=== PATIENT | male | born 1945 | race Caucasian/White ===

== ENCOUNTER → 2017-10-02 12:12 | Outpatient (POV) | payer MEDICARE, SELFPAY | PROVIDERS: Family Provider Family Medicine; Visit Provider Podiatrist | DX: Z00.00 Encounter for general adult medical examination without abnormal findings (principal) ==

== ENCOUNTER → 2018-01-14 09:29 | Outpatient (POV) | payer MEDICARE, SELFPAY | PROVIDERS: Visit Provider Podiatrist | DX: Z00.00 Encounter for general adult medical examination without abnormal findings (principal) ==

== ENCOUNTER 2019-01-16 18:22 | Observation (INO) ==
--- NOTE | 2019-01-16 19:39 | Emergency Department Note ---
ED Disposition Clinical Impression: Dehydration, Generalized weakness, Acute kidney injury (nontraumatic) Nausea & vomiting Qualifiers: Vomiting type: unspecified Vomiting Intractability: unspecified Qualified Code(s): R11.2 - Nausea with vomiting, unspecified Abdominal pain Qualifiers: Abdominal location: generalized Qualified Code(s): R10.84 - Generalized abdomi nal pain Disposition: Admitted as Observation Condition on Discharge: Fair Time of Disposition: 20:34 - Critical Care Critical Care Time: No Attestation: On 01/16/19, the high probability of a clinically significant, sudden or life threatening deterioration of the following system(s) required my full and direct attention, intervention and personal management. The time I documented below is in addition to time spent performing reported procedures but includes the following listed in this critical care notation. Medical Decision Making - Medical Records Medical records reviewed: Yes: I reviewed the patient's medical records. - [place] Inquiry Pt receiving controlled substance: No Vital Signs: 01/16/19 18:28 Temperature 98.7 F Temperature Source Oral Pulse Rate [Right] 84 Respiratory Rate 18 Blood Pressure [Right Arm] 146/57 H Blood Pressure Mean [Right Arm] 86 Blood Pressure Source [Right Arm] Automatic Cuff Blood Pressure Position [Right Arm] Sitting 02 Sat by Pulse Oximetry 97 Oxygen Delivery Method Room Air - Lab Data Lab results reviewed: Yes: I reviewed the patient's lab results. Lab Results 01/16/19 19:30: Urine Color Yellow, Urine Appearance Clear, Urine pH 5.0, Ur Specific [place] >= 1.030, Urine Protein Negative, Urine Glucose (UA) Negative, Urine Ketones Negative, Urine Blood Trace-i, Urine Nitrate Negative, Urine Bilirubin Negative, Urine Urobilinogen 0.2, Ur Leukocyte Esterase Negative, Urine RBC 3-5, Amorphous Sediment Trace 01/16/19 19:30: WBC 6.0, RBC 3.63 L, Hgb 8.5 L, Hct 29.5 L, MCV 81.3, MCH 23.4 L , MCHC 28.7 L, RDW 17.3, Plt Count 260, MPV 7.6, Neut % (Auto) 65.4, Lymph % (Auto) 26.3, [place] % (Auto) 7.2, Eos % (Auto) 1.0, Baso % (Auto) 0.1, Neut # (Auto) 3.9, Lymph # (Auto) 1.6, [place] # (Auto) 0.4, Eos # (Auto) 0.1, Baso # (Auto) 0.0, ESR 58 H 01/16/19 19:30: Sodium 138, Potassium 3.8, Chloride 100, Carbon Dioxide 29, Anion Gap 12.8, BUN 57 H D, Creatinine 2.50 H D, Estimated Creat Clear 47, Estimated GFR 25 L, Est GFR ( Amer) 31 L, Glucose 128 H, Calcium 8.5, Total Bilirubin 0.4, AST 22, ALT 15 D, Alkaline Phosphatase 74, Troponin I 0.21 H, C-Reactive Protein 2.9 H, Total Protein 7.7, Albumin 3.2 L, Globulin 4.5 H, Albumin/Globulin Ratio 0.7 L, Amylase 44, Lipase 193 Result diagrams: 01/16/19 19:30 01/16/19 19:30 Orders (Tests/Meds): ED MEDICATIONS Generic Name Dose Route Start Last Admin Trade Name Freq PRN Reason Stop Dose Admin Sodium Chloride 1,000 mls @ 999 mls/hr 01/16/19 19:00 01/16/19 19:16 Sod Chlor 0.9% 1000ml Bag IV 01/16/19 20:00 999 mls/hr .Q1H1M TIA Administration Discontinued Medications Generic Name Dose Route Start Last Admin Trade Name Freq PRN Reason Stop Dose Admin Ondansetron HCl 4 mg 01/16/19 19:44 01/16/19 19:49 Zofran 4mg/2ml Vial IV 01/16/19 19:45 4 mg ONCE ONE Administration Ondansetron HCl 4 mg 01/16/19 19:45 Zofran 4mg/2ml Vial IV 01/16/19 19:46 ONCE ONE ORDERS Category Date Time Status KUB (single view) [XR KUB] Stat Exams 01/16/19 19:39 Taken Amylase Stat Lab 01/16/19 20:25 Ordered Diarrhea 6-11 Panel, Cdiff PCR Stat Lab 01/16/19 18:52 Ordered Lactic Acid Stat Lab 01/16/19 20:25 Ordered Lactic Acid Stat Lab 01/16/19 20:26 Ordered Lipase Stat Lab 01/16/19 20:25 Ordered Troponin I Q3H Lab 01/16/19 22:15 Ordered Troponin I Q3H Lab 01/17/19 01:15 Ordered Blood Culture Stat Micro 01/16/19 20:26 Ordered Blood Culture Stat Micro 01/16/19 20:30 Ordered - ECG Data Tracing #1 EKG done at 1919 hrs. shows normal sinus rhythm with a heart rate of 95 bpm, normal P waves, normal AL interval, normal axis, nonspecific ST-T changes. No other acute finding. - Physician Consults Physician Consulted: Dr. Langley Time: 20:10 Reason -: Admission Comment/Response: Discussed with the hospitalist, Dr. Langley, regarding the patient and plan to get the patient admitted to the floor. - Reevaluation(s) Time: 20:15 Reevaluation #1: Patient has been stable throughout the course of stay in the ER. Plan to discuss the case with the primary care, in order to admit the patient for generalized weakness and acute kidney injury. General Adult HPI - General Chief complaint: Nausea/Vomiting/Diarrhea Stated complaint: weakness Time Seen by Provider: 01/16/19 19:30 Mode of Arrival: Wheelchair Limitations: No Limitations Description of Symptoms (Recalled from ER Triage Doc. by RN): Patient reports he was seen in the ED jono night for congestion, vomiting, diarrhea and his symptoms are not improving. Generalized weakness. - History of Present Illness HPI narrative: 73-year-old male presents to the emergency department with chief complaint of having nausea vomiting and diarrhea. He had a nausea vomiting and diarrheal episode 4 days ago. He had come to the emergency department 3 nights ago. He was started on Flagyl and ciprofloxacin. He states he has not been feeling better and still feels very weak. He is not able to ambulate well. Still not able to eat or drink much. He is still having diarrheal episode. Feels nauseated but has not vomited much. No history of fever or chills. - Related Data Home Medications Medication Instructions Recorded Confirmed acyclovir 800 mg tablet PO 90 Days 08/25/17 09/09/18 blood sugar diagnostic strips See Dose Instructions .ROUTE 08/25/17 09/09/18 .MEDSUPPLY 90 Days each glipizide 10 mg tablet PO 90 Days 08/25/17 09/09/18 hydrochlorothiazide 25 mg tablet PO 90 Days 08/25/17 09/09/18 insulin degludec (U-200) 200 SUB-Q 90 Days 08/25/17 09/09/18 unit/mL (3 mL) subcutaneous pen lisinopril 40 mg tablet PO 90 Days 08/25/17 09/09/18 omeprazole 20 mg capsule,delayed PO 90 Days 08/25/17 09/09/18 release pen needle, diabetic 32 gauge x See Dose Instructions .ROUTE 08/25/17 09/09/18 1/6" .MEDSUPPLY 90 Days each pioglitazone 45 mg tablet PO 90 Days 08/25/17 09/09/18 insulin degludec (U-200) 200 SQ 90 Days ml 02/25/18 09/09/18 unit/mL (3 mL) subcutaneous pen atorvastatin 10 mg tablet 10 mg PO tab 09/09/18 09/09/18 furosemide 40 mg tablet 40 mg PO tab 09/09/18 09/09/18 Previous Rx's Medication Instructions Recorded Ciprofloxacin HCl [Ciprofloxacin 500 mg PO BID 7 Days #14 tab 01/14/19 500mg Tab] Ondansetron [Zofran 4mg ODT] 4 mg PO Q4H PRN #10 tab.rapdis 01/14/19 metroNIDAZOLE [Flagyl 500mg 500 mg PO TID 7 Days #21 tab 01/14/19 Tablet] Allergies Allergy/AdvReac Type Severity Reaction Status Date / Time ampicillin [From Unasyn] Allergy Severe S-SWELLS-OR Verified 09/09/18 12:51 AL/THROAT sulbactam [From Unasyn] Allergy Severe S-SWELLS-OR Verified 09/09/18 12:51 AL/THROAT [facility] History - Hepatitis A Screen Drug use history?: No High risk sexual behaviors?: No History of sexually transmitted infection?: No Currently employed?: No Childcare worker?: No Do you have indoor plumbing?: Yes Do you have electricity?: Yes Attestation statement:: This patient has been screened for Hepatitis A risk factors. Medical History: Reports:: Aneurysm, Cancer (PROSTATE), Diabetes Mellitus Type 2, Gastroesophageal Reflux Disease(GERD), Hyperlipidemia, Hypertension Other Medical History: Reports: Arthritis Other Surgeries: Yes: Colonoscopy, Sinus Surgery Comment: Aneurysm surgery 2014 - Social History Smoking Status: Former smoker Tobacco Type: cigarettes Alcohol Intake: never Alcohol Intake Frequency:: other Occupational Status: retired Family Hx:: No significant family history ROS Obtained: Yes All systems reviewed & no additional complaints Physical Exam - General General appearance: alert, in no apparent distress, other (Complains of feeling weak.) - Head Head exam: atraumatic, normocephalic, normal inspection - Eye Eye exam: Present: normal appearance, PERRL, EOMI - ENT ENT exam: Present: normal exam, normal oropharynx, mucous membranes moist, normal external ear exam - Neck Neck exam: Present: normal inspection, full ROM, trachea midline - Chest Chest inspection: Present: normal inspection, symmetric chest wall rise. Absent: tenderness - Respiratory Respiratory exam: Present: normal lung sounds bilaterally. Absent: respiratory distress - Cardiovascular Cardiovascular exam: Present: regular rate, normal rhythm. Absent: JVD - Abdominal Exam Abdominal exam: Present: soft, distention, hyperactive bowel sounds. Absent: tenderness, guarding - Extremities Exam Extremities exam: Present: normal inspection, full ROM, normal capillary refill. Absent: calf tenderness - Back Exam Back exam: Present: normal inspection. Absent: tenderness - Neurological Exam Neurological exam: Present: alert, oriented X3, CN II-XII intact - Psychiatric Psychiatric exam: Present: normal affect, normal mood. Absent: depressed - Skin Skin exam: Present: warm, dry, intact, normal color
[2019-01-16 19:42] LABS: Basophils % 0.1 % (0.1-2.0); Eosinophils # 0.1 K/mm3 (0.0-0.4); Hemoglobin 8.5 g/dL (14.1-18.0); Lymphocytes # 1.6 K/mm3 (0.7-4.5); Lymphocytes % 26.3 % (10-50); Mean Corpuscular HGB Conc 28.7 g/dL (31.8-35.4); Mean Corpuscular Volume 81.3 fl (80-94); Mean Platelet Volume 7.6 fl (7.4-10.4); Microscopic, Urine URINE MICROSCOPIC (MICROSCOPIC); Monocytes # 0.4 K/mm3 (0.1-1.0); Monocytes % 7.2 % (1.7-9.3); Neutrophils # 3.9 K/mm3 (1.8-7.8); Neutrophils % 65.4 % (37.0-80.0); Platelet Count 260 K/mm3 (142-424); Red Blood Count 3.63 M/mm3 (4.60-6.20); Red Cell Distribution Width 17.3 % (11.5-17.5)
[2019-01-16 19:44] LABS: Hematocrit 29.5 % (42.0-52.0)
[2019-01-16 19:57] LABS: Appearance,Urine CLEAR (Clear); Bilirubin,Urine Negative (Negative); Blood, Urine TRACE-I (Negative); Color,Urine YELLOW (Yellow); Glucose,Urine (UA) Negative (Negative); Ketones,Urine Negative (Negative); Leukocyte Esterase,Urine Negative (Negative); Protein,Urine Negative (Negative); Specific Gravity, Urine >= 1.030 (1.005-1.030); Urobilinogen,Urine 0.2 EU/dl (0.2)
[2019-01-16 19:58] LABS: Albumin Level 3.2 gm/dL (3.4-5.0); Albumin/Globulin Ratio 0.7 (1.1-1.8); Anion Gap 12.8 mEq/L (5-15); Bilirubin,Total 0.4 mg/dL (0.2-1.0); C-Reactive Protein 2.9 mg/dL (0.0-0.9); Calcium 8.5 mg/dL (8.5-10.1); Globulin 4.5 gm/dl (1.3-3.2); Total Protein,Serum 7.7 gm/dL (6.4-8.2)
[2019-01-16 20:01] LABS: Amorphous Sediment,Urine Trace /lpf
[2019-01-16 20:11] LABS: Erythrocyte Sedimentation Rate 58 mm/hr (0-20)
[2019-01-16 20:45] LABS: Amylase 42 U/L (25-115)
[2019-01-17 06:37] LABS: Basophils % 0.3 % (0.1-2.0); Eosinophils # 0.1 K/mm3 (0.0-0.4); Eosinophils % 2.1 % (0.1-12.0); Hematocrit 27.3 % (42.0-52.0); Hemoglobin 8.5 g/dL (14.1-18.0); Lymphocytes # 1.2 K/mm3 (0.7-4.5); Lymphocytes % 21.1 % (10-50); Mean Corpuscular HGB Conc 31.3 g/dL (31.8-35.4); Mean Platelet Volume 7.4 fl (7.4-10.4); Monocytes # 0.5 K/mm3 (0.1-1.0); Monocytes % 9.1 % (1.7-9.3); Neutrophils # 3.8 K/mm3 (1.8-7.8); Neutrophils % 67.4 % (37.0-80.0); Platelet Count 213 K/mm3 (142-424); Red Blood Count 3.42 M/mm3 (4.60-6.20); Red Cell Distribution Width 17.5 % (11.5-17.5); White Blood Count 5.7 K/mm3 (4.8-10.8)
[2019-01-17 06:39] LABS: Anion Gap 11.6 mEq/L (5-15)
--- NOTE | 2019-01-17 07:28 | Pharmacy Consult Notes ---
[facility] Pharmacy VTE Monitoring - Patient Demographics Admission date: 01/16/19 Report Date: 01/17/19 Time: 07:28 Allergies/Adverse Reactions: Patient Allergies ampicillin [From Unasyn] Allergy (Severe, Verified 09/09/18 12:51) [id number]/THROAT sulbactam [From Unasyn] Allergy (Severe, Verified 09/09/18 12:51) [id number]/THROAT Height: 1.83 m Weight: 131.74 kg Patient Problems: Current Active Problems Abdominal pain (Acute) Dehydration (Acute) Generalized weakness (Acute) Nausea & vomiting (Acute) Acute kidney injury (nontraumatic) (Acute) - VTE Risk Labs: VTE Related Lab Results Hgb 8.5 g/dL (14.1-18.0) L 01/17/19 06:18 Hct 27.3 % (42.0-52.0) L 01/17/19 06:18 Plt Count 213 K/mm3 (142-424) 01/17/19 06:18 BUN 51 mg/dL (7-18) H 01/17/19 06:18 Creatinine 2.31 mg/dL (0.70-1.30) H 01/17/19 06:18 Estimated Creat Clear 53 mL/min (50-200) 01/17/19 06:18 VTE Score: 6 VTE Risk Level: Moderate Risk - Prophylaxis VTE Prophylaxis Ordered?: Yes Types of VTE Prophylaxis: TEDS Knee High Location of Applied Device: Bilateral Lower Extremeties - VTE Diagnosis Confirmed Treatment or plan recommended: Continue Current Treatment
--- NOTE | 2019-01-17 07:55 | History & Physical Report ---
*Admission Date: 01/16/19 *Chief complaint: Weakness, vomiting, diarrhea *History of present illness: 73-year-old male with diabetes and hypertension presented to the emergency department with 4 days of vomiting and diarrhea. Illness had left him so weak that he had fallen and was unable to get up off the floor for approximately 6 hours. He had contacted his sister who lives close by and after she came to see him she called 911. Patient was brought to the emergency department for evaluation. He was found to have some mild acute kidney injury and appeared dehydrated. Patient was admitted for IV fluids and antiemetics. This morning he has tolerated his breakfast without nausea or vomiting. He denies fevers, chills. He denies chest pain or shortness of breath. He denies blood in his stool. [facility] History I have reviewed the patient's past medical history: Yes Medical History: Reports:: Aneurysm, Cancer (PROSTATE), Diabetes Mellitus Type 2, Gastroesophageal Reflux Disease(GERD), Hyperlipidemia, Hypertension *Have you ever received a pneumonia vaccine?: Yes *Have you received a flu vaccine this season?: Yes Other Medical History: Reports: Arthritis Other Surgeries: Yes: Colonoscopy, Sinus Surgery - *Social History Educational Level: Completed High School Smoking Status: Former smoker Tobacco Type: cigarettes Alcohol Intake: never Alcohol Intake Frequency:: other *Occupational Status:: retired *Travel in the last 8 weeks: None Family Hx:: No significant family history Review of Systems - Constitutional Reports body ache(s), Denies anorexia, Denies chills, Denies fever(s) - *Cardiovascular Denies chest pain - *Respiratory Denies change in phlegm color, Denies chest congestion, Denies cough - *Gastrointestinal Reports bloating, Reports change in bowel habits, Reports loose stools, Reports nausea, Reports vomiting, Denies abdominal pain - *Genitourinary Denies difficulty urinating Meds Home Medications Medication Instructions Recorded Confirmed Type hydrochlorothiazide 25 mg tablet 25 mg PO DAILY 90 Days 08/25/17 01/16/19 History lisinopril 40 mg tablet 40 mg PO BID 90 Days 08/25/17 01/16/19 History omeprazole 20 mg capsule,delayed 20 mg PO DAILY 90 Days 08/25/17 01/16/19 History release pioglitazone 45 mg tablet 45 mg PO HS 90 Days 08/25/17 01/16/19 History insulin degludec (U-200) 200 30 units SQ DAILY 90 Days ml 02/25/18 01/16/19 History unit/mL (3 mL) subcutaneous pen atorvastatin 10 mg tablet 10 mg PO DAILY tab 09/09/18 01/16/19 History Ondansetron [Zofran 4mg ODT] 4 mg PO Q4H PRN #10 tab.rapdis 01/14/19 01/16/19 Rx Aspirin [Aspirin 81mg EC Tab] 81 mg PO DAILY 01/16/19 01/16/19 History Ciprofloxacin HCl [Ciprofloxacin 500 mg PO BID 01/16/19 01/16/19 History 500mg Tab] Furosemide [Furosemide 20mg Tab] 20 mg PO BID 01/16/19 01/16/19 History glipiZIDE [Glipizide] 5 mg PO DAILY 01/16/19 01/16/19 History metroNIDAZOLE [Flagyl 500mg 500 mg PO TID 01/16/19 01/16/19 History Tablet] Allergies Allergy/AdvReac Type Severity Reaction Status Date / Time ampicillin [From Unasyn] Allergy Severe S-SWELLS-OR Verified 09/09/18 12:51 AL/THROAT sulbactam [From Unasyn] Allergy Severe S-SWELLS-OR Verified 09/09/18 12:51 AL/THROAT Exam Vital signs and Labs for Last 24 Hours: Temp Pulse Resp BP Pulse Ox 98.7 F 97 H 20 136/61 90 L 01/17/19 04:00 01/17/19 04:00 01/17/19 04:00 01/17/19 04:00 01/17/19 04:00 Laboratory Results - last 24 hr 01/16/19 19:30: Urine Color Yellow, Urine Appearance Clear, Urine pH 5.0, Ur Specific [place] >= 1.030, Urine Protein Negative, Urine Glucose (UA) Negative, Urine Ketones Negative, Urine Blood Trace-i, Urine Nitrate Negative, Urine Bilirubin Negative, Urine Urobilinogen 0.2, Ur Leukocyte Esterase Negative, Urine RBC 3-5, Amorphous Sediment Trace 01/16/19 19:30: WBC 6.0, RBC 3.63 L, Hgb 8.5 L, Hct 29.5 L, MCV 81.3, MCH 23.4 L , MCHC 28.7 L, RDW 17.3, Plt Count 260, MPV 7.6, Neut % (Auto) 65.4, Lymph % (Auto) 26.3, [place] % (Auto) 7.2, Eos % (Auto) 1.0, Baso % (Auto) 0.1, Neut # (Auto) 3.9, Lymph # (Auto) 1.6, [place] # (Auto) 0.4, Eos # (Auto) 0.1, Baso # (Auto) 0.0, ESR 58 H 01/16/19 19:30: Sodium 138, Potassium 3.8, Chloride 100, Carbon Dioxide 29, Anion Gap 12.8, BUN 57 H D, Creatinine 2.50 H D, Estimated Creat Clear 47, Estimated GFR 25 L, Est GFR ( Amer) 31 L, Glucose 128 H, Calcium 8.5, Total Bilirubin 0.4, AST 22, ALT 15 D, Alkaline Phosphatase 74, Troponin I 0.21 H, C-Reactive Protein 2.9 H, Total Protein 7.7, Albumin 3.2 L, Globulin 4.5 H, Albumin/Globulin Ratio 0.7 L, Amylase 44, Lipase 193 01/16/19 19:30: Amylase 42, Lipase 192 01/16/19 21:00: Lactate 1.0 01/16/19 23:57: POC Glucose 196 H 01/17/19 01:35: Troponin I 0.14 H 01/17/19 05:27: POC Glucose 169 H 01/17/19 06:18: WBC 5.7, RBC 3.42 L, Hgb 8.5 L, Hct 27.3 L, MCV 80.0, MCH 25.0 L , MCHC 31.3 L, RDW 17.5, Plt Count 213, MPV 7.4, Neut % (Auto) 67.4, Lymph % (Auto) 21.1, [place] % (Auto) 9.1, Eos % (Auto) 2.1, Baso % (Auto) 0.3, Neut # (Auto) 3.8, Lymph # (Auto) 1.2, [place] # (Auto) 0.5, Eos # (Auto) 0.1, Baso # (Auto) 0.0 01/17/19 06:18: Sodium 137, Potassium 3.6, Chloride 100, Carbon Dioxide 29, Anion Gap 11.6, BUN 51 H, Creatinine 2.31 H, Estimated Creat Clear 53, Estimated GFR 28 L, Est GFR ( Amer) 34 L, Glucose 156 H D, Calcium 8.0 L I & O for Last 24 hours: Intake & Output 01/14/19 01/15/19 01/16/19 01/17/19 11:59 11:59 11:59 11:59 Intake Total 1198 / 1198 Output Total 700 / 700 Balance 498 / 498 Weight 290 lb 7 oz Narrative: Patient is sitting in chair this morning and shows no signs of any acute distress or illness. Oropharynx reveals tacky mucous membranes. Neck is without lymphadenopathy. Lungs are distant but clear. Heart has a regular rate and rhythm. Abdomen is obese, soft, nontender and nondistended with active bowel sounds. Patient has 2+ edema of the lower extremities. He has no neurologic deficit Assessment and Plan (1) Gastroenteritis Current visit: Yes Status: Acute Category: Medical Code(s): K52.9 - Noninfective gastroenteritis and colitis, unspecified (2) Essential hypertension Current visit: Yes Status: Acute Category: Medical Code(s): I10 - Essential (primary) hypertension (3) Acute kidney injury (nontraumatic) Current visit: Yes Status: Acute Category: Medical Code(s): N17.9 - Acute kidney failure, unspecified (4) Dehydration Current visit: Yes Status: Acute Category: Medical Code(s): E86.0 - Dehydration (5) Generalized weakness Current visit: Yes Status: Acute Category: Medical Code(s): R53.1 - Weakness (6) Diabetes mellitus with diabetic polyneuropathy Current visit: No Status: Acute Qualifiers: Category: Medical Code(s): E11.42 - Type 2 diabetes mellitus with diabetic polyneuropathy - Assessment and plan all Dx Assessment and Plan for all problems:: Patient is already showing signs of improvement at he has tolerated a full breakfast so far. He still remains weak from his dehydration and acute kidney injury. Change IV fluids to normal saline at 125 mL's an hour. Hold his lisinopril, hydrochlorothiazide and sulfonylurea. PT eval today.
[2019-01-17 13:48] LABS: Ferritin 16 ng/mL (8-388); Lactate Dehydrogenase 217 U/L (82-234)
[2019-01-17 15:08] LABS: Reticulocyte % (Auto) 2.1 % (0.9-3.2)
--- OUTSIDE RECORDS SUMMARY | 2019-01-17 15:22 | External Medical Summary | Continuity of Care Document ---
:1945 Author Organization [facility] Address [address] [facility] [address] [place] [address] Phone Care Team Providers Name Role Phone Dirk Primary Care Provider Dirk Attending Provider Jenise Langley Attending Provider Allergies, Adverse Reactions, Alerts Allergen Type Severity Reaction Last Verified Status Updated ampicillin Allergy Severe C-[id number] Yes Active L/THROAT sulbactam Allergy Severe [id number] Yes Active L/THROAT Medications Medication Status Dose Units Route Sig Qty Days Start End Instruct ions Date Date Atorvastatin Active 10 MG Oral Daily September 12:51pm Lisinopril Active 40 MG Oral Twice a August 10:13am Hydrochlorothia Active 25 MG Oral Daily August 10:13am Omeprazole Active 20 MG Oral Daily August 25, 2017 10:14am Pioglitazone Active 45 MG Oral At August bedtime ly 2017 10:14am Insulin Active 30 UNITS SUBCUTANE Daily February Degde OU2018 11:31am Aspirin Active 81 MG Oral Daily January 16, 2019 8:36pm Metronidazole Active 500 MG Oral Three Juice times a 2018 day 8:36pm Ciprofloxacin Active 500 MG Oral Twice a January 8:37pm Furosemide Active 20 MG Oral Twice a January 11:13pm Glipizide Active 5 MG Oral Every January report s only evening 2018 taking h halfway 11:13pm of tab once a day. Glipizide Active 10 MG Oral Daily January 17, 2019 10:25am Ondansetron Active 4 MG Oral Q4H 10 January 14, 2019 8:07pm Problems Active Problems Medical Problem Onset Date Status Nausea vomiting and diarrhea Active Onychodystrophy Active Onychomycosis Active Essential hypertension Active Enteritis Active Gastroenteritis Active Diabetes mellitus with diabetic Active polyneuropathy Renal insufficiency Active Generalized weakness Active Acute kidney injury (nontraumatic) Activ e Nausea & vomiting Active Abdominal pain Active Dehydration Active Procedures Procedure Date Performed Status CT abdomen pelvis wo con January 14, 2019 completed Blood Culture January 14, 2019 active XR KUB January 16, 2019 completed XR chest 2V January 17, 2019 completed ECG initial Esteban January 16, 2019 completed Blood Culture January 16, 2019 active Relevant Diagnostic Tests and/or Laboratory Data Laboratory Results Test Date/Time Result Interpretation Reference Result Comment Performing Range Site White Blood January 8.0 K/mm3 4.8-10.8 [facility], [address] [place] [address] 36 E Count 2018 [place] [address] 5:36pm White Blood January 5.7 K/mm3 4.8-10.8 [facility], [address] [place] [address] 36 E Count 2018 [place] [address] 6:18am Red Blood January 4.19 M/mm3 4.60-6.20 [facility], [address] [place] [address] 36 E Count 2018 [place] [address] 5:36pm Red Blood January 3.42 M/mm3 4.60-6.20 [facility], [address] [place] [address] 36 E Count 2018 [place] [address] 6:18am Hemoglobin January 10.1 g/dL 14.1-18.[address] 36 [address] 2018 [place] [address] 5:36pm Hemoglobin January 8.5 g/dL 14.1-18.0 [facility], [address] [place] [address] 36 E 2018 [place] [address] 6:18am Hematocrit Juice 33.9 % 42.0-52.[address] 36 E 2018 [place] [address] 5:36pm Hematocrit Juice 27.3 % 42.0-52.0 [facility], [address] [place] [address] 36 E 2018 [place] [address] 6:18am Mean Juice 80.9 fl 80-94 [facility], [address] [place] [address] E Corpuscular 2018 [place] [address] Volume 5:36pm Mean Juice 80.0 fl 80-94 [facility], [address] [place] [address] E Corpuscular 2018 [place] [address] Volume 6:18am Mean Juice 24.1 pg 27.0-31.2 [facility], [address] [place] [address] E Corpuscular 2018 [place] [address] Hemoglobin 5:36pm Mean Juice 25.0 pg 27.0-31.2 [facility], [address] [place] [address] E Corpuscular 2018 [place] [address] Hemoglobin 6:18am Mean January 29.7 g/dL 31.8-35.4 [facility], [address] [place] [address] E Corpuscular 2018 [place] [address] Hemoglobin 5:36pm Concent Mean Juice 31.3 g/dL 31.8-35.4 [facility], [address] [place] [address] E Corpuscular 2018 [place] [address] Hemoglobin 6:18am Concent Red Cell Ujice 17.2 % 11.5-17.5 [facility], [address] [place] [address] E Distribution 2018 [place] [address] Width 5:36pm Red Cell Juice 17.5 % 11.5-17.5 [facility], [address] [place] [address] E Distribution 2018 [place] [address] Width 6:18am Platelet Juice 290 K/mm3 142-424 [facility], [address] [place] [address] E Count 2018 [place] [address] 5:36pm Platelet Juice 213 K/mm3 142-424 [facility], [address] [place] [address] 36 E Count 2018 [place] [address] 6:18am Mean Platelet Juice 8.3 fl 7.4-10.4 [facility], [address] [place] [address] 36 E Volume 2018 [place] [address] 5:36pm Mean Platelet January 7.4 fl 7.4-10.4 [facility], [address] [place] [address] 36 E Volume 2018 [place] [address] 6:18am Neutrophils Juice 92.3 % 37.0-80.0 [facility], [address] [place] [address] 36 E (%) (Auto) 2018 [place] [address] 5:36pm Neutrophils Juice 67.4 % 37.0-80.0 [facility], [address] [place] [address] 36 E (%) (Auto) 2018 [place] [address] 6:18am Lymphocytes Juice 3.9 % -[address] 36 E (%) (Auto) 2018 [place] [address] 5:36pm Lymphocytes Juice 21.1 % -[address] 36 E (%) (Auto) 2018 [place] [address] 6:18am Monocytes (%) Juice 3.3 % 1.7-9.3 [facility], [address] [place] [address] 36 E (Auto) 2018 [place] [address] 5:36pm Monocytes (%) Juice 9.1 % 1.7-9.[address] 36 E (Auto) 2018 [place] [address] 6:18am Eosinophils Juice 0.4 % 0.1-12.[address] 36 E (%) (Auto) 2018 [place] [address] 5:36pm Eosinophils Juice 2.1 % 0.1-12.[address] 36 E (%) (Auto) 2018 [place] [address] 6:18am Basophils (%) Juice 0.2 % 0.1-2.[address] 36 E (Auto) 2018 [place] [address] 5:36pm Basophils (%) Juice 0.3 % 0.1-2.[address] 36 E (Auto) 2018 [place] [address] 6:18am Neutrophils # Juice 7.4 K/mm3 1.8-7.8 [facility], [address] [place] [address] 36 E (Auto) 2018 [place] [address] 5:36pm Neutrophils # Juice 3.8 K/mm3 1.8-7.8 [facility], [address] [place] [address] 36 E (Auto) 2018 [place] [address] 6:18am Lymphocytes # Juice 0.3 K/mm3 0.7-4.5 [facility], [address] [place] [address] 36 E (Auto) 2018 [place] [address] 5:36pm Lymphocytes # Juice 1.2 K/mm3 0.7-4.5 [facility], [address] [place] [address] E (Auto) 2018 [place] [address] 6:18am Monocytes # Juice 0.3 K/mm3 0.1-1.0 [facility], [address] [place] [address] E (Auto) 2018 [place] [address] 5:36pm Monocytes # Juice 0.5 K/mm3 0.1-1.0 [facility], [address] [place] [address] 36 E (Auto) 2018 [place] [address] 6:18am Eosinophils # Juice 0.0 K/mm3 0.0-0.4 [facility], [address] [place] [address] 36 E (Auto) 2018 [place] [address] 5:36pm Eosinophils # Juice 0.1 K/mm3 0.0-0.4 [facility], [address] [place] [address] 36 E (Auto) 2018 [place] [address] 6:18am Basophils # Juice 0.0 K/mm3 0-0.2 [facility], [address] [place] [address] 36 E (Auto) 2018 [place] [address] 5:36pm Basophils # Juice 0.0 K/mm3 0-0.2 [facility], [address] [place] [address] 36 E (Auto) 2018 [place] [address] 6:18am Differential Juice 100 [facility], [address] [place] [address] 36 E Total Cells 2018 [place] [address] Counted 5:36pm Neutrophils % Juice 91 % 42-76 [facility], [address] [place] [address] 36 E (Manual) 2018 [place] [address] 5:36pm Band Juice 3.0 0-8 [facility], [address] [place] [address] 36 E Neutrophils % 2018 [place] [address] 5:36pm Lymphocytes % Juice 4 % 10-50 [facility], [address] [place] [address] 36 E (Manual) 2018 [place] [address] 5:36pm Monocytes % Juice 1 % 2-9 [facility], [address] [place] [address] 36 E (Manual) 2018 [place] [address] 5:36pm Metamyelocyte Juice 1.0 0-1 [facility], [address] [place] [address] 36 E s % 2018 [place] [address] 5:36pm Platelet Juice Normal [facility], [address] [place] [address] 36 E Estimate 2018 [place] [address] 5:36pm Red Blood Juice Normal [facility], [address] [place] [address] 36 E Cell 2018 [place] [address] Morphology 5:36pm Erythrocyte Juice 58 mm/hr 0-20 [facility], [address] [place] [address] 36 E Sedimentation 2018 [place] [address] Rate 7:30pm Reticulocyte Juice 2.1 % 0.9-3.2 [facility], [address] [place] [address] 36 E Count (auto) 2018 [place] [address] 6:18am Urine Color Juice Yellow Yellow [facility], [address] [place] [address] 36 E 2018 [place] [address] 5:13pm Urine Color Juice Yellow Yellow [facility], [address] [place] [address] 36 E 2018 [place] [address] 7:30pm Urine Juice Clear Clear [facility], [address] [place] [address] 36 E Appearance 2018 [place] [address] 5:13pm Urine Juice Clear Clear [facility], [address] [place] [address] 36 E Appearance 2018 [place] [address] 7:30pm Urine pH Juice 5.0 5.0-8.5 [facility], [address] [place] [address] 36 E 2018 [place] [address] 5:13pm Urine pH Juice 5.0 5.0-8.5 [facility], [address] [place] [address] 36 E 2018 [place] [address] 7:30pm Urine Juice >= 1.030 1.005-1.03 [facility], [address] [place] [address] 36 E Specific 2018 0 [place] [address] [place] 5:13pm Urine Juice >= 1.030 1.005-1.03 [facility], [address] [place] [address] 36 E Specific 2018 0 [place] [address] [place] 7:30pm Urine Protein Juice Negative Negative [facility], [address] [place] [address] 36 E 2018 [place] [address] 5:13pm Urine Protein Juice Negative Negative [facility], [address] [place] [address] 36 E 2018 [place] [address] 7:30pm Urine Glucose Juice Negative Negative [facility], [address] [place] [address] 36 E (UA) 2018 [place] [address] 5:13pm Urine Glucose Juice Negative Negative [facility], [address] [place] [address] 36 E (UA) 2018 [place] [address] 7:30pm Urine Ketones Juice Negative Negative [facility], [address] [place] [address] 36 E 2018 [place] [address] 5:13pm Urine Ketones Juice Negative Negative [facility], [address] [place] [address] 36 E 2018 [place] [address] 7:30pm Urine Blood Juice Negative Negative [facility], [address] [place] [address] 36 E 2018 [place] [address] 5:13pm Urine Blood Juice Trace-i Negative [facility], [address] [place] [address] 36 E 2018 [place] [address] 7:30pm Urine Nitrate Juice Negative Negative [facility], [address] [place] [address] 36 E 2018 [place] [address] 5:13pm Urine Nitrate Juice Negative Negative [facility], [address] [place] [address] 36 E 2018 [place] [address] 7:30pm Urine Juice Negative Negative [facility], [address] [place] [address] 36 E Bilirubin 2018 [place] [address] 5:13pm Urine Juice Negative Negative [facility], [address] [place] [address] 36 E Bilirubin 2018 [place] [address] 7:30pm Urine Juice 0.2 EU/dl [facility], [address] [place] [address] 36 E Urobilinogen 2018 [place] [address] 5:13pm Urine Juice 0.2 EU/dl [facility], [address] [place] [address] 36 E Urobilinogen 2018 [place] [address] 7:30pm Urine Juice Negative Negative [facility], [address] [place] [address] 36 E Leukocyte 2018 [place] [address] Esterase 5:13pm Urine Juice Negative Negative [facility], [address] [place] [address] E Leukocyte 2018 [place] [address] Esterase 7:30pm Urine RBC January 3-5 #/hpf [facility], [address] [place] [address] E 2018 [place] [address] 7:30pm Urine WBC January 3-5 #/hpf [facility], [address] [place] [address] 36 E 2018 [place] [address] 5:13pm Urine Juice Occasional [facility], [address] [place] [address] E Squamous 2018 #/[place] [address] Epithelial 5:13pm Cells Urine January 1+ /lpf None [facility], [address] [place] [address] E Amorphous 2018 [place] [address] Sediment 5:13pm Urine Juice Trace /lpf None [facility], [address] [place] [address] E Amorphous 2018 [place] [address] Sediment 7:30pm Troponin I January 0.14 ng/ml 0.00-0.06 *ALERT* High [facility], [address] [place] [address] 36 E 2018 [place] [address] 1:35am Biotin can falsely depress Troponin results.Many dietary supplements promoted for hair,skin, and nail benefits contain biotin levels up to 650 times the recommended daily intake of biotin. In addition to dietary supplements, Biotin is occasionally prescribed for medical conditions.0.04 - 0.49 is an Indeterminate ZoneLevels in this range can be consistent with the following conditions:Trau ma Critically ill Patients Springer > 30%TBSACHF Hypothyroidism AmyloidosisCVA Hypertension Postop SurgeryAtrial Fib. Hypotension Vital Exhaust.Sepsis Pulmonary Embolism Renal FailureMyocardi tis Acute Neurological Disease Rhabdomyolysis Sodium Level January 140 mmol/L 136-145 [facility], [address] [place] [address] 36 E 2018 [place] [address] 5:36pm Sodium Level Juice 137 mmol/L 136-145 [facility], [address] [place] [address] 36 E 2018 [place] [address] 6:18am Potassium Juice 4.0 mmoL/L 3.5-5.1 [facility], [address] [place] [address] 36 E Level 2018 [place] [address] 5:36pm Potassium Juice 3.6 mmoL/L 3.5-5.1 [facility], [address] [place] [address] 36 E Level 2018 [place] [address] 6:18am Chloride Juice 100 mmol/L 98-107 [facility], [address] [place] [address] 36 E Level 2018 [place] [address] 5:36pm Chloride Juice 100 mmol/L 98-107 [facility], [address] [place] [address] 36 E Level 2018 [place] [address] 6:18am Carbon Juice 28 mmol/L 21.0-32.0 [facility], [address] [place] [address] 36 E Dioxide Level 2018 [place] [address] 5:36pm Carbon Juice 29 mmol/L 21.0-32.0 [facility], [address] [place] [address] 36 E Dioxide Level 2018 [place] [address] 6:18am Anion Gap January 16.0 mEq/L 06-23 [facility], [address] [place] [address] 36 E 2018 [place] [address] 5:36pm Anion Gap Juice 11.6 mEq/L 06-23 [facility], [address] [place] [address] 36 E 2018 [place] [address] 6:18am Blood Urea January 41 mg/dL 08-26 [facility], [address] [place] [address] 36 E Nitrogen 2018 [place] [address] 5:36pm Blood Urea January 51 mg/dL 08-26 [facility], [address] [place] [address] 36 E Nitrogen 2018 [place] [address] 6:18am Creatinine Juice 2.06 mg/dL 0.70-1.30 [facility], [address] [place] [address] 36 E 2018 [place] [address] 5:36pm Creatinine Juice 2.31 mg/dL 0.70-1.30 [facility] [address] [place] [address] 36 E 2018 [place] [address] 6:18am Estimated Juice 57 mL/min 0-300 [facility], [address] [place] [address] 36 E Creatinine 2018 [place] [address] Clearance 5:36pm Estimated Juice 53 mL/min 0-300 [facility], [address] [place] [address] 36 E Creatinine 2018 [place] [address] Clearance 6:18am Estimated GFR January 38 ML/MIN >59 [facility], [address] [place] [address] 36 E ( 2018 [place] [address] [place]) 5:36pm Estimated GFR January 34 ML/MIN >59 [facility], [address] [place] [address] 36 E ( 2018 [place] [address] [place]) 6:18am Estimat January 32 ml/min >59 [facility], [address] [place] [address] 36 E Glomerular 2018 [place] [address] Filtration 5:36pm Rate Estimat January 28 ml/min >59 [facility], [address] [place] [address] 36 E Glomerular 2018 [place] [address] Filtration 6:18am Rate Glucose Level January 145 mg/dL 74-106 [facility], [address] [place] [address] 36 E 2018 [place] [address] 5:36pm Glucose Level January 156 mg/dL 74-106 Delta: 128 on [facility], [address] [place] [address] 36 E 201801/16/19-0 [place] [address] 6:18am Bedside January 169 70-110 Point-of-C a Glucose 2018 re (RALS) 5:34pm Bedside January 177 70-110 Point-of-C a Glucose 2018 re (RALS) 11:28am Lactate January 1.5 mmol/L 0.4-2.0 [facility], [address] [place] [address] 36 E 2018 [place] [address] 5:36pm Lactate January 1.0 mmol/L 0.4-2.0 [facility], [address] [place] [address] 36 E 2018 [place] [address] 9:00pm Calcium Level January 8.8 mg/dL 8.5-10.1 [facility], [address] [place] [address] 36 E 2018 [place] [address] 5:36pm Calcium Level January 8.0 mg/dL 8.5-10.1 [facility], [address] [place] [address] 36 E 2018 [place] [address] 6:18am Ferritin Juice 16 ng/mL 8-388 [facility], [address] [place] [address] 36 E 2018 [place] [address] 6:18am Total Juice 0.5 mg/dL 0.2-1.0 [facility], [address] [place] [address] 36 E Bilirubin 2018 [place] [address] 5:36pm Total Juice 0.4 mg/dL 0.2-1.0 [facility], [address] [place] [address] 36 E Bilirubin 2018 [place] [address] 7:30pm Aspartate January 19 U/L 15-37 [facility], [address] [place] [address] 36 E Amino Transf 2018 [place] [address] (AST/SGOT) 5:36pm Aspartate January 22 U/L 15-37 [facility], [address] [place] [address] 36 E Amino Transf 2018 [place] [address] (AST/SGOT) 7:30pm Alanine January 11 U/L 12-78 [facility], [address] [place] [address] 36 E Aminotransfer 2018 [place] [address] ase 5:36pm (ALT/SGPT) Alanine January 15 U/L 12-78 Delta: 11 on [facility], [address] [place] [address] 36 E Aminotransfer 201801/14/19-1736 [place] [address] ase 7:30pm (ALT/SGPT) Lactate January 217 U/L 82-234 [facility], [address] [place] [address] 36 E Dehydrogenase 2018 [place] [address] 6:18am C-Reactive January 2.9 mg/dL 0.0-0.9 [facility], [address] [place] [address] 36 E Protein 2018 [place] [address] 7:30pm Total Protein January 8.7 gm/dL 6.4-8.2 [facility], [address] [place] [address] 36 E 2018 [place] [address] 5:36pm Total Protein Juice 7.7 gm/dL 6.4-8.2 [facility], [address] [place] [address] 36 E 2018 [place] [address] 7:30pm Albumin Juice 3.5 gm/dL 3.4-5.0 [facility], [address] [place] [address] 36 E 2018 [place] [address] 5:36pm Albumin Juice 3.2 gm/dL 3.4-5.0 [facility], [address] [place] [address] 36 E 2018 [place] [address] 7:30pm Globulin Juice 5.2 gm/dl 1.3-3.2 [facility], [address] [place] [address] 36 E 2018 [place] [address] 5:36pm Globulin Juice 4.5 gm/dl 1.3-3.2 [facility], [address] [place] [address] 36 E 2018 [place] [address] 7:30pm Albumin/Globu Juice 0.7 1.1-1.8 [facility], [address] [place] [address] 36 E liz Ratio 2018 [place] [address] 5:36pm Albumin/Globu Juice 0.7 1.1-1.8 [facility], [address] [place] [address] 36 E liz Ratio 2018 [place] [address] 7:30pm Alkaline Juice 95 U/L 46-116 [facility], [address] [place] [address] 36 E Phosphatase 2018 [place] [address] 5:36pm Alkaline Juice 74 U/L 46-116 [facility], [address] [place] [address] 36 E Phosphatase 2018 [place] [address] 7:30pm Amylase Level January 42 U/L 25-115 [facility], [address] [place] [address] 36 E 2018 [place] [address] 7:30pm Lipase Juice 110 u/L 73-393 [facility], [address] [place] [address] 36 E 2018 [place] [address] 5:36pm Lipase January 192 u/L 73-393 [facility], [address] [place] [address] 36 E 2018 [place] [address] 7:30pm Diagnostic Imaging Reports Report Dictated Date/Time Dictated By Status Radiology Report January 14, 2019 Rosalio Ramesh MD completed 6:48pm [facility] [address] [place] [facility] [address] [place] [id number] [address] Scan Report Sig kenisha Patient: Winston Garcia MR#: [id number] : 1945 Acct:[id number] Age/Sex: 73 / M ADM Date: 9 Loc: ER Attending Dr: Ordering Physician: Adis Tripathi MD Date of Service: 01/14/19 Procedure(s): CT abdomen pelvis wo con Accession Number(s): [id number] cc: Rosalio Ramesh MD; Adis Tripathi MD; Ben Batista MD~ PROCEDURE: CT ABDOMEN PELVIS WO CON CLINICAL INDICATION: abd pain Upper abdominal pain with nausea vomiti ng and diarrhea COMPARISON: ABDPELW CT ABD PELVIS W/ CONTRAST from 02/22/2015 TECHNIQUE: Axial images obtained with sagittal and coronal reformats. All CT scans at the facility use one or more dose reduction, viz: automated exposure cont rol, ma/kV adjustment per patient size (including targeted exams where dose is matched to indication, i.e. head), or iterative re construction technique. FINDINGS: LOWER THORAX: Coronary artery calcifica tions. Patchy ground-glass density in the right lower lobe posteri sary suggesting underlying infiltrate and/or atelectatic change. Small hiatal hernia ABDOMEN & PELVIS: The liver, spleen, ga llbladder, left adrenal gland, pancreas, and kidneys show no acute fin ding. There is a 2.5 cm right adrenal myelolipoma. No intestinal obs truction or free air. No evidence of appendicitis or diverticuli tis. There is extensive diverticulosis of the transverse, desce nding, and sigmoid colon without evidence of diverticulitis. De generative changes are present within the spine. There has been prior aortoiliac stent placement within the aorta. There is mild residu al dilatation of the abdominal aorta at 3.5 cm not significantly machuca ed. There is mild prominence of the wall of the stomach which could be due to nondistention or gastritis. There is a 3.6 cm fluid collection in t he left inguinal region consistent with a seroma. This has dec reased in size previously measuring 5.6 by 4.4 cm. IMPRESSION: 1. Right basilar atelectasis and/or inf iltrate. 2. Colonic diverticulosis. No evidence of diverticulitis. 3. Mild thickening of the wall the stom ach which could be due to gastritis or nondistention. 4. Other nonacute findings as described above. Dictated by: Rosalio Ramesh MD 01/15/2019 07:40 Electronically signed by Rosalio Ramesh in [place] 01/15/2019 07:40 Radiology Report January 16, 2019 Rosalio Ramesh MD completed 7:57pm [place] [address] [place] [facility] [address] [place] [address] XRay R eport Sig kenisha Patient: Winston Garcia MR#: [id number] : 1945 Acct:[id number] Age/Sex: 73 / M ADM Date: 9 Loc: Attending Dr: Ben Cavazos MD Ordering Physician: Tasha Cha MD Date of Service: 01/16/19 Procedure(s): XR KUB Accession Number(s): [id number] cc: Rosalio Ramesh MD; Ben Cavazos MD~ PROCEDURE: XR KUB CLINICAL INDICATION: abd. pain Nausea and vomiting COMPARISON: CT ABDOMEN PELVIS WO CON f rom 01/14/2019 FINDINGS: Unremarkable bowel gas pattern. No savannah dence of intestinal obstruction abnormal calcifications or acute bony anomalies. There has been a prior aortoiliac stent graft placed and there are prostate seed implants noted IMPRESSION: No acute findings. Dictated by: Rosalio Ramesh MD 01/17/2019 04:35 Electronically signed by Rosalio Ramesh in [place] 01/17/2019 04:35 Radiology Report January 17, 2019 Rosalio Ramesh MD completed 11:23am [facility] [address] [place] [facility] [address] [place] [address] XRay R eport Sig kenisha Patient: Winston Garcia MR#: [id number] : 1945 Acct:[id number] Age/Sex: 73 / M ADM Date: 9 Loc: Attending Dr: Ben Cavazos MD Ordering Physician: Ben Cavazos MD Date of Service: 01/17/19 Procedure(s): XR chest 2V Accession Number(s): [id number] cc: Rosalio Ramesh MD; Ben Cavazos MD~ PROCEDURE: XR CHEST 2V CLINICAL HISTORY: LOW O2 Low O2 saturation, shortness of breath COMPARISON: CXR CHEST(2 VIEWS-NOT PORT ABLE) from 12/16/2012 [facility]AC CTA-CHEST from 05/30/2013 CXR CHEST(2 VIEWS-NOT PORTABLE) from 08/09/2014 CXR1 CHEST-PORTABLE fro m 10/26/2015 CT ABDOMEN PELVIS WO CON from 9 FINDINGS: Mild cardiomegaly without failure. Patchy density right lung base consiste nt with an area of atelectasis or infiltrate. The remaining lungs are clear. There is evidence of old granulomatous disease. No acute bony abnormalities. IMPRESSION: Patchy atelectasis or infiltrate in the right lung base. Dictated by: Rosalio Ramesh MD 01/17/2019 11:41 Electronically signed by Rosalio Ramesh in [place] 01/17/2019 11:41 Chief Complaint and Reason for Visit Chief Complaint Vomiting, Weakness, Legs swe lling Acute kidney injury, weaknes s Reason for Visit Abdominal pain Acute kidney injury (nontrau matic) Dehydration Essential hypertension Gastroenteritis Generalized weakness Nausea & vomiting Encounters Encounter Location(s) Arrival/Admit Date Discharge/Depart Date Provider(s) Departed [facility] Physician January 14, 2019 January 14, 2019 [facility]Emergency 4:59pm 8:49pm Room Admitted [facility] Physician January 16, 2019 Ben Cavazos , Inpatient Group-Second 9:45pm Floor Registered [facility] Physician January 17, 2019 [facility] Inpatient [facility]- 3:16pm MD Korin Recent Diagnosis Onset Date Abdominal pain Acute kidney injury (nontraumatic) Dehydration Essential hypertension Gastroenteritis Generalized weakness Nausea & vomiting Assessments Diagnosis Onset Date Resolution Status Abdominal pain acute Acute kidney injury acute (nontraumatic) Dehydration acute Essential hypertension acute Gastroenteritis acute Generalized weakness acute Nausea & vomiting acute Functional Status Observation Response Date Recorded Oral Care Ability Independent January 16, 2019 8 :31pm Bathing Ability Independent January 16, 2019 8 :31pm Eating (Feeding) Ability Independent January 16 019 8:31pm Toileting Ability Independent January 16, 2019 8 :31pm Ambulation Ability Independent January 16, 2019 8 :31pm Goals Goals may be documented in an alternate section. Mental Status Observation Response Date Recorded Comprehension Ability No Impairment January 17, 2019 1:00pm Able to Read Yes January 16, 2019 8 :31pm Able to Write Yes January 16, 2019 8 :31pm Ability to Follow Directions Excellent January 8:31pm Eye Contact Direct Eye Contact January 16, 2019 8 :31pm Oral Expression Ability No Impairment January 16 8:31pm Medical Equipment No Medical Equipment Information available Insurance Providers Guarantor Winston Garcia Address [address] [place] [address] Contact Info. Home Phone: Payer Policy Id Coverage Id Subscriber's Subscriber Id Effective E xpiration Name Date Date [employer] [id number] Winston Garcia [id number] February 09 Medicare 2011 Self Pay Self N/A Plan of Treatment Future Tests Future scheduled test information is unavailable Pending Tests Pending diagnostic test information is unavailable Future Visits Future appointment information is unavailable Referrals to Other Providers Reason for Referral Start Provider Provider Contact Provider Address Referral Date Information Admission to [facility] January [address] Future Procedures Future procedure information is unavailable Future Medications Future medication information is unavailable Patient Instructions DI for Dehydration -- Adult DI for Abdominal Pain-Adult DI for Diarrhea and Traveler's Diarrhea -- Adult Nausea and Vomiting-Adult Dehydration Acute Abdominal Pain DI for Dehydration -- Adult DI for Abdominal Pain-Adult DI for Nausea -- Adult Nausea and Vomiting-Adult DI for Acute Kidney Injury Social History Assigned Sex Male Vital Signs Vital Reading Result Reference Range Collection Date/ Time Height 182.88 cm January 14 5:23pm Weight 127.00 kg January 14 5:23pm Body Temperature 98.3 [degF] 97.6-99.6 January 14 019 8:49pm Heart Rate 93 /min 60-90 January 14 8:49pm Respiratory rate 20 /min -January 14 019 8:49pm Oxygen saturation by 97 % 95-100 January Pulse oximetry 7:24pm BP Systolic 108 mm[Hg] 110-140 January 14 8:49pm BP Diastolic 62 mm[Hg] 60-90 January 14 8:49pm BMI (Body Mass Index) 38.0 kg/m2 January 142018 5:23pm Height 182.88 cm January 17, 6:54am Weight 131.74 kg January 17 6:54am Body Temperature 98.5 [degF] 97.6-99.6 January 17, 2 019 12:00pm Heart Rate 70 /min 60-90 January 17 12:00pm Respiratory rate 18 /min 12-January 17, 2 019 12:00pm Oxygen saturation by 96 % 95-100 January Pulse oximetry 12:00pm BP Systolic 130 mm[Hg] 110-140 January 17 12:00pm BP Diastolic 52 mm[Hg] 60-90 January 17, 12:00pm BMI (Body Mass Index) 39.4 kg/m2 January 172018 6:54am Hospital Discharge Instructions Additional Instructions Follow-up with your primary care provider on Thursday for reevaluation. Return to the emergency department immediately if symptoms are worse.
[2019-01-18 06:30] LABS: Basophils % 0.2 % (0.1-2.0); Eosinophils # 0.2 K/mm3 (0.0-0.4); Eosinophils % 4.1 % (0.1-12.0); Hematocrit 28.8 % (42.0-52.0); Hemoglobin 8.5 g/dL (14.1-18.0); Lymphocytes # 1.5 K/mm3 (0.7-4.5); Lymphocytes % 29.4 % (10-50); Mean Corpuscular HGB Conc 29.7 g/dL (31.8-35.4); Mean Corpuscular Volume 80.3 fl (80-94); Mean Platelet Volume 9.3 fl (7.4-10.4); Monocytes # 0.4 K/mm3 (0.1-1.0); Monocytes % 8.2 % (1.7-9.3); Neutrophils # 2.9 K/mm3 (1.8-7.8); Neutrophils % 58.1 % (37.0-80.0); Platelet Count 198 K/mm3 (142-424); Red Blood Count 3.59 M/mm3 (4.60-6.20); Red Cell Distribution Width 17.2 % (11.5-17.5)
[2019-01-18 06:33] LABS: Anion Gap 12.9 mEq/L (5-15); Calcium 8.2 mg/dL (8.5-10.1)
--- NOTE | 2019-01-18 07:23 | Discharge Summary ---
General - General Admission date:: 01/16/19 Discharge date: 01/18/19 HPI HPI: 73-year-old male with diabetes and hypertension presented to the emergency department with 4 days of vomiting and diarrhea. Illness had left him so weak that he had fallen and was unable to get up off the floor for approximately 6 hours. He had contacted his sister who lives close by and after she came to see him she called 911. Patient was brought to the emergency department for evaluation. He was found to have some mild acute kidney injury and appeared dehydrated. Patient was admitted for IV fluids and antiemetics. This morning he has tolerated his breakfast without nausea or vomiting. He denies fevers, chills. He denies chest pain or shortness of breath. He denies blood in his stool. Hospital Course Hospital Course: Patient was admitted for his weakness and acute kidney injury from dehydration. Patient was placed on normal saline to rehydrate the patient which was successful. Creatinine gradually came down and discharge creatinine was 2. This is still above baseline but vomiting and diarrhea had ceased. While hospitalized patient's hydrochlorothiazide and lisinopril were held. On January 18 patient was ambulating and felt well enough for discharge. Patient was discharged home and will follow-up in my office early next week. Objective Vital signs: Temp Pulse Resp BP Pulse Ox 98.6 F 64 18 157/59 H 94 L 01/18/19 04:00 01/18/19 04:00 01/18/19 04:00 01/18/19 04:00 01/18/19 04:00 no acute distress - *Routine Respiratory Exam Present: CTA bilaterally - *Routine Cardiovascular Exam Present: RRR, Normal S1, Normal S2 - *Routine Abdominal Exam Present: soft, normoactive bowel sounds Results Labs on day of discharge: Labs from last 24 hours 01/18/19 01/18/19 01/18/19 06:11 06:11 06:03 WBC 5.0 RBC 3.59 L Hgb 8.5 L Hct 28.8 L MCV 80.3 MCH 23.8 L MCHC 29.7 L RDW 17.2 Plt Count 198 MPV 9.3 Neut % (Auto) 58.1 Lymph % (Auto) 29.4 Gilliam % (Auto) 8.2 Eos % (Auto) 4.1 Baso % (Auto) 0.2 Neut # (Auto) 2.9 Lymph # (Auto) 1.5 Gilliam # (Auto) 0.4 Eos # (Auto) 0.2 Baso # (Auto) 0.0 Retic Count (auto) Sodium 140 Potassium 3.9 Chloride 103 Carbon Dioxide 28 Anion Gap 12.9 BUN 45 H Creatinine 2.00 H Estimated Creat Clear 61 Estimated GFR 33 L Est GFR ( Amer) 40 L Glucose 124 H D POC Glucose 136 H Calcium 8.2 L Ferritin Lactate Dehydrogenase B-Natriuretic Peptide 01/17/19 01/17/19 01/17/19 21:33 17:05 11:28 WBC RBC Hgb Hct MCV MCH MCHC RDW Plt Count MPV Neut % (Auto) Lymph % (Auto) Gilliam % (Auto) Eos % (Auto) Baso % (Auto) Neut # (Auto) Lymph # (Auto) Gilliam # (Auto) Eos # (Auto) Baso # (Auto) Retic Count (auto) Sodium Potassium Chloride Carbon Dioxide Anion Gap BUN Creatinine Estimated Creat Clear Estimated GFR Est GFR ( Amer) Glucose POC Glucose 162 H 160 H 177 H Calcium Ferritin Lactate Dehydrogenase B-Natriuretic Peptide 01/17/19 01/17/19 01/17/19 06:18 06:18 06:18 WBC RBC Hgb Hct MCV MCH MCHC RDW Plt Count MPV Neut % (Auto) Lymph % (Auto) Gilliam % (Auto) Eos % (Auto) Baso % (Auto) Neut # (Auto) Lymph # (Auto) Gilliam # (Auto) Eos # (Auto) Baso # (Auto) Retic Count (auto) 2.1 Sodium Potassium Chloride Carbon Dioxide Anion Gap BUN Creatinine Estimated Creat Clear Estimated GFR Est GFR ( Amer) Glucose POC Glucose Calcium Ferritin 16 Lactate Dehydrogenase 217 B-Natriuretic Peptide 41 DS: Diagnosis - Discharge Diagnosis (1) Gastroenteritis Status: Acute (2) Essential hypertension Status: Acute (3) Acute kidney injury (nontraumatic) Status: Resolved (4) Dehydration Status: Acute (5) Generalized weakness Status: Acute (6) Diabetes mellitus with diabetic polyneuropathy Status: Acute Discharge Plan - Patient Discharge Instructions ACTIVITY: Continue current activity DIET: continue same diet Patient Instructions: Dehydration, Acute Abdominal Pain, DI for Dehydration -- Adult, DI for Abdominal Pain-Adult, DI for Nausea -- Adult, Nausea and Vomiting- Adult, DI for Acute Kidney Injury - Follow up Plan Follow up with: Ben Cavazos MD [Primary Care Provider] - 1 week Disposition: Home, Self-Alf Medications: Home Medications Medication Instructions Recorded Confirmed Type hydrochlorothiazide 25 mg tablet 25 mg PO DAILY 90 Days 08/25/17 01/16/19 History lisinopril 40 mg tablet 40 mg PO BID 90 Days 08/25/17 01/16/19 History omeprazole 20 mg capsule,delayed 20 mg PO DAILY 90 Days 08/25/17 01/16/19 History release pioglitazone 45 mg tablet 45 mg PO HS 90 Days 08/25/17 01/16/19 History insulin degludec (U-200) 200 30 units SQ DAILY 90 Days ml 02/25/18 01/16/19 History unit/mL (3 mL) subcutaneous pen atorvastatin 10 mg tablet 10 mg PO DAILY tab 09/09/18 01/16/19 History Ondansetron [Zofran 4mg ODT] 4 mg PO Q4H PRN #10 tab.rapdis 01/14/19 01/16/19 Rx Aspirin [Aspirin 81mg EC Tab] 81 mg PO DAILY 01/16/19 01/16/19 History Ciprofloxacin HCl [Ciprofloxacin 500 mg PO BID 01/16/19 01/16/19 History 500mg Tab] Furosemide [Furosemide 20mg Tab] 20 mg PO BID 01/16/19 01/16/19 History glipiZIDE [Glipizide] 5 mg PO PM 01/16/19 01/17/19 History metroNIDAZOLE [Flagyl 500mg 500 mg PO TID 01/16/19 01/16/19 History Tablet] glipiZIDE [Glipizide] 10 mg PO DAILY 01/17/19 01/17/19 History Prescriptions/Medication Reconciliation: Continued omeprazole 20 mg capsule,delayed release 20 mg PO DAILY 90 Days pioglitazone 45 mg tablet 45 mg PO HS 90 Days insulin degludec (U-200) 200 unit/mL (3 mL) subcutaneous pen 30 units SQ DAILY 90 Days ml atorvastatin 10 mg tablet 10 mg PO DAILY tab Aspirin [Aspirin 81mg EC Tab] 81 mg PO DAILY glipiZIDE [Glipizide] 5 mg PO PM Furosemide [Furosemide 20mg Tab] 20 mg PO BID glipiZIDE [Glipizide] 10 mg PO DAILY Discontinued hydrochlorothiazide 25 mg tablet 25 mg PO DAILY 90 Days lisinopril 40 mg tablet 40 mg PO BID 90 Days Ondansetron [Zofran 4mg ODT] 4 mg PO Q4H PRN #10 tab.rapdis PRN Reason: Nausea Ciprofloxacin HCl [Ciprofloxacin 500mg Tab] 500 mg PO BID metroNIDAZOLE [Flagyl 500mg Tablet] 500 mg PO TID - Problem Reconciliation Problems Reviewed?: Yes
--- NOTE | 2019-01-18 17:49 | Electrocardiograph Report ---
APPROVED REPORT Exam: Resting ECG HR:95 bpm ECG Measurements Heart Rate 95 AXES AK 144 P 48 QRSd 86 QRS 46 QT 378 T68 QTc 475 <Conclusion> Normal sinus rhythm Normal ECG Electronically signed by : Eduar Orellana, 01/18/2019 17:48:40
== END 2019-01-18 09:50 | disposition home or self-care (01) ==
LOC: 2ND 18:22 → ER 18:22 → 2ND 21:46
PROVIDERS: ADMIT Emergency Medicine; ATTEND Family Medicine
DX: K52.9 Noninfective gastroenteritis and colitis, unspecified; Z79.899 Other long term (current) drug therapy; Z79.4 Long term (current) use of insulin; E86.0 Dehydration; Z87.891 Personal history of nicotine dependence; E11.42 Type 2 diabetes mellitus with diabetic polyneuropathy; N17.9 Acute kidney failure, unspecified
CPT/HCPCS: 36415; 71020; 71046; 74000; 74018; 80048; 80053; 81001; 82150; 82607; 82728; 82962; 83540; 83550; 83605; 83615; 83690; 83880; 84484; 85025; 85044; 85651; 86140; 87040; 93005; 96366; 96374; 97116; 97162; 99284; G0378; J2405

== ENCOUNTER 2019-04-09 18:39 | Inpatient (IN) ==
--- NOTE | 2019-04-09 19:31 | Emergency Department Note ---
[facility] Disposition Clinical Impression: Flank pain Disposition: Still a Patient Condition on Discharge: Good Referrals: Ben Cavazos MD [Primary Care Provider] - Time of Disposition: 19:40 Medical Decision Making - Nelson Inquiry Pt receiving controlled substance: No Vital Signs: 04/09/19 19:23 Temperature 98.1 F Temperature Source Oral Pulse Rate [Right Brachial] 107 H Respiratory Rate 20 Blood Pressure [Right Arm] 152/84 H Blood Pressure Mean [Right Arm] 106 Blood Pressure Source [Right Arm] Automatic Cuff Blood Pressure Position [Right Arm] Sitting 02 Sat by Pulse Oximetry 98 Oxygen Delivery Method Room Air Orders (Tests/Meds): ORDERS Category Date Time Status Chest XR 2 view (NOT portable) [XR chest 2V] Stat Exams 04/09/19 19:31 Ordered Complete Blood Count Auto Diff Stat Lab 04/09/19 19:26 Ordered Comprehensive Metabolic Panel Stat Lab 04/09/19 19:26 Ordered - Physician Consults Comment/Response: sent to ed r/t flank pain and blood in urine [facility] HPI - General Chief complaint: Urgent Treatment [facility] Stated complaint: weakness, Time Seen by Provider: 04/09/19 19:27 Mode of Arrival: Ambulatory Source of Information: Patient Limitations: No Limitations Description of Symptoms (Recalled from Triage Doc. by RN): PATIENT C/O RIGHT FLANK PAIN AND DIFFICULTY VOIDING; CURRENTLY ON ANTIBIOTICS FOR PNEUMONIA HEENT Symptoms (Recalled from RN notes): No Resp Symptoms (Recalled from RN notes): No Skin Symptoms (Recalled from RN notes): No MS Symptoms (Recalled from RN notes): No Functional Status (Recalled from RN notes): WNL - History of Present Illness Provider Complaint: 73 yr old male presents for rt flank pain, difficulty void ing, feeling dehydrated and currently on antibiotics- keflex for pneumonia. - Related Data Home Medications Medication Instructions Recorded Confirmed omeprazole 20 mg capsule,delayed 20 mg PO DAILY 90 Days 08/25/17 01/16/19 release pioglitazone 45 mg tablet 45 mg PO HS 90 Days 08/25/17 01/16/19 insulin degludec 200 unit/mL (3 30 units SQ DAILY 90 Days ml 02/25/18 01/16/19 mL) subcutaneous pen atorvastatin 10 mg tablet 10 mg PO DAILY tab 09/09/18 01/16/19 Aspirin [Aspirin 81mg EC Tab] 81 mg PO DAILY 01/16/19 01/16/19 Furosemide [Furosemide 20mg Tab] 20 mg PO BID 01/16/19 01/16/19 glipiZIDE [Glipizide] 5 mg PO PM 01/16/19 01/17/19 glipiZIDE [Glipizide] 10 mg PO DAILY 01/17/19 01/17/19 Allergies Allergy/AdvReac Type Severity Reaction Status Date / Time ampicillin [From Unasyn] Allergy Severe S-SWELLS-OR Verified 09/09/18 12:51 AL/THROAT sulbactam [From Unasyn] Allergy Severe S-SWELLS-OR Verified 09/09/18 12:51 AL/THROAT - Worker's Comp Is this a Worker's Comp case?: No [facility] History - Hepatitis A Screen Drug use history?: No High risk sexual behaviors?: No History of sexually transmitted infection?: No Currently employed?: No Childcare worker?: No Do you have indoor plumbing?: Yes Do you have electricity?: Yes Attestation statement:: This patient has been screened for Hepatitis A risk factors. I have reviewed the patient's past medical history: Yes Medical History: Reports:: Aneurysm, Cancer (PROSTATE), Diabetes Mellitus Type 2, Gastroesophageal Reflux Disease(GERD), Hyperlipidemia, Hypertension Other Medical History: Reports: Arthritis Other Surgeries: Yes: Colonoscopy, Sinus Surgery Comment: Aneurysm surgery 2014 - Social History Smoking Status: Former smoker Tobacco Type: cigarettes Alcohol Intake: never Alcohol Intake Frequency:: other Occupational Status: other Family Hx:: No significant family history ROS Obtained: Yes Systems reviewed as appropriate & no additional complaints - Constitutional Constitutional: Reports system reviewed and no additional complaints, except as docu, Denies fever(s) - Eyes Eyes: Reports system reviewed and no additional complaints, except as docu, Denies change in vision - ENT Ears, Nose, Mouth, and Throat: Reports system reviewed and no additional complaints, except as docu, Denies nasal obstruction, Denies sore throat - Cardiovascular Cardiovascular: Reports system reviewed and no additional complaints, except as docu, Denies chest pain at rest - Respiratory Respiratory: Yes system reviewed and no additional complaints, except as docu, No chest congestion - Gastrointestinal Gastrointestingal: Reports: system reviewed and no additional complaints, except as docu. Denies: nausea, vomiting - Genitourinary Male Genitourinary: Reports system reviewed and no additional complaints, except as docu, Reports difficulty urinating, Reports flank pain - Musculoskeletal Musculoskeletal: Reports system reviewed and no additional complaints, except as docu, Denies joint pain - Integumentary/Breasts Skin/Breast: Reports system reviewed and no additional complaints, except as docu, Denies rash - Neurologic Neurologic: Reports system reviewed and no additional complaints, except as docu, Denies abnormal movements - Endocrine Endocrine: Reports system reviewed and no additional complaints, except as docu, Denies fatigue - Hematologic/Lymphatic Henatologic/Lymphatic: Reports system reviewed and no additional complaints, except as docu, Denies lymphadenopathy - Allergic/Immunologic Allergic/Immunologic: Reports system reviewed and no additional complaints, except as docu, Denies itchy eyes Physical Exam - General General appearance: alert, in no apparent distress - Head Head exam: atraumatic, normocephalic, normal inspection - Eye Eye exam: Present: normal appearance, PERRL - ENT ENT exam: Present: normal exam, normal oropharynx, mucous membranes moist, TM's normal bilaterally, normal external ear exam - Neck Neck exam: Present: normal inspection, full ROM, trachea midline. Absent: meningismus, lymphadenopathy - Chest Chest inspection: Present: normal inspection, symmetric chest wall rise. Absent: tenderness - Respiratory Respiratory exam: Present: normal lung sounds bilaterally. Absent: respiratory distress - Cardiovascular Cardiovascular exam: Present: regular rate, normal rhythm. Absent: JVD - Abdominal Exam Abdominal exam: Present: soft, normal bowel sounds. Absent: distention, tenderness, guarding - Extremities Exam Extremities exam: Present: normal inspection, full ROM, normal capillary refill. Absent: calf tenderness - Back Exam Back exam: Present: normal inspection, CVA tenderness (R) - Neurological Exam Neurological exam: Present: alert, oriented X3 - Psychiatric Psychiatric exam: Present: normal affect, normal mood - Skin Skin exam: Present: warm, dry, intact, normal color - Lymphatic Lymphatic Findings: no adenopathy
[2019-04-09 20:08] LABS: Microscopic, Urine URINE MICROSCOPIC (MICROSCOPIC)
[2019-04-09 20:11] LABS: Appearance,Urine CLEAR (Clear); Bilirubin,Urine Negative (Negative); Blood, Urine TRACE-L (Negative); Color,Urine YELLOW (Yellow); Glucose,Urine (UA) 2+ (Negative); Ketones,Urine Negative (Negative); Leukocyte Esterase,Urine Negative (Negative); Protein,Urine Negative (Negative); Urobilinogen,Urine 0.2 EU/dl (0.2)
[2019-04-09 20:11] LABS: Basophils % 0.3 % (0.1-2.0); Eosinophils # 0.1 K/mm3 (0.0-0.4); Eosinophils % 1.6 % (0.1-12.0); Hematocrit 31.8 % (42.0-52.0); Hemoglobin 9.7 g/dL (14.1-18.0); Lymphocytes # 1.2 K/mm3 (0.7-4.5); Lymphocytes % 19.6 % (10-50); Mean Corpuscular HGB Conc 30.6 g/dL (31.8-35.4); Mean Corpuscular Volume 77.4 fl (80-94); Mean Platelet Volume 8.4 fl (7.4-10.4); Monocytes # 0.3 K/mm3 (0.1-1.0); Monocytes % 5.7 % (1.7-9.3); Neutrophils # 4.3 K/mm3 (1.8-7.8); Neutrophils % 72.8 % (37.0-80.0); Platelet Count 264 K/mm3 (142-424); Red Cell Distribution Width 16.9 % (11.5-17.5); White Blood Count 5.9 K/mm3 (4.8-10.8)
[2019-04-09 20:22] LABS: Anion Gap 17.2 mEq/L (5-15); Bilirubin,Total 0.4 mg/dl (0.2-1.3)
[2019-04-09 20:23] LABS: Amorphous Sediment,Urine Trace /lpf
[2019-04-09 20:23] LABS: Albumin Level 4.5 g/dl (3.5-5.0); Calcium 9.6 mg/dl (8.4-10.2); Globulin 4.6 g/dL (1.3-3.2); Total Protein,Serum 9.1 g/dl (6.3-8.2)
--- NOTE | 2019-04-09 22:09 | Emergency Department Note ---
ED Disposition Clinical Impression: Flank pain Disposition: Admitted As Inpatient Condition on Discharge: Fair Referrals: Ben Cavazos MD [Primary Care Provider] - - Critical Care Critical Care Time: No Attestation: On 04/09/19, the high probability of a clinically significant, sudden or life threatening deterioration of the following system(s) required my full and direct attention, intervention and personal management. The time I documented below is in addition to time spent performing reported procedures but includes the following listed in this critical care notation. Medical Decision Making - Medical Records Medical records reviewed: Yes: I reviewed the patient's medical records. - Nelson Inquiry Pt receiving controlled substance: No Vital Signs: 04/09/19 19:23 04/09/19 19:54 04/09/19 21:23 Temperature 98.1 F 98.1 F Temperature Source Oral Oral Pulse Rate [Right Brachial] 107 H 86 80 Respiratory Rate 20 16 18 Blood Pressure [Right Arm] 152/84 H 146/116 H 164/63 H Blood Pressure Mean [Right Arm] 106 126 96 Blood Pressure Source [Right Arm] Automatic Cuff Automatic Cuff Automatic Cuff Blood Pressure Position [Right Arm] Sitting Sitting Supine 02 Sat by Pulse Oximetry 98 95 94 L Oxygen Delivery Method Room Air Room Air Room Air - Lab Data Lab results reviewed: Yes: I reviewed the patient's lab results. Lab Results 04/09/19 19:51: Urine Color Yellow, Urine Appearance Clear, Urine pH 6.0, Ur Specific [place] 1.010, Urine Protein Negative, Urine Glucose (UA) 2+, Urine Ketones Negative, Urine Blood Trace-l, Urine Nitrate Negative, Urine Bilirubin Negative, Urine Urobilinogen 0.2, Ur Leukocyte Esterase Negative, Urine RBC 3-5, Amorphous Sediment Trace 04/09/19 20:00: WBC 5.9, RBC 4.10 L, Hgb 9.7 L, Hct 31.8 L, MCV 77.4 L, MCH 23.7 L, MCHC 30.6 L, RDW 16.9, Plt Count 264, MPV 8.4, Neut % (Auto) 72.8, Lymph % (Auto) 19.6, [place] % (Auto) 5.7, Eos % (Auto) 1.6, Baso % (Auto) 0.3, Neut # (Auto) 4.3, Lymph # (Auto) 1.2, [place] # (Auto) 0.3, Eos # (Auto) 0.1, Baso # (Auto) 0.0 04/09/19 20:00: Sodium 132 L, Potassium 4.2, Chloride 89 L, Carbon Dioxide 30, Anion Gap 17.2 H, BUN 18, Creatinine 1.40 H, Estimated Creat Clear 84, Estimated GFR 50 L, Est GFR ( Amer) 60, Glucose 199 H, Calcium 9.6, Total Bilirubin 0.4, AST 35, ALT 24, Alkaline Phosphatase 114, Total Protein 9.1 H, Albumin 4.5, Globulin 4.6 H, Albumin/Globulin Ratio 1.0 L 04/09/19 20:00: Lipase 1390 H 04/09/19 20:21: Urine Color Yellow, Urine Appearance Clear, Urine pH 5.5, Ur Specific [place] 1.005, Urine Protein Negative, Urine Glucose (UA) 500, Urine Ketones Negative, Urine Blood Trace, Urine Nitrate Negative, Urine Bilirubin Negative, Urine Urobilinogen 0.2, Ur Leukocyte Esterase Negative Result diagrams: 04/09/19 20:00 04/09/19 20:00 Orders (Tests/Meds): ED MEDICATIONS Generic Name Dose Route Start Last Admin Trade Name Freq PRN Reason Stop Dose Admin Sodium Chloride 1,000 mls @ 999 mls/hr 04/09/19 20:00 Sod Chlor 0.9% 1000ml Bag IV 04/09/19 21:00 .Q1H1M [facility] ORDERS Category Date Time Status CT abdomen pelvis wo con Stat Cat Scan 04/09/19 20:00 Taken Chest XR 2 view (NOT portable) [XR chest 2V] Stat Exams 04/09/19 19:31 Taken - Radiology Data #1 Image(s): Chest Image Reviewed: Yes I reviewed the patient's radiology image Preliminary Findings: Abnormal (chronic ) - CT Data CT Scan: Abdomen, Pelvis Time Received: 22:[address] Reviewed: Yes: I have viewed the radiologist's interpretation Preliminary Findings: Abnormal (see report ) Nausea/Vomiting/Diarrhea HPI - General Chief complaint: PAIN Stated complaint: weakness, Time Seen by Provider: 04/09/19 19:27 Mode of Arrival: Ambulatory Source of Information: Patient Limitations: No Limitations Description of Symptoms (Recalled from ER Triage Doc. by RN): Patient sent over from [facility] with complaint of being dehydrated and right sided flank pain. - History of Present Illness HPI Narrative: post back pain assoc with nausea - was seen at [facility] and in ed - no dev vomiting and no etoh MD complaint: nausea, abdominal pain Onset (ago): day(s) Associated Abdominal Pain: Yes Location of pain: flank Severity: moderate Consistency: intermittent Associated symptoms: denies other symptoms - Related Data Home Medications Medication Instructions Recorded Confirmed omeprazole 20 mg capsule,delayed 20 mg PO DAILY 90 Days 08/25/17 01/16/19 release pioglitazone 45 mg tablet 45 mg PO HS 90 Days 08/25/17 01/16/19 insulin degludec 200 unit/mL (3 30 units SQ DAILY 90 Days ml 02/25/18 01/16/19 mL) subcutaneous pen atorvastatin 10 mg tablet 10 mg PO DAILY tab 09/09/18 01/16/19 Aspirin [Aspirin 81mg EC Tab] 81 mg PO DAILY 01/16/19 01/16/19 Furosemide [Furosemide 20mg Tab] 20 mg PO BID 01/16/19 01/16/19 glipiZIDE [Glipizide] 5 mg PO PM 01/16/19 01/17/19 glipiZIDE [Glipizide] 10 mg PO DAILY 01/17/19 01/17/19 Allergies Allergy/AdvReac Type Severity Reaction Status Date / Time ampicillin [From Unasyn] Allergy Severe S-SWELLS-OR Verified 09/09/18 12:51 AL/THROAT sulbactam [From Unasyn] Allergy Severe S-SWELLS-OR Verified 09/09/18 12:51 AL/THROAT [facility] History - Hepatitis A Screen Drug use history?: No High risk sexual behaviors?: No History of sexually transmitted infection?: No Currently employed?: No Childcare worker?: No Do you have indoor plumbing?: Yes Do you have electricity?: Yes Attestation statement:: This patient has been screened for Hepatitis A risk factors. I have reviewed the patient's past medical history: Yes Medical History: Reports:: Aneurysm, Cancer (PROSTATE), Diabetes Mellitus Type 2, Gastroesophageal Reflux Disease(GERD), Hyperlipidemia, Hypertension Other Medical History: Reports: Arthritis Other Surgeries: Yes: Colonoscopy, Sinus Surgery Comment: Aneurysm surgery 2014 - Social History Smoking Status: Former smoker Tobacco Type: cigarettes Alcohol Intake: never Alcohol Intake Frequency:: other Occupational Status: other Family Hx:: No significant family history ROS Obtained: Yes All systems reviewed & no additional complaints - Constitutional Constitutional: Denies fever(s) - Eyes Eyes: Denies change in vision - ENT Ears, Nose, Mouth, and Throat: Denies sore throat - Cardiovascular Cardiovascular: Denies chest pain, Denies dyspnea - Respiratory Respiratory: No cough - Gastrointestinal Gastrointestingal: Reports: as per HPI, nausea. Denies: abdominal pain, diarrhea, vomiting - Genitourinary Male Genitourinary: Reports flank pain, Denies hematuria - Musculoskeletal Musculoskeletal: Denies joint pain, Denies joint swelling - Integumentary/Breasts Skin/Breast: Denies rash - Neurologic Neurologic: Denies headache(s), Denies seizure-like activity Physical Exam - General General appearance: alert, in no apparent distress, obese - Head Head exam: atraumatic - Eye Eye exam: Present: PERRL, EOMI. Absent: scleral icterus - ENT ENT exam: Present: mucous membranes dry - Neck Neck exam: Present: trachea midline - Respiratory Respiratory exam: Present: normal lung sounds bilaterally. Absent: respiratory distress - Cardiovascular Cardiovascular exam: Present: regular rate, systolic murmur, +S4 - Abdominal Exam Abdominal exam: Present: soft. Absent: tenderness Abdominal tenderness: Present: moderate - Extremities Exam Extremities exam: Absent: joint swelling - Back Exam Back exam: Absent: CVA tenderness (R) - Neurological Exam Neurological exam: Present: alert, oriented X3, CN II-XII intact - Psychiatric Psychiatric exam: Present: normal affect - Skin Skin exam: Absent: rash
[2019-04-10 07:06] LABS: Basophils % 0.2 % (0.1-2.0); Eosinophils # 0.1 K/mm3 (0.0-0.4); Eosinophils % 2.4 % (0.1-12.0); Lymphocytes # 1.3 K/mm3 (0.7-4.5); Lymphocytes % 21.9 % (10-50); Mean Corpuscular HGB Conc 30.1 g/dL (31.8-35.4); Mean Corpuscular Volume 77.1 fl (80-94); Mean Platelet Volume 8.6 fl (7.4-10.4); Monocytes # 0.4 K/mm3 (0.1-1.0); Monocytes % 6.5 % (1.7-9.3); Neutrophils # 4.1 K/mm3 (1.8-7.8); Neutrophils % 68.9 % (37.0-80.0); Platelet Count 240 K/mm3 (142-424); Red Blood Count 3.73 M/mm3 (4.60-6.20); Red Cell Distribution Width 16.9 % (11.5-17.5)
[2019-04-10 07:16] LABS: Hematocrit 28.7 % (42.0-52.0); Hemoglobin 8.7 g/dL (14.1-18.0)
[2019-04-10 07:21] LABS: Anion Gap 11.7 mEq/L (5-15)
[2019-04-10 07:22] LABS: Calcium 9.2 mg/dl (8.4-10.2)
--- NOTE | 2019-04-10 07:55 | History & Physical Report ---
*Admission Date: 04/09/19 *Chief complaint: Nausea and right-sided abdominal pain *History of present illness: 73-year-old male presented to the emergency department with nausea and right sided abdominal pain in the right lower quadrant that radiated through to the right side of the back. Patient tells me he was seen in my office on Thursday of this week by 1 of the nurse practitioners and treated for pneumonia with cefdinir. At that time patient had symptoms of URI but also had developed some abdominal pain and nausea. As the following 3 days progressed patient had recurrent episodes of nausea with development of right-sided of abdominal pain in the lower quadrant and pain that radiated through to the right back. Patient presented to the emergency department and was initially seen in the urgent treatment clinic but then transferred to the emergency department for further evaluation. In the ER patient was found to have an elevated lipase of 1300 along with an abnormal CT scan suggesting some mild peripancreatic changes around the head and uncinate process of the pancreas. There was no kidney stone identified. Patient also has severe diverticulosis. Patient was admitted for treatment of acute pancreatitis. This morning he tells me that intravenous narcotic has relieved his pain. He denies nausea. He denies fevers and chills at home. He has not had vomiting. He denies change in bowel habits [facility] History I have reviewed the patient's past medical history: Yes Medical History: Reports:: Aneurysm, Cancer, Diabetes Mellitus Type 2, Gastroesophageal Reflux Disease(GERD), Hyperlipidemia, Hypertension *Have you ever received a pneumonia vaccine?: Yes *Have you received a flu vaccine this season?: Yes Other Medical History: Reports: Arthritis Other Surgeries: Yes: Colonoscopy, Sinus Surgery - *Social History Educational Level: Completed High School Smoking Status: Former smoker Tobacco Type: cigarettes Alcohol Intake: never Alcohol Intake Frequency:: other *Occupational Status:: retired *Travel in the last 8 weeks: None Family Hx:: Unable to obtain Review of Systems - Constitutional Denies body ache(s), Denies chills, Denies daytime sleepiness, Denies malaise - *Cardiovascular Denies chest pain - *Respiratory Denies change in phlegm color, Denies chest congestion, Denies cough - *Gastrointestinal Reports abdominal pain, Denies belching, Denies bloating, Denies change in bowel habits, Denies change in stools - *Neurologic Denies abnormal movements, Denies headache(s), Denies seizure-like activity Meds Home Medications Medication Instructions Recorded Confirmed Type omeprazole 20 mg capsule,delayed 20 mg PO DAILY 90 Days 08/25/17 04/09/19 History release pioglitazone 45 mg tablet 45 mg PO HS 90 Days 08/25/17 04/09/19 History insulin degludec 200 unit/mL (3 30 units SQ DAILY 90 Days ml 02/25/18 04/09/19 History mL) subcutaneous pen atorvastatin 10 mg tablet 10 mg PO DAILY tab 09/09/18 04/09/19 History Aspirin [Aspirin 81mg EC Tab] 81 mg PO DAILY 01/16/19 04/09/19 History Furosemide [Furosemide 20mg Tab] 20 mg PO BID 01/16/19 04/09/19 History glipiZIDE [Glipizide] 5 mg PO PM 01/16/19 04/09/19 History glipiZIDE [Glipizide] 10 mg PO DAILY 01/17/19 04/09/19 History Allergies Allergy/AdvReac Type Severity Reaction Status Date / Time ampicillin [From Unasyn] Allergy Severe S-SWELLS-OR Verified 09/09/18 12:51 AL/THROAT sulbactam [From Unasyn] Allergy Severe S-SWELLS-OR Verified 09/09/18 12:51 AL/THROAT Exam Vital signs and Labs for Last 24 Hours: Temp Pulse Resp BP Pulse Ox 97.9 F 99 H 20 153/66 H 92 L 04/10/19 03:55 04/10/19 03:55 04/10/19 03:55 04/10/19 03:55 04/10/19 03:55 Laboratory Results - last 24 hr 04/09/19 19:51: Urine Color Yellow, Urine Appearance Clear, Urine pH 6.0, Ur Specific [place] 1.010, Urine Protein Negative, Urine Glucose (UA) 2+, Urine Ketones Negative, Urine Blood Trace-l, Urine Nitrate Negative, Urine Bilirubin Negative, Urine Urobilinogen 0.2, Ur Leukocyte Esterase Negative, Urine RBC 3-5, Amorphous Sediment Trace 04/09/19 20:00: WBC 5.9, RBC 4.10 L, Hgb 9.7 L, Hct 31.8 L, MCV 77.4 L, MCH 23.7 L, MCHC 30.6 L, RDW 16.9, Plt Count 264, MPV 8.4, Neut % (Auto) 72.8, Lymph % (Auto) 19.6, [place] % (Auto) 5.7, Eos % (Auto) 1.6, Baso % (Auto) 0.3, Neut # (Auto) 4.3, Lymph # (Auto) 1.2, [place] # (Auto) 0.3, Eos # (Auto) 0.1, Baso # (Auto) 0.0 04/09/19 20:00: Sodium 132 L, Potassium 4.2, Chloride 89 L, Carbon Dioxide 30, Anion Gap 17.2 H, BUN 18, Creatinine 1.40 H, Estimated Creat Clear 84, Estimated GFR 50 L, Est GFR ( Amer) 60, Glucose 199 H, Calcium 9.6, Total Bilirubin 0.4, AST 35, ALT 24, Alkaline Phosphatase 114, Total Protein 9.1 H, Albumin 4.5, Globulin 4.6 H, Albumin/Globulin Ratio 1.0 L 04/09/19 20:00: Lipase 1390 H 04/09/19 20:21: Urine Color Yellow, Urine Appearance Clear, Urine pH 5.5, Ur Specific [place] 1.005, Urine Protein Negative, Urine Glucose (UA) 500, Urine Ketones Negative, Urine Blood Trace, Urine Nitrate Negative, Urine Bilirubin Negative, Urine Urobilinogen 0.2, Ur Leukocyte Esterase Negative 04/10/19 05:51: POC Glucose 160 H 04/10/19 06:30: WBC 6.0, RBC 3.73 L, Hgb 8.7 L D, Hct 28.7 L, MCV 77.1 L, MCH 23.2 L, MCHC 30.1 L, RDW 16.9, Plt Count 240, MPV 8.6, Neut % (Auto) 68.9, Lymph % (Auto) 21.9, [place] % (Auto) 6.5, Eos % (Auto) 2.4, Baso % (Auto) 0.2, Neut # (Auto) 4.1, Lymph # (Auto) 1.3, [place] # (Auto) 0.4, Eos # (Auto) 0.1, Baso # (Auto) 0.0 04/10/19 06:30: Sodium 133 L, Potassium 3.7, Chloride 95 L, Carbon Dioxide 30, Anion Gap 11.7, BUN 15, Creatinine 1.30 H, Estimated Creat Clear 95, Estimated GFR 54 L, Est GFR ( Amer) 65, Glucose 149 H D, Calcium 9.2, Magnesium 1.8, Lipase 747 H I & O for Last 24 hours: Intake & Output 04/07/19 04/08/19 04/09/19 04/10/19 11:59 11:59 11:59 11:59 Intake Total 459 / 459 Output Total 1500 / 1500 Balance -1041 / -1041 Weight 293 lb 9 oz - *Routine HEENT Exam Head: Present: normocephalic Eye: Present: EOMI, PERRL ENT: Present: mucous membranes moist - *Routine Neck Exam Present: supple. Absent: lymphadenopathy - *Routine Respiratory Exam Present: CTA bilaterally - *Routine Cardiovascular Exam Present: RRR - *Routine Abdominal Exam Present: soft, normoactive bowel sounds, tenderness (Mild in the right lower quadrant), obese. Absent: distended, rebound, guarding, firm, rigid - *Routine Extremities Exam Absent: cyanosis, clubbing, edema - *Routine Skin Exam Present: warm. Absent: rash - *Routine Neurological Exam Present: alert, oriented X3 Assessment and Plan (1) Acute pancreatitis Current visit: Yes Status: Acute Category: Medical Code(s): K85.90 - Acute pancreatitis without necrosis or infection, unspecified Continue narcotics for pain relief. Advance diet to clear liquids today. Ambulate as tolerated. Abdominal ultrasound to rule out gallbladder disease (2) Diabetes mellitus with diabetic polyneuropathy Current visit: No Status: Acute Qualifiers: Diabetes mellitus type: type 2 Diabetes mellitus [employer] insulin use: with residential use Qualified Code(s): E11.42 - Type 2 diabetes mellitus with diabetic polyneuropathy; Z79.4 - USP (current) use of insulin Category: Medical Code(s): E11.42 - Type 2 diabetes mellitus with diabetic polyneuropathy Continue home medications (3) Essential hypertension Current visit: No Status: Acute Category: Medical Code(s): I10 - Essential (primary) hypertension Continue home medications
--- NOTE | 2019-04-10 09:58 | Pharmacy Consult Notes ---
[facility] Pharmacy VTE Monitoring - Patient Demographics Admission date: 04/09/19 Report Date: 04/10/19 Time: 09:57 Allergies/Adverse Reactions: Patient Allergies ampicillin [From Unasyn] Allergy (Severe, Verified 09/09/18 12:51) [id number]/THROAT sulbactam [From Unasyn] Allergy (Severe, Verified 09/09/18 12:51) [id number]/THROAT Height: 1.83 m Weight: 133.158 kg Patient Problems: Current Active Problems Flank pain (Acute) Acute pancreatitis (Acute) - VTE Risk Labs: VTE Related Lab Results Hgb 8.7 g/dL (14.1-18.0) L D 04/10/19 06:30 Hct 28.7 % (42.0-52.0) L 04/10/19 06:30 Plt Count 240 K/mm3 (142-424) 04/10/19 06:30 BUN 15 mg/dl (9-20) 04/10/19 06:30 Creatinine 1.30 mg/dl (0.66-1.25) H 04/10/19 06:30 Estimated Creat Clear 95 mL/min (50-200) 04/10/19 06:30 Was VTE Risk Assessment Performed: Yes VTE Score: 7 VTE Risk Level: Moderate Risk - Prophylaxis VTE Prophylaxis Ordered?: Yes Types of VTE Prophylaxis: TEDS Knee High Location of Applied Device: Bilateral Lower Extremeties
[2019-04-11 07:00] LABS: Bilirubin,Total 0.3 mg/dl (0.2-1.3)
[2019-04-11 07:01] LABS: Anion Gap 15.4 mEq/L (5-15); Calcium 9.3 mg/dl (8.4-10.2); Globulin 4.1 g/dL (1.3-3.2); Total Protein,Serum 8.1 g/dl (6.3-8.2)
[2019-04-11 07:13] LABS: Basophils % 0.2 % (0.1-2.0); Eosinophils # 0.1 K/mm3 (0.0-0.4); Eosinophils % 1.5 % (0.1-12.0); Hematocrit 30.9 % (42.0-52.0); Hemoglobin 8.9 g/dL (14.1-18.0); Lymphocytes % 15.5 % (10-50); Mean Corpuscular HGB Conc 28.9 g/dL (31.8-35.4); Mean Corpuscular Volume 79.6 fl (80-94); Mean Platelet Volume 7.2 fl (7.4-10.4); Monocytes # 0.4 K/mm3 (0.1-1.0); Monocytes % 6.1 % (1.7-9.3); Neutrophils # 5.1 K/mm3 (1.8-7.8); Neutrophils % 76.6 % (37.0-80.0); Platelet Count 264 K/mm3 (142-424); Red Blood Count 3.88 M/mm3 (4.60-6.20); Red Cell Distribution Width 17.1 % (11.5-17.5); White Blood Count 6.7 K/mm3 (4.8-10.8)
--- NOTE | 2019-04-11 07:39 | Progress Note ---
Internal Medicine - PN: Subj *Date: 04/11/19 *Time: 07:36 Interval history: Patient complains of being hungry this morning. His pain has improved although he did have an episode of vomiting yesterday evening. He is not really in favor of the liquid diet he is on. Exam Vital signs and Labs for Last 24 Hours: Temp Pulse Resp BP Pulse Ox 99.4 F 130 H 16 117/67 98 04/11/19 04:00 04/11/19 04:00 04/11/19 04:00 04/11/19 04:00 04/11/19 04:00 Laboratory Results - last 24 hr 04/10/19 11:15: POC Glucose 251 H 04/10/19 16:14: POC Glucose 157 H 04/10/19 20:04: POC Glucose 142 H 04/11/19 05:21: POC Glucose 158 H 04/11/19 06:18: WBC 6.7, RBC 3.88 L, Hgb 8.9 L, Hct 30.9 L, MCV 79.6 L, MCH 23.0 L, MCHC 28.9 L, RDW 17.1, Plt Count 264, MPV 7.2 L, Neut % (Auto) 76.6, Lymph % (Auto) 15.5, [place] % (Auto) 6.1, Eos % (Auto) 1.5, Baso % (Auto) 0.2, Neut # (Auto) 5.1, Lymph # (Auto) 1.0, [place] # (Auto) 0.4, Eos # (Auto) 0.1, Baso # (Auto) 0.0 04/11/19 06:18: Sodium 136, Potassium 4.4, Chloride 93 L, Carbon Dioxide 32 H, Anion Gap 15.4 H, BUN 14, Creatinine 1.40 H, Estimated Creat Clear 87, Estimated GFR 50 L, Est GFR ( Amer) 60, Glucose 161 H, Calcium 9.3, Total Bilirubin 0.3, AST 31, ALT 22, Alkaline Phosphatase 101, Total Protein 8.1, Albumin 4.0 D , Globulin 4.1 H, Albumin/Globulin Ratio 1.0 L I & O for Last 24 hours: Intake & Output 04/08/19 04/09/19 04/10/19 04/11/19 11:59 11:59 11:59 11:59 Intake Total 1179 / 1179 290 / 290 Output Total 2200 / 2200 2074 / 2074 Balance -1021 / -1021 -1785 / -1785 Weight 293 lb 9 oz 289 lb Narrative: He is in no distress. Lungs remain clear. Heart has a regular rate and rhythm. Abdomen is obese and soft and nontender. Bowel sounds are present Assessment and Plan (1) Acute pancreatitis Current visit: Yes Status: Acute Category: Medical Code(s): K85.90 - Acute pancreatitis without necrosis or infection, unspecified (2) Diabetes mellitus with diabetic polyneuropathy Current visit: No Status: Acute Qualifiers: Diabetes mellitus type: type 2 Diabetes mellitus correction insulin use: with correction use Qualified Code(s): E11.42 - Type 2 diabetes mellitus with diabetic polyneuropathy; Z79.4 - alf (current) use of insulin Category: Medical Code(s): E11.42 - Type 2 diabetes mellitus with diabetic polyneuropathy (3) Essential hypertension Current visit: No Status: Acute Category: Medical Code(s): I10 - Essential (primary) hypertension - Assessment and plan all Dx Assessment and Plan for all problems:: Ultrasound was negative for gallbladder disease. Diet has been advanced. If patient tolerates advancement of diet anticipate discharge tomorrow
--- NOTE | 2019-04-12 07:37 | Discharge Summary ---
General - General Admission date:: 04/09/19 Discharge date: 04/12/19 HPI HPI: 73-year-old male presented to the emergency department with nausea and right sided abdominal pain in the right lower quadrant that radiated through to the right side of the back. Patient tells me he was seen in my office on Thursday of this week by 1 of the nurse practitioners and treated for pneumonia with cefdinir. At that time patient had symptoms of URI but also had developed some abdominal pain and nausea. As the following 3 days progressed patient had recurrent episodes of nausea with development of right-sided of abdominal pain in the lower quadrant and pain that radiated through to the right back. Patient presented to the emergency department and was initially seen in the urgent treatment clinic but then transferred to the emergency department for further evaluation. In the ER patient was found to have an elevated lipase of 1300 along with an abnormal CT scan suggesting some mild peripancreatic changes around the head and uncinate process of the pancreas. There was no kidney stone identified. Patient also has severe diverticulosis. Patient was admitted for treatment of acute pancreatitis. This morning he tells me that intravenous narcotic has relieved his pain. He denies nausea. He denies fevers and chills at home. He has not had vomiting. He denies change in bowel habits Hospital Course Hospital Course: Patient was admitted and treated for acute pancreatitis with IV morphine, IV fluids and n.p.o. status. After 24 hours patient's diet was advanced first to clears then subsequently to full liquid and later low-fat diet. Patient's abdominal pain improved gradually. On the evening prior to discharge patient felt like his abdomen was distended and requested an enema which produced 2 large bowel movements that relieved some of his abdominal distention. Abdominal pain had resolved almost completely within 48 hours. Once he was tolerating a low-fat diet without complications patient was discharged home. While hospitalized patient was maintained on home medications. Ultrasound of the abdomen was performed to rule out gallbladder disease as a cause of his pancreatitis. Gallbladder appeared normal. It is possible that the antibiotics he had been given in the office triggered his pancreatitis. Patient had intermittent episodes of hypoxia while hospitalized requiring use of supplemental oxygen. Believe this was due to being fluid overloaded which caused acute diastolic heart failure as patient has known chronic diastolic failure. Home oxygen will be arranged as patient will likely need this very briefly. He was also given oral and IV Lasix while hospitalized to attempt diuresis. Objective Vital signs: Temp Pulse Resp BP Pulse Ox 98.3 F 110 H 18 156/72 H 96 04/12/19 04:00 04/12/19 04:00 04/12/19 04:00 04/12/19 04:00 04/12/19 04:00 no acute distress - *Routine Respiratory Exam Present: CTA bilaterally - *Routine Cardiovascular Exam Present: RRR, Normal S1 - *Routine Abdominal Exam Present: soft, normoactive bowel sounds, obese Results Labs on day of discharge: Labs from last 24 hours 04/12/19 04/11/19 04/11/19 05:44 20:37 16:01 POC Glucose 160 H 208 H 199 H 04/11/19 11:06 POC Glucose 173 H DS: Diagnosis - Discharge Diagnosis (1) Acute pancreatitis Status: Resolved (2) Diabetes mellitus with diabetic polyneuropathy Status: Acute (3) Essential hypertension Status: Acute (4) Hypoxia Status: Acute (5) Morbid obesity Status: Acute (6) Acute on chronic diastolic (congestive) heart failure Status: Acute Discharge Plan - Patient Discharge Instructions Patient Instructions: DI for Pancreatitis, DI for Flank Pain - Follow up Plan Follow up with: Ben Cavazos MD [Primary Care Provider] - 1 week Disposition: Home, Self-Intermediate Medications: Home Medications Medication Instructions Recorded Confirmed Type omeprazole 20 mg capsule,delayed 20 mg PO DAILY 90 Days 08/25/17 04/11/19 History release pioglitazone 45 mg tablet 45 mg PO HS 90 Days 08/25/17 04/11/19 History insulin degludec 200 unit/mL (3 30 units SQ DAILY 90 Days ml 02/25/18 04/11/19 History mL) subcutaneous pen atorvastatin 10 mg tablet 10 mg PO HS tab 09/09/18 04/11/19 History Aspirin [Aspirin 81mg EC Tab] 81 mg PO DAILY 01/16/19 04/11/19 History Furosemide [Furosemide 20mg Tab] 20 mg PO BID 01/16/19 04/11/19 History glipiZIDE [Glipizide] 5 mg PO PM 01/16/19 04/11/19 History glipiZIDE [Glipizide] 10 mg PO DAILY 01/17/19 04/11/19 History Benzonatate 200 mg PO TID 04/10/19 04/11/19 History hydroCHLOROthiazide [HCTZ 25mg 25 mg PO DAILY 04/10/19 04/11/19 History tab] lisinopriL [Lisinopril 40mg Tablet] 40 mg PO BID 04/10/19 04/11/19 History Hydrocodone/Acetaminophen [Otter 1 each PO BIDP PRN #20 tab 04/12/19 Rx 5-325 Tablet] Prescriptions/Medication Reconciliation: New Hydrocodone/Acetaminophen [Otter 5-325 Tablet] 1 each PO BIDP PRN #20 tab PRN Reason: Moderate To Severe Pain Continued omeprazole 20 mg capsule,delayed release 20 mg PO DAILY 90 Days pioglitazone 45 mg tablet 45 mg PO HS 90 Days insulin degludec 200 unit/mL (3 mL) subcutaneous pen 30 units SQ DAILY 90 Days ml atorvastatin 10 mg tablet 10 mg PO HS tab Aspirin [Aspirin 81mg EC Tab] 81 mg PO DAILY glipiZIDE [Glipizide] 5 mg PO PM Furosemide [Furosemide 20mg Tab] 20 mg PO BID glipiZIDE [Glipizide] 10 mg PO DAILY Benzonatate 200 mg PO TID lisinopriL [Lisinopril 40mg Tablet] 40 mg PO BID hydroCHLOROthiazide [HCTZ 25mg tab] 25 mg PO DAILY Discontinued Cefdinir [Omnicef 300mg Capsule] 300 mg PO BID - Problem Reconciliation Problems Reviewed?: Yes
== END 2019-04-12 12:37 | disposition home or self-care (01) | DRG 438 ==
LOC: 2ND 18:39 → ER 18:39 → UTC 18:39 → OBSVTOIN 22:36 → 2ND 22:36
PROVIDERS: ADMIT Emergency Medicine; ATTEND Family Medicine
CPT/HCPCS: 36415; 71020; 71046; 74176; 76700; 80048; 80053; 81001; 81003; 82962; 83690; 83735; 85025; 94761; 96365; 99284; J2405

== ENCOUNTER 2020-01-30 05:32 | Observation (INO) | payer MEDICARE, SELFPAY ==
[2020-01-30] VITALS (9 sets, daily range): BP systolic 118–172; BP diastolic 64–97; PULSE 85–113; RESP 14–22; TEMP 36.3–36.9; O2SAT 90–100; BMI 37.8; BMI 41.8; BMI 41.6
--- NOTE | 2020-01-30 05:49 | XR_ITS ---
PROCEDURE: XR CHEST 2V CLINICAL HISTORY: back pain right side Right-sided pain COMPARISON: CT CTAC CTA-CHEST from 05/30/2013 CR CXR1 CHEST-PORTABLE from 10/26/2015 CR XR CHEST 2V from 01/17/2019 CR XR CHEST 2V from 04/09/[address] ABDOMEN PELVIS W CON from 01/30/2020 FINDINGS: Mild cardiomegaly without failure. Patchy density present in the right lower lobe consistent with atelectasis and/or infiltrate. Degenerative changes thoracic spine with exaggerated kyphosis IMPRESSION: Right basilar atelectasis and/or infiltrate Dictated by: Rosalio Ramesh MD 01/30/2020 07:18 Rosalio Ramesh MD in [facility] 01/30/2020 07:18
--- NOTE | 2020-01-30 05:49 | CT_ITS ---
PROCEDURE: CT ABDOMEN PELVIS W CON CLINICAL INDICATION: right flank pain COMPARISON: No exams were available for comparison TECHNIQUE: IV Contrast: 75ML Isovue 370 Oral Contrast None Axial images obtained with sagittal and coronal reformats. All CT scans at the facility use one or more dose reduction, viz: automated exposure control, ma/kV adjustment per patient size (including targeted exams where dose is matched to indication, i.e. head), or iterative reconstruction technique. FINDINGS: There is cardiomegaly. Coronary artery calcifications and/or stents noted. Atelectasis and/or infiltrate noted in the right base posteriorly. The liver, gallbladder, spleen, left adrenal gland, have an unremarkable appearance. There is a fatty lesion involving the right adrenal gland measuring 2.4 cm consistent with an adrenal myelolipoma not significantly changed. There is some minimal stranding of the fat along the descending and transverse portion of the duodenum adjacent to the pancreas. No abnormal fluid collections are evident. There is a small left renal cyst. No renal or ureteral calculi. There is a 3.5 cm infrarenal abdominal aortic aneurysm. 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 No evidence retroperitoneal hemorrhage. No evidence of appendicitis intestinal obstruction or free air. Prostate seed implants are present. There is diverticulosis of the transverse and descending colon. No evidence of diverticulitis. No acute bony findings. There is a 3.7 cm localized fluid collection in the left inguinal area and may be related to seroma. IMPRESSION: 1. Mild stranding of the fat around the duodenum at the head of the pancreas and could be related to mild duodenitis or even mild pancreatitis. 2. Colonic diverticulosis without diverticulitis. 3. Chronic left inguinal seroma 4. Right adrenal myelolipoma 5. Other nonacute findings as described above. Dictated by: Rosalio Ramesh MD 01/30/2020 09:20 Rosalio Ramesh MD in [facility] 01/30/2020 09:20
--- NOTE | 2020-01-30 05:58 | ECG_ITS ---
APPROVED REPORT Exam: Resting ECG HR:104 bpm ECG Measurements Heart Rate 104 AXES IL 148 P 94 QRSd 84 QRS 44 QT 364 T 83 QTc 478 Conclusion Sinus tachycardia Nonspecific ST and T wave abnormality Abnormal ECG Electronically signed by : Ben Jesus, 01/31/2020 17:30:06
--- NOTE | 2020-01-30 05:58 | PC.NURSE ---
placed into gown. iv established and blood sent to lab.
--- NOTE | 2020-01-30 06:00 | PC.NURSE ---
gave patient urinal and advised to pee as soon as possible
[2020-01-30 06:14] LABS: Basophils % 0.3 % (0.1-2.0); Eosinophils # 0.2 K/mm3 (0.0-0.4); Eosinophils % 2.4 % (0.1-12.0); Hematocrit 34.2 % (42.0-52.0); Hemoglobin 10.1 g/dL (14.1-18.0); Lymphocytes # 1.6 K/mm3 (0.7-4.5); Lymphocytes % 20.4 % (10-50); Mean Corpuscular HGB Conc 29.5 g/dL (31.8-35.4); Mean Corpuscular Hemoglobin 23.7 pg (27.0-31.2); Mean Corpuscular Volume 80.2 fl (80-94); Mean Platelet Volume 8.6 fl (7.4-10.4); Monocytes # 0.4 K/mm3 (0.1-1.0); Monocytes % 4.7 % (1.7-9.3); Neutrophils # 5.7 K/mm3 (1.8-7.8); Neutrophils % 72.2 % (37.0-80.0); Platelet Count 233 K/mm3 (142-424); Red Blood Count 4.26 M/mm3 (4.60-6.20); Red Cell Distribution Width 17.3 % (11.5-17.5); White Blood Count 7.8 K/mm3 (4.8-10.8)
[2020-01-30 06:19] LABS: Chloride 98 mmol/L (98-107); Potassium 3.6 mmoL/L (3.5-5.1); Sodium 135 mmol/L (136-145)
[2020-01-30 06:21] LABS: Amylase 153 U/L (30-110); Blood Urea Nitrogen 26 mg/dl (9-20); Creatinine Clearance Estimated 77 mL/min (50-200); Estimated Glomerular Filt Rate 46 ml/min (>60); GFR (African American) 55 ML/MIN (>60)
[2020-01-30 06:22] LABS: Alanine Aminotransferase 14 U/L (12-78); Albumin Level 4.5 g/dl (3.5-5.0); Alkaline Phosphatase 123 U/L (38-126); Anion Gap 11.6 mEq/L (5-15); Aspartate Amino Transferase 21 U/L (17-59); Bilirubin,Total 0.7 mg/dl (0.2-1.3); Calcium 9.7 mg/dl (8.4-10.2); Carbon Dioxide 29 mmol/L (22.0-30.0); Globulin 4.7 g/dL (1.3-3.2); Glucose 271 mg/dl (74-100); Lipase 1935 U/L (23-300); Total Protein,Serum 9.2 g/dl (6.3-8.2)
[2020-01-30 06:27] LABS: C-Reactive Protein 31.8 mg/L (0-4)
[2020-01-30 06:37] LABS: Troponin I 0.01 ng/ml (0.00-0.034)
--- NOTE | 2020-01-30 06:39 | PC.NURSE ---
pt to ct
[2020-01-30 06:54] LABS: Coronavirus 19 IgG Antibody Negative (Negative); Coronavirus 19 IgM Antibody Negative (Negative)
--- NOTE | 2020-01-30 06:54 | PC.NURSE ---
pt return from ct. requested echocardiography radiology technologist take him to br so he can give sample. no issues noted at this time.
[2020-01-30 06:55] LABS: Erythrocyte Sedimentation Rate 71 mm/hr (0-20)
[2020-01-30 07:00] LABS: Microscopic, Urine URINE MICROSCOPIC (MICROSCOPIC)
[2020-01-30 07:01] LABS: Appearance,Urine CLEAR (Clear); Bilirubin,Urine Negative (Negative); Blood, Urine Negative (Negative); Color,Urine YELLOW (Yellow); Glucose,Urine (UA) 2+ (Negative); Ketones,Urine Negative (Negative); Leukocyte Esterase,Urine Negative (Negative); Nitrate,Urine Negative (Negative); Protein,Urine Negative (Negative); Urobilinogen,Urine 0.2 EU/dl (0.2)
--- NOTE | 2020-01-30 07:09 | PC.NURSE ---
report given to lynn torrez
--- NOTE | 2020-01-30 07:19 | HMH.EDNVD ---
ED Disposition Clinical Impression: Morbid obesity, JACQUI (acute kidney injury) Pancreatitis Qualifiers: Chronicity: acute Pancreatitis type: unspecified pancreatitis type Acute pancreatitis complication: no infection or necrosis Qualified Code(s): K85.90 - Acute pancreatitis without necrosis or infection, unspecified Diabetes mellitus with diabetic polyneuropathy Qualifiers: Diabetes mellitus type: type 2 Diabetes mellitus emt intermediate insulin use: unspecified emt intermediate insulin use status Qualified Code(s): E11.42 - Type 2 diabetes mellitus with diabetic polyneuropathy Hearing impairment Qualifiers: Hearing loss type: unspecified Laterality: bilateral Qualified Code(s): H91.93 - Unspecified hearing loss, bilateral Disposition: Admitted As Inpatient Condition on Discharge: Good Referrals: Ben Cavazos MD [Primary Care Provider] - - Critical Care Critical Care Time: No Attestation: On 01/30/20, the high probability of a clinically significant, sudden or life threatening deterioration of the following system(s) required my full and direct attention, intervention and personal management. The time I documented below is in addition to time spent performing reported procedures but includes the following listed in this critical care notation. Medical Decision Making - Medical Records Medical records reviewed: Yes: I reviewed the patient's medical records. - Nelson Inquiry Pt receiving controlled substance: No Vital Signs: 01/30/20 05:34 01/30/20 05:44 01/30/20 06:30 Temperature 98.4 F Temperature Source Oral Pulse Rate [Right Brachial] 110 H 113 H 113 H Respiratory Rate 14 17 22 Blood Pressure [Right Arm] 146/86 H 167/83 H Blood Pressure Mean [Right Arm] 106 111 Blood Pressure Source [Right Arm] Automatic Cuff Automatic Cuff Blood Pressure Position [Right Arm] Sitting Sitting 02 Sat by Pulse Oximetry 100 92 L 95 Oxygen Delivery Method Room Air Room Air - Lab Data Lab results reviewed: Yes: I reviewed the patient's lab results. Lab Results 01/30/20 05:49: Urine Color Yellow, Urine Appearance Clear, Urine pH 5.0, Ur Specific [place] 1.010, Urine Protein Negative, Urine Glucose (UA) 2+, Urine Ketones Negative, Urine Blood Negative, Urine Nitrate Negative, Urine Bilirubin Negative, Urine Urobilinogen 0.2, Ur Leukocyte Esterase Negative, Urine WBC 3-5, Ur Squamous Epith Cells 3-5 01/30/20 05:55: WBC 7.8, RBC 4.26 L, Hgb 10.1 L, Hct 34.2 L, MCV 80.2, MCH 23.7 L, MCHC 29.5 L, RDW 17.3, Plt Count 233, MPV 8.6, Neut % (Auto) 72.2, Lymph % (Auto) 20.4, [place] % (Auto) 4.7, Eos % (Auto) 2.4, Baso % (Auto) 0.3, Neut # (Auto) 5.7, Lymph # (Auto) 1.6, [place] # (Auto) 0.4, Eos # (Auto) 0.2, Baso # (Auto) 0.0, ESR 71 H 01/30/20 05:55: Sodium 135 L, Potassium 3.6, Chloride 98, Carbon Dioxide 29, Anion Gap 11.6, BUN 26 H, Creatinine 1.50 H, Estimated Creat Clear 77, Estimated GFR 46 L, Est GFR ( Amer) 55 L, Glucose 271 H, Calcium 9.7, Total Bilirubin 0.7, AST 21, ALT 14, Alkaline Phosphatase 123, Troponin I 0.01, C-Reactive Protein 31.8 H, Total Protein 9.2 H, Albumin 4.5, Globulin 4.7 H, Albumin/Globulin Ratio 1.0 L, Amylase 153 H, Lipase 1935 H, Procalcitonin 0.070 01/30/20 05:55: SARS-CoV-2 IgG Ab (Rapid) Negative, SARS-CoV-2 IgM Ab (Rapid) Negative Result diagrams: 01/30/20 05:55 01/30/20 05:55 Orders (Tests/Meds): ED MEDICATIONS Generic Name Dose Route Start Last Admin Trade Name Freq PRN Reason Stop Dose Admin Sodium Chloride 1,000 mls @ 999 mls/hr 01/30/20 07:30 01/30/20 07:34 Sod Chlor 0.9% 1000ml Bag IV 01/30/20 08:30 999 mls/hr .Q1H1M TIA Administration Discontinued Medications Generic Name Dose Route Start Last Admin Trade Name Freq PRN Reason Stop Dose Admin Iopamidol 75 ml 01/30/20 06:53 01/30/20 06:54 Iopamidol-370 (76%);100ml Bottle IV 01/30/20 06:54 75 ml ONCE ONE Administration Morphine Sulfate 4 mg 01/30/20 07:31 01/30/20 07:34 Morphine 4mg/Ml Syringe IV 1
--- NOTE | 2020-01-30 07:37 | PC.NURSE ---
spoke with for admission. Pt aware of admission
--- NOTE | 2020-01-30 07:57 | PC.NURSE ---
notified second floor pt is ready for admission, receiving nurse states she will come down to get report.
--- NOTE | 2020-01-30 08:57 | HMH.PHAVTE ---
[facility] Pharmacy VTE Monitoring - Patient Demographics Admission date: 01/30/20 Report Date: 01/30/20 Time: 08:58 Allergies/Adverse Reactions: Patient Allergies ampicillin [From Unasyn] Allergy (Severe, Verified 09/09/18 12:51) [id number]/THROAT sulbactam [From Unasyn] Allergy (Severe, Verified 09/09/18 12:51) [id number]/THROAT Height: 1.83 m Weight: 126.552 kg Patient Problems: Current Active Problems Morbid obesity (Acute) Pancreatitis (Acute) JACQUI (acute kidney injury) (Acute) Hearing impairment (Acute) Diabetes mellitus with diabetic polyneuropathy (Acute) - VTE Risk Labs: VTE Related Lab Results Hgb 10.1 g/dL (14.1-18.0) L 01/30/20 05:55 Hct 34.2 % (42.0-52.0) L 01/30/20 05:55 Plt Count 233 K/mm3 (142-424) 01/30/20 05:55 BUN 26 mg/dl (9-20) H 01/30/20 05:55 Creatinine 1.50 mg/dl (0.66-1.25) H 01/30/20 05:55 Estimated Creat Clear 77 mL/min (50-200) 01/30/20 05:55 - Prophylaxis VTE Prophylaxis Ordered?: Yes Types of VTE Prophylaxis: TEDS Knee High Location of Applied Device: Bilateral Lower Extremeties - VTE Diagnosis Confirmed Treatment or plan recommended: Continue Current Treatment
--- NOTE | 2020-01-30 09:29 | HMH.PHAINT ---
MEDICATION RECONCILIATION COMPLETED ON PATIENT USING EXTERNAL FILL HISTORY FROM PHARMACY AND LIST FROM MD OFFICE. -ERIC BARRIOSD
--- NOTE | 2020-01-30 09:37 | HMH.HP ---
*Admission Date: 01/30/20 *Chief complaint: right sided abdominal pain *History of present illness: Patient presented to the emergency department with a 3-day history of right-sided abdominal pain that radiated around to his back. In the emergency department he described the pain as being similar to his episode of pancreatitis from earlier in the year. Patient denies vomiting but has had nausea. He denies diarrhea. Work-up in the ER revealed findings consistent with acute pancreatitis. Patient is been admitted for pain control, IV fluids and made n.p.o. Within a few hours of arriving to the floor however patient has complained of hunger and is asking if he can eat or drink. He continues to have nausea. [facility] History I have reviewed the patient's past medical history: Yes Medical History: Reports:: Aneurysm, Cancer (prostate), Diabetes Mellitus Type 2, Gastroesophageal Reflux Disease(GERD), Hyperlipidemia, Hypertension Denies:: Diabetes Mellitus Type 1, MRSA *Have you ever received a pneumonia vaccine?: No *Have you received a flu vaccine this season?: No Other Medical History: Reports: Arthritis Other Surgeries: Yes: Colonoscopy, Sinus Surgery Amputation: No Fractures: No - *Social History Last grade of school completed: High school graduate Smoking Status: Former smoker Tobacco Type: cigarettes Alcohol Intake: never Alcohol Intake Frequency:: other *Occupational Status:: retired Housing: apartment *Travel in the last 8 weeks: None Family Hx:: Unable to obtain Review of Systems - Constitutional Reports anorexia, Reports body ache(s), Reports fever(s) - ENT Reports abnormal hearing - *Cardiovascular Denies chest pain, Denies chest pain at rest - *Respiratory Denies change in phlegm color, Denies chest congestion, Denies cough - *Gastrointestinal Reports abdominal pain - *Genitourinary Denies difficulty urinating, Denies difficulty with ejaculations - *Musculoskeletal Denies abnormal walking, Denies joint pain - *Neurologic Denies headache(s), Denies seizure-like activity Meds Home Medications Medication Instructions Recorded Confirmed Type omeprazole 20 mg capsule,delayed 20 mg PO DAILY 90 Days 08/25/17 01/30/20 History release insulin degludec 200 unit/mL (3 30 units SQ HS 90 Days ml 02/25/18 01/30/20 History mL) subcutaneous pen atorvastatin 10 mg tablet 10 mg PO HS tab 09/09/18 01/30/20 History glipiZIDE [Glipizide] 5 mg PO BID 01/16/19 01/30/20 History hydroCHLOROthiazide [HCTZ 25mg 25 mg PO DAILY 04/10/19 01/30/20 History tab] lisinopriL [Lisinopril 40mg Tablet] 40 mg PO BID 04/10/19 01/30/20 History Aspirin [Aspirin 325mg Tab] 325 mg PO DAILY 01/30/20 01/30/20 History Furosemide [Furosemide 40MG tAB*] 80 mg PO BID 01/30/20 01/30/20 History Pioglitazone HCl [Actos] 45 mg PO HS 01/30/20 01/30/20 History Tizanidine HCl [Zanaflex 4mg 4 mg PO TID PRN 01/30/20 01/30/20 History tab] Allergies Allergy/AdvReac Type Severity Reaction Status Date / Time ampicillin [From Unasyn] Allergy Severe S-SWELLS-OR Verified 09/09/18 12:51 AL/THROAT sulbactam [From Unasyn] Allergy Severe S-SWELLS-OR Verified 09/09/18 12:51 AL/THROAT Exam Vital signs and Labs for Last 24 Hours: Temp Pulse Resp BP Pulse Ox 97.4 F L 109 H 20 147/97 H 90 L 01/30/20 08:58 01/30/20 08:58 01/30/20 08:58 01/30/20 08:58 01/30/20 08:58 Laboratory Results - last 24 hr 01/30/20 05:49: Urine Color Yellow, Urine Appearance Clear, Urine pH 5.0, Ur Specific [place] 1.010, Urine Protein Negative, Urine Glucose (UA) 2+, Urine Ketones Negative, Urine Blood Negative, Urine Nitrate Negative, Urine Bilirubin Negative, Urine Urobilinogen 0.2, Ur Leukocyte Esterase Negative, Urine WBC 3-5, Ur Squamous Epith Cells 3-5 01/30/20 05:55: WBC 7.8, RBC 4.26 L, Hgb 10.1 L, Hct 34.2 L, MCV 80.2, MCH 23.7 L, MCHC 29.5 L, RDW 17.3, Plt Count 233, MPV 8.6, Neut % (Auto) 72.2, Lymph % (Auto) 20.4, [place] % (Aut
[2020-01-30 09:42] LABS: Troponin I < 0.01 ng/ml (0.00-0.034)
--- NOTE | 2020-01-30 14:32 | PC.NURSE ---
PT IS RESTING IN BED. PT'S ONLY COMPLAINT IS THAT HE FEELS VERY HUNGRY. ABDOMEN IS ROUND/NON TENDER. PT DOES NOT HAVE ANY ABDOMINAL TENDERNESS WITH PALPATION. HYPOACTIVE BOWEL SOUNDS. LUNG SOUNDS DIMINISHED. TEDS NOTED TO BLE. PT HAS BEEN AMBULATING TO THE BATHROOM WITH STANDBY ASSIST. VSS. WILL CONTINUE TO MONITOR.
--- NOTE | 2020-01-30 17:25 | PC.NURSE ---
PT HAD ONE EPISODE OF VOMITING RIGHT BEFORE DINNER. PT HAD MORPHINE AND ZOFRAN ABOUT 30 MIN PRIOR. PT WAS TOLD NOT TO TAKE IN ANY CLEAR LIQUIDS FOR NOW.
[2020-01-30 22:24] LABS: POC Glucose,Bedside 158 (70-110)
[2020-01-30 22:24] LABS: POC Glucose,Bedside 172 (70-110)
[2020-01-30 22:24] LABS: POC Glucose,Bedside 183 (70-110)
[2020-01-31 04:00] VITALS: BP 146/72; PULSE 122; RESP 20; TEMP 36.8; O2SAT 92
[2020-01-31 04:51] VITALS: BMI 41.7
[2020-01-31 05:52] LABS: POC Glucose,Bedside 119 (70-110)
[2020-01-31 06:38] LABS: Chloride 100 mmol/L (98-107); Sodium 139 mmol/L (136-145)
[2020-01-31 06:39] LABS: Potassium 4.1 mmoL/L (3.5-5.1)
[2020-01-31 06:41] LABS: Blood Urea Nitrogen 23 mg/dl (9-20); Creatinine Clearance Estimated 48 mL/min (50-200); Estimated Glomerular Filt Rate 50 ml/min (>60); GFR (African American) 60 ML/MIN (>60)
[2020-01-31 06:42] LABS: Anion Gap 12.1 mEq/L (5-15); Calcium 9.3 mg/dl (8.4-10.2); Carbon Dioxide 31 mmol/L (22.0-30.0); Chol/HDL Ratio 4.2 (1-3.5); Cholesterol 123 mg/dl (140-200); Glucose 126 mg/dl (74-100); HDL Cholesterol 29 mg/dl (40-60); Triglycerides 137 mg/dl (30-150); VLDL Cholesterol 27 mg/dL (0-40)
--- NOTE | 2020-01-31 06:48 | PC.NURSE ---
pt rested on and off this shift, ambulated to bathroom several times with standby assist, bed alarm on for safety, no complaints of SOA, chest pain, N/V/D, abdomen is large, round, non tender to light palpation, o2 sats did drop down to low to mid 80's this morning and pt was placed on 2L NC, lung sounds CTA
[2020-01-31 06:55] LABS: Basophils % 0.2 % (0.1-2.0); Eosinophils # 0.1 K/mm3 (0.0-0.4); Eosinophils % 0.8 % (0.1-12.0); Hematocrit 31.8 % (42.0-52.0); Hemoglobin 9.1 g/dL (14.1-18.0); Lymphocytes # 1.1 K/mm3 (0.7-4.5); Lymphocytes % 16.7 % (10-50); Mean Corpuscular HGB Conc 28.6 g/dL (31.8-35.4); Mean Corpuscular Hemoglobin 23.1 pg (27.0-31.2); Mean Corpuscular Volume 80.9 fl (80-94); Mean Platelet Volume 7.1 fl (7.4-10.4); Monocytes # 0.5 K/mm3 (0.1-1.0); Monocytes % 7.2 % (1.7-9.3); Neutrophils # 4.8 K/mm3 (1.8-7.8); Neutrophils % 75.1 % (37.0-80.0); Platelet Count 227 K/mm3 (142-424); Red Blood Count 3.93 M/mm3 (4.60-6.20); Red Cell Distribution Width 17.1 % (11.5-17.5); White Blood Count 6.4 K/mm3 (4.8-10.8)
[2020-01-31 06:56] LABS: Direct LDL Cholesterol 52.67 mg/dL (100-129)
--- NOTE | 2020-01-31 06:58 | HMH.ACPN2 ---
Internal Medicine - PN: Subj *Date: 01/31/20 *Time: 06:58 Interval history: Patient vomited yesterday evening prior to and attempted a clear liquid diet. Episode of emesis occurred after receiving some morphine. Patient received morphine earlier in the day without incident. He reports feeling better this morning. The morphine apparently also caused some confusion according to the patient. Exam Vital signs and Labs for Last 24 Hours: Temp Pulse Resp BP Pulse Ox 98.2 F 122 H 20 146/72 H 92 L 01/31/20 04:00 01/31/20 04:00 01/31/20 04:00 01/31/20 04:00 01/31/20 04:00 Laboratory Results - last 24 hr 01/30/20 05:49: Urine Color Yellow, Urine Appearance Clear, Urine pH 5.0, Ur Specific [place] 1.010, Urine Protein Negative, Urine Glucose (UA) 2+, Urine Ketones Negative, Urine Blood Negative, Urine Nitrate Negative, Urine Bilirubin Negative, Urine Urobilinogen 0.2, Ur Leukocyte Esterase Negative, Urine WBC 3-5, Ur Squamous Epith Cells 3-5 01/30/20 09:07: Troponin I < 0.01 01/30/20 11:24: POC Glucose 183 H 01/30/20 15:34: POC Glucose 158 H 01/30/20 20:39: POC Glucose 172 H 01/31/20 05:42: POC Glucose 119 H 01/31/20 05:44: WBC 6.4, RBC 3.93 L, Hgb 9.1 L, Hct 31.8 L, MCV 80.9, MCH 23.1 L, MCHC 28.6 L, RDW 17.1, Plt Count 227, MPV 7.1 L, Neut % (Auto) 75.1, Lymph % (Auto) 16.7, [place] % (Auto) 7.2, Eos % (Auto) 0.8, Baso % (Auto) 0.2, Neut # (Auto) 4.8, Lymph # (Auto) 1.1, [place] # (Auto) 0.5, Eos # (Auto) 0.1, Baso # (Auto) 0.0 01/31/20 05:44: Sodium 139, Potassium 4.1, Chloride 100, Carbon Dioxide 31 H, Anion Gap 12.1, BUN 23 H, Creatinine 1.40 H, Estimated Creat Clear 48, Estimated GFR 50 L, Est GFR ( Amer) 60, Glucose 126 H D, Calcium 9.3, Triglycerides 137, Cholesterol 123 L, VLDL Cholesterol 27, HDL Cholesterol 29 L, Cholesterol/HDL Ratio 4.2 H I & O for Last 24 hours: Intake & Output 01/28/20 01/29/20 01/30/20 01/31/20 11:59 11:59 11:59 11:59 Intake Total 0 / 0 Balance 0 / 0 Weight 291 lb 4 oz 291 lb 6 oz Narrative: Patient looks well. Lungs are distant but clear. Heart has a regular rate and rhythm. Abdomen is obese, soft with some abdominal tenderness in the lateral right upper quadrant. Bowel sounds are present. Assessment and Plan (1) Acute pancreatitis Status: Acute Category: Medical Code(s): K85.90 - Acute pancreatitis without necrosis or infection, unspecified (2) Pancreatitis Status: Acute Qualifiers: Chronicity: acute Pancreatitis type: unspecified pancreatitis type Acute pancreatitis complication: no infection or necrosis Qualified Code(s): K85.90 - Acute pancreatitis without necrosis or infection, unspecified Category: Medical Code(s): K85.90 - Acute pancreatitis without necrosis or infection, unspecified (3) Diabetes mellitus with diabetic polyneuropathy Status: Acute Qualifiers: Diabetes mellitus type: type 2 Diabetes mellitus shelter insulin use: unspecified shelter insulin use status Qualified Code(s): E11.42 - Type 2 diabetes mellitus with diabetic polyneuropathy Category: Medical Code(s): E11.42 - Type 2 diabetes mellitus with diabetic polyneuropathy (4) Hearing impairment Status: Acute Qualifiers: Hearing loss type: unspecified Laterality: bilateral Qualified Code(s): H91.93 - Unspecified hearing loss, bilateral Category: Medical Code(s): H91.90 - Unspecified hearing loss, unspecified ear (5) Essential hypertension Status: Acute Category: Medical Code(s): I10 - Essential (primary) hypertension (6) Morbid obesity Status: Acute Category: Medical Code(s): E66.01 - Morbid (severe) obesity due to excess calories - Assessment and plan all Dx Assessment and Plan for all problems:: 1. Trial of clear liquids this morning 2. Morphine will be discontinued in favor of Dilaudid 1 mg every 4 hours as needed 3. Encourage patient to ambulate
[2020-01-31 07:14] LABS: Lipase 253 U/L (23-300)
[2020-01-31 08:00] VITALS: BP 129/68; PULSE 110; RESP 19; TEMP 37.1; O2SAT 93
[2020-01-31 12:41] LABS: POC Glucose,Bedside 153 (70-110)
--- NOTE | 2020-01-31 14:03 | HMH.PTEV ---
Physical Therapy Evaluation Rehab PT IP Evaluation Start: 01/31/20 13:01 Freq: ONCE Status: Active Protocol: Document 01/31/20 14:00 MINISTERIO (Rec: 01/31/20 14:03 MINISTERIO [id number]) Subjective/History History History This is the initial IP PT evalaution for Winston Garcia. Pt is a 74 y/o male admitted to [facility] thru ED for pancreatitis Subjective Subjective Pt reports decreased pain but not totally pain free Rehab PT IP Eval Objective Appearance Patient Behavior Appropriate,Cooperative Patient Orientation Person,Place,Time Difficulty following instructions none Speech Pattern Clear,Appropriate Ambulation Patient Able to Ambulate Yes Ambulation Observation IP General Gait Pattern Observation No Deviations/Normal Ambulation Distance (feet) 75 Ambulation Assistive Device Standard Walker Ambulation Ability Independent,Supervision/Stand by Balance Ability to Arise Able, w/o using arms Sitting Balance Steady, safe Standing Balance Steady, wide stance Dynamic Sitting Balance Ability Good Dynamic Standing Balance Ability Fair Transfers Bed Transfer Ability Supervision/Stand by Chair Transfer Ability Supervision/Stand by Sit to Stand Bed Transfer Ability Supervision/Stand by Sit to Stand Chair Transfer Ability Supervision/Stand by Rehab PT IP prob,goals,plan Problems Date of Evaluation: 01/31/20 PT IP Problems Gait,Self care Rehab Potential Rehab Potential Good Equipment Needs Assistive Devices Standard Walker Plan PT Intervention Plan Gait,Self care,Therapeutic Exercise PT Plan Frequency BID Duration LOS Discharge Goals Bed Transfer Ability Supervision/Stand by Sit to Stand Chair Transfer Ability Supervision/Stand by Ambulation Assistive Device Standard Walker Ambulation Distance (feet) 75 Discharge Plan PT Discharge Plan pt safe to return home once medically stable - pt would benefit from skilled OPPT or HHPT to allow return to PLOF and PLOI. G -code Required Yes Eval Complexity Eval Charge Codes 90330 - Low Complexity G Codes PT Current Status Mobility PT Current Status Modifier CI-At least 1% but less than 20% impaired, limited or restric
--- NOTE | 2020-01-31 15:13 | SW/DCPLANNER ---
WENT IN TO SEE PATIENT THIS AFTERNOON REGARDING DISCHARGE PLANNING... MR ROMERO PRESENTED INTO THE ACUTE HOSP[facility] WITH PANCREATITIS. HE RESIDES IN [facility] AND LIVES ALONE.. HE DRIVES AND PROVIDES HIS OWN SELF CARE.. PATIENT STATED HE IS NOT HOME BOUND AND IS USUALLY OUT AND ABOUT ALMOST DAILY.. HIS STAY SHOULD BE SHORT AND IF ANY SERVICES ARE NEEDED THEY WILL BE SET UP AT TIME OF DISPOSITION....
--- NOTE | 2020-01-31 15:25 | PC.NURSE ---
Spoke with Dr Cavazos, pt tolerated clear liquid breakfast well. Diet advanced to Full liquid
[2020-01-31 16:00] VITALS: BP 127/64; PULSE 97; TEMP 36.4; O2SAT 94
--- NOTE | 2020-01-31 16:05 | PC.NURSE ---
PT IS RESTING IN BED. PT HAS TOLERATED CLEAR LIQUIDS T/O THE SHIFT W/O ANY ISSUES AND IS VERY EXCITED TO GET A FULL LIQUID DIET AT DINNER TIME B/C PT STATES I FEEL REALLY HUNGRY ABDOMEN LARGE/NON TENDER WITH ACTIVE BOWEL SOUNDS. LUNG SOUNDS CLEAR. PT IS VERY [place]. PT HAS ASKED SEVERAL PEOPLE ON THE FLOOR THIS SHIFT IF THEY WOULD LIKE TO MAKE SOME EXTRA [employer] BUY COMING TO HIS HOUSE TO HELP HIM OUT B/C HE HAS HAD TROUBLE GETTING AROUND FOR SOMETIME NOW. CARE MANAGEMENT NOTIFIED. PT DID NOT QUALIFY BECAUSE PT IS ABLE TO DRIVE AND HE AMBULATED IN THE [place] WITH PHYSICAL THERAPY. VSS. TEDS NOTED TO BLE. PT TOLERATED SITTING UP IN THE CHAIR FOR SEVERAL HOURS THIS SHIFT. AMBULATED TO THE BATHROOM WITH 1 ASSIST. WILL CONTINUE TO MONITOR.
[2020-01-31 16:49] LABS: POC Glucose,Bedside 133 (70-110)
[2020-01-31 20:00] VITALS: BP 140/72; PULSE 92; RESP 19; TEMP 36.6; O2SAT 94
[2020-01-31 20:20] VITALS: PULSE 92; RESP 19; O2SAT 94
[2020-02-01 00:11] LABS: POC Glucose,Bedside 142 (70-110)
[2020-02-01 00:59] LABS: POC Glucose,Bedside 152 (70-110)
[2020-02-01 04:00] VITALS: BP 133/75; PULSE 88; RESP 19; TEMP 36.7; O2SAT 95
--- NOTE | 2020-02-01 04:20 | PC.NURSE ---
no acute changes since prior assessment, pt has been up several times this shift to ambulate to bathroom, using walker and standby assist to ambulate, lungs remain CTA, has remained on room air this shift with O2 sats 94-95%, did complain of nausea at beginning of shift, has not complained of nausea since then, abdomen is large round and tender to light palpation
[2020-02-01 05:19] VITALS: BMI 41.4
[2020-02-01 05:43] LABS: POC Glucose,Bedside 114 (70-110)
--- NOTE | 2020-02-01 07:33 | HMH.DCSUM ---
General - General Admission date:: 01/30/20 Discharge date: 02/01/20 HPI HPI: Patient presented to the emergency department with a 3-day history of right-sided abdominal pain that radiated around to his back. In the emergency department he described the pain as being similar to his episode of pancreatitis from earlier in the year. Patient denies vomiting but has had nausea. He denies diarrhea. Work-up in the ER revealed findings consistent with acute pancreatitis. Patient is been admitted for pain control, IV fluids and made n.p.o. Within a few hours of arriving to the floor however patient has complained of hunger and is asking if he can eat or drink. He continues to have nausea. Hospital Course Hospital Course: Patient was admitted and made n.p.o. placed on IV fluids and initially given morphine for pain. The first evening of admission patient was given morphine for pain which led to an episode of nausea and vomiting. Morphine was changed to Dilaudid. Patient never required use of Dilaudid. Within 24 hours patient's abdominal pain had diminished to a soreness . Patient's diet was advanced to clear liquids and then later full liquids by that same evening. On the morning of January 31 patient's diet was advanced to low-fat diet. Once patient was tolerating diet he was discharged home. Patient was felt unsteady on his feet during the early parts of his hospitalization so physical therapy was consulted. Patient did well with a walker and no further services were needed. Objective Vital signs: Temp Pulse Resp BP Pulse Ox 98.0 F 88 19 133/75 95 02/01/20 04:00 02/01/20 04:00 02/01/20 04:00 02/01/20 04:00 02/01/20 04:00 no acute distress - *Routine Respiratory Exam Present: CTA bilaterally - *Routine Cardiovascular Exam Present: RRR - *Routine Abdominal Exam Present: soft, normoactive bowel sounds. Absent: tenderness Results Labs on day of discharge: Labs from last 24 hours 02/01/20 01/31/20 01/31/20 05:36 21:55 20:41 POC Glucose 114 H 142 H 152 H 01/31/20 01/31/20 16:40 12:34 POC Glucose 133 H 153 H DS: Diagnosis - Discharge Diagnosis (1) Acute pancreatitis Status: Acute (2) Diabetes mellitus with diabetic polyneuropathy Status: Acute (3) Hearing impairment Status: Acute (4) Essential hypertension Status: Acute (5) Morbid obesity Status: Acute Discharge Plan - Patient Discharge Instructions ACTIVITY: Continue current activity DIET: continue same diet Patient Instructions: Fat-Restricted Diet - Follow up Plan Follow up with: Ben Cavazos MD [Primary Care Provider] - 1 week Disposition: Home, Self-Shelter Medications: Home Medications Medication Instructions Recorded Confirmed Type omeprazole 20 mg capsule,delayed 20 mg PO DAILY 90 Days 08/25/17 01/30/20 History release insulin degludec 200 unit/mL (3 30 units SQ HS 90 Days ml 02/25/18 01/30/20 History mL) subcutaneous pen atorvastatin 10 mg tablet 10 mg PO HS tab 09/09/18 01/30/20 History glipiZIDE [Glipizide] 5 mg PO BID 01/16/19 01/30/20 History hydroCHLOROthiazide [HCTZ 25mg 25 mg PO DAILY 04/10/19 01/30/20 History tab] lisinopriL [Lisinopril 40mg Tablet] 40 mg PO BID 04/10/19 01/30/20 History Aspirin [Aspirin 325mg Tab] 325 mg PO DAILY 01/30/20 01/30/20 History Furosemide [Furosemide 40MG tAB*] 80 mg PO BID 01/30/20 01/30/20 History Pioglitazone HCl [Actos] 45 mg PO HS 01/30/20 01/30/20 History Tizanidine HCl [Zanaflex 4mg 4 mg PO TID PRN 01/30/20 01/30/20 History tab] Prescriptions/Medication Reconciliation: Continued omeprazole 20 mg capsule,delayed release 20 mg PO DAILY 90 Days insulin degludec 200 unit/mL (3 mL) subcutaneous pen 30 units SQ HS 90 Days ml atorvastatin 10 mg tablet 10 mg PO HS tab glipiZIDE [Glipizide] 5 mg PO BID lisinopriL [Lisinopril 40mg Tablet] 40 mg PO BID Pioglitazone H
[2020-02-01 07:58] VITALS: BP 152/84; PULSE 106; RESP 18; TEMP 37.4; O2SAT 93
== END 2020-02-01 10:50 | disposition home or self-care (01) ==
LOC: ER 07:32 → 2ND 07:49
PROVIDERS: Admitting Provider Family Medicine; Emergency Provider Emergency Medicine; PCP Family Medicine; Visit Provider Family Medicine
DX: K85.90 Acute pancreatitis without necrosis or infection, unspecified (principal); E11.42 Type 2 diabetes mellitus with diabetic polyneuropathy; I10 Essential (primary) hypertension; H91.93 Unspecified hearing loss, bilateral; E66.01 Morbid (severe) obesity due to excess calories; Z68.41 Body mass index [BMI] 40.0-44.9, adult; Z79.4 Long term (current) use of insulin; Z88.1 Allergy status to other antibiotic agents; Z79.82 Long term (current) use of aspirin; Z79.899 Other long term (current) drug therapy
CPT/HCPCS: 36415; 71046; 74177; 80048; 80053; 80061; 81001; 82150; 82962; 83690; 84145; 84484; 85025; 85651; 86140; 86328; 93005; 96365; 96375; 97161; 99284; G0378; J2405; Q9967

== ENCOUNTER → 2020-02-21 09:43 | Outpatient (CLI) | payer MEDICARE, SELFPAY ==
[2020-02-21 12:17] LABS: Coronavirus 19 IgG Antibody Negative (Negative); Coronavirus 19 IgM Antibody Negative (Negative)
== END ==
PROVIDERS: Visit Provider Internal Medicine Gastroenterology
DX: Z01.818 Encounter for other preprocedural examination (principal); Z11.52 Encounter for screening for COVID-19; Z12.11 Encounter for screening for malignant neoplasm of colon; Z86.010 Personal history of colon polyps; K92.1 Melena
CPT/HCPCS: 36415; 86328

== ENCOUNTER 2020-02-24 08:53 | Day surgery (SDC) | payer MEDICARE, SELFPAY ==
[2020-02-20 14:36] VITALS: BMI 40.1
[2020-02-24 09:19] VITALS: BP 158/71; PULSE 91; RESP 18; TEMP 36.3; O2SAT 91
[2020-02-24 09:28] LABS: POC Glucose,Bedside 146 (70-110)
[2020-02-24 10:11] VITALS: O2SAT 98
--- NOTE | 2020-02-24 10:22 | P.PN_ITS ---
[facility] Anesthesia Checklist - Patient Identification Patient Identification: Arm Band - Structural Data Admitted From: Home Planned Operative Procedure/s: colonoscopy Consent for Planned Operative Procedure(s) Verified: Yes Verified Documents: Surgical Consent, History and Physical - NPO Status Verified Time NPO: 00:00 - Additional verifications Anesthesia Reactions: No - Airway Assessment C-Spine Mobility Assessed: Yes (mp2) TMJ Mobility Assessed: Yes Dentition: Dentures-good fit - Neurological Assessment Level of Consciousness: Awake, Alert - Anesthesia Plan Anesthesia Risk discussed: Yes Anesthesia Plan: Verified ASA Class: III Anesthesia Type: MAC [facility] History I have reviewed the patient's past medical history: Yes Medical History: Reports:: Aneurysm, Cancer (PROSTATE), Diabetes Mellitus Type 2, Gastroesophageal Reflux Disease(GERD), Hyperlipidemia, Hypertension Denies:: Diabetes Mellitus Type 1, MRSA, Seizures *Have you ever received a pneumonia vaccine?: Yes *Have you received a flu vaccine this season?: Yes Other Medical History: Reports: Arthritis Anesthesia experience/problems:: nac Other Surgeries: Yes: Colonoscopy, Sinus Surgery Amputation: No Fractures: No - *Social History Smoking Status: Former smoker Tobacco Type: cigarettes Alcohol Intake: never Alcohol Intake Frequency:: other Substance Use Type: denies use *Occupational Status:: disabled Housing: apartment *Travel in the last 8 weeks: None Family Hx:: Unable to obtain
--- NOTE | 2020-02-24 10:39 | HMH.PROC ---
[facility] Procedure Note Procedure Note:: Colonoscopy Procedure Report: Colonoscopy with cold snare polypectomy and APC ablation Endoscopist: Clay Ibarra II, MD Referring physician: Ben Cavazos MD Date of Procedure: February 24, 2020 Equipment: Olympus 180 variable stiffness pediatric colonoscope Sedation: MAC sedation Indication: Mr. Garcia is a 74-year-old gentleman who is here for diagnostic colonoscopy. He has had increased left lower quadrant abdominal pain. He does get some intermittent constipation and bloating. He has been on Konsyl 1 tablespoon daily bulk fiber supplementation which is helped. The patient did have a colonoscopy with az last in January 2016 (4 years ago) and had 2 diminutive polyps and mild radiation proctitis. The patient reports no weight loss. His father, brother and 2 paternal uncles had colon cancer. Procedure: Prior to the procedure, a history and physical exam was performed, and patient's medications and allergies were reviewed. The risks, benefits and alternatives of the sedation and procedure were discussed with the patient. All questions were answered and informed consent was obtained. The patient was brought to the procedure room. Patient identification and proposed procedure were verified by the physician and the nurse. The patient was placed in a left lateral decubitus position and the scope was passed under direct vision. Throughout the procedure, the patient's blood pressure, pulse, and oxygen saturations were monitored continuously. The colonoscopy was accomplished without difficulty. The patient tolerated the procedure well. Findings: On digital rectal examination there was normal rectal tone. There were no external hemorrhoids. The colonoscope was introduced through the anal canal to the rectum and advanced to the cecum. The ileocecal valve and appendiceal orifice were identified. The scope was advanced a short distance into the ileum which appeared grossly normal. The scope was then withdrawn into the colon. The cecum, ascending and transverse colon and mucosa were grossly normal. There were 2 diminutive 4 mm colon polyps in the descending colon removed via cold snare polypectomy. There were scattered extensive diverticuli throughout the descending and sigmoid colon (LEFT colon). The rectum itself was normal. Upon retroflexion within the rectum there were grade 1-2 internal hemorrhoids. There was also some clot/heme in 2 separate places with angiodysplasia/telangiectasias in the distal rectum consistent with radiation proctitis. These telangiectasias were coagulated using APC ablation. The preparation was excellent throughout with [place] Preparation Score of 9. The cecal time was 12 minutes. Impression: 1. Diminutive descending colon polyps x2 2. Extensive left-sided diverticulosis 3. Radiation proctitis with some focal heme/clot status post APC ablation/coagulation of the telangiectasias 4. Grade 1-2 internal hemorrhoids Plan: I do feel that the patient's left-sided pain is probably diverticular (spastic diverticular disease) and functional. I would continue with Konsyl fiber plus MiraLAX and dietary measures. We will discuss additional treatment options. Based upon age and comorbidities, will need to determine whether further surveillance is warranted.
[2020-02-24 10:40] VITALS: BP 133/69; PULSE 98; RESP 18; TEMP 36.4; O2SAT 91
[2020-02-24 10:50] VITALS: BP 149/87; PULSE 92; RESP 18; TEMP 36.4; O2SAT 91
[2020-02-24 11:00] VITALS: BP 166/88; PULSE 88; RESP 18; TEMP 36.4; O2SAT 92
[2020-02-24 11:10] VITALS: BP 166/88; PULSE 85; RESP 18; TEMP 36.4; O2SAT 95
== END 2020-02-24 11:10 | disposition home or self-care (01) ==
LOC: OUTP 08:55
PROVIDERS: PCP Family Medicine; Visit Provider Internal Medicine Gastroenterology
PROC: 0DJD8ZZ Inspection of Lower Intestinal Tract, Via Natural or Artificial Opening Endoscopic (ICD-10-PCS; CPT 45378; principal; 2020-02-24 10:00)
DX: Z80.0 Family history of malignant neoplasm of digestive organs (principal); K64.0 First degree hemorrhoids; K63.5 Polyp of colon; K57.30 Diverticulosis of large intestine without perforation or abscess without bleeding; K62.7 Radiation proctitis; Z86.010 Personal history of colon polyps; Z85.46 Personal history of malignant neoplasm of prostate; E11.9 Type 2 diabetes mellitus without complications; E78.5 Hyperlipidemia, unspecified; I10 Essential (primary) hypertension; K21.9 Gastro-esophageal reflux disease without esophagitis; Z86.79 Personal history of other diseases of the circulatory system
CPT/HCPCS: 45385; 82962; 88305; C2618

== ENCOUNTER → 2020-07-24 15:44 | Outpatient (CLI) | payer MEDICARE, SELFPAY ==
--- NOTE | 2020-07-24 15:53 | XR_ITS ---
PROCEDURE INFORMATION: Exam: XR Left Knee Exam date and time: 07/24/2020 3:53 PM Age: 74 years old Clinical indication: Pain; Knee; Left; Additional info: Lt medial knee pain TECHNIQUE: Imaging protocol: XR Left knee. Views: 3 views. COMPARISON: No relevant prior studies available. FINDINGS: Bones/joints: There is no evidence of acute fracture. There is no evidence of joint malalignment or dislocation. Small joint effusion. There are mild degenerative changes of the knee joint, predominantly involving the medial joint compartment. Soft tissues: There are no soft tissue masses or fluid collections. Vasculature: The vasculature demonstrates diffuse mild atherosclerotic calcification. IMPRESSION: 1. No evidence of acute fracture. 2. No evidence of acute dislocation. 3. Small joint effusion. 4. There are mild degenerative changes of the knee joint, predominantly involving the medial joint compartment.
== END ==
PROVIDERS: PCP Family Medicine; Visit Provider Family Medicine
DX: M25.562 Pain in left knee (principal)
CPT/HCPCS: 73562

== ENCOUNTER 2020-08-05 18:59 | Emergency (ER) | payer MEDICARE, SELFPAY ==
[2020-08-05 19:15] VITALS: BP 130/65; PULSE 100; RESP 18; TEMP 37.2; O2SAT 93; BMI 37.8
--- NOTE | 2020-08-05 19:27 | XR_ITS ---
PROCEDURE INFORMATION: Exam: XR Left Knee Exam date and time: 08/05/2020 7:27 PM Age: 74 years old Clinical indication: Injury or trauma; Blunt trauma; Patient HX: Patient fell twice today. Left knee pain. Patient states he falls frequently. Large patient. TECHNIQUE: Imaging protocol: XR Left knee. Views: 3 views. COMPARISON: CR XR KNEE LT 3V 07/24/2020 4:07 PM FINDINGS: Bones/joints: No acute fracture. No dislocation. Mild degenerative spurring of the knee joint without significant joint space loss. No joint effusion. Soft tissues: Atherosclerotic calcifications. IMPRESSION: No acute fracture or dislocation.
[2020-08-05 19:30] VITALS: BP 155/68; PULSE 86; O2SAT 92
[2020-08-05 20:01] VITALS: BP 138/74; PULSE 97; O2SAT 95
[2020-08-05 20:25] LABS: Microscopic, Urine URINE MICROSCOPIC (MICROSCOPIC)
[2020-08-05 20:30] VITALS: BP 125/68; PULSE 90; O2SAT 94
[2020-08-05 20:34] LABS: Appearance,Urine SL CLOUDY (Clear); Blood, Urine Negative (Negative); Color,Urine DK YELLOW (Yellow); Glucose,Urine (UA) Negative (Negative); Ketones,Urine Negative (Negative); Leukocyte Esterase,Urine Negative (Negative); Nitrate,Urine Negative (Negative); Protein,Urine Negative (Negative); Specific Gravity, Urine >= 1.030 (1.005-1.030); Urobilinogen,Urine 0.2 EU/dl (0.2)
[2020-08-05 20:43] LABS: Bilirubin,Urine Negative (Negative)
[2020-08-05 20:44] LABS: Bacteria,Urine 3+ /lpf; Squamous Epithelial Cell,Urine Occasional #/hpf (0-5)
--- NOTE | 2020-08-05 20:46 | HMH.EDGENADL ---
ED Disposition Clinical Impression: Left knee pain Qualifiers: Chronicity: chronic Qualified Code(s): M25.562 - Pain in left knee; G89.29 - Other chronic pain Osteoarthritis Qualifiers: Osteoarthritis location: knee Osteoarthritis type: unspecified Laterality: left Qualified Code(s): M17.12 - Unilateral primary osteoarthritis, left knee Disposition: Home, Self-Care Condition on Discharge: Good Instructions: DI for Knee Pain, DI for Osteoarthritis Additional Instructions: You have been evaluated for left knee pain. Likely due to osteoarthritis. Please continue taking Tylenol arthritis medication. Use Voltaren gel. Follow-up with your primary care doctor. Follow-up with orthopedics, Dr. Freed as soon as available. Use heat, ice, compression, elevation. Return to the emergency department for any new or worsening symptoms, fevers, redness, swelling, other concerns. Referrals: Ben Cavazos MD [Primary Care Provider] - Isaías Freed MD [Staff Physician] - Time of Disposition: 21:14 - Critical Care Critical Care Time: No Attestation: On 08/05/20, the high probability of a clinically significant, sudden or life threatening deterioration of the following system(s) required my full and direct attention, intervention and personal management. The time I documented below is in addition to time spent performing reported procedures but includes the following listed in this critical care notation. Medical Decision Making - Medical Records Medical records reviewed: Yes: I reviewed the patient's medical records. - Nelson Inquiry Pt receiving controlled substance: No Vital Signs: 08/05/20 19:15 08/05/20 19:30 08/05/20 20:01 Temperature 98.9 F Temperature Source Oral Pulse Rate 86 97 H Pulse Rate [Right] 100 H Respiratory Rate 18 Blood Pressure 155/68 H 138/74 Blood Pressure [Right Arm] 130/65 Blood Pressure Mean 89 Blood Pressure Mean [Right Arm] 86 Blood Pressure Source [Right Arm] Automatic Cuff Blood Pressure Position [Right Arm] Supine 02 Sat by Pulse Oximetry 93 L 92 L 95 Oxygen Delivery Method Room Air 08/05/20 20:30 Temperature Temperature Source Pulse Rate 90 Pulse Rate [Right] Respiratory Rate Blood Pressure 125/68 Blood Pressure [Right Arm] Blood Pressure Mean 87 Blood Pressure Mean [Right Arm] Blood Pressure Source [Right Arm] Blood Pressure Position [Right Arm] 02 Sat by Pulse Oximetry 94 L Oxygen Delivery Method - Lab Data Lab Results 08/05/20 20:20: Urine Color Dk yellow, Urine Appearance Sl cloudy, Urine pH 5.0, Ur Specific Britton >= 1.030, Urine Protein Negative, Urine Glucose (UA) Negative, Urine Ketones Negative, Urine Blood Negative, Urine Nitrate Negative, Urine Bilirubin Negative, Urine Urobilinogen 0.2, Ur Leukocyte Esterase Negative, Urine WBC 3-5, Ur Squamous Epith Cells Occasional, Urine Bacteria 3+ 08/05/20 20:48: WBC 6.5, RBC 4.48 L, Hgb 10.4 L, Hct 34.3 L, MCV 76.6 L, MCH 23.3 L, MCHC 30.5 L, RDW 18.4 H, Plt Count 265, MPV 7.1 L, Neut % (Auto) 70.9, Lymph % (Auto) 22.3, [place] % (Auto) 4.5, Eos % (Auto) 2.0, Baso % (Auto) 0.3, Neut # (Auto) 4.6, Lymph # (Auto) 1.5, [place] # (Auto) 0.3, Eos # (Auto) 0.1, Baso # (Auto) 0.0 08/05/20 20:48: Sodium 142, Potassium 4.3, Chloride 102, Carbon Dioxide 28, Anion Gap 16.3 H, BUN 47 H, Creatinine 1.70 H, Estimated Creat Clear 68, Estimated GFR 40 L, Est GFR ( Amer) 48 L, Glucose 141 H, Calcium 9.8, Total Bilirubin 0.7, AST 23, ALT 15, Alkaline Phosphatase 119, Total Protein 9.2 H, Albumin 4.7, Globulin 4.5 H, Albumin/Globulin Ratio 1.0 L Result diagrams: 08/05/20 20:48 08/05/20 20:48 Orders (Tests/Meds): ORDERS Category Date Time Status Urine Culture Stat Micro 08/05/20 20:20 Received Medical Decision Narrative: In summary this is a 74-year-old male presenting to the emergency department with left knee pain. Patient clinically stable on arrival. Vital signs within normal limits. He
[2020-08-05 21:03] LABS: Alanine Aminotransferase 15 U/L (12-78); Albumin Level 4.7 g/dl (3.5-5.0); Alkaline Phosphatase 119 U/L (38-126); Anion Gap 16.3 mEq/L (5-15); Aspartate Amino Transferase 23 U/L (17-59); Basophils % 0.3 % (0.1-2.0); Bilirubin,Total 0.7 mg/dl (0.2-1.3); Blood Urea Nitrogen 47 mg/dl (9-20); Calcium 9.8 mg/dl (8.4-10.2); Carbon Dioxide 28 mmol/L (22.0-30.0); Chloride 102 mmol/L (98-107); Creatinine Clearance Estimated 68 mL/min (50-200); Eosinophils # 0.1 K/mm3 (0.0-0.4); Estimated Glomerular Filt Rate 40 ml/min (>60); GFR (African American) 48 ML/MIN (>60); Globulin 4.5 g/dL (1.3-3.2); Glucose 141 mg/dl (74-100); Hematocrit 34.3 % (42.0-52.0); Hemoglobin 10.4 g/dL (14.1-18.0); Lymphocytes # 1.5 K/mm3 (0.7-4.5); Lymphocytes % 22.3 % (10-50); Mean Corpuscular HGB Conc 30.5 g/dL (31.8-35.4); Mean Corpuscular Hemoglobin 23.3 pg (27.0-31.2); Mean Corpuscular Volume 76.6 fl (80-94); Mean Platelet Volume 7.1 fl (7.4-10.4); Monocytes # 0.3 K/mm3 (0.1-1.0); Monocytes % 4.5 % (1.7-9.3); Neutrophils # 4.6 K/mm3 (1.8-7.8); Neutrophils % 70.9 % (37.0-80.0); Platelet Count 265 K/mm3 (142-424); Potassium 4.3 mmoL/L (3.5-5.1); Red Blood Count 4.48 M/mm3 (4.60-6.20); Red Cell Distribution Width 18.4 % (11.5-17.5); Sodium 142 mmol/L (136-145); Total Protein,Serum 9.2 g/dl (6.3-8.2); White Blood Count 6.5 K/mm3 (4.8-10.8)
[2020-08-05 21:18] VITALS: BP 125/68; PULSE 90; RESP 16; TEMP 37.2; O2SAT 95
== END 2020-08-05 21:20 | disposition home or self-care (01) ==
PROVIDERS: Emergency Provider Emergency Medicine; PCP Family Medicine
DX: M25.562 Pain in left knee (principal); M17.12 Unilateral primary osteoarthritis, left knee; K21.9 Gastro-esophageal reflux disease without esophagitis; E78.5 Hyperlipidemia, unspecified; Z79.899 Other long term (current) drug therapy; Z88.1 Allergy status to other antibiotic agents; Z87.891 Personal history of nicotine dependence
CPT/HCPCS: 73562; 80053; 81001; 85025; 87086; 99283

== ENCOUNTER 2020-10-06 15:56 | Observation (INO) | payer MEDICARE, SELFPAY ==
[2020-10-06] VITALS (7 sets, daily range): BP systolic 142–189; BP diastolic 60–88; PULSE 78–83; RESP 18–20; TEMP 36.7–37.4; O2SAT 92–98; BMI 36.8; BMI 37.4
[2020-10-06 16:40] LABS: Basophils % 0.3 % (0.1-2.0); Eosinophils # 0.1 K/mm3 (0.0-0.4); Eosinophils % 2.3 % (0.1-12.0); Hemoglobin 9.3 g/dL (14.1-18.0); Lymphocytes # 1.4 K/mm3 (0.7-4.5); Lymphocytes % 25.6 % (10-50); Mean Corpuscular Hemoglobin 25.1 pg (27.0-31.2); Mean Corpuscular Volume 83.8 fl (80-94); Mean Platelet Volume 8.7 fl (7.4-10.4); Monocytes # 0.3 K/mm3 (0.1-1.0); Monocytes % 4.8 % (1.7-9.3); Neutrophils # 3.8 K/mm3 (1.8-7.8); Neutrophils % 67.1 % (37.0-80.0); Platelet Count 240 K/mm3 (142-424); Red Cell Distribution Width 17.8 % (11.5-17.5); White Blood Count 5.6 K/mm3 (4.8-10.8)
[2020-10-06 16:41] LABS: Chloride 104 mmol/L (98-107); Sodium 143 mmol/L (136-145)
[2020-10-06 16:42] LABS: Potassium 4.5 mmoL/L (3.5-5.1)
[2020-10-06 16:44] LABS: Alanine Aminotransferase 13 U/L (12-78); Albumin Level 4.1 g/dl (3.5-5.0); Alkaline Phosphatase 105 U/L (38-126); Anion Gap 16.5 mEq/L (5-15); Aspartate Amino Transferase 21 U/L (17-59); Bilirubin,Total 0.4 mg/dl (0.2-1.3); Blood Urea Nitrogen 41 mg/dl (9-20); Carbon Dioxide 27 mmol/L (22.0-30.0); Creatinine Clearance Estimated 77 mL/min (50-200); Estimated Glomerular Filt Rate 46 ml/min (>60); GFR (African American) 55 ML/MIN (>60); Globulin 4.1 g/dL (1.3-3.2); Total Protein,Serum 8.2 g/dl (6.3-8.2)
[2020-10-06 16:45] LABS: Calcium 9.1 mg/dl (8.4-10.2); Glucose 168 mg/dl (74-100)
--- NOTE | 2020-10-06 17:01 | CT_ITS ---
PROCEDURE INFORMATION: Exam: CT Abdomen And Pelvis With Contrast Exam date and time: 10/06/2020 5:01 PM Age: 74 years old Clinical indication: Other: Gi bleed TECHNIQUE: Imaging protocol: Computed tomography of the abdomen and pelvis with contrast. Radiation optimization: All CT scans at this facility use at least one of these dose optimization techniques: automated exposure control; mA and/or kV adjustment per patient size (includes targeted exams where dose is matched to clinical indication); or iterative reconstruction. Contrast material: ISOVUE; Contrast volume: 75 ml; Contrast route: IV; COMPARISON: CT ABDOMEN PELVIS W CON 01/30/2020 6:38 AM FINDINGS: Lungs: Mild bilateral atelectasis. Liver: Normal. No mass. Gallbladder and bile ducts: Normal. No calcified stones. No ductal dilation. Pancreas: Normal. No ductal dilation. Spleen: A small subcentimeter hypodensity in the superior spleen is indeterminate. Adrenal glands: Normal. No mass. Kidneys and ureters: Small probable cyst in the left kidney lower pole. Stomach and bowel: Sigmoid diverticulosis, but no CT evidence of diverticulitis. Appendix: No evidence of appendicitis. Intraperitoneal space: Unremarkable. No free air. No significant fluid collection. Vasculature: Coronary artery calcifications. Aortic stent graft noted. Lymph nodes: Unremarkable. No enlarged lymph nodes. Urinary bladder: Unremarkable as visualized. Reproductive: Prostatic beads noted. Bones/joints: Unremarkable. No acute fracture. Soft tissues: Unremarkable. IMPRESSION: 1. No acute intra-abdominal pathology. 2. Extensive colonic diverticulosis worst in the sigmoid colon. COMMENTS: Consistent with the [employer]'s Incidental Findings Committee white paper (J Am Bella Radiol 2018): Any incidental renal lesion less than 1 cm or classified as too small to characterize, or any incidental cystic renal lesion characterized as simple-appearing, is likely benign. No follow-up imaging is recommended for these lesions per consensus recommendations based on imaging criteria.
[2020-10-06 18:13] LABS: Coronavirus 19, PCR Not Detected (NotDetected); Influenza A, PCR Not Detected (NotDetected); Influenza B, PCR Not Detected (NotDetected)
--- NOTE | 2020-10-06 18:40 | PC.NURSE ---
dr felisha garcia
--- NOTE | 2020-10-06 18:50 | PC.NURSE ---
Dr Langley speaking with Dr Torres
--- NOTE | 2020-10-06 18:52 | HMH.EDGIBL ---
ED Disposition Clinical Impression: Lower gastrointestinal hemorrhage, Renal insufficiency Anemia Qualifiers: Anemia type: unspecified type Qualified Code(s): D64.9 - Anemia, unspecified Disposition: Admitted as Observation Condition on Discharge: Good Instructions: DI for Gastrointestinal Bleeding Referrals: Ben Cavazos MD [Primary Care Provider] - - Critical Care Critical Care Time: No Attestation: On 10/06/20, the high probability of a clinically significant, sudden or life threatening deterioration of the following system(s) required my full and direct attention, intervention and personal management. The time I documented below is in addition to time spent performing reported procedures but includes the following listed in this critical care notation. Medical Decision Making - Medical Records Medical records reviewed: Yes: I reviewed the patient's medical records. - Nelson Inquiry Pt receiving controlled substance: No Vital Signs: 10/06/20 15:57 10/06/20 16:10 10/06/20 16:31 Temperature 99.4 F Temperature Source Oral Pulse Rate 82 81 Pulse Rate [Radial] 83 Respiratory Rate 20 18 18 Blood Pressure 163/72 H 166/63 H Blood Pressure [Right Arm] 189/88 H Blood Pressure Mean 120 97 Blood Pressure Mean [Right Arm] 121 Blood Pressure Position [Right Arm] Sitting 02 Sat by Pulse Oximetry 97 92 L 93 L Oxygen Delivery Method Room Air 10/06/20 17:01 Temperature Temperature Source Pulse Rate 82 Pulse Rate [Radial] Respiratory Rate Blood Pressure 151/78 H Blood Pressure [Right Arm] Blood Pressure Mean 88 Blood Pressure Mean [Right Arm] Blood Pressure Position [Right Arm] 02 Sat by Pulse Oximetry 95 Oxygen Delivery Method - Lab Data Lab results reviewed: Yes: I reviewed the patient's lab results. Lab Results 10/06/20 16:23: WBC 5.6, RBC 3.70 L, Hgb 9.3 L, Hct 31.0 L, MCV 83.8, MCH 25.1 L, MCHC 30.0 L, RDW 17.8 H, Plt Count 240, MPV 8.7, Neut % (Auto) 67.1, Lymph % (Auto) 25.6, [place] % (Auto) 4.8, Eos % (Auto) 2.3, Baso % (Auto) 0.3, Neut # (Auto) 3.8, Lymph # (Auto) 1.4, [place] # (Auto) 0.3, Eos # (Auto) 0.1, Baso # (Auto) 0.0 10/06/20 16:23: Sodium 143, Potassium 4.5, Chloride 104, Carbon Dioxide 27, Anion Gap 16.5 H, BUN 41 H, Creatinine 1.50 H, Estimated Creat Clear 77, Estimated GFR 46 L, Est GFR ( Amer) 55 L, Glucose 168 H, Calcium 9.1, Total Bilirubin 0.4, AST 21, ALT 13, Alkaline Phosphatase 105, Total Protein 8.2, Albumin 4.1, Globulin 4.1 H, Albumin/Globulin Ratio 1.0 L Result diagrams: 10/06/20 16:23 10/06/20 16:23 Orders (Tests/Meds): ED MEDICATIONS Generic Name Dose Route Start Last Admin Trade Name Freq PRN Reason Stop Dose Admin Sodium Chloride 1,000 mls @ 999 mls/hr 10/06/20 16:30 10/06/20 17:09 Sod Chlor 0.9% 1000ml Bag IV 10/06/20 17:30 999 mls/hr .Q1H1M TIA Administration Sodium Chloride 8 ml 10/06/20 16:21 Sodium Chloride 0.9% 10ml Vial IV 11/05/20 16:20 NEEDED PRN dilute pepcid Discontinued Medications Generic Name Dose Route Start Last Admin Trade Name Freq PRN Reason Stop Dose Admin Famotidine 20 mg 10/06/20 16:21 10/06/20 17:10 Famotidine 20mg/2ml Vial IV 10/06/20 16:22 20 mg ONCE ONE Administration Iopamidol 75 ml 10/06/20 17:51 10/06/20 17:52 Iopamidol-370 (76%);100ml Bottle IV 10/06/20 17:52 75 ml ONCE ONE Administration Metoclopramide HCl 10 mg 10/06/20 16:22 10/06/20 17:10 Metoclopramide Hcl 10mg/2ml Vial IVP 10/06/20 16:23 10 mg ONCE ONE Administration Sodium Chloride 10 ml 10/06/20 17:51 10/06/20 17:52 Sodium Chloride 0.9% 10ml Syr (Rad Only) IV 10/06/20 17:52 10 ml ONCE ONE Administration ORDERS Category Date Time Status Type and Screen Stat BBK 10/06/20 18:24 Ordered CRP [C-Reactive Protein] Stat Lab 10/06/20 16:23 Received Erythrocyte Sedimentation Rate Stat Lab 10/06/20 16:23 Received Occult Blood,Stool Stat Lab 09/10
[2020-10-06 18:53] LABS: C-Reactive Protein 5.1 mg/L (0-4)
[2020-10-06 18:55] LABS: Occult Blood,Stool Positive (Negative)
[2020-10-06 18:55] LABS: Erythrocyte Sedimentation Rate 133 mm/hr (0-20)
--- NOTE | 2020-10-06 19:01 | PC.NURSE ---
PT UP TO BATHROOM SEVERAL TIMES, BM WITH BRB NOTED
--- NOTE | 2020-10-06 20:13 | PC.NURSE ---
Report called to MADELEINE Platt at this time
--- NOTE | 2020-10-06 20:29 | PC.NURSE ---
PT ARRIVED TO FLOOR VIA W/C FROM ED W/STAFF AT 2028
--- NOTE | 2020-10-06 21:51 | PC.NURSE ---
UNABLE TO RECONCILE HOME MEDS. PATIENT STATED HE LEFT MEDS AT HOME.
[2020-10-07 03:51] VITALS: BP 142/64; PULSE 74; RESP 18; TEMP 36.7; O2SAT 93
--- NOTE | 2020-10-07 04:27 | PC.NURSE ---
A&OX4. TOLERATING RA WELL. PT HAS SLEPT SINCE ARRIVAL TO FLOOR. NO C/O THUS FAR. USING URINAL TO VOID. PT STATES THAT HE HAS HAD 1 LOOSE BM THUS FAR WITH BRIGHT RED BLOOD NOTED. VSS, WILL CONTINUE TO MONITOR.
[2020-10-07 05:34] VITALS: BMI 38.0
[2020-10-07 07:40] LABS: Chloride 106 mmol/L (98-107); Potassium 4.2 mmoL/L (3.5-5.1); Sodium 142 mmol/L (136-145)
[2020-10-07 07:42] LABS: Basophils % 0.3 % (0.1-2.0); Eosinophils # 0.2 K/mm3 (0.0-0.4); Eosinophils % 3.2 % (0.1-12.0); Hematocrit 27.7 % (42.0-52.0); Hemoglobin 8.4 g/dL (14.1-18.0); Lymphocytes # 1.7 K/mm3 (0.7-4.5); Lymphocytes % 32.1 % (10-50); Mean Corpuscular HGB Conc 30.3 g/dL (31.8-35.4); Mean Corpuscular Hemoglobin 25.4 pg (27.0-31.2); Mean Corpuscular Volume 83.7 fl (80-94); Mean Platelet Volume 8.5 fl (7.4-10.4); Monocytes # 0.3 K/mm3 (0.1-1.0); Monocytes % 5.5 % (1.7-9.3); Neutrophils % 58.8 % (37.0-80.0); Platelet Count 238 K/mm3 (142-424); Red Blood Count 3.31 M/mm3 (4.60-6.20); Red Cell Distribution Width 17.8 % (11.5-17.5); White Blood Count 5.2 K/mm3 (4.8-10.8)
[2020-10-07 07:43] LABS: Anion Gap 12.2 mEq/L (5-15); Blood Urea Nitrogen 35 mg/dl (9-20); Calcium 8.8 mg/dl (8.4-10.2); Carbon Dioxide 28 mmol/L (22.0-30.0); Creatinine Clearance Estimated 85 mL/min (50-200); Estimated Glomerular Filt Rate 50 ml/min (>60); GFR (African American) 60 ML/MIN (>60); Glucose 120 mg/dl (74-100)
[2020-10-07 08:00] VITALS: BP 129/79; PULSE 73; RESP 20; TEMP 36.8; O2SAT 94; O2SAT 97
--- NOTE | 2020-10-07 08:09 | HMH.HP ---
*Admission Date: 10/06/20 *Chief complaint: Bright red blood in stool *History of present illness: 74-year-old male presented to the emergency department last night after passing a large amount of blood while having a bowel movement. Patient reports he just finished supper when he felt sudden lower abdominal cramping and urgency to go to the bathroom. Patient had a large bowel movement with significant amount of bright red blood. Patient denies feeling lightheaded, weak, having shortness of breath, chest pain, and abdominal pain. Patient does have chronic anemia. Patient came to the emergency department and had 2 smaller bowel movements both with blood present. Decision was made to admit for observation and serial H&H. Patient has had additional bowel movement this morning which she reports ports has a more normal appearance Patient did have colonoscopy earlier in the year revealing significant sigmoid diverticulosis, grade 1 and 2 internal hemorrhoids, evidence of radiation proctitis from prior treatment for prostate cancer [facility] History I have reviewed the patient's past medical history: Yes Medical History: Reports:: Aneurysm, Cancer (PROSTATE), Diabetes Mellitus Type 2, Gastroesophageal Reflux Disease(GERD), Hyperlipidemia, Hypertension Denies:: Diabetes Mellitus Type 1, MRSA, Seizures *Have you ever received a pneumonia vaccine?: Yes *Have you received a flu vaccine this season?: No Other Medical History: Reports: Arthritis Other Surgeries: Yes: Colonoscopy, Sinus Surgery Amputation: No Fractures: No - *Social History Smoking Status: Former smoker Tobacco Type: cigarettes Alcohol Intake: never Alcohol Intake Frequency:: other Substance Use Type: denies use *Occupational Status:: retired Housing: apartment *Travel in the last 8 weeks: None Family Hx:: No significant family history Review of Systems - Constitutional Denies anorexia, Denies body ache(s), Denies chills, Denies lack of energy - Eyes Denies blurry vision, Denies loss of vision - ENT Denies change in voice, Denies ear discharge - *Cardiovascular Denies chest pain at rest, Denies chest pain with activity, Denies shortness of breath with activity - *Respiratory Denies chest congestion, Denies cough - *Gastrointestinal Denies belching, Denies bloating, Denies coffee ground vomit - *Genitourinary Denies difficulty urinating, Denies blood in urine - *Musculoskeletal Reports joint pain - Integumentary/Breasts Denies bleeding lesions - *Neurologic Reports abnormal hearing, Denies seizure-like activity Meds Home Medications Medication Instructions Recorded Confirmed Type omeprazole 20 mg capsule,delayed 20 mg PO DAILY 90 Days 08/25/17 10/06/20 History release insulin degludec 200 unit/mL (3 30 units SQ HS 90 Days ml 02/25/18 10/06/20 History mL) subcutaneous pen atorvastatin 10 mg tablet 10 mg PO HS tab 09/09/18 10/06/20 History glipiZIDE [Glipizide] 5 mg PO BID 01/16/19 10/06/20 History hydroCHLOROthiazide [HCTZ 25mg 25 mg PO DAILY 04/10/19 10/06/20 History tab] lisinopriL [Lisinopril 40mg Tablet] 40 mg PO BID 04/10/19 10/06/20 History Aspirin [Aspirin 325mg Tab] 325 mg PO DAILY 01/30/20 10/06/20 History Furosemide [Furosemide 40MG tAB*] 80 mg PO BID 01/30/20 10/06/20 History Pioglitazone HCl [Actos] 45 mg PO HS 01/30/20 10/06/20 History Tizanidine HCl [Zanaflex 4mg 4 mg PO TID PRN 01/30/20 10/06/20 History tab] Cetirizine HCl [Zyrtec 10mg Tab*] 10 mg PO DAILY 02/24/20 10/06/20 History Allergies Allergy/AdvReac Type Severity Reaction Status Date / Time ampicillin [From Unasyn] Allergy Severe S-SWELLS-OR Verified 02/24/20 09:19 AL/THROAT sulbactam [From Unasyn] Allergy Severe S-SWELLS-OR Verified 02/24/20 09:19 AL/THROAT Exam Vital signs and Labs for Last 24 Hours: Temp Pulse Resp BP Pulse Ox 98.0 F 74 18 142/64 H 93 L 10/07/20 03:51 10/07/20 03:51 10/07/20 03:51 10/07/20 03:51
--- NOTE | 2020-10-07 13:23 | HMH.PHAVTE ---
[facility] Pharmacy VTE Monitoring - Patient Demographics Admission date: 10/07/20 Report Date: 10/07/20 Time: 13:23 Allergies/Adverse Reactions: Patient Allergies ampicillin [From Unasyn] Allergy (Severe, Verified 02/24/20 09:19) W-[id number]/THROAT sulbactam [From Unasyn] Allergy (Severe, Verified 02/24/20 09:19) S-[id number]-[id number]/THROAT Height: 1.85 m Weight: 129.983 kg Patient Problems: Current Active Problems Renal insufficiency (Acute) Lower gastrointestinal hemorrhage (Acute) Anemia (Acute) Anemia of chronic disease (Acute) Diabetes mellitus with diabetic polyneuropathy (Acute) - VTE Risk Labs: VTE Related Lab Results Hgb 8.4 g/dL (14.1-18.0) L 10/07/20 07:11 Hct 27.7 % (42.0-52.0) L 10/07/20 07:11 Plt Count 238 K/mm3 (142-424) 10/07/20 07:11 BUN 35 mg/dl (9-20) H 10/07/20 07:11 Creatinine 1.40 mg/dl (0.66-1.25) H 10/07/20 07:11 Estimated Creat Clear 85 mL/min (50-200) 10/07/20 07:11 Was VTE Risk Assessment Performed: Yes VTE Risk Level: Low Risk Clinical Trial Participant: No - Prophylaxis VTE Prophylaxis Ordered?: Yes Types of VTE Prophylaxis: TEDS Knee High
--- NOTE | 2020-10-07 13:27 | HMH.PHAINT ---
home medication list verified using list from [facility]
[2020-10-07 16:00] VITALS: BP 125/78; PULSE 70; RESP 18; TEMP 36.7; O2SAT 95
[2020-10-07 16:52] LABS: Hematocrit 26.8 % (42.0-52.0); Hemoglobin 8.1 g/dL (14.1-18.0)
--- NOTE | 2020-10-07 18:59 | PC.NURSE ---
HE IS AOX4, ABLE TO MAKE NEEDS KNOWN TO STAFF HE IS VERY HARD OF HEARING. TOLERATING RA AND DENIES N/V/D WELL PAIN.
[2020-10-07 20:00] VITALS: BP 165/73; PULSE 85; RESP 18; TEMP 36.8; O2SAT 95
[2020-10-07 21:39] LABS: POC Glucose,Bedside 190 (70-110)
[2020-10-08 01:01] LABS: POC Glucose,Bedside 156 (70-110)
[2020-10-08 01:01] LABS: POC Glucose,Bedside 114 (70-110)
[2020-10-08 04:00] VITALS: BP 132/64; PULSE 77; RESP 18; TEMP 36.9; O2SAT 92
--- NOTE | 2020-10-08 04:14 | PC.NURSE ---
Pt is A/O x4. Pt rested well t/o shift. Pt reports to have x2 bloody stools. Pt denies any pain, N/V. Pt is very hard of hearing. X1 assist to bathroom. Admin meds per APR. Pt remains on RA with stats >90%. Call light within reach, will continue to monitor.
[2020-10-08 04:44] VITALS: BMI 38.0
[2020-10-08 06:53] LABS: Basophils % 0.3 % (0.1-2.0); Eosinophils # 0.2 K/mm3 (0.0-0.4); Eosinophils % 3.1 % (0.1-12.0); Hematocrit 26.8 % (42.0-52.0); Lymphocytes # 1.8 K/mm3 (0.7-4.5); Mean Corpuscular HGB Conc 29.8 g/dL (31.8-35.4); Mean Corpuscular Hemoglobin 25.6 pg (27.0-31.2); Mean Corpuscular Volume 85.7 fl (80-94); Mean Platelet Volume 8.6 fl (7.4-10.4); Monocytes # 0.3 K/mm3 (0.1-1.0); Monocytes % 5.3 % (1.7-9.3); Neutrophils # 3.6 K/mm3 (1.8-7.8); Neutrophils % 60.3 % (37.0-80.0); Platelet Count 229 K/mm3 (142-424); Red Blood Count 3.13 M/mm3 (4.60-6.20); White Blood Count 5.9 K/mm3 (4.8-10.8)
--- NOTE | 2020-10-08 07:24 | HMH.ACPN2 ---
Internal Medicine - PN: Subj *Date: 10/08/20 *Time: 07:24 Interval history: Patient reports bowel movements are returning to more normal consistency although there is still some evidence of blood. H&H trended down yesterday although he stabilized overnight. Patient denies abdominal pain, lightheadedness. He admits I feel good . Exam Vital signs and Labs for Last 24 Hours: Temp Pulse Resp BP Pulse Ox 98.5 F 77 18 132/64 92 L 10/08/20 04:00 10/08/20 04:00 10/08/20 04:00 10/08/20 04:00 10/08/20 04:00 Laboratory Results - last 24 hr 10/07/20 04:58: POC Glucose 114 H 10/07/20 07:11: WBC 5.2, RBC 3.31 L, Hgb 8.4 L, Hct 27.7 L, MCV 83.7, MCH 25.4 L, MCHC 30.3 L, RDW 17.8 H, Plt Count 238, MPV 8.5, Neut % (Auto) 58.8, Lymph % (Auto) 32.1, [place] % (Auto) 5.5, Eos % (Auto) 3.2, Baso % (Auto) 0.3, Neut # (Auto) 3.0, Lymph # (Auto) 1.7, [place] # (Auto) 0.3, Eos # (Auto) 0.2, Baso # (Auto) 0.0 10/07/20 07:11: Sodium 142, Potassium 4.2, Chloride 106, Carbon Dioxide 28, Anion Gap 12.2, BUN 35 H, Creatinine 1.40 H, Estimated Creat Clear 85, Estimated GFR 50 L, Est GFR ( Amer) 60, Glucose 120 H D, Calcium 8.8 10/07/20 16:00: Hgb 8.1 L, Hct 26.8 L 10/07/20 17:08: POC Glucose 156 H 10/07/20 19:41: POC Glucose 190 H 10/08/20 06:35: WBC 5.9, RBC 3.13 L, Hgb 8.0 L, Hct 26.8 L, MCV 85.7, MCH 25.6 L, MCHC 29.8 L, RDW 18.0 H, Plt Count 229, MPV 8.6, Neut % (Auto) 60.3, Lymph % (Auto) 31.0, [place] % (Auto) 5.3, Eos % (Auto) 3.1, Baso % (Auto) 0.3, Neut # (Auto) 3.6, Lymph # (Auto) 1.8, [place] # (Auto) 0.3, Eos # (Auto) 0.2, Baso # (Auto) 0.0 I & O for Last 24 hours: Intake & Output 10/05/20 10/06/20 10/07/20 10/08/20 11:59 11:59 11:59 11:59 Intake Total 1000 / 1000 400 / 400 Output Total 620 / 620 450 / 450 Balance 380 / 380 -50 / -50 Weight 286 lb 9 oz 287 lb - Constitutional no acute distress - *Routine Abdominal Exam Present: soft, normoactive bowel sounds. Absent: tenderness Assessment and Plan (1) Lower gastrointestinal hemorrhage Status: Acute Category: Medical Code(s): K92.2 - Gastrointestinal hemorrhage, unspecified (2) Anemia of chronic disease Status: Acute Category: Medical Code(s): D63.8 - Anemia in other chronic diseases classified elsewhere (3) Diabetes mellitus with diabetic polyneuropathy Status: Acute Qualifiers: Category: Medical Code(s): E11.42 - Type 2 diabetes mellitus with diabetic polyneuropathy - Assessment and plan all Dx Assessment and Plan for all problems:: 1. Hemoglobin is stable. Patient will be discharged home and will follow up in my office in 48 hours. He will start iron supplementation
--- NOTE | 2020-10-08 07:25 | HMH.DCSUM ---
General - General Admission date:: 10/06/20 Discharge date: 10/08/20 HPI HPI: 74-year-old male presented to the emergency department last night after passing a large amount of blood while having a bowel movement. Patient reports he just finished supper when he felt sudden lower abdominal cramping and urgency to go to the bathroom. Patient had a large bowel movement with significant amount of bright red blood. Patient denies feeling lightheaded, weak, having shortness of breath, chest pain, and abdominal pain. Patient does have chronic anemia. Patient came to the emergency department and had 2 smaller bowel movements both with blood present. Decision was made to admit for observation and serial H&H. 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 Patient had a colonoscopy earlier in the year which identified diverticulosis, internal hemorrhoids, radiation proctitis. Patient continued to pass small amounts of blood during hospitalization although amount decreased with each bowel movement. Bowel movements returned to a more normal consistency. H&H was monitored and trended down before stabilizing around 8 and 26.8. Patient felt good. He denied any lightheadedness. He had a normal appetite. Patient was discharged home. He will begin iron supplementation. He will follow up in 48 hours Objective Vital signs: Temp Pulse Resp BP Pulse Ox 98.5 F 77 18 132/64 92 L 10/08/20 04:00 10/08/20 04:00 10/08/20 04:00 10/08/20 04:00 10/08/20 04:00 no acute distress - *Routine Respiratory Exam Present: CTA bilaterally - *Routine Cardiovascular Exam Present: RRR - *Routine Abdominal Exam Present: soft, normoactive bowel sounds. Absent: tenderness Results Labs on day of discharge: Labs from last 24 hours 10/08/20 10/07/20 10/07/20 06:35 19:41 17:08 WBC 5.9 RBC 3.13 L Hgb 8.0 L Hct 26.8 L MCV 85.7 MCH 25.6 L MCHC 29.8 L RDW 18.0 H Plt Count 229 MPV 8.6 Neut % (Auto) 60.3 Lymph % (Auto) 31.0 [place] % (Auto) 5.3 Eos % (Auto) 3.1 Baso % (Auto) 0.3 Neut # (Auto) 3.6 Lymph # (Auto) 1.8 [place] # (Auto) 0.3 Eos # (Auto) 0.2 Baso # (Auto) 0.0 Sodium Potassium Chloride Carbon Dioxide Anion Gap BUN Creatinine Estimated Creat Clear Estimated GFR Est GFR ( Amer) Glucose POC Glucose 190 H 156 H Calcium 10/07/20 10/07/20 10/07/20 16:00 07:11 07:11 WBC 5.2 RBC 3.31 L Hgb 8.1 L 8.4 L Hct 26.8 L 27.7 L MCV 83.7 MCH 25.4 L MCHC 30.3 L RDW 17.8 H Plt Count 238 MPV 8.5 Neut % (Auto) 58.8 Lymph % (Auto) 32.1 [place] % (Auto) 5.5 Eos % (Auto) 3.2 Baso % (Auto) 0.3 Neut # (Auto) 3.0 Lymph # (Auto) 1.7 [place] # (Auto) 0.3 Eos # (Auto) 0.2 Baso # (Auto) 0.0 Sodium 142 Potassium 4.2 Chloride 106 Carbon Dioxide 28 Anion Gap 12.2 BUN 35 H Creatinine 1.40 H Estimated Creat Clear 85 Estimated GFR 50 L Est GFR ( Amer) 60 Glucose 120 H D POC Glucose Calcium 8.8 10/07/20 04:58 WBC RBC Hgb Hct MCV MCH MCHC RDW Plt Count MPV Neut % (Auto) Lymph % (Auto) [place] % (Auto) Eos % (Auto) Baso % (Auto) Neut # (Auto) Lymph # (Auto) [place] # (Auto) Eos # (Auto) Baso # (Auto) Sodium Potassium Chloride Carbon Dioxide Anion Gap BUN Creatinine Estimated Creat Clear Estimated GFR Est GFR ( Amer) Glucose POC Glucose 114 H Calcium DS: Diagnosis - Discharge Diagnosis (1) Lower gastrointest
[2020-10-08 08:00] VITALS: BP 134/57; PULSE 87; RESP 22; TEMP 37; O2SAT 96
[2020-10-08 11:14] LABS: POC Glucose,Bedside 125 (70-110)
== END 2020-10-08 11:03 | disposition home or self-care (01) ==
LOC: ER 19:03 → 2ND 22:04
PROVIDERS: Admitting Provider Internal Medicine Adolescent Medicine; Emergency Provider Emergency Medicine; PCP Family Medicine; Visit Provider Family Medicine
DX: K92.2 Gastrointestinal hemorrhage, unspecified (principal); Z20.822 Contact with and (suspected) exposure to COVID-19; N28.9 Disorder of kidney and ureter, unspecified; Z87.891 Personal history of nicotine dependence; K21.9 Gastro-esophageal reflux disease without esophagitis; E78.5 Hyperlipidemia, unspecified; I10 Essential (primary) hypertension; M19.90 Unspecified osteoarthritis, unspecified site; D63.8 Anemia in other chronic diseases classified elsewhere; E11.42 Type 2 diabetes mellitus with diabetic polyneuropathy; Z85.46 Personal history of malignant neoplasm of prostate; Z79.4 Long term (current) use of insulin
CPT/HCPCS: G0378; 36415; 74177; 80048; 80053; 82272; 82962; 85014; 85018; 85025; 85651; 86140; 86850; 96365; 96375; 99284; G0328; Q9967; U0003

== ENCOUNTER 2020-10-18 01:20 | Observation (INO) | payer MEDICARE, SELFPAY ==
[2020-10-18] VITALS (32 sets, daily range): BP systolic 113–183; BP diastolic 52–93; PULSE 18–110; RESP 16–20; TEMP 36.6–37.3; O2SAT 85–98; BMI 37.8; BMI 39.5
--- NOTE | 2020-10-18 01:21 | ECG_ITS ---
APPROVED REPORT Exam: Resting ECG HR:103 bpm ECG Measurements Heart Rate 103 AXES WI 192 P QRSd 80 QRS 30 QT 364 T 101 QTc [address] & T wave abnormality, consider lateral ischemia Abnormal ECG Electronically signed by : Ben Jesus MD 10/19/2020 10:54:49
--- NOTE | 2020-10-18 01:38 | XR_ITS ---
PROCEDURE INFORMATION: Exam: XR Chest Exam date and time: 10/18/2020 1:38 AM Age: 74 years old Clinical indication: Pain; Shortness of breath; Chest pressure; Additional info: SOA, chest pain TECHNIQUE: Imaging protocol: XR of the chest. Views: 1 view. COMPARISON: CR XR CHEST 2V 01/30/2020 6:43 AM FINDINGS: Limitations: Radiographic technique - mild. Lungs: No consolidation. Pleural spaces: No definite pleural effusion. No pneumothorax. Heart/Mediastinum: Mild cardiomegaly. Atherosclerosis of thoracic aorta. Apparent mild prominence of central pulmonary vasculature. Bones/joints: No displaced fracture. Soft tissues: Unremarkable. IMPRESSION: Possible early pulmonary vascular congestion. Clinical correlation is needed.
[2020-10-18 01:51] LABS: Coronavirus 19, PCR Not Detected (NotDetected); Influenza A, PCR Not Detected (NotDetected); Influenza B, PCR Not Detected (NotDetected)
[2020-10-18 01:56] LABS: Chloride 106 mmol/L (98-107); Sodium 143 mmol/L (136-145)
[2020-10-18 01:59] LABS: Blood Urea Nitrogen 28 mg/dl (9-20); Calcium 9.2 mg/dl (8.4-10.2); Carbon Dioxide 25 mmol/L (22.0-30.0); Creatinine Clearance Estimated 89 mL/min (50-200); Estimated Glomerular Filt Rate 54 ml/min (>60); GFR (African American) 65 ML/MIN (>60); Glucose 174 mg/dl (74-100)
[2020-10-18 02:04] LABS: C-Reactive Protein 2.8 mg/L (0-4)
[2020-10-18 02:13] LABS: Troponin I 0.11 ng/ml (0.00-0.034)
--- NOTE | 2020-10-18 02:17 | HMH.EDCP ---
ED Disposition Clinical Impression: Elevated troponin I level, Renal insufficiency, Obesity (BMI 30-39.9), Unstable angina pectoris Anemia Qualifiers: Anemia type: unspecified type Qualified Code(s): D64.9 - Anemia, unspecified Disposition: Admitted as Observation Condition on Discharge: Good Referrals: Provider,Referral, [Primary Care Provider] - - Critical Care Critical Care Time: No Attestation: On 10/18/20, the high probability of a clinically significant, sudden or life threatening deterioration of the following system(s) required my full and direct attention, intervention and personal management. The time I documented below is in addition to time spent performing reported procedures but includes the following listed in this critical care notation. Medical Decision Making - Medical Records Medical records reviewed: Yes: I reviewed the patient's medical records. - Nelson Inquiry Pt receiving controlled substance: No Vital Signs: 10/18/20 01:10 10/18/20 02:30 Temperature 98.3 F Temperature Source Oral Pulse Rate 77 Pulse Rate [Right] 110 H Respiratory Rate 20 18 Blood Pressure 146/64 H Blood Pressure [Right Arm] 183/69 H Blood Pressure Mean [Right Arm] 107 Blood Pressure Source [Right Arm] Automatic Cuff 02 Sat by Pulse Oximetry 95 96 Oxygen Delivery Method Room Air - Lab Data Lab results reviewed: Yes: I reviewed the patient's lab results. Lab Results 10/18/20 01:30: Sodium 143, Potassium 4.0, Chloride 106, Carbon Dioxide 25, Anion Gap 16.0 H, BUN 28 H, Creatinine 1.30 H, Estimated Creat Clear 89, Estimated GFR 54 L, Est GFR ( Amer) 65, Glucose 174 H, Calcium 9.2, Troponin I 0.11 H, C-Reactive Protein 2.8 10/18/20 01:30: Magnesium 1.8, NT-Pro-B Natriuret Pep 388 H 10/18/20 01:36: SARS-CoV-2 (PCR) Not detected, Influenza A Untype (PCR) Not detected, Influenza Type B (PCR) Not detected 10/18/20 02:22: Urine Color Yellow, Urine Appearance Clear, Urine pH 6.0, Ur Specific [place] 1.015, Urine Protein Negative, Urine Glucose (UA) 1+, Urine Ketones Negative, Urine Blood Negative, Urine Nitrate Negative, Urine Bilirubin Negative, Urine Urobilinogen 0.2, Ur Leukocyte Esterase Negative, Urine WBC Occasional, Urine Bacteria Trace 10/18/20 02:40: WBC 6.2, RBC 2.85 L, Hgb 7.1 L, Hct 23.9 L, MCV 83.8, MCH 24.9 L, MCHC 29.8 L, RDW 17.3, Plt Count 268, MPV 8.3, Neut % (Auto) 76.1, Lymph % (Auto) 17.2, [place] % (Auto) 4.1, Eos % (Auto) 2.3, Baso % (Auto) 0.3, Neut # (Auto) 4.7, Lymph # (Auto) 1.1, [place] # (Auto) 0.3, Eos # (Auto) 0.1, Baso # (Auto) 0.0 Result diagrams: 10/18/20 02:40 10/18/20 01:30 Orders (Tests/Meds): ED MEDICATIONS Generic Name Dose Route Start Last Admin Trade Name Freq PRN Reason Stop Dose Admin Sodium Chloride 1,000 mls @ 999 mls/hr 10/18/20 03:00 10/18/20 02:47 Sod Chlor 0.9% 1000ml Bag IV 10/18/20 04:00 999 mls/hr .Q1H1M TIA Administration ORDERS Category Date Time Status XR chest portable Stat Exams 10/18/20 01:38 Taken Erythrocyte Sedimentation Rate Stat Lab 10/18/20 02:40 Received Troponin I Q3H Lab 10/18/20 04:45 Ordered Troponin I Q3H Lab 10/18/20 07:45 Ordered - Radiology Data #1 Image(s): Chest Image Reviewed: Yes I reviewed the patient's radiology image Preliminary Findings: Abnormal (cm) - ECG Data Tracing #1 Normal Sinus Rhythm: Yes Ischemic changes: non-specific ST-T wave changes - Physician Consults Physician Consulted: rosy Reason -: Admission Medical Decision Narrative: has new onset of chest pain which sds like angina and elevated trop and will be admitted Chest Pain HPI - General Chief Complaint: Chest Pain Stated Complaint: Chest pain Time Seen by Provider: 10/18/20 02:00 Mode of Arrival: EMS Source of Information: Patient, EMS, Medical Record Limitations: hearing Description of Symptoms (Recalled from ER Triage Doc. by RN): Pt presents c/o an episode of left chest wall pain and left arm
[2020-10-18 02:31] LABS: Microscopic, Urine URINE MICROSCOPIC (MICROSCOPIC)
[2020-10-18 02:33] LABS: Appearance,Urine CLEAR (Clear); Bilirubin,Urine Negative (Negative); Blood, Urine Negative (Negative); Color,Urine YELLOW (Yellow); Glucose,Urine (UA) 1+ (Negative); Ketones,Urine Negative (Negative); Leukocyte Esterase,Urine Negative (Negative); Nitrate,Urine Negative (Negative); Protein,Urine Negative (Negative); Specific Gravity, Urine 1.015 (1.005-1.030); Urobilinogen,Urine 0.2 EU/dl (0.2)
[2020-10-18 02:38] LABS: Magnesium 1.8 mg/dl (1.6-2.3)
[2020-10-18 02:48] LABS: NT Pro Brain Natriuretic Pep. 388 pg/mL (0-125)
[2020-10-18 02:55] LABS: Basophils % 0.3 % (0.1-2.0); Eosinophils # 0.1 K/mm3 (0.0-0.4); Eosinophils % 2.3 % (0.1-12.0); Hematocrit 23.9 % (42.0-52.0); Hemoglobin 7.1 g/dL (14.1-18.0); Lymphocytes # 1.1 K/mm3 (0.7-4.5); Lymphocytes % 17.2 % (10-50); Mean Corpuscular HGB Conc 29.8 g/dL (31.8-35.4); Mean Corpuscular Hemoglobin 24.9 pg (27.0-31.2); Mean Corpuscular Volume 83.8 fl (80-94); Mean Platelet Volume 8.3 fl (7.4-10.4); Monocytes # 0.3 K/mm3 (0.1-1.0); Monocytes % 4.1 % (1.7-9.3); Neutrophils # 4.7 K/mm3 (1.8-7.8); Neutrophils % 76.1 % (37.0-80.0); Platelet Count 268 K/mm3 (142-424); Red Blood Count 2.85 M/mm3 (4.60-6.20); Red Cell Distribution Width 17.3 % (11.5-17.5); White Blood Count 6.2 K/mm3 (4.8-10.8)
[2020-10-18 02:55] LABS: Bacteria,Urine Trace /lpf; WBC,Urine Occasional #/hpf (0-3)
--- NOTE | 2020-10-18 03:08 | PC.NURSE ---
DR. MARQUIS VASQUEZ FOR DR. BOOKER
--- NOTE | 2020-10-18 03:09 | PC.NURSE ---
DR. BOOKER ON PHONE WITH DR. CHO
--- NOTE | 2020-10-18 03:12 | PC.NURSE ---
Pt initially refused to take aspirin d/t Dr. Cavazos told me I can't take that because it made me bleed . Although after discussing care with Dr. Langley pt agreed to take it.
[2020-10-18 03:22] LABS: Erythrocyte Sedimentation Rate 135 mm/hr (0-20)
--- NOTE | 2020-10-18 04:36 | PC.NURSE ---
PT ARRIVED TO FLOOR VIA W/C FROM ED W/STAFF AT [id number]
--- NOTE | 2020-10-18 05:00 | PC.NURSE ---
unable to complete med rec at this time. pt dose not know med dosages
[2020-10-18 05:46] LABS: POC Glucose,Bedside 125 (70-110)
[2020-10-18 06:24] LABS: Basophils % 0.2 % (0.1-2.0); Eosinophils # 0.1 K/mm3 (0.0-0.4); Eosinophils % 1.8 % (0.1-12.0); Hematocrit 23.7 % (42.0-52.0); Lymphocytes # 1.4 K/mm3 (0.7-4.5); Mean Corpuscular HGB Conc 29.3 g/dL (31.8-35.4); Mean Corpuscular Volume 85.1 fl (80-94); Mean Platelet Volume 9.1 fl (7.4-10.4); Monocytes # 0.2 K/mm3 (0.1-1.0); Monocytes % 3.9 % (1.7-9.3); Neutrophils # 4.3 K/mm3 (1.8-7.8); Neutrophils % 71.1 % (37.0-80.0); Platelet Count 241 K/mm3 (142-424); Red Blood Count 2.78 M/mm3 (4.60-6.20); Red Cell Distribution Width 17.1 % (11.5-17.5)
[2020-10-18 06:28] LABS: Hemoglobin 6.9 g/dL (14.1-18.0)
[2020-10-18 06:36] LABS: Anion Gap 13.8 mEq/L (5-15); Blood Urea Nitrogen 25 mg/dl (9-20); Calcium 8.8 mg/dl (8.4-10.2); Carbon Dioxide 26 mmol/L (22.0-30.0); Chloride 106 mmol/L (98-107); Creatinine Clearance Estimated 101 mL/min (50-200); Estimated Glomerular Filt Rate 59 ml/min (>60); GFR (African American) 72 ML/MIN (>60); Glucose 119 mg/dl (74-100); Magnesium 1.7 mg/dl (1.6-2.3); Potassium 3.8 mmoL/L (3.5-5.1); Sodium 142 mmol/L (136-145)
[2020-10-18 06:57] LABS: Troponin I 1.51 ng/ml (0.00-0.034)
--- NOTE | 2020-10-18 07:08 | HMH.HP ---
*Admission Date: 10/18/20 *Chief complaint: Angina *History of present illness: 74-year-old male with history of diabetes, hypertension and recent hospitalization for lower GI bleed presented to the emergency department with recurring episodes of left-sided chest discomfort described as a sensation as if a rock was resting on his chest with radiation of discomfort into the left arm to the level of the elbow. Patient initially had this happen on October 12. On the evening he presented to the emergency department the anginal pain had lasted longer and did not seem to be resolving. He presented to the emergency department. In the ER patient had an abnormal troponin and was found to have worsening anemia with hemoglobin of 7.1. Patient was admitted for cardiology consultation. This morning patient's hemoglobin has dropped slightly more to 6.9 and he will require transfusion. Patient had stopped his aspirin 1 week ago after his admission for lower GI bleed Patient has history of internal hemorrhoids, radiation proctitis, diverticulosis as sources of his lower GI bleed. He reports continuing to occasionally pass bright red blood per rectum since his return home. [facility] History I have reviewed the patient's past medical history: Yes Medical History: Reports:: Aneurysm, Cancer (PROSTATE), Diabetes Mellitus Type 2, Gastroesophageal Reflux Disease(GERD), Hyperlipidemia, Hypertension Denies:: Diabetes Mellitus Type 1, MRSA, Seizures *Have you ever received a pneumonia vaccine?: No *Have you received a flu vaccine this season?: No Other Medical History: Reports: Anemia, Arthritis, Sinus Problems Other Surgeries: Yes: Colonoscopy, Sinus Surgery Amputation: No Fractures: No - *Social History Last grade of school completed: High school graduate Smoking Status: Former smoker Tobacco Type: cigarettes Alcohol Intake: never Alcohol Intake Frequency:: other Substance Use Type: denies use *Occupational Status:: retired Housing: apartment *Travel in the last 8 weeks: None Family Hx:: No significant family history Review of Systems - Constitutional Denies anorexia, Denies body ache(s), Denies chills, Denies lack of energy - Eyes Denies blurry vision - ENT Denies difficulty swallowing - *Cardiovascular Reports chest pain, Reports chest pain at rest - *Respiratory Denies chest congestion, Denies cough - *Gastrointestinal Denies bloating - *Genitourinary Denies difficulty urinating - *Musculoskeletal Reports joint pain - *Neurologic Denies headache(s), Denies seizure-like activity Meds Home Medications Medication Instructions Recorded Confirmed Type omeprazole 20 mg capsule,delayed 20 mg PO DAILY 90 Days 08/25/17 10/18/20 History release insulin degludec 200 unit/mL (3 30 units SQ HS 90 Days ml 02/25/18 10/18/20 History mL) subcutaneous pen atorvastatin 10 mg tablet 10 mg PO HS tab 09/09/18 10/18/20 History glipiZIDE [Glipizide] 5 mg PO BIDWMEAL 01/16/19 10/18/20 History hydroCHLOROthiazide [HCTZ 25mg 25 mg PO DAILY 04/10/19 10/18/20 History tab] lisinopriL [Lisinopril 40mg Tablet] 40 mg PO BID 04/10/19 10/18/20 History Furosemide [Furosemide 40MG tAB*] 80 mg PO BIDL 01/30/20 10/18/20 History Pioglitazone HCl [Actos] 45 mg PO HS 01/30/20 10/18/20 History Tizanidine HCl [Zanaflex 4mg 4 mg PO TID PRN 01/30/20 10/18/20 History tab] Cetirizine HCl [Zyrtec 10mg Tab*] 10 mg PO DAILY 02/24/20 10/18/20 History Dicyclomine HCl [Bentyl 10mg 10 mg PO TID 10/18/20 10/18/20 History capsule] Ferrous Sulfate [Ferrous Sulfate 325 mg PO DAILY 10/18/20 10/18/20 History 325mg Tab] Allergies Allergy/AdvReac Type Severity Reaction Status Date / Time ampicillin [From Unasyn] Allergy Severe S-SWELLS-OR Verified 02/24/20 09:19 AL/THROAT sulbactam [From Unasyn] Allergy Severe S-SWELLS-OR Verified 02/24/20 09:19 AL/THROAT Exam Vital signs and Labs for Last 24 Hours: Temp Pulse Resp BP
--- NOTE | 2020-10-18 07:33 | P.CONPHA_ITS ---
[facility] Pharmacy VTE Monitoring - Patient Demographics Admission date: 10/18/20 Report Date: 10/18/20 Time: 07:34 Allergies/Adverse Reactions: Patient Allergies ampicillin [From Unasyn] Allergy (Severe, Verified 02/24/20 09:19) U-[id number]/THROAT sulbactam [From Unasyn] Allergy (Severe, Verified 02/24/20 09:19) D-DLRLLE-AUJX/THROAT Height: 1.83 m Weight: 132.449 kg Patient Problems: Current Active Problems Renal insufficiency (Acute) Essential hypertension (Acute) Lower gastrointestinal hemorrhage (Acute) Anemia (Acute) Elevated troponin I level (Acute) Obesity (BMI 30-39.9) (Acute) Unstable angina pectoris (Acute) Non-ST elevation [place] (NSTEMI) (Acute) Anemia due to blood loss (Acute) - VTE Risk Labs: VTE Related Lab Results Hgb 6.9 g/dL (14.1-18.0) L 10/18/20 05:40 Hct 23.7 % (42.0-52.0) L 10/18/20 05:40 Plt Count 241 K/mm3 (142-424) 10/18/20 05:40 BUN 25 mg/dl (9-20) H 10/18/20 05:40 Creatinine 1.20 mg/dl (0.66-1.25) 10/18/20 05:40 Estimated Creat Clear 101 mL/min (50-200) 10/18/20 05:40 Was VTE Risk Assessment Performed: Yes VTE Score: 3 VTE Risk Level: Low Risk Clinical Trial Participant: No - Prophylaxis VTE Prophylaxis Ordered?: Yes Types of VTE Prophylaxis: TEDS Knee High
--- NOTE | 2020-10-18 07:38 | HMH.PHAINT ---
home medication list verified using list from [facility]
[2020-10-18 07:49] LABS: Iron 22 ug/dL (49-181); Reticulocyte % (Auto) 1.5 % (0.9-3.2)
--- NOTE | 2020-10-18 08:00 | CA_ITS ---
APPROVED REPORT EXAM: Comprehensive 2D, Doppler, and color-flow Echocardiogram Station Superintendent: BONITA Madrigal, RVS Ht: 6 ft 0 in Wt: 286lbs BSA: 2.48 BP: 142/64 mmHg Indications: Anemia, CP, HTN, HLD, DM, Ex-smoker, Obesity Echo Enhancing Agent Comments: Technically difficult exam due to chest circumference, Large body habitus. 2D Dimensions IVSd 0.94 cm LVEF (Visual) 70.70 % PWd 0.81 cm LA Volume 101.30 mL LVDd 6.12 cm LA Volume Index 40.236507 mL/m2 (M/F) 16-34 LVDs 3.62 cm Aortic Root 3.29 cm Left Atrium 4.58 cm LVOT 2.22 cm (M/F) 1.5-2.5 M-Mode Dimensions LA Diam 4.80 cm (1.9-4.0) Ao Diam 4.28 cm (2.0-3.7) EPSs 0.67 cm TAPSE 2.21 (<1.7) LV Diastology E Decel Time 280.00 (160-240 msec) E/A Ratio 0.79 MED E' 6.60 (< 7 cm/sec) MED A' 11.30 cm/s E'/MED E' Ratio 15.73 (>14) LAT E' 6.90 (<10 cm/sec) LAT A' 11.10 cm/s E/LAT E' Ratio 15.04 (>14) Pulm Vein s 30.00 cm/sec Aortic Valve LVOT Max 116.00 (70-110 cm/s) LVOT VTI 27.64 cm AoV Peak Donovan. 139.00 (50-130 cm/s) AO Peak GR. 7.80 mmHg AO Mean GR. 3.90 (<5 mmHg) AO VTI 31.10 (18-25 cm) MADELEINE (VTI) 3.44 (2.5-4.5 cm2) Mitral Valve MV A Velocity 132.00 (40-130 cm/s) E/A Ratio 0.79 MV Decel. Time 280.00 (160-240 ms) MV Mean Gr. 3.30 (<2mmHg) Pulmonary Valve PV Peak Velocity 92.00 (50-150 cm/s) Tricuspid Valve TR P. Velocity 177.00 cm/s RAP Estimate 10.00 mmHg RVSP 22.60 mmHg Left Ventricle Left atrium is mildly enlarged, left ventricle is normal size, mild concentric left ventricular hypertrophy, visually estimated ejection fraction 55% with no regional wall motion abnormality, grade 1 diastolic dysfunction seen with tissue Doppler evidence of raise left atrial pressure. Right Ventricle Right atrium and right ventricle mildly enlarged with normal contractility. Aortic Valve Aortic valve is minimally thickened and fibrosed, there is no aortic stenosis or aortic insufficiency. Mitral Valve Mitral valve has mitral annular calcification, there is no mitral stenosis, there is mild mitral regurgitation. Tricuspid Valve Tricuspid valve is grossly normal, there is trace tricuspid regurgitation. Tricuspid regurgitation jet velocity is inadequate for calculation of the right ventricular systolic pressure. Pulmonic Valve Pulmonic valve is poorly visualized. Great Vessels Aortic root is normal size. Inferior vena cava is poorly visualized. Pericardium No significant pericardial effusion noted. Conclusion 1. Mildly enlarged left atrium, normal left ventricular size, mild concentric left ventricular hypertrophy, visually estimated ejection fraction 55% with no regional wall motion abnormality, grade 1 diastolic dysfunction seen with tissue Doppler evidence of raise left atrial pressure. 2. Mild mitral and tricuspid regurgitation. 4. No significant pericardial effusion noted. Electronically signed by : Zaki Boswell MD 10/19/2020 10:32:50
--- NOTE | 2020-10-18 08:03 | HMH.PHAINT ---
MEDICATION RECONCILIATION COMPLETED USING EXTERNAL PHARMACY FILL HISTORY AND RECENT DISCHARGE SUMMARY.
--- NOTE | 2020-10-18 09:41 | HMH.CNCARD ---
History of Present Illness Consult date: 10/18/20 Requesting physician: Ben Cavazos Consult reason: chest pain Chief complaint: Chest pain History of present illness: 70-year-old male presented to [facility] with worsening heaviness in his chest and weakness. Patient admitted with diagnosis of non-STEMI. Patient states for the past few days he has become progressively weak. Patient states he began having heaviness in his chest 1 to 2 days ago prior to arriving to the ED. Patient stated the heaviness feels like a rock on his chest. Patient denies any cardiac history. Patient states due to the heaviness on the chest he did become short of breath. Patient states normally he is not short of breath. Patient denies chest pain, tightness or pressure during this assessment. Patient denies shortness of breath. Patient states since coming to the hospital, his symptoms have improved. Slight lower extremity swelling noted. Patient denies palpitations or dizziness. Patient has recently had a hospital stay due to GI bleed. Patient did undergo colonoscopy and EGD which determined hemorrhoids, radiation proctitis which may have been the causes of his GI bleed. Patient is no longer taking aspirin due to GI bleed. 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 Patient is a known diabetic and which he states it is controlled. History of hyperlipidemia and is on statin therapy. History of hypertension which is controlled. Patient does have history of prostate cancer. Initial EKG performed in the ED revealed sinus tachycardia with ST and T wave abnormality with a heart rate of 103 bpm. Serial troponins were performed which had been trending upward from 0.11-1.51. Patient also noted with low H&H. Hemoglobin was noted at 6.9. Chest x-ray revealed possible early pulmonary vascular congestion. Per PCP, patient will be transfused 2 units of packed red blood cells due to low H&H. Patient states he does continue to have episodes of bright red bleeding from the rectum. CXR:IMPRESSION: Possible early pulmonary vascular congestion. Clinical correlation is needed. Discussed plan of care with Dr. Gibson. Orders and recommendations were received from Dr. Gibson. Will defer left heart catheterization at this time, due to his low hemoglobin. This may be causing the elevated troponins in trying to compensate. If patient continues to complain or develops new symptoms once he has been transfused packed red blood cells, then we may consider left heart catheterization. Echocardiogram to assess LV function and valve status. Pending on the results of the echocardiogram, medication and treatment therapies may be recommended. Please notify cardiology of any changes in patient status. Thank you for allowing cardiology to participate in the care of this patient. [facility] History I have reviewed the patient's past medical history: Yes Medical History: Reports:: Aneurysm, Cancer (PROSTATE), Diabetes Mellitus Type 2, Gastroesophageal Reflux Disease(GERD), Hyperlipidemia, Hypertension Denies:: Diabetes Mellitus Type 1, MRSA, Seizures *Have you ever received a pneumonia vaccine?: No *Have you received a flu vaccine this season?: No Other Medical History: Reports: Anemia, Arthritis, Sinus Problems Other Surgeries: Yes: Colonoscopy, Sinus Surgery Amputation: No Fractures: No - *Social History Last grade of school completed: High school graduate Smoking Status: Former smoker Tobacco Type: cigarettes Alcohol Intake: never Alcohol Intake Frequency:: other Substance Use Type: denies use *Occupational Status:: retired Housing: apartment *Travel in the last 8 weeks: None Family Hx:: No significant family history Meds Home Medications Medication Instructions Recorded Confirmed Type omeprazole 20 mg capsule,delayed 20 mg PO DAILY 90 Days 08/25/17 10/18/20 History release insulin degludec 200 unit/mL (3 30 units SQ HS 90 Days
--- NOTE | 2020-10-18 10:03 | PC.NURSE ---
1L NC applied to pt. O2 sats dropped to 85% on RA while sleeping.
[2020-10-18 13:16] LABS: POC Glucose,Bedside 110 (70-110)
[2020-10-18 13:40] LABS: Hemoglobin 7.8 g/dL (14.1-18.0)
[2020-10-18 16:24] LABS: POC Glucose,Bedside 195 (70-110)
--- NOTE | 2020-10-18 19:05 | PC.NURSE ---
Pt is alert and oriented x4. He has been up to the chair for a few hours. He has ambulated to the bathroom with assist x1. Appetite has been good eating most of his meals. 2 units of PRBC's transfused. No change from morning assessment.
[2020-10-18 21:26] LABS: Hematocrit 30.6 % (42.0-52.0)
[2020-10-18 21:36] LABS: Hemoglobin 9.5 g/dL (14.1-18.0)
[2020-10-18 22:49] LABS: POC Glucose,Bedside 188 (70-110)
[2020-10-19] VITALS: BP 112/55; PULSE 60; PULSE 74; RESP 17; TEMP 37.3; O2SAT 96
[2020-10-19 04:00] VITALS: BP 142/66; PULSE 60; PULSE 67; RESP 18; TEMP 36.8; O2SAT 95
[2020-10-19 05:00] VITALS: BMI 39.6
--- NOTE | 2020-10-19 05:16 | PC.NURSE ---
otis is awake at his time watching tv , has urinated frequently thur out the night hemogoblin hs improve .
[2020-10-19 06:38] LABS: Basophils % 0.2 % (0.1-2.0); Eosinophils # 0.2 K/mm3 (0.0-0.4); Eosinophils % 2.7 % (0.1-12.0); Hematocrit 28.1 % (42.0-52.0); Hemoglobin 8.6 g/dL (14.1-18.0); Lymphocytes # 1.6 K/mm3 (0.7-4.5); Lymphocytes % 28.8 % (10-50); Mean Corpuscular HGB Conc 30.6 g/dL (31.8-35.4); Mean Corpuscular Hemoglobin 25.6 pg (27.0-31.2); Mean Corpuscular Volume 83.7 fl (80-94); Mean Platelet Volume 8.5 fl (7.4-10.4); Monocytes # 0.4 K/mm3 (0.1-1.0); Monocytes % 6.7 % (1.7-9.3); Neutrophils # 3.4 K/mm3 (1.8-7.8); Neutrophils % 61.5 % (37.0-80.0); Platelet Count 232 K/mm3 (142-424); Red Blood Count 3.35 M/mm3 (4.60-6.20); Red Cell Distribution Width 16.5 % (11.5-17.5); White Blood Count 5.5 K/mm3 (4.8-10.8)
[2020-10-19 06:54] LABS: Anion Gap 12.6 mEq/L (5-15); Blood Urea Nitrogen 26 mg/dl (9-20); Calcium 8.7 mg/dl (8.4-10.2); Carbon Dioxide 27 mmol/L (22.0-30.0); Chloride 104 mmol/L (98-107); Creatinine Clearance Estimated 87 mL/min (50-200); Estimated Glomerular Filt Rate 50 ml/min (>60); GFR (African American) 60 ML/MIN (>60); Glucose 113 mg/dl (74-100); Potassium 3.6 mmoL/L (3.5-5.1); Sodium 140 mmol/L (136-145)
--- NOTE | 2020-10-19 07:52 | P.PN_ITS ---
Internal Medicine - PN: Subj *Date: 10/19/20 *Time: 07:52 Interval history: Patient received 2 units of packed red blood cells yesterday. H&H responded appropriately. Patient denies any further blood in his stool. He has not had any further chest pain. He is ambulated without dyspnea or chest pain Exam Vital signs and Labs for Last 24 Hours: Temp Pulse Resp BP Pulse Ox 98.3 F 67 18 142/66 H 95 10/19/20 04:00 10/19/20 04:00 10/19/20 04:00 10/19/20 04:00 10/19/20 04:00 Laboratory Results - last 24 hr 10/18/20 05:40: Iron 22 L, Ferritin 4.90 L 10/18/20 07:54: Troponin I 2.70 H 10/18/20 07:54: Blood Type A Negative, Antibody Screen Negative, Crossmatch (AHG) See Detail 10/18/20 12:27: POC Glucose 110 10/18/20 13:16: Hgb 7.8 L D, Hct 26.0 L 10/18/20 16:10: POC Glucose 195 H 10/18/20 20:37: POC Glucose 188 H 10/18/20 20:53: Hgb 9.5 L D, Hct 30.6 L 10/19/20 05:36: WBC 5.5, RBC 3.35 L, Hgb 8.6 L, Hct 28.1 L, MCV 83.7, MCH 25.6 L , MCHC 30.6 L, RDW 16.5, Plt Count 232, MPV 8.5, Neut % (Auto) 61.5, Lymph % (Auto) 28.8, [place] % (Auto) 6.7, Eos % (Auto) 2.7, Baso % (Auto) 0.2, Neut # (Auto) 3.4, Lymph # (Auto) 1.6, [place] # (Auto) 0.4, Eos # (Auto) 0.2, Baso # (Auto) 0.0 10/19/20 05:36: Sodium 140, Potassium 3.6, Chloride 104, Carbon Dioxide 27, Anion Gap 12.6, BUN 26 H, Creatinine 1.40 H, Estimated Creat Clear 87, Estimated GFR 50 L, Est GFR ( Amer) 60, Glucose 113 H, Calcium 8.7 I & O for Last 24 hours: Intake & Output 10/16/20 10/17/20 10/18/20 10/19/20 11:59 11:59 11:59 11:59 Intake Total 1300 / 1300 940 / 940 Output Total 200 / 200 100 / 100 Balance 1100 / 1100 840 / 840 Weight 292 lb 293 lb - Constitutional no acute distress - *Routine Respiratory Exam Present: CTA bilaterally - *Routine Cardiovascular Exam Present: RRR - *Routine Abdominal Exam Present: soft, normoactive bowel sounds. Absent: tenderness Assessment and Plan (1) Anemia due to blood loss Status: Acute Category: Medical Code(s): D50.0 - Iron deficiency anemia secondary to blood loss (chronic) (2) Non-ST elevation [place] (NSTEMI) Status: Acute Category: Medical Code(s): I21.4 - Non-ST elevation (NSTEMI) myocardial infarction (3) Obesity (BMI 30-39.9) Status: Acute Category: Medical Code(s): E66.9 - Obesity, unspecified (4) Essential hypertension Status: Acute Category: Medical Code(s): I10 - Essential (primary) hypertension (5) Lower gastrointestinal hemorrhage Status: Acute Category: Medical Code(s): K92.2 - Gastrointestinal hemorrhage, unspecified (6) Iron deficiency anemia due to chronic blood loss Status: Acute Category: Medical Code(s): D50.0 - Iron deficiency anemia secondary to blood loss (chronic) - Assessment and plan all Dx Assessment and Plan for all problems:: 1. Repeat H&H this afternoon. If H&H remains stable patient will be discharged home. If H&H declines we will continue to observe the patient and transfuse for hemoglobin less than 8
[2020-10-19 08:00] VITALS: BP 116/67; BP 172/83; PULSE 100; PULSE 85; PULSE 93; RESP 16; RESP 18; TEMP 36.6; TEMP 36.8; O2SAT 91; O2SAT 95; O2SAT 97
--- NOTE | 2020-10-19 08:36 | HMH.PNCARD ---
Subjective Date: 10/19/20 Time: 08:30 Principal diagnosis: Chest pain Interval history: 70-year-old male presented to [facility] with worsening heaviness in his chest and weakness yesterday. Patient admitted with diagnosis of non-STEMI. Patient was noted to have low H&H. Patient was transfused 2 units of packed red blood cells yesterday. H&H is responding appropriately. Patient denies chest pain, tightness or pressure during this assessment. Patient denies shortness of breath. Patient has been ambulating with no complaints of shortness of breath or chest pain. Slight lower extremity swelling noted. Patient denies palpitations or dizziness. Patient states he has had no further episodes of bleeding. Patient continues to be off his aspirin. Patient has no known history of cardiac issues. 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 Heart rate noted to be 86 bpm. Vital signs are stable. Echocardiogram has been obtained to assess LV function and valve status. Echocardiogram results are still pending at this time. Pending on the results of the echocardiogram, treatment and therapies may be recommended. Discussed plan of care with Dr. Gibson. Orders and recommendations were received from Dr. Gibson. Will defer left heart catheterization at this time, due to his low hemoglobin even though he is H & H are responding appropriately. Elevated troponins were likely due to to the demand ischemia which was likely to trigger patient's acute coronary artery syndrome. Patient will need further cardiac testing once he is hemodynamically stable. This may be on an outpatient basis. Patient is to follow-up with cardiology in 1 week or sooner if signs and symptoms develop. At cardiology follow-up, patient will need to be scheduled for further cardiac testing. Thank you for allowing cardiology to participate in the care of this patient. Exam Vital signs and Labs for Last 24 Hours: Temp Pulse Resp BP Pulse Ox 98.3 F 100 H 18 116/67 91 L 10/19/20 08:00 10/19/20 08:00 10/19/20 08:00 10/19/20 08:00 10/19/20 08:00 Laboratory Results - last 24 hr 10/18/20 07:54: Troponin I 2.70 H 10/18/20 07:54: Blood Type A Negative, Antibody Screen Negative, Crossmatch (AHG) See Detail 10/18/20 12:27: POC Glucose 110 10/18/20 13:16: Hgb 7.8 L D, Hct 26.0 L 10/18/20 16:10: POC Glucose 195 H 10/18/20 20:37: POC Glucose 188 H 10/18/20 20:53: Hgb 9.5 L D, Hct 30.6 L 10/19/20 05:36: WBC 5.5, RBC 3.35 L, Hgb 8.6 L, Hct 28.1 L, MCV 83.7, MCH 25.6 L, MCHC 30.6 L, RDW 16.5, Plt Count 232, MPV 8.5, Neut % (Auto) 61.5, Lymph % (Auto) 28.8, [place] % (Auto) 6.7, Eos % (Auto) 2.7, Baso % (Auto) 0.2, Neut # (Auto) 3.4, Lymph # (Auto) 1.6, [place] # (Auto) 0.4, Eos # (Auto) 0.2, Baso # (Auto) 0.0 10/19/20 05:36: Sodium 140, Potassium 3.6, Chloride 104, Carbon Dioxide 27, Anion Gap 12.6, BUN 26 H, Creatinine 1.40 H, Estimated Creat Clear 87, Estimated GFR 50 L, Est GFR ( Amer) 60, Glucose 113 H, Calcium 8.7 I & O for Last 24 hours: Intake & Output 10/16/20 10/17/20 10/18/20 10/19/20 23:59 23:59 23:59 23:59 Intake Total 1999 / 1999 600 / 600 Output Total 300 / 300 Balance 1700 / 1700 600 / 600 Weight 292 lb 293 lb - Constitutional no acute distress, morbidly obese, cooperative - *Routine HEENT Exam Head: Present: normocephalic ENT: Present: mucous membranes moist - *Routine Neck Exam Present: supple, full ROM, normal carotid upstroke. Absent: JVD, carotid bruit, lymphadenopathy - *Routine Respiratory Exam Present: accessory muscle use, CTA bilaterally. Absent: wheezes, crackles - *Routine Cardiovascular Exam Present: RRR, Normal S1, Normal S2. Absent: murmur, tachycardia, irregular rhythm, irregularly irregular - *Routine Abdominal Exam Present: soft, normoactive bowel sounds. Absent: distended, rebound, firm - *Routine Extremities Exam Present: full ROM, pulses intact, normal capillary r
[2020-10-19 11:28] VITALS: BP 147/70; PULSE 71; RESP 18; TEMP 36.9; O2SAT 95
[2020-10-19 11:46] VITALS: PULSE 70
[2020-10-19 14:12] LABS: Hematocrit 30.3 % (42.0-52.0)
[2020-10-19 14:15] LABS: Hemoglobin 9.5 g/dL (14.1-18.0)
--- NOTE | 2020-10-19 15:10 | HMH.PHAINT ---
MEDICATION DISCHARGE COUNSELING COMPLETE. PATIENT HAD NO QUESTIONS. I COUNSELED HIM ON HOW TO TAKE NEW MEDICATION (COREG) AMD WHAT TO EXPECT FROM TAKING IT.
--- NOTE | 2020-10-19 16:45 | HMH.DCSUM ---
General - General Admission date:: 10/18/20 Discharge date: 10/19/20 HPI HPI: 74-year-old male with history of diabetes, hypertension and recent hospitalization for lower GI bleed presented to the emergency department with recurring episodes of left-sided chest discomfort described as a sensation as if a rock was resting on his chest with radiation of discomfort into the left arm to the level of the elbow. Patient initially had this happen on October 12. On the evening he presented to the emergency department the anginal pain had lasted longer and did not seem to be resolving. He presented to the emergency department. In the ER patient had an abnormal troponin and was found to have worsening anemia with hemoglobin of 7.1. Patient was admitted for cardiology consultation. This morning patient's hemoglobin has dropped slightly more to 6.9 and he will require transfusion. Patient had stopped his aspirin 1 week ago after his admission for lower GI bleed Patient has history of internal hemorrhoids, radiation proctitis, diverticulosis as sources of his lower GI bleed. He reports continuing to occasionally pass bright red blood per rectum since his return home. Hospital Course Hospital Course: Patient was admitted for anemia and chest pain. Anemia worsened overnight the first night of admission and the following morning after hemoglobin reached 6.9 patient was transfused 2 units of packed red blood cells. Hemoglobin increased to 9.5 and remained stable until the following day. Patient has history of lower GI bleed from either diverticular source, internal hemorrhoids, or radiation proctitis. GI blood loss has likely been chronic as patient's iron labs revealed low iron and as well as ferritin consistent with iron deficiency. Outpatient iron IV infusion will be arranged. Patient had chest pain consistent with angina. In association with his anemia this was felt to be due to to demand ischemia. Patient's chest pain corrected after correction of his anemia. Cardiology was consulted. Echocardiogram was performed which showed no LV dysfunction. Patient will have further cardiac evaluation as an outpatient once anemia is corrected. Due to the acute coronary syndrome patient was restarted on aspirin therapy at discharge. Objective Vital signs: Temp Pulse Resp BP Pulse Ox 98.4 F 71 18 147/70 H 95 10/19/20 11:28 10/19/20 11:28 10/19/20 11:28 10/19/20 11:28 10/19/20 11:28 Results Labs on day of discharge: Labs from last 24 hours 10/19/20 10/19/2010/19/21 13:56 05:36 05:36 WBC 5.5 RBC 3.35 L Hgb 9.5 L D 8.6 L Hct 30.3 L 28.1 L MCV 83.7 MCH 25.6 L MCHC 30.6 L RDW 16.5 Plt Count 232 MPV 8.5 Neut % (Auto) 61.5 Lymph % (Auto) 28.8 [place] % (Auto) 6.7 Eos % (Auto) 2.7 Baso % (Auto) 0.2 Neut # (Auto) 3.4 Lymph # (Auto) 1.6 [place] # (Auto) 0.4 Eos # (Auto) 0.2 Baso # (Auto) 0.0 Sodium 140 Potassium 3.6 Chloride 104 Carbon Dioxide 27 Anion Gap 12.6 BUN 26 H Creatinine 1.40 H Estimated Creat Clear 87 Estimated GFR 50 L Est GFR ( Amer) 60 Glucose 113 H POC Glucose Calcium 8.7 Blood Type Antibody Screen Crossmatch ([facility]) 10/18/20 10/18/20 10/18/20 20:53 20:37 07:54 WBC RBC Hgb 9.5 L D Hct 30.6 L MCV MCH MCHC RDW Plt Count MPV Neut % (Auto) Lymph % (Auto) [place] % (Auto) Eos % (Auto) Baso % (Auto) Neut # (Auto) Lymph # (Auto) [place] # (Auto) Eos # (Auto) Baso # (Auto) Sodium Potassium Chloride Carbon Dioxide Anion Gap BUN Creatinine Estimated Creat Clear Estimated GFR Est GFR ( Amer) Glucose POC Glucose 188 H Calcium Blood Type A Negative Antibody Screen Negative Crossmatch ([facility]) See Detail DS: Diagnosis - Discharge Diagnosis (1) Ane
[2020-10-19 17:08] LABS: POC Glucose,Bedside 122 (70-110)
== END 2020-10-19 15:44 | disposition home or self-care (01) ==
LOC: ER 03:22 → 2ND 04:31
PROVIDERS: Admitting Provider Internal Medicine Adolescent Medicine; Emergency Provider Emergency Medicine; PCP Family Medicine; Visit Provider Family Medicine
DX: I21.4 Non-ST elevation (NSTEMI) myocardial infarction (principal); D50.0 Iron deficiency anemia secondary to blood loss (chronic); I10 Essential (primary) hypertension; Z20.822 Contact with and (suspected) exposure to COVID-19; K92.2 Gastrointestinal hemorrhage, unspecified; F17.210 Nicotine dependence, cigarettes, uncomplicated; E11.9 Type 2 diabetes mellitus without complications; Z79.4 Long term (current) use of insulin; Z79.899 Other long term (current) drug therapy; Z88.8 Allergy status to other drugs, medicaments and biological substances
CPT/HCPCS: G0378; 36415; 71045; 80048; 81001; 82728; 82962; 83540; 83735; 83880; 84484; 85014; 85018; 85025; 85044; 85651; 86140; 86850; 93005; 93306; 96365; 99284; P9016; U0003

== ENCOUNTER 2020-11-02 12:31 | Outpatient (CLI) | payer MEDICARE, SELFPAY ==
[2020-11-02 13:10] VITALS: BP 163/77; PULSE 68; RESP 18; O2SAT 97
[2020-11-02 13:50] VITALS: BP 126/97; PULSE 68; RESP 18
== END 2020-11-02 13:50 | disposition home or self-care (01) ==
LOC: INF 12:32
PROVIDERS: PCP Family Medicine; Visit Provider Family Medicine
DX: D50.0 Iron deficiency anemia secondary to blood loss (chronic) (principal); D64.9 Anemia, unspecified
CPT/HCPCS: 96365; J1439

== ENCOUNTER 2020-11-08 12:38 | Outpatient (CLI) | payer MEDICARE, SELFPAY ==
[2020-11-08 13:10] VITALS: BP 165/76; PULSE 64; RESP 18; O2SAT 95
[2020-11-08 13:40] VITALS: BP 154/73; PULSE 60; RESP 18
== END 2020-11-08 13:50 | disposition home or self-care (01) ==
LOC: INF 12:39
PROVIDERS: PCP Family Medicine; Visit Provider Family Medicine
DX: D50.0 Iron deficiency anemia secondary to blood loss (chronic) (principal); D64.9 Anemia, unspecified
CPT/HCPCS: 96365; J1439

== ENCOUNTER → 2020-11-19 06:06 | Outpatient (CLI) | payer MEDICARE, SELFPAY ==
--- NOTE | 2020-11-19 | CA_ITS ---
APPROVED REPORT Exam: Pharmacologic Technologist: Kera Warren Ht: 6 ft 0 in HR: 66 bpm BP: 169/65 mmHg Medical History Medications: Lisinopril,,,,, Omeprazole,,,,, Ferrous sulfate,,,,, Atorvastatin,,,,, HCTZ,,,,, Carvedilol,,,,, Pioglitazone,,,,, INSULIN,,,,, DicyCLOMINE,,,,, Furosemide,,,,, GlPIZIDE,,,,, Stress Test Details Test: LEXISCAN HR Resting HR: 68 bpm Max Heart Rate (APMHR): 145.289072 bpm Max HR Achieved: 112 bpm Target HR (85% APMHR): 123.211454 bpm % of APMHR: 77.24 Recovery HR: 97 bpm BP Resting BP: 169.0/65.0 mmHg Max BP: 177.0/75.0 mmHg Recovery BP: 172.0/74.0 mmHg ECG Clinical Exercise duration: 04:11 min Highest Stage Achieved: Exercise capacity: 1.0 METs Stress ECG Conclusion Symptoms: Dizziness with lexiscan injection. No chest pain or shortness of air. Arrhythmias/Ectopy: None ST-T Changes: <1.[address] segment changes. Test Summary REST 03:41 . . 68 . 169/ 65 . . Stage 1 01:00 . . 94 . . . . Stage 2 01:00 . . 107 . . . . Stage 3 01:00 . . 100 . 161/ 70 . . Stage 4 01:00 . . 100 . 168/ 71 . . Stage 4 01:11 . . 98 . 168/ 71 . Stop exercise at 04:11 RECOVERY 01:00 . . 97 . 169/ 74 . . RECOVERY 02:00 . . 99 . 177/ 75 . . RECOVERY 03:00 . . 98 . 177/ 75 . . RECOVERY 03:52 . . 100 . 172/ 74 . . Electronically signed by : Zaki Boswell MD 11/19/2020 21:09:20
--- NOTE | 2020-11-19 06:07 | NM_ITS ---
APPROVED REPORT Exam: Nuclear Stress Test Indication: Chest pain, HTN, DM, CHF Patient Location: Outpatient Stress Tech: Kera Warren NM Tech:Elizabeth Winchester ARRT, RT (R)(N) Ht: 6 ft 0 in Wt: 270 lbs HR: 68 bpm BP: 169/65 mmHg BSA: 2.42 m2 History: Chest pain, HTN, DM, CHF Procedure: Patient received a 0.4 mg of intravenous Lexiscan, resting heart rate 68 bpm, resting blood pressure 169/65 mmHg, with Lexiscan maximum heart rate achived was 112 bpm which is Less than 85 % of the maximum predicted heart rate and blood pressure was 177/75 mmHg. With Lexiscan, patient denied any complaint of chest pain. Electrocardiogram Resting electrocardiogram showed sinus rhythm with Lexiscan ST segment depression. The EKG portion of the Lexiscan. Cardiac Stress and Resting SPECT Images: Cardiac Stress and Resting SPECT images were obtained using technetium 99m Myoview 31.3 mCi stress and 10.56 mCi at rest. Patient would not lay on stomach for Prone images. Gated SPECT for analysis of segmental wall motion and calculation of the ejection fraction also done. Cardiac stress and resting SPECT images show uniform myocardial activity without segmental perfusion abnormality, computer derived ejection fraction is 44% with no regional wall motion abnormality, right ventricle is normal size and contractility. Conclusion: 1. The EKG portion of the Lexiscan is nondiagnostic. 2. No scintigraphic evidence of reversible ischemia seen, computer derived ejection fraction is 44% with no regional wall motion abnormality, right ventricle is normal size and contractility. Electronically signed by : Zaki Boswell MD 11/19/2020 21:24:09
--- NOTE | 2020-11-19 08:10 | HMH.ITSHM ---
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 []OMEPRAZOLE LISINOPRIL INSULIN HCTZ GLIPIZIDE CARVEDILOL ATORVASTATIN PIOGLITAZONE FUROSEMIDE FERROUS SULFATE JAMEYL
== END ==
PROVIDERS: PCP Family Medicine; Visit Provider Urology
DX: I50.33 Acute on chronic diastolic (congestive) heart failure (principal); R07.9 Chest pain, unspecified
CPT/HCPCS: 78452; 93017; A9502; J2785

== ENCOUNTER → 2023-01-16 13:48 | Outpatient (CLI) | payer MEDICARE, SELFPAY ==
[2023-01-16 13:44] LABS: Basophils % 0.3 % (0.1-2.0); Eosinophils # 0.2 K/mm3 (0.0-0.4); Eosinophils % 3.4 % (0.1-12.0); Hematocrit 44.7 % (42.0-52.0); Hemoglobin 14.6 g/dL (14.1-18.0); Lymphocytes # 1.4 K/mm3 (0.7-4.5); Lymphocytes % 24.5 % (10-50); Mean Corpuscular HGB Conc 32.6 g/dL (31.8-35.4); Mean Corpuscular Hemoglobin 29.9 pg (27.0-31.2); Mean Corpuscular Volume 91.7 fl (80-94); Monocytes # 0.3 K/mm3 (0.1-1.0); Neutrophils # 3.8 K/mm3 (1.8-7.8); Neutrophils % 66.9 % (37.0-80.0); Platelet Count 187 K/mm3 (142-424); Red Blood Count 4.88 M/mm3 (4.60-6.20); Red Cell Distribution Width 14.5 % (11.5-17.5); White Blood Count 5.7 K/mm3 (4.8-10.8)
[2023-01-16 14:25] LABS: Alanine Aminotransferase 17 U/L (12-78); Albumin Level 4.3 g/dl (3.5-5.0); Albumin/Globulin Ratio 1.1 (1.1-1.8); Alkaline Phosphatase 112 U/L (38-126); Anion Gap 13.1 mEq/L (5-15); Aspartate Amino Transferase 23 U/L (17-59); Bilirubin,Total 0.5 mg/dl (0.2-1.3); Blood Urea Nitrogen 25 mg/dl (9-20); Calcium 8.8 mg/dl (8.4-10.2); Carbon Dioxide 29 mmol/L (22.0-30.0); Chloride 102 mmol/L (98-107); Cholesterol 168 mg/dl (140-200); Estimated Glomerular Filt Rate 45 ml/min (>60); GFR (African American) 55 ML/MIN (>60); Globulin 3.9 g/dL (1.3-3.2); Glucose 116 mg/dl (74-100); HDL Cholesterol 28 mg/dl (40-60); Potassium 4.1 mmoL/L (3.5-5.1); Sodium 140 mmol/L (136-145); Total Protein,Serum 8.2 g/dl (6.3-8.2); Triglycerides 168 mg/dl (30-150); VLDL Cholesterol 34 mg/dL (0-40)
[2023-01-16 14:36] LABS: Direct LDL Cholesterol 89.74 mg/dL (100-129)
== END ==
PROVIDERS: PCP Nurse Practitioner Family; Visit Provider Nurse Practitioner Family
DX: E78.5 Hyperlipidemia, unspecified (principal); I10 Essential (primary) hypertension; E78.2 Mixed hyperlipidemia; Z87.891 Personal history of nicotine dependence
CPT/HCPCS: 80053; 80061; 84443; 85025

== ENCOUNTER 2023-03-17 10:02 | Emergency (ER) | payer MEDICARE, SELFPAY ==
[2023-03-17 10:03] VITALS: BP 180/88; PULSE 74; RESP 18; TEMP 36.6; O2SAT 93; BMI 35.1
--- NOTE | 2023-03-17 10:18 | PC.NURSE ---
dr recio at bedside
--- NOTE | 2023-03-17 10:30 | CT_ITS ---
FINAL REPORT TECHNIQUE: Pre-and postcontrast images of the abdomen were performed by computed tomography. Extensive 3-D reconstruction images were performed. A CTA was performed. This study was performed with techniques to keep radiation doses as low as reasonably achievable (ALARA). Individualized dose reduction techniques using automated exposure control or adjustment of mA and/or kV according to the patient''s size were employed. CLINICAL HISTORY: severe, diffuse abd pain radiating to back. out of COMPARISON: 01/30/2020 FINDINGS: ABDOMEN/PELVIS The lung bases are clear. Precontrast images demonstrate no evidence of nephrolithiasis. 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 The liver, spleen and pancreas are unremarkable. An aortic stent graft is present. Aortic stent graft is patent. Abdominal aortic aneurysm sac measures 37 mm. There is no evidence of graft endoleak. There is scarring in the lower pole of the right kidney. Stranding is seen adjacent to the descending duodenum of uncertain significance, may represent duodenitis. The appendix is normal. There is sigmoid diverticulosis. Multiple prostate seed implants are identified. There is a small fluid collection in the left inguinal region, likely seroma or chronic hematoma. This is improved since prior. CTA: The SMA, celiac axis, and LEIA are patent. There is no significant stenosis or calcification. The renal arteries are patent bilaterally. There is mild plaque of the iliac arteries without significant stenosis. IMPRESSION: Mild plaque of the iliac arteries without significant stenosis. Findings may represent duodenitis. Improved fluid collection in the left inguinal region. Reviewed, Interpreted and Dictated by Bryan Babb III, MD Transcribed by Anne Marie Linares Authenticated and [facility]
--- NOTE | 2023-03-17 10:36 | ED_ITS ---
Discharge Plan Disposition Patient Disposition: Home, Self-Care Prescriptions Prescriptions: New esomeprazole magnesium 20 mg capsule,delayed release(DR/EC) 20 mg PO DAILY 56 Days Qty: 56 1RF No Action omeprazole 20 mg capsule,delayed release(DR/EC) 20 mg PO DAILY 90 Days insulin degludec 200 unit/mL (3 mL) insulin pen 30 units SQ HS 90 Days (DME) True Metrix Glucose Test Strip Strip See Rx Instructions .ROUTE .MEDSUPPLY Qty: 10 Rx Instructions: As directed lisinopril 40 mg tablet 40 mg PO BID 90 Days Qty: 180 1RF hydrochlorothiazide 25 mg tablet 25 mg PO DAILY 90 Days Qty: 90 1RF atorvastatin 10 mg tablet 10 mg PO HS 90 Days Qty: 90 1RF glipizide 10 MG tablet 5 mg PO BIDWMEAL pioglitazone 45 MG tablet 45 mg PO HS furosemide 40 mg tablet 40 mg PO BID ferrous sulfate 325 MG tablet 325 mg PO DAILY dicyclomine 10 MG capsule 10 mg PO TID carvedilol 3.125 MG tablet 3.125 mg PO BID Referrals Follow up/Referrals: Provider,Referral, MD [Referring] - See instructions Activity Restrictions/Add. Instructions Additional Instructions/Restrictions: Take acid medication daily for 4 to 6 weeks. See your family doctor for further refills. Call your family doctor to establish care for this visit to the emergency department and schedule follow-up within 48 hours to ensure improvement. If you have any worsening of your condition or any other concerning signs or symptoms, return to the emergency department or your primary care doctor for further evaluation. Clinical Impressions Clinical Impression: Abdominal pain, Duodenitis Instructions Patient Instructions: DI for Diarrhea and Traveler's Diarrhea -- Adult, DI for Diarrhea and Traveler's Diarrhea -- Child, DI for Nausea -- Adult, DI for Nausea -- Child Discharge ED Provider: Perfecto Gardner General Adult HPI General Chief complaint: Nausea/Vomiting/Diarrhea Stated complaint: adominal pain Time Seen by Provider: 03/17/23 10:05 Mode of Arrival: Wheelchair Source of Information: Patient Limitations: No Limitations Description of Symptoms (Recalled from ER Triage Doc. by RN): Patient reports hurting in stomach for a couple of days with some vomiting. History of Present Illness HPI narrative: 77-year-old male history of hypertension, hyperlipidemia, morbid obesity, CAD, diastolic heart failure, diabetes presenting with abdominal pain. Patient states abdominal pain started 1 to 2 days prior to this visit. 1 episode of nonbloody, nonbilious vomiting, no evidence of diarrhea or constipation. Last bowel movement was yesterday, 2/5. No blood in the stool. Abdominal pain is left upper quadrant, left lower quadrant, right lower quadrant and radiates through to his back. Mild to moderate in intensity. Has not taken anything and thing that makes it better or worse. Not associated with food intake. Related Data Home Medications Medication Instructions Recorded Confirmed omeprazole 20 mg capsule,delayed 20 mg PO DAILY acid reflux 90 days 08/25/17 01/16/23 release insulin degludec 200 unit/mL (3 30 units SQ HS Diabetes 90 days 02/25/18 01/16/23 mL) subcutaneous pen glipizide 10 mg tablet 5 mg PO BIDWMEAL Diabetes 01/16/19 01/16/23 pioglitazone 45 mg tablet 45 mg PO HS Diabetes 01/30/20 01/16/23 dicyclomine 10 mg capsule 10 mg PO TID stomach cramps 10/18/20 01/16/23 ferrous sulfate 325 mg (65 mg 325 mg PO DAILY Supplement 10/18/20 01/16/23 iron) tablet carvedilol 3.125 mg tablet 3.125 mg PO BID Hypertension 11/08/20 01/16/23 furosemide 40 mg tablet 40 mg PO BID diuretic 11/26/20 01/16/23 blood sugar diagnostic (True #10 ea 01/16/23 01/16/23 Metrix Glucose Test Strip) Previous Rx's Medication Instructions Recorded atorvastatin 10 mg tablet 10 mg PO HS Cholesterol 90 days 02/16/23 #90 tabs hydrochlorothiazide 25 mg tablet 25 mg PO DAILY Hypertension 90 02/16/23 days #90 tabs lisinopril 40 mg tablet 40 mg PO BID Hypertension 90 days 02/16/23 #180 tabs esomeprazole magnesium 20 mg 20 mg PO DAILY 8 weeks #56 caps 03/17/23 capsule,delayed release Allergies Allergy/AdvReac Type Severity Reaction Status Date / Time ampicillin [From Unasyn] Allergy Severe S-SWELLS-OR Verified 01/16/23 11:05 AL/THROAT sulbactam [From Unasyn] Allergy Severe S-SWELLS-OR Verified 01/16/23 11:05 AL/THROAT PFSH PFSH Disclaimer: The information contained in this section may have been updated after the patient was seen, as this information can be updated by other users. Medical History Abnormal electrocardiography Diastolic dysfunction Dyspnea History of GI bleed HTN (hypertension) Social History Smoking Status: Never smoker alcohol intake: never substance use type: denies use current occupational status: retired Travel in the last 8 weeks: Inside the [employer] housing: apartment caffeine: Yes ROS Obtained: Yes All systems reviewed & no additional complaints except as documented Physical Exam General General appearance: alert and in no apparent distress Head Head exam: atraumatic and normocephalic Eye Eye exam: Present normal appearance, PERRL and EOMI ENT ENT exam: Present mucous membranes moist Neck Neck exam: Present normal inspection, full ROM and trachea midline Respiratory Respiratory exam: Absent respiratory distress, wheezes, stridor, accessory muscle use or prolonged expiratory phase Cardiovascular Cardiovascular exam: Present normal rhythm Abdominal Exam Abdominal exam: Present soft and tenderness; Absent distention, guarding, rebound or rigidity Abdominal tenderness: Present diffuse and mild Extremities Exam Extremities exam: Absent edema Neurological Exam Neurological exam: Present alert, oriented X3, CN II-XII intact and normal gait; Absent motor sensory deficit Skin Skin exam: Present warm and dry; Absent diaphoresis or erythema Medical Decision Making Medical Records Medical records reviewed: Yes I reviewed the patient's medical records. Nelson Inquiry Pt receiving controlled substance: No Nelson was queried for this patient: No Vital Signs: 03/17/23 10:03 Temperature 97.9 F Temperature Source Oral Pulse Rate [Radial] 74 Respiratory Rate 18 Blood Pressure [Right Arm] 180/88 H Blood Pressure Mean [Right Arm] 118 Blood Pressure Source [Right Arm] Automatic Cuff Blood Pressure Position [Right Arm] Sitting 02 Sat by Pulse Oximetry 93 L Oxygen Delivery Method Room Air Lab Data Lab Results 03/17/23 10:26: WBC 5.8, RBC 4.97, Hgb 14.7, Hct 44.5, MCV 89.4, MCH 29.5, MCHC 33.0, RDW 14.4, Plt Count 188, MPV 8.1, Neut % (Auto) 71.9, Lymph % (Auto) 19.6, [place] % (Auto) 5.0, Eos % (Auto) 3.1, Baso % (Auto) 0.4, Neut # (Auto) 4.2, Lymph # (Auto) 1.1, [place] # (Auto) 0.3, Eos # (Auto) 0.2, Baso # (Auto) 0.0, Sodium 132 L, Potassium 4.4, Chloride 95 L, Carbon Dioxide 27, Anion Gap 14.4, BUN 24 H, Creatinine 1.40 H, Estimated Creat Clear 73, Estimated GFR 49 L, Est GFR ( Amer) 59, Glucose 272 H, Lactate 1.0, Calcium 9.3, Total Bilirubin 1.1, AST 31, ALT 17, Alkaline Phosphatase 102, Troponin I < 0.01, Total Protein 8.8 H , Albumin 4.4, Globulin 4.4 H, Albumin/Globulin Ratio 1.0 L, Lipase 314 H 03/17/23 10:26 03/17/23 10:26 Orders (Tests/Meds): ED MEDICATIONS Discontinued Medications Generic Name Dose Route Start Last Admin Trade Name Freq PRN Reason Stop Dose Admin Acetaminophen 1,000 mg 03/17/23 10:39 03/17/23 11:22 Acetaminophen 1,000mg/100ml Vial IV 03/17/23 10:40 1,000 mg ONCE ONE Administration Iopamidol 70 ml 03/17/23 11:19 03/17/23 11:20 Iopamidol-370 (76%);100ml Bottle IV 03/17/23 11:20 70 ml ONCE ONE Administration Ketorolac Tromethamine 15 mg 03/17/23 10:39 03/17/23 11:22 Ketorolac 30mg/Ml Vial IV 03/17/23 10:40 15 mg ONCE ONE Administration Sodium Chloride 50 ml 03/17/23 11:19 03/17/23 11:20 0.9 % Sodium Chloride 50 Ml Vial IV 03/17/23 11:20 50 ml ONCE ONE Administration Sodium Chloride 10 ml 03/17/23 11:19 03/17/23 11:20 Sodium Chloride 0.9% 10ml Syr (Rad Only) IV 03/17/23 11:20 10 ml ONCE ONE Administration ORDERS Category Date Time Status CT angio abdomen pelvis Stat Cat Scan 03/17/23 10:30 Completed CBC w/Auto Diff [Complete Blood Count Auto Diff] Stat Lab 03/17/23 10:26 Completed CMP [Comprehensive Metabolic Panel] Stat Lab 03/17/23 10:26 Completed Lactic Acid Stat Lab 03/17/23 10:26 Completed Lipase Stat Lab 03/17/23 10:26 Completed Trop T [Troponin I] Stat Lab 03/17/23 10:26 Completed Troponin I Q3H Lab 03/17/23 13:30 Ordered Troponin I Q3H Lab 03/17/23 16:30 Ordered Medical Decision Narrative: 77-year-old male history of hypertension, hyperlipidemia, morbid obesity, CAD, diastolic heart failure, diabetes presenting with abdominal pain. Patient states abdominal pain started 1 to 2 days prior to this visit. 1 episode of nonbloody, nonbilious vomiting, no evidence of diarrhea or constipation. Last bowel movement was yesterday, 2/5. No blood in the stool. Abdominal pain is left upper quadrant, left lower quadrant, right lower quadrant and radiates through to his back. Mild to moderate in intensity. Has not taken anything and thing that makes it better or worse. Not associated with food intake. History was obtained via conversation with patient and visitor. On arrival, patient hemodynamically stable, alert, [oriented x4, ][appropriate, ]GCS [15], moving all extremities spontaneously, pupils equal and reactive to light. Full physical exam performed and significant for very hard of hearing male in no acute distress. Abdomen is soft, nondistended, but mildly tender diffusely. He is primarily tender in right lower, left lower, left upper quadrant. No right upper quadrant tenderness. No evidence of peritonitis. No overlying skin changes. Differential includes PUD, gastritis, enteritis, gastroenteritis, pancreatitis, SBO, colitis, diverticulitis, nephrolithiasis, UTI, aortic pathology, mesenteric ischemia, cholecystitis, appendicitis, hepatitis, among others. Patient was given acetaminophen, Toradol for symptomatic management[ and correction of underlying abnormalities]. Workup independently interpreted and significant for nonactionable CBC or chemistry. Lactate negative, troponin negative, lipase 314, but nonactionable. CT abdomen pelvis without acute surgical pathology, but inflammation around duodenum concerning for duodenitis versus PUD. See radiology read for full review of final results. On reevaluation, patient resting calmly in bed ready to leave. Given patient presentation, workup, history, this most likely represents duodenitis versus PUD. Because patient at baseline without signs or symptoms of clinical decompensation, deemed appropriate for discharge. Results were relayed to patient and correction of underlying abnormalities 15 appropriate, oriented x4, who voiced understanding and were agreeable to outpatient management and follow up. At the time of discharge the patient was hemodynamically stable, tolerating PO, and mobilizing appropriately. Critical Care Critical Care Time Critical Care Time: No
[2023-03-17 10:42] LABS: Basophils % 0.4 % (0.1-2.0); Eosinophils # 0.2 K/mm3 (0.0-0.4); Eosinophils % 3.1 % (0.1-12.0); Hematocrit 44.5 % (42.0-52.0); Hemoglobin 14.7 g/dL (14.1-18.0); Lymphocytes # 1.1 K/mm3 (0.7-4.5); Lymphocytes % 19.6 % (10-50); Mean Corpuscular Hemoglobin 29.5 pg (27.0-31.2); Mean Corpuscular Volume 89.4 fl (80-94); Mean Platelet Volume 8.1 fl (7.4-10.4); Monocytes # 0.3 K/mm3 (0.1-1.0); Neutrophils # 4.2 K/mm3 (1.8-7.8); Neutrophils % 71.9 % (37.0-80.0); Platelet Count 188 K/mm3 (142-424); Red Blood Count 4.97 M/mm3 (4.60-6.20); Red Cell Distribution Width 14.4 % (11.5-17.5); White Blood Count 5.8 K/mm3 (4.8-10.8)
[2023-03-17 10:44] LABS: Chloride 95 mmol/L (98-107)
[2023-03-17 10:45] LABS: Potassium 4.4 mmoL/L (3.5-5.1); Sodium 132 mmol/L (136-145)
[2023-03-17 10:47] LABS: Alanine Aminotransferase 17 U/L (12-78); Alkaline Phosphatase 102 U/L (38-126); Anion Gap 14.4 mEq/L (5-15); Aspartate Amino Transferase 31 U/L (17-59); Bilirubin,Total 1.1 mg/dl (0.2-1.3); Blood Urea Nitrogen 24 mg/dl (9-20); Carbon Dioxide 27 mmol/L (22.0-30.0); Creatinine Clearance Estimated 73 mL/min (50-200); Estimated Glomerular Filt Rate 49 ml/min (>60); GFR (African American) 59 ML/MIN (>60); Lipase 314 U/L (23-300)
[2023-03-17 10:48] LABS: Albumin Level 4.4 g/dl (3.5-5.0); Calcium 9.3 mg/dl (8.4-10.2); Globulin 4.4 g/dL (1.3-3.2); Glucose 272 mg/dl (74-100); Total Protein,Serum 8.8 g/dl (6.3-8.2)
[2023-03-17 11:01] LABS: Troponin I < 0.01 ng/ml (0.00-0.034)
--- NOTE | 2023-03-17 11:14 | PC.NURSE ---
pt gone to ct
--- NOTE | 2023-03-17 11:16 | PC.NURSE ---
PT RETURNED FROM CT
[2023-03-17] MEDS: IOPAMIDOL-370 (76%);100ML BOTTLE 70 ML IV (11:20)
[2023-03-17] MEDS: 0.9 % SODIUM CHLORIDE 50 ML VIAL IV (11:20)
[2023-03-17] MEDS: SODIUM CHLORIDE 0.9% 10ML SYR (RAD ONLY) 10 ML IV (11:20)
[2023-03-17] MEDS: KETOROLAC 30MG/ML VIAL 15 MG IV (11:22)
[2023-03-17] MEDS: ACETAMINOPHEN 1,000MG/100ML VIAL 1000 MG IV (11:22)
--- NOTE | 2023-03-17 12:21 | PC.NURSE ---
pt sleeping in bed no needs at this time,call light at bs
--- NOTE | 2023-03-17 12:39 | PC.NURSE ---
ROUNDED ON PT, UPDATED ON POC. CALL LIGHT WITHIN REACH
--- NOTE | 2023-03-17 12:56 | PC.NURSE ---
rounded on pt let him know we are waiting for ct scans , visitor and call light at bs
[2023-03-17 13:24] VITALS: BP 172/86; PULSE 76; RESP 18; TEMP 36.6; O2SAT 96
== END 2023-03-17 13:25 | disposition home or self-care (01) ==
PROVIDERS: Emergency Provider Emergency Medicine; PCP Nurse Practitioner Family
DX: R10.12 Left upper quadrant pain (principal); R10.31 Right lower quadrant pain; R10.32 Left lower quadrant pain; M54.9 Dorsalgia, unspecified; K29.80 Duodenitis without bleeding; R11.10 Vomiting, unspecified; I11.0 Hypertensive heart disease with heart failure; I50.30 Unspecified diastolic (congestive) heart failure; E78.5 Hyperlipidemia, unspecified; I25.10 Atherosclerotic heart disease of native coronary artery without angina pectoris; E11.9 Type 2 diabetes mellitus without complications
CPT/HCPCS: 74174; 80053; 83605; 83690; 84484; 85025; 96374; 96375; 99285; J0131; Q9967

== ENCOUNTER 2023-03-18 09:16 | Emergency (ER) | payer MEDICARE, SELFPAY ==
[2023-03-18] VITALS (9 sets, daily range): BP systolic 115–171; BP diastolic 77–95; PULSE 83–100; RESP 16–22; TEMP 36.6–36.7; O2SAT 3–95; BMI 35.9
--- NOTE | 2023-03-18 09:23 | US_ITS ---
PROCEDURE INFORMATION: Exam: US Abdomen, Limited; Right Upper Quadrant Exam date and time: 03/18/2023 9:33 AM Age: 77 years old Clinical indication: Abdominal pain; Additional info: Abd pain radiating to back TECHNIQUE: Imaging protocol: Real time ultrasound of the abdomen with image documentation. Limited exam focused on the right upper quadrant. COMPARISON: US ABDOMEN COMPLETE 04/10/2019 8:44 AM FINDINGS: Liver: Coarse echotexture of the liver can be seen with cirrhosis. Gallbladder: The gallbladder wall is normal measuring 2 mm. Biliary ducts: The CBD is normal measuring 5 mm. Pancreas: Visualized pancreas is unremarkable. Right kidney: The right kidney is normal measuring 11 x 5 x 7 cm. IMPRESSION: 1. No acute findings. 2. Coarse echotexture of the liver can be seen with cirrhosis.
--- NOTE | 2023-03-18 09:46 | ED_ITS ---
Discharge Plan Disposition Patient Disposition: Home, Self-Care Prescriptions Prescriptions: New acetaminophen 325 mg suppository 325 mg NM Q4H PRN (Reason: pain) Qty: 50 0RF Rx Instructions: do not exceed 5 doses per 24 hrs esomeprazole magnesium 20 mg capsule,delayed release(DR/EC) 20 mg PO DAILY 56 Days Qty: 56 1RF Discontinued omeprazole 20 mg capsule,delayed release(DR/EC) 20 mg PO DAILY 90 Days esomeprazole magnesium 20 mg capsule,delayed release(DR/EC) 20 mg PO DAILY 56 Days Qty: 56 1RF No Action insulin degludec 200 unit/mL (3 mL) insulin pen 30 units SQ HS 90 Days (DME) True Metrix Glucose Test Strip Strip See Rx Instructions .ROUTE .MEDSUPPLY Qty: 10 Rx Instructions: As directed lisinopril 40 mg tablet 40 mg PO BID 90 Days Qty: 180 1RF hydrochlorothiazide 25 mg tablet 25 mg PO DAILY 90 Days Qty: 90 1RF atorvastatin 10 mg tablet 10 mg PO HS 90 Days Qty: 90 1RF glipizide 10 MG tablet 5 mg PO BIDWMEAL pioglitazone 45 MG tablet 45 mg PO HS furosemide 40 mg tablet 40 mg PO BID ferrous sulfate 325 MG tablet 325 mg PO DAILY dicyclomine 10 MG capsule 10 mg PO TID carvedilol 3.125 MG tablet 3.125 mg PO BID Referrals Follow up/Referrals: Provider,Referral, MD [Primary Care Provider] - See instructions Activity Restrictions/Add. Instructions Additional Instructions/Restrictions: Call your family doctor to establish care for this visit to the emergency department and schedule follow-up within 48 hours to ensure improvement. If you have any worsening of your condition or any other concerning signs or symptoms, return to the emergency department or your primary care doctor for further evaluation. Clinical Impressions Clinical Impression: Duodenitis Abdominal pain Qualifiers: Abdominal location: generalized Qualified Code(s): R10.84 - Generalized abdominal pain Instructions Patient Instructions: DI for Acute Abdominal Pain Discharge ED Provider: Perfecto Gardner General Adult HPI General Chief complaint: Abdominal Pain Stated complaint: ABD pain Time Seen by Provider: 03/18/23 09:23 Mode of Arrival: Ambulatory Source of Information: Patient Limitations: No Limitations Description of Symptoms (Recalled from ER Triage Doc. by RN): pt c/o generalized abd pain, N/V, and lower back pain. pt states he was here yesterday and has esomeprazole sent in but has not taken it yet. pt states this has been ongoing x3d. History of Present Illness HPI narrative: 77-year-old male history of hypertension, hyperlipidemia, morbid obesity, CAD, diastolic heart failure, diabetes presenting with abdominal pain. Patient was diagnosed with duodenitis on CT scanning yesterday, 03/17. Today, patient states he is having continued generalized abdominal pain, nausea vomiting, and radiatio n of the pain to his lower back. Denies bowel or bladder dysfunction, lower extremity deficits, chest pain, shortness of breath, or any other concerns. Has not taken his medication sent to the pharmacy yesterday. Related Data Home Medications Medication Instructions Recorded Confirmed insulin degludec 200 unit/mL (3 30 units SQ HS Diabetes 90 days 02/25/18 01/16/23 mL) subcutaneous pen glipizide 10 mg tablet 5 mg PO BIDWMEAL Diabetes 01/16/19 01/16/23 pioglitazone 45 mg tablet 45 mg PO HS Diabetes 01/30/20 01/16/23 dicyclomine 10 mg capsule 10 mg PO TID stomach cramps 10/18/20 01/16/23 ferrous sulfate 325 mg (65 mg 325 mg PO DAILY Supplement 10/18/20 01/16/23 iron) tablet carvedilol 3.125 mg tablet 3.125 mg PO BID Hypertension 11/08/20 01/16/23 furosemide 40 mg tablet 40 mg PO BID diuretic 11/26/20 01/16/23 blood sugar diagnostic (True #10 ea 01/16/23 01/16/23 Metrix Glucose Test Strip) Previous Rx's Medication Instructions Recorded atorvastatin 10 mg tablet 10 mg PO HS Cholesterol 90 days 02/16/23 #90 tabs hydrochlorothiazide 25 mg tablet 25 mg PO DAILY Hypertension 90 02/16/23 days #90 tabs lisinopril 40 mg tablet 40 mg PO BID Hypertension 90 days 02/16/23 #180 tabs acetaminophen 325 mg rectal 325 mg NM Q4H PRN pain #50 ea 03/18/23 suppository esomeprazole magnesium 20 mg 20 mg PO DAILY 8 weeks #56 caps 03/18/23 capsule,delayed release Allergies Allergy/AdvReac Type Severity Reaction Status Date / Time ampicillin [From Unasyn] Allergy Severe S-SWELLS-OR Verified 03/18/23 09:32 AL/THROAT sulbactam [From Unasyn] Allergy Severe S-SWELLS-OR Verified 03/18/23 09:32 AL/THROAT PFSH [facility] Disclaimer: The information contained in this section may have been updated after the patient was seen, as this information can be updated by other users. Medical History Abnormal electrocardiography Diastolic dysfunction Dyspnea History of GI bleed HTN (hypertension) Social History Smoking Status: Never smoker alcohol intake: never substance use type: denies use current occupational status: retired Travel in the last 8 weeks: Inside the [facility] housing: apartment caffeine: Yes ROS Obtained: Yes All systems reviewed & no additional complaints except as documented Physical Exam General General appearance: alert and in no apparent distress Head Head exam: atraumatic and normocephalic Eye Eye exam: Present normal appearance, PERRL and EOMI ENT ENT exam: Present mucous membranes moist Neck Neck exam: Present normal inspection, full ROM and trachea midline Respiratory Respiratory exam: Absent respiratory distress, wheezes, stridor, accessory muscle use or prolonged expiratory phase Cardiovascular Cardiovascular exam: Present normal rhythm Abdominal Exam Abdominal exam: Present soft and tenderness; Absent distention, guarding, rebound or rigidity Abdominal tenderness: Present diffuse and mild Extremities Exam Extremities exam: Absent edema Neurological Exam Neurological exam: Present alert, oriented X3, CN II-XII intact and normal gait; Absent motor sensory deficit Skin Skin exam: Present warm and dry; Absent diaphoresis or erythema Medical Decision Making Medical Records Medical records reviewed: Yes I reviewed the patient's medical records. Nelson Inquiry Pt receiving controlled substance: No Nelson was queried for this patient: No Vital Signs: 03/18/23 09:28 03/18/23 09:30 03/18/23 10:35 Temperature 98.1 F Temperature Source Oral Pulse Rate 92 H 83 Pulse Rate [Left] 97 H Respiratory Rate 16 Blood Pressure 115/95 H Blood Pressure [Right Arm] 147/90 H Blood Pressure Mean 99 Blood Pressure Mean [Right Arm] 109 Blood Pressure Source [Right Arm] Automatic Cuff Blood Pressure Position [Right Arm] Sitting 02 Sat by Pulse Oximetry 95 95 92 L 03/18/23 11:00 02/07/24 12:00 03/18/23 12:30 Temperature Temperature Source Pulse Rate 88 100 H 94 H Pulse Rate [Left] Respiratory Rate 18 20 Blood Pressure 144/82 H 171/87 H 121/87 Blood Pressure [Right Arm] Blood Pressure Mean 90 109 Blood Pressure Mean [Right Arm] Blood Pressure Source [Right Arm] Blood Pressure Position [Right Arm] 02 Sat by Pulse Oximetry 92 L 3 L 93 L Lab Data Lab Results 03/18/23 10:25: WBC 5.6, RBC 5.14, Hgb 15.0, Hct 45.8, MCV 89.1, MCH 29.2, MCHC 32.8, RDW 14.6, Plt Count 196, MPV 7.8, Neut % (Auto) 72.0, Lymph % (Auto) 20.5, [place] % (Auto) 4.8, Eos % (Auto) 2.2, Baso % (Auto) 0.5, Neut # (Auto) 4.0, Lymph # (Auto) 1.1, [place] # (Auto) 0.3, Eos # (Auto) 0.1, Baso # (Auto) 0.0, Sodium 132 L, Potassium 3.9, Chloride 95 L, Carbon Dioxide 29, Anion Gap 11.9, BUN 22 H, Creatinine 1.50 H, Estimated Creat Clear 70, Estimated GFR 45 L, Est GFR ( Amer) 55 L, Glucose 248 H, Lactate 1.1, Calcium 9.4, Total Bilirubin 0.8, AST 26, ALT 19, Alkaline Phosphatase 119, Troponin I < 0.01, Total Protein 8.4 H, Albumin 4.2, Globulin 4.2 H, Albumin/Globulin Ratio 1.0 L, Lipase 303 H 03/18/23 10:25 03/18/23 10:25 Orders (Tests/Meds): ED MEDICATIONS Generic Name Dose Route Start Last Admin Trade Name Freq PRN Reason Stop Dose Admin Sodium Chloride 8 ml 03/18/23 09:23 Sodium Chloride 0.9% 10ml Vial IV 04/17/23 09:22 NEEDED PRN dilute pepcid Discontinued Medications Generic Name Dose Route Start Last Admin Trade Name Freq PRN Reason Stop Dose Admin Belladonna Alkaloids 60 ml 03/18/23 09:23 03/18/23 10:31 Belladonna Alkaloids 60 Ml Ml PO 03/18/23 09:24 60 ml ONCE ONE Administration Famotidine 20 mg 03/18/23 09:23 03/18/23 10:31 Famotidine 20mg/2ml Vial IV 03/18/23 09:24 20 mg ONCE ONE Administration Lactated Ringer's 1,000 mls @ 999 mls/hr 03/18/23 09:23 03/18/23 10:31 Lactated Ringer's 1000 Ml Bag IV 03/18/23 10:23 999 mls/hr .Q1H1M ONE Administration Iopamidol 100 ml 03/18/23 11:49 03/18/23 11:51 Iopamidol-370 (76%);100ml Bottle IV 03/18/23 11:50 100 ml ONCE ONE Administration Sodium Chloride 50 ml 03/18/23 11:49 03/18/23 11:50 0.9 % Sodium Chloride 50 Ml Vial IV 03/18/23 11:50 50 ml ONCE ONE Administration Sodium Chloride 10 ml 03/18/23 11:49 03/18/23 11:50 Sodium Chloride 0.9% 10ml Syr (Rad Only) IV 03/18/23 11:50 10 ml ONCE ONE Administration ORDERS Category Date Time Status CT angio abdomen pelvis Stat Cat Scan 03/18/23 11:14 Completed US Right Upper Quad [US abdomen limited] Stat Exams 03/18/23 09:23 Completed CBC w/Auto Diff [Complete Blood Count Auto Diff] Stat Lab 03/18/23 10:25 Completed CMP [Comprehensive Metabolic Panel] Stat Lab 03/18/23 10:25 Completed Lactic Acid Stat Lab 03/18/23 10:25 Completed Lipase Stat Lab 03/18/23 10:25 Completed Trop I [Troponin I] Stat Lab 03/18/23 10:25 Completed UA [Urinalysis and Microscopic] Stat Lab 03/18/23 09:23 Ordered Medical Decision Narrative: 77-year-old male history of hypertension, hyperlipidemia, morbid obesity, CAD, diastolic heart failure, diabetes presenting with abdominal pain. Patient was diagnosed with duodenitis on CT scanning yesterday, 03/17. Today, patient states he is having continued generalized abdominal pain, nausea vomiting, and radiation of the pain to his lower back. Denies bowel or bladder dysfunction, lower extremity deficits, chest pain, shortness of breath, or any other erica rns. Has not taken his medication sent to the pharmacy yesterday. History was obtained via conversation with patient. On arrival, patient hemodynamically stable, alert, oriented x4, appropriate, GCS 15, moving all extremities spontaneously, pupils equal and reactive to light. Full physical exam performed and significant for well-appearing male no acute distress. Ambulatory. Hemodynamically stable, afebrile, hypertensive. Lungs are clear to auscultation. Abdomen is soft, but tender diffusely without signs of peritonitis. No flank tenderness. No overlying skin changes Differential includes colitis, enteritis, PUD, gastritis, ACS, gastroenteritis, pancreatitis, SBO, diverticulitis, nephrolithiasis, UTI, aortic pathology, mesenteric ischemia, cholecystitis, appendicitis, hepatitis, among others. Patient was given GI cocktail, Pepcid for symptomatic management and correction of underlying abnormalities. Workup independently interpreted and significant for nonactionable CBC or chemistry. Lipase negative, lactate negative. CT angiogram of the abdomen and pelvis without acute endoleak, no evidence of dissection or graft failure of infrarenal AAA. See radiology read for full review of final results. On reevaluation, patient resting comfortably in bed, largely baseline. Given patient presentation, workup, history, this most likely represents duodenitis. Because patient at baseline without signs or symptoms of clinical decompensation, deemed appropriate for discharge. Results were relayed to patient who voiced understanding and were agreeable to outpatient management and follow up. At the time of discharge the patient was hemodynamically stable, tolerating PO, and mobilizing appropriately. Critical Care Critical Care Time Critical Care Time: No
[2023-03-18] MEDS: FAMOTIDINE 20MG/2ML VIAL 20 MG IV (10:31)
[2023-03-18] MEDS: LACTATED RINGERS 1000ML 1,000 ML 999 ML IV (10:31)
[2023-03-18] MEDS: BELLADONNA ALKALOIDS 60 ML ML PO (10:31)
[2023-03-18 10:38] LABS: Basophils % 0.5 % (0.1-2.0); Eosinophils # 0.1 K/mm3 (0.0-0.4); Eosinophils % 2.2 % (0.1-12.0); Hematocrit 45.8 % (42.0-52.0); Lymphocytes # 1.1 K/mm3 (0.7-4.5); Lymphocytes % 20.5 % (10-50); Mean Corpuscular HGB Conc 32.8 g/dL (31.8-35.4); Mean Corpuscular Hemoglobin 29.2 pg (27.0-31.2); Mean Corpuscular Volume 89.1 fl (80-94); Mean Platelet Volume 7.8 fl (7.4-10.4); Monocytes # 0.3 K/mm3 (0.1-1.0); Monocytes % 4.8 % (1.7-9.3); Platelet Count 196 K/mm3 (142-424); Red Blood Count 5.14 M/mm3 (4.60-6.20); Red Cell Distribution Width 14.6 % (11.5-17.5); White Blood Count 5.6 K/mm3 (4.8-10.8)
[2023-03-18 10:41] LABS: Chloride 95 mmol/L (98-107); Sodium 132 mmol/L (136-145)
[2023-03-18 10:42] LABS: Potassium 3.9 mmoL/L (3.5-5.1)
[2023-03-18 10:44] LABS: Alanine Aminotransferase 19 U/L (12-78); Alkaline Phosphatase 119 U/L (38-126); Anion Gap 11.9 mEq/L (5-15); Aspartate Amino Transferase 26 U/L (17-59); Bilirubin,Total 0.8 mg/dl (0.2-1.3); Blood Urea Nitrogen 22 mg/dl (9-20); Carbon Dioxide 29 mmol/L (22.0-30.0); Creatinine Clearance Estimated 70 mL/min (50-200); Estimated Glomerular Filt Rate 45 ml/min (>60); GFR (African American) 55 ML/MIN (>60); Glucose 248 mg/dl (74-100); Lactic Acid 1.1 mmol/L (0.7-2.1); Lipase 303 U/L (23-300)
[2023-03-18 10:45] LABS: Albumin Level 4.2 g/dl (3.5-5.0); Calcium 9.4 mg/dl (8.4-10.2); Globulin 4.2 g/dL (1.3-3.2); Total Protein,Serum 8.4 g/dl (6.3-8.2)
[2023-03-18 11:14] LABS: Troponin I < 0.01 ng/ml (0.00-0.034)
--- NOTE | 2023-03-18 11:14 | CT_ITS ---
FINAL REPORT TECHNIQUE: Post contrast axial imaging of the abdomen and pelvis was obtained and reviewed. This study was performed with techniques to keep radiation doses as low as reasonably achievable (ALARA). Individualized dose reduction techniques using automated exposure control or adjustment of mA and/or kV according to the patient's size were employed. CLINICAL HISTORY: abdominal pain to back, history of aortic graft COMPARISON: 03/17/2023 FINDINGS: CTA ABDOMEN AND PELVIS: There is an aortic stent graft again noted, which is patent. Aneurysmal sac measures 3.7 cm on today's examination, which is stable since the prior exam of March 17. There is no graft endoleak present. The celiac axis and superior mesenteric artery origins are unremarkable in appearance. There is no evidence of renal artery stenosis. 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 The iliac arteries are patent without evidence of significant stenosis. The internal iliac arteries are patent. CT ABDOMEN AND PELVIS: There is mild scarring in the lung bases. The liver, pancreas, and spleen are unremarkable in appearance. The lower pole of the right renal artery is atrophic secondary to an occluded accessory right renal artery, described above in the vascular portion of this dictation. There are small left renal cysts present. 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 There are diverticula in the sigmoid colon without evidence of acute inflammatory change. Prostatic seed implants are noted in the lower pelvis. There is a small amount of fluid in the left inguinal region which is stable. Moderate degenerative change is present in the lumbar spine, and there is mild canal stenosis at the L4-5 level. IMPRESSION: Aortic stent graft is patent, without evidence of graft endoleak. The size and appearance are not changed since the prior CT of March 17. If there is strong concern for an endoleak a dedicated endoleak protocol CT is suggested, with noncontrast and delayed postcontrast images. Reviewed, Interpreted and Dictated by Bryan Babb III, MD Transcribed by Dulce Maria Webber Authenticated and [facility]
[2023-03-18] MEDS: SODIUM CHLORIDE 0.9% 10ML SYR (RAD ONLY) 10 ML IV (11:50)
[2023-03-18] MEDS: 0.9 % SODIUM CHLORIDE 50 ML VIAL IV (11:50)
[2023-03-18] MEDS: IOPAMIDOL-370 (76%);100ML BOTTLE 100 ML IV (11:51)
--- NOTE | 2023-03-20 11:29 | SW/DCPLANNER ---
I spoke w/ patient's daughter (Marissa) regarding the need of placement from home for this patient. Patient/family are searching for LTC Medicaid pending. I have explained the Medicaid pending process to this patient's family. Family prefers [facility] however Clarice w/ [facility] stated that she does not currently have any male beds. Patient's family are agreeable to the following facilities and information will be faxed this AM: [facility] ([facility]ing on Ad[facility] to [facility]), [facility], [place], [facility], [facility] and [facility] (no LTC beds available at this time). I will continue to follow up w/ facilities and patient/family.
== END 2023-03-18 14:41 | disposition home or self-care (01) ==
PROVIDERS: Emergency Provider Emergency Medicine
DX: R10.84 Generalized abdominal pain (principal); K29.80 Duodenitis without bleeding; R11.2 Nausea with vomiting, unspecified; M54.50 Low back pain, unspecified; I11.0 Hypertensive heart disease with heart failure; I50.30 Unspecified diastolic (congestive) heart failure; I25.10 Atherosclerotic heart disease of native coronary artery without angina pectoris; E11.9 Type 2 diabetes mellitus without complications; E78.5 Hyperlipidemia, unspecified
CPT/HCPCS: 74174; 76705; 80053; 83605; 83690; 84484; 85025; 96361; 96374; 99285; Q9967

== ENCOUNTER 2023-03-20 13:47 | Observation (INO) | payer MEDICARE, SELFPAY ==
[2023-03-20] VITALS (12 sets, daily range): BP systolic 144–171; BP diastolic 73–93; PULSE 77–104; RESP 18–22; TEMP 36.6–37.2; O2SAT 91–95; BMI 34.9
--- NOTE | 2023-03-20 | ECG_ITS ---
APPROVED REPORT Exam: Resting ECG HR:77 bpm ECG Measurements Heart Rate 77 AXES OR 163 P 85 QRSd 94 QRS 42 QT 392 T 77 QTc 424 Conclusion SINUS RHYTHM WITH SINUS ARRHYTHMIA Inf Q waves are of questionable significance BORDERLINE ECG UNCONFIRMED REPORT Electronically signed by : Ben Jesus MD 03/21/2023 06:30:38
--- NOTE | 2023-03-20 14:19 | PC.NURSE ---
PT/OT at BS for pt eval
--- NOTE | 2023-03-20 14:30 | PC.NURSE ---
PT REPOSITIONED IN BED. CALL LIGHT WITHIN REACH
--- NOTE | 2023-03-20 14:52 | HMH.PTEV ---
Physical Therapy Evaluation Rehab PT IP Evaluation Start: 03/20/23 14:06 Freq: ONCE Status: Active Protocol: Document 03/20/23 14:40 VIDHYA (Rec: 03/20/23 14:52 VIDHYA [email or web address]) Subjective/History History History 77-year-old male with history of hypertension, hyperlipidemia, morbid obesity , CAD, diastolic heart failure , and diabetes. Presenting s/p fall at home per pt report. Subjective Subjective I was just here and when I went home I fell. My daughter is wanting me to get into a penitentiary. PLOF per pt report: IND (but had difficulty) when performing functional mobility . IND with ADLs. Living in a single story home alone with 1 CUCO. Using a Hurrycane and RW for household ambulation. History of falls. Pt [place]. New diagnosis of cancer in past 12 No months? Rehab PT IP Eval Objective Appearance Patient Behavior Appropriate,Cooperative Patient Orientation Person,Place Speech Pattern Clear Ambulation Patient Able to Ambulate No Balance Sitting Balance Steady, safe Standing Balance Unsteady Transfers Bed Transfer Ability Moderate x 1 (50% assist) Sit to Stand Bed Transfer Ability Minimal x 1 (25% assist) Rehab PT IP prob,goals,plan Problems Date of Evaluation: 03/20/23 PT IP Problems Bed Mobility,Transfers,Gait, Balance,Self care,Safety Discharge Plan PT Discharge Plan Pt not safe to d/c home alone d/t current level of mobility and safety. Pt required Mod A to perform supine <>sit EOB. DEP A to scoot to HOB. Pt required RW and min A to perform STS. Pt unable to ambulate this date d/t weakness and lightheaded symptoms. PT recommending pt d /c to short-term rehabilitation placement when deemed medically necessary. Eval Complexity Eval Charge Codes 92071 - High Complexity PHYSICIAN CERTIFICATION: I certify the specified therapy services for Winston Garcia are required, authorized, and reviewed every 30 days.
--- NOTE | 2023-03-20 15:20 | SW/DCPLANNER ---
Addendum entered by [facility] 03/24/23 12:03: I have updated patient's daughter regarding discharge today to [facility] level of care. Addendum entered by [facility] 03/24/23 10:52: Sloane montoya/ [facility] stated that patient has been approved SNF level of care. Patient will discharge today. Addendum entered by [facility] 03/23/23 13:00: Family has requested that patient go to [facility]. Sloane montoya/ [facility] stated that she can accept this patient SNF level of care. I have updated [facility], [place]/ [facility]. Addendum entered by [facility] 03/23/23 10:15: Jax montoya/ [facility] stated that she will start precert on this patient for today. Addendum entered by [facility] 03/23/23 09:14: Patient is still agreeable to placement at this time ONLY short term. Patient is agreeable to the following facilities and information has been faxed: [facility], [facility]NOTE 3], [facility], [facility]. Original Note: I spoke w/ this patient regarding placement once medically stable for discharge. PT evaluated patient in the ED and recommended placement. Patient is agreeable to placement: prefers [facility] but they do not have any beds available at this time. [place] and [place] are not in network w/ patient's [facility]. Patient is agreeable to placement in [place]: [facility] is not accepting patient's at this time. J[facility] / [facility] is currently reviewing patient information. Sharon Malone stated that if PT evaluation is completed and facility is willing to accept patient she can start precert for admission from ED. I have updated patient's daughter of this plan: she stated that she would like to speak w/ ER staff prior to any further decisions. Sharon Malone stated that she will be out of the office after 4:30PM. I am currently waiting to hear back from ER workup and ER staff speaking w/ daughter and patient.
--- NOTE | 2023-03-20 15:22 | CT_ITS ---
FINAL REPORT CLINICAL HISTORY: fall, struck head FINDINGS: Axial CT images of the cervical spine were obtained without contrast. Sagittal and coronal reformatted images were also obtained. This study was performed with techniques to keep radiation doses as low as reasonably achievable (ALARA). Individualized dose reduction techniques using automated exposure control or adjustment of mA and/or kV according to the patient's size were employed. There is no evidence of fracture or dislocation. There are mild and moderate degenerative changes with multilevel neural foraminal narrowing, worse on the right at C5-6. IMPRESSION: No fracture or acute bony abnormality identified. Reviewed, Interpreted and Dictated by Bryan Babb III, MD Transcribed by Anne Marie Linares Authenticated and [facility]
--- NOTE | 2023-03-20 15:22 | CT_ITS ---
FINAL REPORT CLINICAL HISTORY: fall, t/L spine pain FINDINGS: Axial CT images of the thoracic spine were obtained without contrast. Sagittal and coronal reformatted images were also obtained. This study was performed with techniques to keep radiation doses as low as reasonably achievable (ALARA). Individualized dose reduction techniques using automated exposure control or adjustment of mA and/or kV according to the patient''s size were employed. There is no evidence of fracture. There are moderate degenerative changes with multilevel osteophytes. There is no significant central canal stenosis. IMPRESSION: No fracture or acute bony abnormality. Reviewed, Interpreted and Dictated by Bryan Babb III, MD Transcribed by Anne Marie Linares Authenticated and [facility]
--- NOTE | 2023-03-20 15:22 | CT_ITS ---
FINAL REPORT TECHNIQUE: Axial images were performed through the lumbar spine by computed tomography. Sagittal reconstruction images were also performed. This study was performed with techniques to keep radiation doses as low as reasonably achievable, (ALARA). Individualized dose reduction techniques using automated exposure control or adjustment of mA and/or kV according to the patient''s size were employed. CLINICAL HISTORY: fall, t/L spine pain FINDINGS: Sagittal reconstruction images demonstrate no subluxation. No fracture is identified. There are mild and moderate degenerative changes. Vacuum phenomenon is seen at L4-5 and L5-S1. An aortic stent graft is present. IMPRESSION: No fracture or acute bony abnormality. Reviewed, Interpreted and Dictated by Bryan Babb III, MD Transcribed by Anne Marie Linares Authenticated and [facility]
--- NOTE | 2023-03-20 15:22 | CT_ITS ---
FINAL REPORT TECHNIQUE: Axial images through the pelvis were performed by computed tomography. Sagittal and coronal reformatted images were obtained and reviewed. This study was performed with techniques to keep radiation doses as low as reasonably achievable (ALARA). Individualized dose reduction techniques using automated exposure control or adjustment of mA and/or kV according to the patient's size were employed. CLINICAL HISTORY: fall, posterior pain FINDINGS: No acute fracture is identified. No bony mass is seen. Note is made of prostate seed implants. IMPRESSION: No fracture or acute bony abnormality. Reviewed, Interpreted and Dictated by Bryan Babb III, MD Transcribed by Anne Marie Linares Authenticated and [facility]
--- NOTE | 2023-03-20 15:22 | CT_ITS ---
FINAL REPORT CLINICAL HISTORY: fall, struck head FINDINGS: Axial images of the head were obtained without contrast. Coronal reformatted images were also obtained. This study was performed with techniques to keep radiation doses as low as reasonably achievable (ALARA). Individualized dose reduction techniques using automated exposure control or adjustment of mA and/or kV according to the patient's size were employed. There is generalized age-appropriate atrophy. There is moderate ventriculomegaly, somewhat greater than expected for degree of atrophy worrisome for hydrocephalus. Periventricular low-attenuation areas are seen consistent with mild chronic ischemic changes. There is no evidence of intracranial hemorrhage or mass. There is no evidence of acute infarct. There is no evidence of shift of the midline structures. No skull abnormality is seen on the bone window images. IMPRESSION: Atrophy and mild periventricular chronic ischemic changes. Findings worrisome for hydrocephalus. Reviewed, Interpreted and Dictated by Bryan Babb III, MD Transcribed by Anne Marie Linares Authenticated and [facility]
--- NOTE | 2023-03-20 15:52 | ED_ITS ---
Discharge Plan Disposition Patient Disposition: Admitted Clinical Impressions Clinical Impression: Fall, Back pain Discharge ED Provider: Perfecto Gardner General Adult HPI General Chief complaint: Fall Stated complaint: Weakness Time Seen by Provider: 03/20/23 14:58 Mode of Arrival: EMS Source of Information: Patient and EMS Limitations: [facility] Description of Symptoms (Recalled from ER Triage Doc. by RN): Pt. brought in by EMS for a fall from yesterday. He states he hit his head and right elbow. He also complains of belly and back pain. Daughter called earlier today and wants us to find placement for him. History of Present Illness HPI narrative: This is a 77-year-old male with chronic deconditioning, high retention, hyper lip, obesity, stage heart failure, CAD, AAA status post aortic grafting diabetes presenting with back pain, belly pain, all after a fall. Patient has been seen 3 times in the past week or so by me personally. He has had multiple complaints including abdominal pain, back pain, generalized weakness. Extensive workup negative for anything other than duodenitis including negative hematologic labs, CT imaging of the abdomen and pelvis with contrast and with arterial phase contrast, abdominal labs, urine, etc. Patient states that when he was discharged yesterday, he had a fall when he walked in his doorway. His daughter is concerned about his ability to care for himself, as am I at this point. Patient complaining of acute on chronic midline lumbar spine pain. He states that when he fell, he struck his head, did not lose consciousness. Other than midline back pain, patient has no complaints. No bowel or bladder dysfunction, lower extremity weakness, or any other concerns. Related Data Home Medications Medication Instructions Recorded Confirmed insulin degludec 200 unit/mL (3 30 units SQ HS Diabetes 90 days 02/25/18 03/20/23 mL) subcutaneous pen glipizide 10 mg tablet 5 mg PO BIDWMEAL Diabetes 01/16/19 03/20/23 pioglitazone 45 mg tablet 45 mg PO HS Diabetes 01/30/20 03/20/23 dicyclomine 10 mg capsule 10 mg PO TID stomach cramps 10/18/20 03/20/23 ferrous sulfate 325 mg (65 mg 325 mg PO DAILY Supplement 10/18/20 03/20/23 iron) tablet carvedilol 3.125 mg tablet 3.125 mg PO BID Hypertension 11/08/20 03/20/23 furosemide 40 mg tablet 40 mg PO BID diuretic 11/26/20 03/20/23 blood sugar diagnostic (True #10 ea 01/16/23 03/20/23 Metrix Glucose Test Strip) Previous Rx's Medication Instructions Recorded atorvastatin 10 mg tablet 10 mg PO HS Cholesterol 90 days 02/16/23 #90 tabs hydrochlorothiazide 25 mg tablet 25 mg PO DAILY Hypertension 90 02/16/23 days #90 tabs lisinopril 40 mg tablet 40 mg PO BID Hypertension 90 days 02/16/23 #180 tabs acetaminophen 325 mg rectal 325 mg HI Q4H PRN pain #50 ea 03/18/23 suppository esomeprazole magnesium 20 mg 20 mg PO DAILY 8 weeks #56 caps 03/18/23 capsule,delayed release Allergies Allergy/AdvReac Type Severity Reaction Status Date / Time ampicillin [From Unasyn] Allergy Severe S-SWELLS-OR Verified 03/20/23 13:59 AL/THROAT sulbactam [From Unasyn] Allergy Severe S-SWELLS-OR Verified 03/20/23 13:59 AL/THROAT [facility] Disclaimer: The information contained in this section may have been updated after the patient was seen, as this information can be updated by other users. Medical History Abnormal electrocardiography Diastolic dysfunction Dyspnea History of GI bleed HTN (hypertension) Social History Smoking Status: Unknown if ever smoked alcohol intake: never substance use type: denies use current occupational status: retired Travel in the last 8 weeks: Inside the [facility] housing: apartment caffeine: Yes ROS Obtained: Yes All systems reviewed & no additional complaints except as docu mented Physical Exam General General appearance: alert and in no apparent distress Head Head exam: atraumatic and normocephalic Eye Eye exam: Present normal appearance, PERRL and EOMI ENT ENT exam: Present mucous membranes moist Neck Neck exam: Present normal inspection, full ROM and trachea midline; Absent tenderness Respiratory Respiratory exam: Present normal lung sounds bilaterally; Absent respiratory distress, wheezes, stridor, accessory muscle use or prolonged expiratory phase Cardiovascular Cardiovascular exam: Present regular rate and normal rhythm Abdominal Exam Abdominal exam: Present soft; Absent distention, tenderness, guarding, rebound or rigidity Extremities Exam Extremities exam: Present full ROM; Absent tenderness or edema Back Exam Back exam: Present full ROM, tenderness and other (Pelvis stable, no tenderness); Absent CVA tenderness (R) or CVA tenderness (L) Neurological Exam Neurological exam: Present alert, oriented X3, CN II-XII intact and normal gait; Absent motor sensory deficit Skin Skin exam: Present warm and dry; Absent diaphoresis or erythema Medical Decision Making Medical Records Medical records reviewed: Yes I reviewed the patient's medical records. Nelson Inquiry Pt receiving controlled substance: No Nelson was queried for this patient: No Vital Signs: 03/20/23 13:54 03/20/23 14:00 03/20/23 15:01 Temperature 99.0 F Temperature Source Temporal Artery Scan Pulse Rate 83 85 Pulse Rate [Right Brachial] 77 Respiratory Rate 22 Blood Pressure 145/87 H 159/73 H Blood Pressure [Right Arm] 147/74 H Blood Pressure Mean 102 92 Blood Pressure Mean [Right Arm] 98 Blood Pressure Source Blood Pressure Source [Right Arm] Automatic Cuff Blood Pressure Position Blood Pressure Position [Right Arm] Sitting 02 Sat by Pulse Oximetry 95 95 93 L Oxygen Delivery Method Room Air 03/20/23 15:30 03/20/23 16:00 03/20/23 16:30 Temperature Temperature Source Pulse Rate 86 78 78 Pulse Rate [Right Brachial] Respiratory Rate Blood Pressure 160/80 H 162/82 H 171/85 H Blood Pressure [Right Arm] Blood Pressure Mean Blood Pressure Mean [Right Arm] Blood Pressure Source Blood Pressure Source [Right Arm] Blood Pressure Position Blood Pressure Position [Right Arm] 02 Sat by Pulse Oximetry 93 L 94 L 94 L Oxygen Delivery Method Room Air Room Air Room Air 03/20/23 17:00 03/20/23 17:31 03/20/23 18:29 Temperature 97.9 F Temperature Source Oral Pulse Rate 84 104 H 100 H Pulse Rate [Right Brachial] Respiratory Rate 18 Blood Pressure 166/76 H 159/79 H 145/92 H Blood Pressure [Right Arm] Blood Pressure Mean Blood Pressure Mean [Right Arm] Blood Pressure Source Automatic Cuff Blood Pressure Source [Right Arm] Blood Pressure Position Sitting Blood Pressure Position [Right Arm] 02 Sat by Pulse Oximetry 94 L 91 L Oxygen Delivery Method Room Air Room Air Room Air 03/20/23 18:00 03/20/23 18:30 Temperature Temperature Source Pulse Rate 101 H 102 H Pulse Rate [Right Brachial] Respiratory Rate Blood Pressure 145/92 H 169/93 H Blood Pressure [Right Arm] Blood Pressure Mean Blood Pressure Mean [Right Arm] Blood Pressure Source Blood Pressure Source [Right Arm] Blood Pressure Position Blood Pressure Position [Right Arm] 02 Sat by Pulse Oximetry 95 93 L Oxygen Delivery Method Room Air Room Air Orders (Tests/Meds): ED MEDICATIONS Generic Name Dose Route Start Last Admin Trade Name Cinthia PRN Reason Stop Dose Admin Atorvastatin Calcium 10 mg 03/20/23 21:00 03/20/23 21:31 Atorvastatin 10mg Tablet PO 04/19/23 20:59 10 mg HS TIA Administration Carvedilol 3.125 mg 03/20/23 21:00 03/20/23 21:29 Carvedilol 3.125mg Tablet PO 04/19/23 20:59 3.125 mg BID TIA Administration Furosemide 40 mg 03/20/23 21:00 03/20/23 21:29 Furosemide 40 Mg Tablet PO 04/19/23 20:59 40 mg BID TIA Administration Hydrochlorothiazide 25 mg 03/21/23 09:00 Hydrochlorothiazide 25mg Tablet PO 04/20/23 08:59 DAILY TIA Insulin Glargine 20 unit 03/20/23 21:00 Insulin Glargine 100 Units/Ml 3ml Flexpen SQ 04/19/23 20:59 HS TIA Insulin Human Lispro 0 unit 03/20/23 21:00 Humalog 100 Units/Ml 3ml Vial (Ssi) SQ 04/19/23 20:59 ACHS TAI Protocol Non-Formulary Medication 40 mg 03/21/23 09:00 Lisinopril PO 04/20/23 08:59 DAILY TIA Pantoprazole Sodium 40 mg 03/20/23 21:00 03/20/23 21:32 Pantoprazole 40mg Tablet PO 04/19/23 20:59 40 mg HS TIA Administration Discontinued Medications Generic Name Dose Route Start Last Admin Trade Name Sanfordq PRN Reason Stop Dose Admin Lidocaine 1 each 03/20/23 15:23 03/20/23 16:19 Lidocaine 5% Transdermal Patch TP 03/20/23 15:24 1 each ONCE ONE Administration Methocarbamol 750 mg 03/20/23 15:23 03/20/23 16:19 Methocarbamol 500mg Tablet PO 03/20/23 15:24 750 mg ONCE ONE Administration ORDERS Category Date Time Status CT bony pelvis Stat Cat Scan 03/20/23 15:[address] cervical spine wo con Stat Cat Scan 03/20/23 15:[address] head/brain wo con Stat Cat Scan 03/20/23 15:[address] lumbar spine wo con Stat Cat Scan 03/20/23 15:[address] thoracic spine wo con Stat Cat Scan 03/20/23 15:22 Completed Complete Blood Count Auto Diff [facility] Lab 03/21/23 06:00 Ordered Comprehensive Metabolic Panel [facility] Lab 03/21/23 06:00 Ordered Hemoglobin A1C [facility] Lab 03/21/23 06:00 Ordered Magnesium [facility] Lab 03/21/23 06:00 Ordered ECG initial Besson Routine Y 03/20/23 Completed Medical Decision Narrative: This is a 77-year-old male with chronic deconditioning, high retention, hyper lip, obesity, stage heart failure, CAD, AAA status post aortic grafting diabetes presenting with back pain, belly pain, all after a fall. Patient has been seen 3 times in the past week or so by me personally. He has had multiple complaints including abdominal pain, back pain, generalized weakness. Extensive workup negative for anything other than duodenitis including negative hematologic labs, CT imaging of the abdomen and pelvis with contrast and with arterial phase contrast, abdominal labs, urine, etc. Patient states that when he was discharged yesterday, he had a fall when he walked in his doorway. His daughter is concerned about his ability to care for himself, as am I at this point. Patient complaining of acute on chronic midline lumbar spine pain. He states that when he fell, he struck his head, did not lose consciousness. Other than midline back pain, patient has no complaints. No bowel or bladder dysfunction, lower extremity weakness, or any other concerns. History was obtained via conversation with patient and daughter as well as chart review. On arrival, patient hemodynamically stable, alert, oriented x4, appropriate, GCS 15, moving all extremities spontaneously, pupils equal and reactive to light. Full physical exam performed and significant for midline lumbar spinal tenderness. Patient has no neurologic deficits. Cardiopulmonary exam within normal limits. Pelvis is stable, extremities atraumatic and nontender. Differential includes intracranial bleed, spinal fracture, sprain, strain, among others. Patient was given Tylenol, Motrin, lidocaine patch for symptomatic management and correction of underlying abnormalities. Workup independently interpreted and significant for no acute fracture or bony abnormality of C, T, L-spine. No intracranial abnormality. See radiology read for full review of final results. Patient's family was contacted and they are adamant about him being admitted and placed. Given the number of emergency department visits and chronic debility, I agree with this. Hospital medicine was contacted and case was discussed at length, agreeable to admission for further placement. Because patient high risk for clinical decompensation, deemed appropriate for inpatient admission. Results were relayed to patient who voiced understanding and patient was agreeable to inpatient admission and management. Patient was admitted to the hospital for further definitive management. Critical Care Critical Care Time Critical Care Time: No
[2023-03-20] MEDS: LIDOCAINE 5% TRANSDERMAL PATCH 1 EACH TP (16:19)
[2023-03-20] MEDS: METHOCARBAMOL 500MG TABLET 750 MG PO (16:19)
--- NOTE | 2023-03-20 16:56 | PC.NURSE ---
DR RAÚL VASQUEZ
--- NOTE | 2023-03-20 17:15 | PC.NURSE ---
Dr. Torres advised he would speak with CM and then call back
--- NOTE | 2023-03-20 17:33 | PC.NURSE ---
SPOKE WITH DAUGHTER, UPDATED
--- NOTE | 2023-03-20 17:47 | P.HP_ITS ---
History of Present Illness *Admission Date: 03/20/23 *Reason for visit:: frequent falls. *History of present illness: This is a 77-year-old male obese with chronic deconditioning, HTN, HLD, heart failure, CAD, AAA status post aortic grafting, IDDM presenting with back pain, belly pain, all after a fall. Patient has been seen at ED in the past. He has had multiple complaints including abdominal pain, back pain, generalized weakness. Extensive workup negative for anything other than duodenitis including negative hematologic labs, CT imaging of the abdomen and pelvis with contrast and with arterial phase contrast, abdominal labs, urine, etc. Patient states that when he was discharged yesterday, he had a fall when he walked in his doorway. His daughter is concerned about his ability to care for himself. Patient complaining of acute on chronic midline lumbar spine pain. He states that when he fell, he struck his head, did not lose consciousness. Other than midline back pain, patient has no complaints. No bowel or bladder dysfunction, lower extremity weakness, or any other concerns. Admitted for treatment and management. [facility] Disclaimer: The information contained in this section may have been updated after the patient was seen, as this information can be updated by other users. Medical History Abnormal electrocardiography Diastolic dysfunction Dyspnea History of GI bleed HTN (hypertension) Social History (Updated 03/21/23 @ 00:35 by Bhakti Key RN) Smoking Status: Never smoker alcohol intake: former substance use type: denies use current occupational status: retired Travel in the last 8 weeks: None housing: apartment caffeine: Yes Review of Systems Review of Systems Review of systems:: pertinent systems reviewed and negative unless documented below Meds Home Medications and Allergies Home Medications Medication Instructions Recorded Confirmed Type insulin degludec 200 unit/mL (3 30 units SQ HS Diabetes 90 days 02/25/18 03/21/23 History mL) subcutaneous pen glipizide 10 mg tablet 5 mg PO BIDWMEAL Diabetes 01/16/19 03/21/23 History pioglitazone 45 mg tablet 45 mg PO HS Diabetes 01/30/20 03/21/23 History dicyclomine 10 mg capsule 10 mg PO TID stomach cramps 10/18/20 03/21/23 History ferrous sulfate 325 mg (65 mg 325 mg PO DAILY Supplement 10/18/20 03/21/23 History iron) tablet carvedilol 3.125 mg tablet 3.125 mg PO BID Hypertension 11/08/20 03/21/23 History furosemide 40 mg tablet 40 mg PO BIDL Fluid 11/26/20 03/21/23 History atorvastatin 10 mg tablet 10 mg PO HS Cholesterol 90 days 02/16/23 03/21/23 Rx #90 tabs hydrochlorothiazide 25 mg tablet 25 mg PO DAILY Hypertension 90 02/16/23 03/21/23 Rx days #90 tabs lisinopril 40 mg tablet 40 mg PO BID Hypertension 90 days 02/16/23 03/21/23 Rx #180 tabs esomeprazole magnesium 20 mg 20 mg PO DAILY Acid Reflux 03/21/23 03/21/23 History capsule,delayed release New Prescriptions to Start Prescriptions: Allergies Allergy/AdvReac Type Severity Reaction Status Date / Time ampicillin [From Unasyn] Allergy Severe S-SWELLS-OR Verified 03/20/23 13:59 AL/THROAT sulbactam [From Unasyn] Allergy Severe S-SWELLS-OR Verified 03/20/23 13:59 AL/THROAT Exam Data for Last 24 hours Vital signs and Labs for Last 24 Hours: Temp Pulse Resp BP Pulse Ox O2 Del Method 99.0 F 104 H 22 159/79 H 91 L Room Air 03/20/23 13:54 03/20/23 17:31 03/20/23 13:54 03/20/23 17:31 03/20/23 17:31 03/20/23 17:31 I & O for Last 24 hours: Intake & Output 03/17/23 03/18/23 03/19/23 03/20/23 23:59 23:59 23:59 23:59 Weight 117.027 kg Constitutional Constitutional: mild distress, obese and cooperative *Routine HEENT Exam Head: Present normocephalic and atraumatic Eye: Present EOMI, PERRL and normal accommodation ENT: Present mucous membranes moist *Routine Neck Exam Neck: Present supple, full ROM and trachea midline *Routine Respiratory Exam Respiratory: Present CTA bilaterally, normal respiratory effort and symmetric chest movement *Routine Cardiovascular Exam Cardiovascular: Present RRR, Normal S1 and Normal S2 *Routine Abdominal Exam Abdominal: Present soft, normoactive bowel sounds and obese; Absent organomegaly *Routine Rectal Exam Rectal:: deferred *Routine Genitalia Exam Genitalia:: deferred *Routine Extremities Exam Extremities: Present full ROM and pulses intact; Absent cyanosis, clubbing or edema *Routine Skin Exam Skin: Present intact, dry and warm *Routine Neurological Exam Neurological: Present alert, normal reflexes, moving all extremities and normal speech; Absent hearing grossly intact Routine Psychiatric Exam Psychiatric: Present normal thought process, cooperative and good judgment H&P: Result Imaging and Cardiology EKG: Status: image reviewed by me and Preliminary report Assessment and Plan *Assessment and plan (1) Frequent falls: Status: Acute Category: Medical Code(s): R29.6 - Repeated falls (2) Generalized weakness: Status: Acute Category: Medical Code(s): R53.1 - Weakness (3) Hyponatremia: Status: Acute Category: Medical Code(s): E87.1 - Hypo-osmolality and hyponatremia (4) Hearing impairment: Status: Acute Qualifiers: Hearing loss type: unspecified Laterality: bilateral Qualified Code(s): H91.93 - Unspecified hearing loss, bilateral Category: Medical Code(s): H91.90 - Unspecified hearing loss, unspecified ear (5) HTN (hypertension): Status: Acute Qualifiers: Hypertension type: primary hypertension Qualified Code(s): I10 - Essential (primary) hypertension Category: Medical Code(s): I10 - Essential (primary) hypertension (6) Chronic diastolic CHF (congestive heart failure): Status: Chronic Category: Medical Code(s): I50.32 - Chronic diastolic (congestive) heart failure (7) Diabetes mellitus with diabetic polyneuropathy: Status: Chronic Qualifiers: Diabetes mellitus intermediate insulin use: with intermediate use Diabetes mellitus type: type 2 Qualified Code(s): E11.42 - Type 2 diabetes mellitus with diabetic polyneuropathy; Z79.4 - nursing home (current) use of insulin Category: Medical Code(s): E11.42 - Type 2 diabetes mellitus with diabetic polyneuropathy (8) CKD (chronic kidney disease): Status: Acute Qualifiers: Chronic kidney disease stage: stage 3 (moderate) Chronic kidney disease stage 3 subtype: stage 3a (GFR 45-59) Qualified Code(s): N18.31 - Chronic kidney disease, stage 3a Category: Medical Code(s): N18.9 - Chronic kidney disease, unspecified (9) Obesity (BMI 30-39.9): Status: Acute Category: Medical Code(s): E66.9 - Obesity, unspecified (10) Unable to care for self: Status: Acute Category: Medical Code(s): Z78.9 - Other specified health status Plan 77-year-old male obese with chronic deconditioning, HTN, HLD, heart failure, CAD, AAA status post aortic grafting, IDDM presenting with back pain, belly pain, all after a fall. Patient has been seen at ED in the past. He has had multiple complaints including abdominal pain, back pain, generalized weakness. extensive previous workup was negative. Except for mild hyponatremia. Kidney function at baseline. Head to toe CT screening negative for acute process or traumatic fracture. CT of the head concerning for chronic ischemic changes with cerebral atrophy and hydrocephalus. Findings discussed with the ER for admission. Plan as follow -Frequent falls, generalized weakness and hyponatremia: Admit patient for medical management . Dispo MedSurg Fall precaution implemented PT OT consulted for eval and treatment Hyponatremia likely secondary to diuresis close poor intake. deferred fluid IV in the setting of CHF Encouraged to increase p.o.. intake Supportive care provide -Other chronic conditions reviewed: Hypertension CHF diabetes CKD hearing impairment Medications reviewed and reconciled -Obesity with comorbidities Will complicate all Aspects of care. Patient unable to care for himself. human resources benefits manager will be consulted for assistance on discharge planning Lovenox for DVT prophylaxis. On Protonix Full code Rounded on patient after nurse practitioner. Personally examined and interviewed patient. Agree with exam findings and care plan as documented.
--- NOTE | 2023-03-20 17:53 | PC.NURSE ---
HOUSE NOTIFIED OF ADMISSION
--- NOTE | 2023-03-20 18:28 | PC.NURSE ---
REPORT CALLED TO MADELEINE GARNETT
--- NOTE | 2023-03-20 18:32 | PC.NURSE ---
DAUGHTER ZABRINA UPDATED AT THIS TIME
[2023-03-20] MEDS: CARVEDILOL 3.125MG TABLET 3.125 MG PO (21:29)
[2023-03-20] MEDS: FUROSEMIDE 40 MG TABLET PO (21:29)
[2023-03-20] MEDS: ATORVASTATIN 10MG TABLET 10 MG PO (21:31)
[2023-03-20] MEDS: PANTOPRAZOLE 40MG TABLET 40 MG PO (21:32)
[2023-03-20 21:54] LABS: POC Glucose,Bedside 277 (70-110)
[2023-03-20] MEDS: INSULIN GLARGINE 100 UNITS/ML 3ML FLEXPEN 20 UNIT SQ (22:01)
[2023-03-20] MEDS: ACETAMINOPHEN 325MG TAB 650 MG PO (22:02)
[2023-03-20] MEDS: humaLOG 100 UNITS/ML 3ML VIAL (SSI) SQ (22:02)
[2023-03-21] VITALS: BP 149/83; PULSE 86; RESP 18; TEMP 36.7; O2SAT 61
[2023-03-21] MEDS: MORPHINE 2MG/ML SYRINGE 2 MG IV (00:04)
[2023-03-21] MEDS: ONDANSETRON 4MG/2ML VIAL 4 MG IV (00:04)
--- NOTE | 2023-03-21 00:47 | PC.NURSE ---
Report given to MADELEINE Johnson at this time
[2023-03-21 04:00] VITALS: BP 153/89; PULSE 90; RESP 18; TEMP 36.8; O2SAT 91; BMI 35.4
[2023-03-21 06:24] LABS: POC Glucose,Bedside 173 (70-110)
[2023-03-21] MEDS: humaLOG 100 UNITS/ML 3ML VIAL (SSI) SQ ×4 (07:12→20:36)
--- NOTE | 2023-03-21 07:52 | P.PN_ITS ---
Subjective *Date: 03/21/23 *Time: 11:17 Interval history: Patient stable on room air. Denies any fever, nausea, vomiting. Very hard of hearing during interview. Family at bedside. Discussed current condition, stable labs, eval for placement. Discussed patient's diabetes being out of c ontrol. No acute complaints. Medical Exam Vital signs and Labs for Last 24 Hours: Vital Signs Temp Pulse Pulse Resp BP BP Pulse Ox 03/21/23 07:00 03/21/23 04:00 98.2 F 90 18 153/89 H 91 L 03/21/23 04:42 03/21/23 00:00 98.0 F 86 18 149/83 H 61 L 03/20/23 20:00 98.2 F 93 H 18 144/83 H 92 L 03/21/23 02:49 03/21/23 01:00 03/20/23 23:00 03/20/23 21:00 03/20/23 20:00 03/20/23 18:30 102 H 169/93 H 93 L 03/20/23 18:00 101 H 145/92 H 95 03/20/23 18:29 97.9 F 100 H 18 145/92 H 03/20/23 17:31 104 H 159/79 H 91 L 03/20/23 17:00 84 166/76 H 94 L 03/20/23 16:30 78 171/85 H 94 L 03/20/23 16:00 78 162/82 H 94 L 03/20/23 15:30 86 160/80 H 93 L 03/20/23 15:01 85 159/73 H 93 L 03/20/23 14:00 83 145/87 H 95 03/20/23 13:54 99.0 F 77 22 147/74 H 95 O2 Del Method 03/21/23 07:00 Room Air 03/21/23 04:00 Room Air 03/21/23 04:42 Room Air 03/21/23 00:00 Room Air 03/20/23 20:00 Room Air 03/21/23 02:49 Room Air 03/21/23 01:00 Room Air 03/20/23 23:00 Room Air 03/20/23 21:00 Room Air 03/20/23 20:00 Room Air 03/20/23 18:30 Room Air 03/20/23 18:00 Room Air 03/20/23 18:29 Room Air 03/20/23 17:31 Room Air 03/20/23 17:00 Room Air 03/20/23 16:30 Room Air 03/20/23 16:00 Room Air 03/20/23 15:30 Room Air 03/20/23 15:01 03/20/23 14:00 03/20/23 13:54 Room Air Intake and Output 03/20/23 03/20/23 03/21/23 15:59 23:59 07:59 Intake Total 240 / 240 Output Total 0 / 0 0 / 0 Balance 0 / 240 240 / 240 Intake: Intake, Oral Amount 240 / 240 Output: Output, Urine Amount 0 / 0 0 / 0 Other: Number of Unmeasured Voids 1 1 Weight 117.027 kg 117.254 kg 118.66 kg Patient Weight 03/21/23 23:59 Weight 118.66 kg Laboratory Results - last 24 hr 03/20/23 21:27: POC Glucose 277 H 03/21/23 06:12: POC Glucose 173 H I & O for Labs for Last 24 Hours: Intake & Output 03/18/23 03/19/23 03/20/23 03/21/23 23:59 23:59 23:59 23:59 Intake Total 240 / 240 Output Total 0 / 0 0 / 0 Balance 0 / 240 240 / 240 Weight 117.254 kg 118.66 kg Constitutional: Present no acute distress, obese, chronically ill appearing, disheveled and cooperative Head: Present atraumatic and normocephalic ENT: Present normal exam Neck: Present normal inspection Respiratory: Present normal respiratory effort; Absent rhonchi, wheezes or crackles Cardiac: Present Reg Rate and Rhythm GI: Present soft and normal bowel sounds; Absent distention or tenderness Extremities: Present normal inspection and full ROM; Absent tenderness or edema Skin: Present intact; Absent erythema Neuro: Present Grossly Intact, alert, awake, oriented x 3 and moves all extremities Comment:: hard of hearing Assessment and Plan *Assessment and plan (1) Frequent falls: Status: Acute Category: Medical Code(s): R29.6 - Repeated falls (2) Generalized weakness: Status: Acute Category: Medical Code(s): R53.1 - Weakness (3) Hyponatremia: Status: Acute Category: Medical Code(s): E87.1 - Hypo-osmolality and hyponatremia (4) Hearing impairment: Status: Acute Qualifiers: Hearing loss type: unspecified Laterality: bilateral Qualified Code(s): H91.93 - Unspecified hearing loss, bilateral Category: Medical Code(s): H91.90 - Unspecified hearing loss, unspecified ear (5) HTN (hypertension): Status: Acute Qualifiers: Hypertension type: primary hypertension Qualified Code(s): I10 - Essential (primary) hypertension Category: Medical Code(s): I10 - Essential (primary) hypertension (6) Chronic diastolic CHF (congestive heart failure): Status: Chronic Category: Medical Code(s): I50.32 - Chronic diastolic (congestive) heart failure (7) Diabetes mellitus with diabetic polyneuropathy: Status: Chronic Qualifiers: Diabetes mellitus type: type 2 Diabetes mellitus intermodal dispatcher insulin use: with intermodal dispatcher use Qualified Code(s): E11.42 - Type 2 diabetes mellitus with diabetic polyneuropathy; Z79.4 - residential (current) use of insulin Category: Medical Code(s): E11.42 - Type 2 diabetes mellitus with diabetic polyneuropathy (8) CKD (chronic kidney disease): Status: Acute Qualifiers: Chronic kidney disease stage: stage 3 (moderate) Chronic kidney disease stage 3 subtype: stage 3a (GFR 45-59) Qualified Code(s): N18.31 - Chronic kidney disease, stage 3a Category: Medical Code(s): N18.9 - Chronic kidney disease, unspecified (9) Obesity (BMI 30-39.9): Status: Acute Category: Medical Code(s): E66.9 - Obesity, unspecified (10) Unable to care for self: Status: Acute Category: Medical Code(s): Z78.9 - Other specified health status Plan 77-year-old male obese with chronic deconditioning, HTN, HLD, heart failure, CAD, AAA status post aortic grafting, IDDM presenting with back pain, belly pain, all after a fall. Patient has been seen at ED in the past. He has had multiple complaints including abdominal pain, back pain, generalized weakness. extensive previous workup was negative. Except for mild hyponatremia. Kidney function at baseline. Head to toe CT screening negative for acute process or traumatic fracture. CT of the head concerning for chronic ischemic changes with cerebral atrophy. Findings discussed with the ER for admission. Continues to require observation, being evaluated by therapy. Needs placement. Can no longer care for himself at home. Plan as follow -Frequent falls, generalized weakness and hyponatremia: Fall precaution implemented PT OT consulted for eval and treatment Hyponatremia resolved, sodium 136 this morning. Tolerating p.o. intake. Labs relatively unremarkable except for chronic kidney disease with creatinine 1.7. Repeat CBC, CMP, magnesium ordered for the morning Walker use when ambulates Hypertension Hyperlipidemia -Continue Lipitor 10 mg nightly, carvedilol 6.25 mg twice daily, Lasix 40 mg twice daily, HCTZ 25 mg daily, lisinopril 40 mg daily GERD: Continue pantoprazole 40 mg nightly Diabetes: Uncontrolled, A1c 10.1. Increase glargine to 30 units tonight. Monitor for daily sliding scale needs. Continue sliding scale ACHS and fingersticks ACHS. Further adjustments to diabetic regimen during admission. Needs optimization. Obesity: complicate all Aspects of care. Patient unable to care for himself. Living by himself with complex medical conditions as one of his social determinants of health. Case management assisting with placement Lovenox Protonix Full code Diabetic diet
[2023-03-21 07:59] LABS: Chloride 99 mmol/L (98-107); Sodium 136 mmol/L (136-145)
[2023-03-21 08:00] VITALS: BP 162/77; PULSE 106; RESP 22; TEMP 36.7; O2SAT 91
[2023-03-21 08:00] LABS: Potassium 3.8 mmoL/L (3.5-5.1)
[2023-03-21 08:02] LABS: Alanine Aminotransferase 34 U/L (12-78); Alkaline Phosphatase 114 U/L (38-126); Anion Gap 10.8 mEq/L (5-15); Aspartate Amino Transferase 47 U/L (17-59); Bilirubin,Total 0.6 mg/dl (0.2-1.3); Blood Urea Nitrogen 25 mg/dl (9-20); Carbon Dioxide 30 mmol/L (22.0-30.0); Creatinine Clearance Estimated 61 mL/min (50-200); Estimated Glomerular Filt Rate 39 ml/min (>60); GFR (African American) 48 ML/MIN (>60); Globulin 4.1 g/dL (1.3-3.2); Total Protein,Serum 8.1 g/dl (6.3-8.2)
[2023-03-21 08:03] LABS: Basophils % 0.3 % (0.1-2.0); Calcium 9.1 mg/dl (8.4-10.2); Eosinophils # 0.2 K/mm3 (0.0-0.4); Eosinophils % 3.3 % (0.1-12.0); Glucose 201 mg/dl (74-100); Hematocrit 44.8 % (42.0-52.0); Hemoglobin 14.7 g/dL (14.1-18.0); Lymphocytes # 1.3 K/mm3 (0.7-4.5); Lymphocytes % 24.3 % (10-50); Magnesium 1.6 mg/dl (1.6-2.3); Mean Corpuscular HGB Conc 32.7 g/dL (31.8-35.4); Mean Corpuscular Hemoglobin 29.3 pg (27.0-31.2); Mean Corpuscular Volume 89.6 fl (80-94); Mean Platelet Volume 8.1 fl (7.4-10.4); Monocytes # 0.4 K/mm3 (0.1-1.0); Monocytes % 6.6 % (1.7-9.3); Neutrophils # 3.5 K/mm3 (1.8-7.8); Neutrophils % 65.6 % (37.0-80.0); Platelet Count 173 K/mm3 (142-424); Red Cell Distribution Width 14.6 % (11.5-17.5); White Blood Count 5.4 K/mm3 (4.8-10.8)
[2023-03-21] MEDS: CARVEDILOL 3.125MG TABLET 3.125 MG PO ×2 (08:06→09:02)
[2023-03-21] MEDS: hydroCHLOROthiazide 25MG TABLET 25 MG PO (08:06)
[2023-03-21] MEDS: FUROSEMIDE 40 MG TABLET PO ×2 (08:06→15:34)
[2023-03-21 08:35] LABS: Hemoglobin A1C 10.1 % (4.0-6.0)
[2023-03-21] MEDS: MAGNESIUM OXIDE 400MG TABLET 400 MG PO ×2 (09:02→20:12)
[2023-03-21] MEDS: LISINOPRIL 20MG TABLET 40 MG PO (09:03)
--- NOTE | 2023-03-21 11:31 | HMH.PHAINT1 ---
Pharmacy Intervention Comments: MEDICATION RECONCILIATION COMPLETE USING LIST FROM MOST RECENT MD OFFICE VISIT AND EXTERNAL PHARMACY FILL HISTORY.
[2023-03-21 12:06] LABS: POC Glucose,Bedside 274 (70-110)
--- NOTE | 2023-03-21 13:20 | HMH.PTEV ---
Physical Therapy Evaluation Rehab PT IP Evaluation Start: 03/20/23 14:06 Freq: ONCE Status: Complete Protocol: Document 03/20/23 14:40 VIDHYA (Rec: 03/20/23 14:52 [email or web address] [id number]) Subjective/History History History 77-year-old male with history of hypertension, hyperlipidemia, morbid obesity , CAD, diastolic heart failure , and diabetes. Presenting s/p fall at home per pt report. Subjective Subjective I was just here and when I went home I fell. My daughter is wanting me to get into a jail. PLOF per pt report: IND (but had difficulty) when performing functional mobility . IND with ADLs. Living in a single story home alone with 1 CUCO. Using a Hurrycane and RW for household ambulation. History of falls. Pt [place]. New diagnosis of cancer in past 12 No months? Rehab PT IP Eval Objective Appearance Patient Behavior Appropriate,Cooperative Patient Orientation Person,Place Speech Pattern Clear Ambulation Patient Able to Ambulate No Balance Sitting Balance Steady, safe Standing Balance Unsteady Transfers Bed Transfer Ability Moderate x 1 (50% assist) Sit to Stand Bed Transfer Ability Minimal x 1 (25% assist) Rehab PT IP prob,goals,plan Problems Date of Evaluation: 03/20/23 PT IP Problems Bed Mobility,Transfers,Gait, Balance,Self care,Safety Discharge Plan PT Discharge Plan Pt not safe to d/c home alone d/t current level of mobility and safety. Pt required Mod A to perform supine <>sit EOB. DEP A to scoot to HOB. Pt required RW and min A to perform STS. Pt unable to ambulate this date d/t weakness and lightheaded symptoms. PT recommending pt d /c to short-term rehabilitation placement when deemed medically necessary. Eval Complexity Eval Charge Codes 83690 - High Complexity Rehab PT IP Evaluation Start: 03/20/23 17:42 Freq: ONCE Status: Active Protocol: Document 03/21/23 13:11 [email or web address] (Rec: 03/21/23 13:20 [email or web address] [id number]) Subjective/History History History Pt. is a 77 year old male who presents to [facility] 2nd floor Inpatient setting w/ PMH of chronic deconditioning, CAD, high retention, AAA status post aortic grafting diabetes, and hyperlipidemia. Pt. reports having a bad fall two days ago at home in the doorway hitting his right side of his body. Pt. reports having frequent small falls, but states this one being a bad fall. Pt. reports living alone in his home, reports ambulating with his walker. Pt . denies LOC w/ recent fall, was brought into the hospital via EMS secondary to bad fall. Subjective Subjective Pt. reports some soreness in the right elbow this a.m. Pt. was asleep supine in hospital bed upon entry into room. Pt. agreed to participate in PT. Pt. moderate following instructions secondary to hard of hearing. New diagnosis of cancer in past 12 No months? Rehab PT IP Eval Objective Appearance Patient Behavior Appropriate,Cooperative Patient Orientation Person,Place,Time,Birthday Difficulty following instructions moderate Speech Pattern Clear,Appropriate,Coherent Ambulation Patient Able to Ambulate Yes Ambulation Observation IP General Gait Pattern Observation Antalgic Gait,Wide Based Gait, Shuffling Step Ambulation Distance (feet) 8 Ambulation Assistive Device Standard Walker Ambulation Ability Minimal x 1 (25% assist) Balance Ability to Arise Able, uses arms to help Sitting Balance Steady, safe Standing Balance Steady, wide stance Dynamic Sitting Balance Ability Good Dynamic Standing Balance Ability Good Transfers Bed Transfer Ability Moderate x 1 (50% assist) Sit to Stand Bed Transfer Ability Moderate x 1 (50% assist) Pain abdomen/ back Pain Intensity 5 ROM RLE PT ROM Status WFL LLE PT ROM Status WFL MMT RLE PT MMT WFL LLE PT MMT WFL Rehab PT IP prob,goals,plan Problems Date of Evaluation: 03/21/23 PT IP Problems Bed Mobility,Transfers,Gait, Balance,Safety Rehab Potential Rehab Potential Good Equipment Needs Assistive Devices Standard Walker Plan PT Intervention Plan Bed Mobility,Transfers,Gait, Balance,Safety,Therapeutic Exercise PT Plan Frequency BID Duration LOS Discharge Goals Bed Transfer Ability Minimal x 1 (25% assist) Sit to Stand Chair Transfer Ability Minimal x 1 (25% assist) Ambulation Assistive Device Standard Walker Ambulation Distance (feet) 15 Discharge Plan PT Discharge Plan Upon discharge from [facility], once medically stable per MD, pt. most appropriate to be discharged to SNF to improve overall generalized muscle strength and conditioning to further improve quality of life w/ ADLs secondary to current living situation. Eval Complexity Eval Charge Codes 74609 - Low Complexity PHYSICIAN CERTIFICATION: I certify the specified therapy services for Winston Garcia are required, authorized, and reviewed every 30 days.
[2023-03-21 15:55] VITALS: BP 129/69; PULSE 86; RESP 22; TEMP 36.7; O2SAT 97
--- NOTE | 2023-03-21 17:08 | EXP.EVENT.NO ---
Advance care planning note: Active diagnosis: Very hard of hearing, frequent falls, inability to care for self, uncontrolled diabetes, hypertension, CKD The patient's active diagnoses are of sufficient risk that focused discussion on advanced care planning is indicated in order to allow the patient to thoughtfully consider personal goals of care; and, if situations arise that prevent the ability to personally give input, to ensure appropriate representation of their personal desires through documentation or informed surrogate decision makers. Discussion: Persons present and participating in discussion: Daughter and patient Discussion: Extensive discussion about patient's stability, progressive worsening weakness. Family unable to care for patient at this time. Discussed goals of care, potential for rehab and returning home versus long-term care needs. Daughter expressed her sense of being overwhelmed with declining health with her parents and balancing work and personal life. Needs help with placement at this time. Concern for patient's ability to care for himself and take care of his own medications in light of his conditions being uncontrolled. Social work consulted. Discussed plan for safe discharge in the coming days whether he is able to be placed directly from the hospital or from home. Daughter states understanding and is working on establishing safe discharge plan to take him home if need be. Time spent: Total time spent [id number] in education and discussion directly related to advance care plannin minutes
[2023-03-21 17:54] LABS: POC Glucose,Bedside 335 (70-110)
[2023-03-21 20:00] VITALS: BP 141/83; PULSE 101; RESP 18; TEMP 36.7; O2SAT 91
[2023-03-21] MEDS: PANTOPRAZOLE 40MG TABLET 40 MG PO (20:12)
[2023-03-21] MEDS: CARVEDILOL 6.25MG TABLET 6.25 MG PO (20:12)
[2023-03-21] MEDS: ATORVASTATIN 10MG TABLET 10 MG PO (20:35)
[2023-03-21] MEDS: INSULIN GLARGINE 100 UNITS/ML 3ML FLEXPEN 30 UNIT SQ (20:35)
[2023-03-21] MEDS: ACETAMINOPHEN 325MG TAB 650 MG PO (20:35)
[2023-03-21 22:05] LABS: POC Glucose,Bedside 302 (70-110)
[2023-03-22] MEDS: ONDANSETRON 4MG/2ML VIAL 4 MG IV (00:42)
[2023-03-22] MEDS: MORPHINE 2MG/ML SYRINGE 2 MG IV (00:42)
[2023-03-22 04:00] VITALS: BP 135/75; PULSE 70; RESP 18; TEMP 36.4; O2SAT 95; BMI 35.4
--- NOTE | 2023-03-22 04:05 | PC.NURSE ---
PT IS A&O X4, CURRENTLY HERE FOR FALLS AND PLACEMENT. PT GLUCOSE LEVELS REMAIN ELEVATED AND CONTINUE TO BE TREATED WITH INSULIN. PT IS HARD OF HEARING AND C/O PAIN AND HAS BEEN TREATED PER MAR.
[2023-03-22] MEDS: humaLOG 100 UNITS/ML 3ML VIAL (SSI) SQ ×4 (05:16→20:32)
[2023-03-22 05:26] LABS: POC Glucose,Bedside 193 (70-110)
[2023-03-22 08:00] VITALS: BP 151/72; PULSE 82; RESP 20; TEMP 36.9; O2SAT 95
[2023-03-22] MEDS: FUROSEMIDE 40 MG TABLET PO (08:06)
[2023-03-22] MEDS: MAGNESIUM OXIDE 400MG TABLET 400 MG PO ×2 (08:06→20:31)
[2023-03-22] MEDS: CARVEDILOL 6.25MG TABLET 6.25 MG PO ×2 (08:06→20:32)
[2023-03-22] MEDS: hydroCHLOROthiazide 25MG TABLET 25 MG PO (08:06)
[2023-03-22] MEDS: LISINOPRIL 20MG TABLET 40 MG PO (08:06)
[2023-03-22] MEDS: INSULIN GLARGINE 100 UNITS/ML 3ML FLEXPEN 10 UNIT SQ (08:25)
[2023-03-22] MEDS: ACETAMINOPHEN 325MG TAB 650 MG PO ×2 (09:01→20:31)
[2023-03-22 10:20] LABS: Chloride 98 mmol/L (98-107)
[2023-03-22 10:21] LABS: Potassium 3.8 mmoL/L (3.5-5.1); Sodium 135 mmol/L (136-145)
[2023-03-22 10:23] LABS: Alanine Aminotransferase 34 U/L (12-78); Aspartate Amino Transferase 40 U/L (17-59); Blood Urea Nitrogen 35 mg/dl (9-20); Creatinine Clearance Estimated 55 mL/min (50-200); Estimated Glomerular Filt Rate 35 ml/min (>60); GFR (African American) 42 ML/MIN (>60)
[2023-03-22 10:24] LABS: Albumin Level 3.7 g/dl (3.5-5.0); Alkaline Phosphatase 106 U/L (38-126); Anion Gap 9.8 mEq/L (5-15); Bilirubin,Total 0.5 mg/dl (0.2-1.3); Calcium 8.7 mg/dl (8.4-10.2); Carbon Dioxide 31 mmol/L (22.0-30.0); Globulin 3.7 g/dL (1.3-3.2); Glucose 312 mg/dl (74-100); Magnesium 1.5 mg/dl (1.6-2.3); Total Protein,Serum 7.4 g/dl (6.3-8.2)
[2023-03-22 11:14] LABS: POC Glucose,Bedside 324 (70-110)
[2023-03-22] MEDS: POLYETHYLENE GLYCOL 3350 17 GM PACKET PO (12:13)
[2023-03-22] MEDS: MAGNESIUM SULFATE IN WATER 2 GM/50 ML PIGGYBACK IV (12:14)
[2023-03-22] MEDS: SODIUM PHOS/BIPHOSPHATE FLEET 133ML ENEMA 133 ML RC (12:14)
[2023-03-22] MEDS: EMPAGLIFLOZIN 10MG TABLET 10 MG PO (13:00)
[2023-03-22 16:00] VITALS: BP 131/68; PULSE 71; RESP 18; TEMP 36.5; O2SAT 93
[2023-03-22 17:02] LABS: POC Glucose,Bedside 277 (70-110)
[2023-03-22] MEDS: METFORMIN 500MG TABLET 500 MG PO (17:42)
--- NOTE | 2023-03-22 19:08 | PC.NURSE ---
aox4, enema and miralax this shift. 2 bms noted following admin. tolerating room air well. he did require prn tylenol this morning for pain with good effectiveness.
[2023-03-22 20:00] VITALS: BP 155/81; PULSE 83; RESP 18; TEMP 36.8; O2SAT 90
--- NOTE | 2023-03-22 20:28 | EXP.ACUTE.PN ---
Subjective *Date: 03/22/23 *Time: 20:28 Interval history: Stable this morning. On room air, no complaints. No chest pain or shortness of breath. Tolerating p.o. intake. States he has not had a bowel movement in 4 to 5 days. Requesting bowel regimen. Medical Exam Vital signs and Labs for Last 24 Hours: Vital Signs Temp Pulse Resp BP Pulse Ox O2 Del Method 03/22/23 18:44 Room Air 03/22/23 16:59 Room Air 03/22/23 15:00 Room Air 03/22/23 16:00 97.7 F 71 18 131/68 93 L Room Air 03/22/23 12:49 Room Air 03/22/23 11:00 Room Air 03/22/23 09:00 Room Air 03/22/23 08:00 Room Air 03/22/23 08:00 98.4 F 82 20 151/72 H 95 Room Air 03/22/23 07:00 Room Air 03/22/23 04:00 97.6 F 70 18 135/75 95 Room Air 03/22/23 04:33 Room Air 03/22/23 03:00 Room Air 03/22/23 01:00 Room Air 03/21/23 23:00 Room Air 03/21/23 21:00 Room Air Intake and Output 03/22/23 03/22/23 03/22/23 07:59 15:59 23:59 Intake Total 240 / 1850 950 / 1850 660 / 1850 Output Total 0 / 0 0 / 0 0 / 0 Balance 240 / 1850 950 / 1850 660 / 1850 Intake: Intake, Oral Amount 240 / 1850 950 / 1850 660 / 1850 Output: Output, Urine Amount 0 / 0 0 / 0 0 / 0 Other: Number of Unmeasured Voids 1 1 Number of Bowel Movements 1 Weight 118.87 kg Patient Weight 03/22/23 23:59 Weight 118.87 kg Laboratory Results - last 24 hr 03/21/23 20:07: POC Glucose 302 H* 03/22/23 04:58: POC Glucose 193 H 03/22/23 09:50: Sodium 135 L, Potassium 3.8, Chloride 98, Carbon Dioxide 31 H, Anion Gap 9.8, BUN 35 H D, Creatinine 1.90 H, Estimated Creat Clear 55, Estimated GFR 35 L, Est GFR ( Amer) 42 L, Glucose 312 H, Calcium 8.7, Magnesium 1.5 L, Total Bilirubin 0.5, AST 40, ALT 34, Alkaline Phosphatase 106, Total Protein 7.4, Albumin 3.7, Globulin 3.7 H, Albumin/Globulin Ratio 1.0 L 03/22/23 10:55: POC Glucose 324 H* 03/22/23 16:08: POC Glucose 277 H I & O for Labs for Last 24 Hours: Intake & Output 03/19/23 03/20/23 03/21/23 03/22/23 23:59 23:59 23:59 23:59 Intake Total 1819 Output Total 0 / 0 0 / 0 0 / 0 Balance 0 / 240 1819 Weight 117.254 kg 118.66 kg 118.87 kg Constitutional: Present no acute distress, obese, chronically ill appearing, disheveled and cooperative Head: Present atraumatic and normocephalic ENT: Present normal exam Neck: Present normal inspection Respiratory: Present normal respiratory effort; Absent rhonchi, wheezes or crackles Cardiac: Present Reg Rate and Rhythm GI: Present soft and normal bowel sounds; Absent distention or tenderness Extremities: Present normal inspection, full ROM and edema (trace); Absent tenderness Skin: Present intact; Absent erythema Neuro: Present Grossly Intact, alert, awake, oriented x 3 and moves all extremities Comment:: hard of hearing Assessment and Plan *Assessment and plan (1) Frequent falls: Status: Acute Category: Medical Code(s): R29.6 - Repeated falls (2) Generalized weakness: Status: Acute Category: Medical Code(s): R53.1 - Weakness (3) Constipation: Status: Acute Category: Medical Code(s): K59.00 - Constipation, unspecified (4) Hyponatremia: Status: Acute Category: Medical Code(s): E87.1 - Hypo-osmolality and hyponatremia (5) Hearing impairment: Status: Acute Qualifiers: Hearing loss type: unspecified Laterality: bilateral Qualified Code(s): H91.93 - Unspecified hearing loss, bilateral Category: Medical Code(s): H91.90 - Unspecified hearing loss, unspecified ear (6) HTN (hypertension): Status: Acute Qualifiers: Hypertension type: primary hypertension Qualified Code(s): I10 - Essential (primary) hypertension Category: Medical Code(s): I10 - Essential (primary) hypertension (7) Chronic diastolic CHF (congestive heart failure): Status: Chronic Category: Medical Code(s): I50.32 - Chronic diastolic (congestive) heart failure (8) Diabetes mellitus with diabetic polyneuropathy: Status: Chronic Qualifiers: Diabetes mellitus type: type 2 Diabetes mellitus 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 insulin use: with custodial use Qualified Code(s): E11.42 - Type 2 diabetes mellitus with diabetic polyneuropathy; Z79.4 - skilled nursing (current) use of insulin Category: Medical Code(s): E11.42 - Type 2 diabetes mellitus with diabetic polyneuropathy (9) CKD (chronic kidney disease): Status: Acute Qualifiers: Chronic kidney disease stage: stage 3 (moderate) Chronic kidney disease stage 3 subtype: stage 3a (GFR 45-59) Qualified Code(s): N18.31 - Chronic kidney disease, stage 3a Category: Medical Code(s): N18.9 - Chronic kidney disease, unspecified (10) Obesity (BMI 30-39.9): Status: Acute Category: Medical Code(s): E66.9 - Obesity, unspecified (11) Unable to care for self: Status: Acute Category: Medical Code(s): Z78.9 - Other specified health status Plan 77-year-old male obese with chronic deconditioning, HTN, HLD, heart failure, CAD, AAA status post aortic grafting, IDDM presenting with back pain, belly pain, all after a fall. Patient has been seen at ED in the past. He has had multiple complaints including abdominal pain, back pain, generalized weakness. extensive previous workup was negative. Except for mild hyponatremia. Kidney function at baseline. Head to toe CT screening negative for acute process or traumatic fracture. CT of the head concerning for chronic ischemic changes with cerebral atrophy. Findings discussed with the ER for admission. Continues to require observation, being evaluated by therapy. Needs placement. Can no longer care for himself at home. Plan as follow -Frequent falls, generalized weakness and hyponatremia: Fall precaution implemented PT OT consulted for eval and treatment Hyponatremia resolved, sodium 135 this morning. Tolerating p.o. intake. Labs relatively unremarkable except for chronic kidney disease with creatinine 1.9. Repeat CBC, CMP, magnesium ordered for the morning Walker use when ambulates Hypertension Hyperlipidemia -Continue Lipitor 10 mg nightly, carvedilol 6.25 mg twice daily, Lasix 40 mg daily, HCTZ 25 mg daily, lisinopril 40 mg daily GERD: Continue pantoprazole 40 mg nightly Diabetes: Uncontrolled, A1c 10.1. Increase glargine to 40 units tonight. Monitor for daily sliding scale needs. Continue sliding scale ACHS and fingersticks ACHS. Further adjustments to diabetic regimen during admission. Needs optimization. Obesity: complicate all Aspects of care. Patient unable to care for himself. Living by himself with complex medical conditions as one of his social determinants of health. Constipation: Has not had bowel movement 4 to 5 days per his report. Will administer enema x 1 and increase bowel regimen with MiraLAX Case management assisting with placement Lovenox Protonix Full code Diabetic diet
[2023-03-22] MEDS: ATORVASTATIN 10MG TABLET 10 MG PO (20:32)
[2023-03-22] MEDS: PANTOPRAZOLE 40MG TABLET 40 MG PO (20:32)
[2023-03-22] MEDS: INSULIN GLARGINE 100 UNITS/ML 3ML FLEXPEN 45 UNIT SQ (20:33)
[2023-03-22 20:37] VITALS: BMI 35.4
[2023-03-22 21:39] LABS: POC Glucose,Bedside 240 (70-110)
--- NOTE | 2023-03-22 22:29 | PC.NURSE ---
Pt daughter called to check in and reported pt texted her that he needed help. Staff x2 in room to check pt. call light within reach, no distress noted.
[2023-03-23] MEDS: MORPHINE 2MG/ML SYRINGE 2 MG IV (00:51)
[2023-03-23] MEDS: ONDANSETRON 4MG/2ML VIAL 4 MG IV (00:51)
[2023-03-23 04:00] VITALS: BP 137/86; PULSE 80; RESP 18; TEMP 36.8; O2SAT 96; BMI 35.2
[2023-03-23] MEDS: humaLOG 100 UNITS/ML 3ML VIAL (SSI) SQ ×4 (05:12→20:24)
[2023-03-23 05:44] LABS: POC Glucose,Bedside 175 (70-110)
[2023-03-23] MEDS: METFORMIN 500MG TABLET 500 MG PO ×2 (06:33→16:47)
[2023-03-23 07:28] LABS: Basophils % 0.3 % (0.1-2.0); Eosinophils # 0.3 K/mm3 (0.0-0.4); Eosinophils % 4.3 % (0.1-12.0); Hematocrit 44.8 % (42.0-52.0); Hemoglobin 14.6 g/dL (14.1-18.0); Lymphocytes # 1.8 K/mm3 (0.7-4.5); Lymphocytes % 29.1 % (10-50); Mean Corpuscular HGB Conc 32.5 g/dL (31.8-35.4); Mean Corpuscular Hemoglobin 29.3 pg (27.0-31.2); Mean Corpuscular Volume 90.1 fl (80-94); Mean Platelet Volume 7.8 fl (7.4-10.4); Monocytes # 0.4 K/mm3 (0.1-1.0); Monocytes % 6.5 % (1.7-9.3); Neutrophils # 3.6 K/mm3 (1.8-7.8); Neutrophils % 59.9 % (37.0-80.0); Platelet Count 185 K/mm3 (142-424); Red Blood Count 4.97 M/mm3 (4.60-6.20); Red Cell Distribution Width 14.7 % (11.5-17.5); White Blood Count 6.1 K/mm3 (4.8-10.8)
[2023-03-23 08:00] VITALS: BP 100/61; PULSE 108; RESP 20; TEMP 36.6; O2SAT 91
[2023-03-23 08:39] LABS: Chloride 97 mmol/L (98-107)
[2023-03-23 08:40] LABS: Potassium 4.2 mmoL/L (3.5-5.1); Sodium 135 mmol/L (136-145)
[2023-03-23 08:42] LABS: Alanine Aminotransferase 33 U/L (12-78); Alkaline Phosphatase 109 U/L (38-126); Anion Gap 10.2 mEq/L (5-15); Aspartate Amino Transferase 39 U/L (17-59); Bilirubin,Total 0.6 mg/dl (0.2-1.3); Blood Urea Nitrogen 41 mg/dl (9-20); Carbon Dioxide 32 mmol/L (22.0-30.0); Creatinine Clearance Estimated 47 mL/min (50-200); Estimated Glomerular Filt Rate 29 ml/min (>60); GFR (African American) 35 ML/MIN (>60)
[2023-03-23 08:43] LABS: Albumin/Globulin Ratio 1.1 (1.1-1.8); Calcium 9.2 mg/dl (8.4-10.2); Globulin 3.8 g/dL (1.3-3.2); Glucose 173 mg/dl (74-100); Total Protein,Serum 7.8 g/dl (6.3-8.2)
[2023-03-23] MEDS: POLYETHYLENE GLYCOL 3350 17 GM PACKET PO (09:06)
[2023-03-23] MEDS: hydroCHLOROthiazide 25MG TABLET 25 MG PO (09:06)
[2023-03-23] MEDS: EMPAGLIFLOZIN 10MG TABLET 10 MG PO (09:07)
[2023-03-23] MEDS: CARVEDILOL 6.25MG TABLET 6.25 MG PO ×2 (09:07→20:23)
[2023-03-23] MEDS: MAGNESIUM OXIDE 400MG TABLET 400 MG PO ×2 (09:07→20:22)
[2023-03-23] MEDS: FUROSEMIDE 40 MG TABLET PO (09:07)
[2023-03-23] MEDS: LISINOPRIL 20MG TABLET 40 MG PO (09:07)
--- NOTE | 2023-03-23 10:57 | HMH.OTEV ---
OT Inpatient Evaluation Rehab OT IP Evaluation Start: 03/20/23 14:06 Freq: ONCE Status: Active Protocol: Document 03/20/23 16:20 CELESTE (Rec: 03/20/23 16:28 [email or web address] [id number]) Rehab OT IP Assessment Subjective History 77 year old male return to [facility] 3x this week due to hx of falling. Per nursing, family is concerned and is seeking placement at this time. Patient is oriented x4. Per patient, he lives alone. Independent with ADLs. Uses a straight cane to ambulate. Continues to drive. Has neighbors/friends who drive if needed. Subjective I can try to sit up. Instructed Patient on bed mobility to participate in supine->sit @ EOB. Patient able to complete task with Mod A. Patient demonstrated good dynamic sitting balance at EOB . No LOB noted. BP read 164/80 . Patient requested to lay back down due to dizziness. Patient requried Max A to lay back in bed. Reported to nursing re: BP reading at EOB. Left patient laying upright in bed with needs met and nursing at end of session. Objective Patient Orientation Person,Place,Name,Age,Birthday ,Year Right Upper Extremity Gross ROM WFL Left Upper Extremity Gross ROM WFL Bed Mobility bed mobility - supine/sit Assist Level Moderate x 1 (50% assist) Rehab OT IP prob,goals,plan Problems Date of Evaluation: 03/20/23 OT IP Problems Bed Mobility,Transfers,Balance ,Self care,Safety Rehab Potential Rehab Potential Good Equipment Needs Assistive Devices Straight Cane Plan OT intervention Plan Bed Mobility,Transfers,Balance ,Self care,Safety,Therapeutic Exercise OT Plan Frequency Daily Duration LOS Discharge Goals Bed Mobility Ability Assistance x1 Discharge Plan OT Discharge Plan With patient's history of coming to the ER 3x this past week due to medical decline and hx of falling. per nursing , family is seeking placement for patient's safety. At this time, Patient would benefit from placement in order to improve independence with ADLs and fx'l mobility. Patient to continue skilled OT IP services while here at [facility]. Eval Complexity Eval Charge Codes 86518 - Low Complexity PHYSICIAN CERTIFICATION: I certify the specified therapy services for Iwnston Garcia are required, authorized, and reviewed every 30 days.
[2023-03-23 12:38] LABS: POC Glucose,Bedside 240 (70-110)
[2023-03-23 16:00] VITALS: BP 125/62; PULSE 84; RESP 18; TEMP 36.4; O2SAT 97
[2023-03-23] MEDS: LACTATED RINGERS 1000ML 500 ML 250 ML IV (17:15)
[2023-03-23 17:55] LABS: POC Glucose,Bedside 304 (70-110)
--- NOTE | 2023-03-23 18:55 | EXP.ACUTE.PN ---
Subjective *Date: 03/23/23 *Time: 18:55 Interval history: Patient participating with therapy today. Tolerating p.o. intake. Having good urine output. Afebrile and on room air. No nausea or vomiting. Had a small bowel movement the past 24 hours. Denies chest pain or shortness of breath. Wanting to go to rehab. Medical Exam Vital signs and Labs for Last 24 Hours: Vital Signs Temp Pulse Resp BP Pulse Ox O2 Del Method O2 Flow Rate 03/23/23 18:01 Nasal Cannula 1 03/23/23 17:00 Room Air 03/23/23 16:00 97.6 F 84 18 125/62 97 Room Air 03/23/23 15:00 Room Air 03/23/23 13:00 Room Air 03/23/23 11:00 Room Air 03/23/23 08:00 Room Air 03/23/23 09:00 Room Air 03/23/23 08:00 97.8 F 108 H 20 100/61 L 91 L 03/23/23 06:56 Room Air 03/23/23 04:00 98.3 F 80 18 137/86 96 Room Air 03/23/23 04:37 Room Air 03/23/23 03:00 Room Air 03/23/23 01:00 Room Air 03/22/23 20:00 98.2 F 83 18 155/81 H 90 L Room Air 03/22/23 22:33 Room Air 03/22/23 21:00 Room Air 03/22/23 20:00 Room Air Intake and Output 03/23/23 03/23/23 03/23/23 07:59 15:59 23:59 Intake Total 240 / 1200 480 / 1200 480 / 1200 Output Total 0 / 0 0 / 0 Balance 240 / 1200 480 / 1200 480 / 1200 Intake: Intake, Oral Amount 240 / 1200 480 / 1200 480 / 1200 Output: Output, Urine Amount 0 / 0 0 / 0 Other: Number of Unmeasured Voids 1 2 Weight 118.161 kg Patient Weight 03/23/23 23:59 Weight 118.161 kg Laboratory Results - last 24 hr 03/22/23 20:29: POC Glucose 240 H 03/23/23 05:09: POC Glucose 175 H 03/23/23 07:14: WBC 6.1, RBC 4.97, Hgb 14.6, Hct 44.8, MCV 90.1, MCH 29.3, MCHC 32.5, RDW 14.7, Plt Count 185, MPV 7.8, Neut % (Auto) 59.9, Lymph % (Auto) 29.1, [place] % (Auto) 6.5, Eos % (Auto) 4.3, Baso % (Auto) 0.3, Neut # (Auto) 3.6, Lymph # (Auto) 1.8, [place] # (Auto) 0.4, Eos # (Auto) 0.3, Baso # (Auto) 0.0, Sodium 135 L, Potassium 4.2, Chloride 97 L, Carbon Dioxide 32 H, Anion Gap 10.2, BUN 41 H, Creatinine 2.20 H, Estimated Creat Clear 47, Estimated GFR 29 L, Est GFR ( Amer) 35 L, Glucose 173 H D, Calcium 9.2, Total Bilirubin 0.6, AST 39, ALT 33, Alkaline Phosphatase 109, Total Protein 7.8, Albumin 4.0, Globulin 3.8 H, Albumin/Globulin Ratio 1.1 03/23/23 12:22: POC Glucose 240 H 03/23/23 16:45: POC Glucose 304 H* I & O for Labs for Last 24 Hours: Intake & Output 03/20/23 03/21/23 03/22/23 03/23/23 23:59 23:59 23:59 23:59 Intake Total 1819 1200 / 1200 Output Total 0 / 0 0 / 0 0 / 0 0 / 0 Balance 0 / 240 1819 1200 / 1200 Weight 117.254 kg 118.66 kg 118.87 kg 118.161 kg Constitutional: Present no acute distress, obese, chronically ill appearing, disheveled and cooperative Head: Present atraumatic and normocephalic ENT: Present normal exam Neck: Present normal inspection Respiratory: Present normal respiratory effort; Absent rhonchi, wheezes or crackles Cardiac: Present Reg Rate and Rhythm GI: Present soft and normal bowel sounds; Absent distention or tenderness Extremities: Present normal inspection, full ROM and edema (trace); Absent tenderness Skin: Present intact; Absent erythema Neuro: Present Grossly Intact, alert, awake, oriented x 3 and moves all extremities Comment:: hard of hearing Assessment and Plan *Assessment and plan (1) Frequent falls: Status: Acute Category: Medical Code(s): R29.6 - Repeated falls (2) JACQUI (acute kidney injury): Status: Acute Category: Medical Code(s): N17.9 - Acute kidney failure, unspecified (3) Generalized weakness: Status: Acute Category: Medical Code(s): R53.1 - Weakness (4) Constipation: Status: Acute Category: Medical Code(s): K59.00 - Constipation, unspecified (5) Hyponatremia: Status: Acute Category: Medical Code(s): E87.1 - Hypo-osmolality and hyponatremia (6) Hearing impairment: Status: Acute Qualifiers: Hearing loss type: unspecified Laterality: bilateral Qualified Code(s): H91.93 - Unspecified hearing loss, bilateral Category: Medical Code(s): H91.90 - Unspecified hearing loss, unspecified ear (7) HTN (hypertension): Status: Acute Qualifiers: Hypertension type: primary hypertension Qualified Code(s): I10 - Essential (primary) hypertension Category: Medical Code(s): I10 - Essential (primary) hypertension (8) Chronic diastolic CHF (congestive heart failure): Status: Chronic Category: Medical Code(s): I50.32 - Chronic diastolic (congestive) heart failure (9) Diabetes mellitus with diabetic polyneuropathy: Status: Chronic Qualifiers: Diabetes mellitus type: type 2 Diabetes mellitus 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 insulin use: with mcfp use Qualified Code(s): E11.42 - Type 2 diabetes mellitus with diabetic polyneuropathy; Z79.4 - equipment operator 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 (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) use of insulin Category: Medical Code(s): E11.42 - Type 2 diabetes mellitus with diabetic polyneuropathy (10) CKD (chronic kidney disease): Status: Acute Qualifiers: Chronic kidney disease stage: stage 3 (moderate) Chronic kidney disease stage 3 subtype: stage 3a (GFR 45-59) Qualified Code(s): N18.31 - Chronic kidney disease, stage 3a Category: Medical Code(s): N18.9 - Chronic kidney disease, unspecified (11) Obesity (BMI 30-39.9): Status: Acute Category: Medical Code(s): E66.9 - Obesity, unspecified (12) Unable to care for self: Status: Acute Category: Medical Code(s): Z78.9 - Other specified health status Plan 77-year-old male obese with chronic deconditioning, HTN, HLD, heart failure, CAD, AAA status post aortic grafting, IDDM presenting with back pain, belly pain, all after a fall. Patient has been seen at ED in the past. He has had multiple complaints including abdominal pain, back pain, generalized weakness. extensive previous workup was negative. Except for mild hyponatremia. Kidney function at baseline. Head to toe CT screening negative for acute process or traumatic fracture. CT of the head concerning for chronic ischemic changes with cerebral atrophy. Findings discussed with the ER for admission. Continues to require observation, being evaluated by therapy. Needs placement. Can no longer care for himself at home. Pre-CERT begun by Lj Castillo. Anticipate discharge in the next day or 2 when accepted to rehab. Plan as follows: -Frequent falls, generalized weakness and hyponatremia: -JACQUI Fall precaution implemented PT OT consulted for eval and treatment Hyponatremia resolved, sodium 135 this morning. Tolerating p.o. intake. Creatinine has bumped to 2.2, BUN 41. Patient voiding well and feeling better. Resolution of edema. Will give gentle hydration today with 500 cc of LR over 2 hours. Continue to encourage p.o. intake. Decrease lisinopril dose for the morning. Repeat CBC, CMP, magnesium ordered for the morning Walker use when ambulates Hypertension Hyperlipidemia -Continue Lipitor 10 mg nightly, carvedilol 6.25 mg twice daily, hold Lasix tomorrow, decrease lisinopril to 20 mg daily. Continue HCTZ 25 mg daily GERD: Continue pantoprazole 40 mg nightly Diabetes: Uncontrolled, A1c 10.1. Increase glargine to 45 units tonight. Morning glucose 175, monitor for daily sliding scale needs. Continue sliding scale ACHS and fingersticks ACHS. Further adjustments to diabetic regimen during admission. Needs optimization. -Continue Jardiance 10 mg daily Obesity: complicate all Aspects of care. Patient unable to care for himself. Living by himself with complex medical conditions as one of his social determinants of health. Constipation: Small bowel movement overnight. Continue bowel regimen daily with MiraLAX Case management assisting with placement Lovenox Protonix Full code Diabetic diet
[2023-03-23 20:00] VITALS: BP 135/70; PULSE 80; RESP 16; TEMP 37.3; O2SAT 90
[2023-03-23 20:20] LABS: POC Glucose,Bedside 182 (70-110)
[2023-03-23] MEDS: ATORVASTATIN 10MG TABLET 10 MG PO (20:22)
[2023-03-23] MEDS: PANTOPRAZOLE 40MG TABLET 40 MG PO (20:22)
[2023-03-23] MEDS: INSULIN GLARGINE 100 UNITS/ML 3ML FLEXPEN 45 UNIT SQ (20:25)
[2023-03-24 04:00] VITALS: BP 157/91; PULSE 85; RESP 19; TEMP 37.2; O2SAT 90; BMI 35.2
[2023-03-24 05:49] LABS: POC Glucose,Bedside 181 (70-110)
[2023-03-24] MEDS: humaLOG 100 UNITS/ML 3ML VIAL (SSI) SQ ×3 (05:53→16:31)
[2023-03-24 07:01] LABS: Basophils % 0.2 % (0.1-2.0); Eosinophils # 0.2 K/mm3 (0.0-0.4); Eosinophils % 3.9 % (0.1-12.0); Hematocrit 40.9 % (42.0-52.0); Hemoglobin 13.7 g/dL (14.1-18.0); Lymphocytes # 1.4 K/mm3 (0.7-4.5); Lymphocytes % 24.2 % (10-50); Mean Corpuscular HGB Conc 33.5 g/dL (31.8-35.4); Mean Corpuscular Hemoglobin 29.6 pg (27.0-31.2); Mean Corpuscular Volume 88.3 fl (80-94); Monocytes # 0.3 K/mm3 (0.1-1.0); Monocytes % 4.9 % (1.7-9.3); Neutrophils % 66.8 % (37.0-80.0); Platelet Count 212 K/mm3 (142-424); Red Blood Count 4.64 M/mm3 (4.60-6.20); Red Cell Distribution Width 14.7 % (11.5-17.5); White Blood Count 5.9 K/mm3 (4.8-10.8)
[2023-03-24 07:12] LABS: Chloride 99 mmol/L (98-107); Sodium 135 mmol/L (136-145)
[2023-03-24 07:15] LABS: Alanine Aminotransferase 25 U/L (12-78); Alkaline Phosphatase 99 U/L (38-126); Aspartate Amino Transferase 29 U/L (17-59); Bilirubin,Total 0.6 mg/dl (0.2-1.3); Blood Urea Nitrogen 48 mg/dl (9-20); Creatinine Clearance Estimated 47 mL/min (50-200); Estimated Glomerular Filt Rate 29 ml/min (>60); GFR (African American) 35 ML/MIN (>60)
[2023-03-24 07:16] LABS: Albumin Level 3.9 g/dl (3.5-5.0); Albumin/Globulin Ratio 1.1 (1.1-1.8); Anion Gap 10.3 mEq/L (5-15); Calcium 8.8 mg/dl (8.4-10.2); Carbon Dioxide 30 mmol/L (22.0-30.0); Globulin 3.5 g/dL (1.3-3.2); Glucose 175 mg/dl (74-100); Potassium 4.3 mmoL/L (3.5-5.1); Total Protein,Serum 7.4 g/dl (6.3-8.2)
[2023-03-24 07:38] LABS: Magnesium 1.8 mg/dl (1.6-2.3)
[2023-03-24 07:57] VITALS: BP 123/75; PULSE 96; RESP 19; TEMP 36.8; O2SAT 92
[2023-03-24] MEDS: hydroCHLOROthiazide 25MG TABLET 25 MG PO (09:04)
[2023-03-24] MEDS: EMPAGLIFLOZIN 10MG TABLET 10 MG PO (09:04)
[2023-03-24] MEDS: MAGNESIUM OXIDE 400MG TABLET 400 MG PO (09:05)
[2023-03-24] MEDS: CARVEDILOL 6.25MG TABLET 6.25 MG PO (09:05)
[2023-03-24] MEDS: LISINOPRIL 20MG TABLET 20 MG PO (09:05)
[2023-03-24] MEDS: METFORMIN 500MG TABLET 500 MG PO ×2 (09:05→16:32)
[2023-03-24] MEDS: POLYETHYLENE GLYCOL 3350 17 GM PACKET PO (10:09)
--- NOTE | 2023-03-24 10:54 | EXP.DC.SUM ---
General Admission date:: 03/20/23 HPI HPI HPI: This is a 77-year-old male obese with chronic deconditioning, HTN, HLD, heart failure, CAD, AAA status post aortic grafting, IDDM presenting with back pain, belly pain, all after a fall. Patient has been seen at ED in the past. He has had multiple complaints including abdominal pain, back pain, generalized weakness. Extensive workup negative for anything other than duodenitis including negative hematologic labs, CT imaging of the abdomen and pelvis with contrast and with arterial phase contrast, abdominal labs, urine, etc. Patient states that when he was discharged yesterday, he had a fall when he walked in his doorway. His daughter is concerned about his ability to care for himself. Patient complaining of acute on chronic midline lumbar spine pain. He states that when he fell, he struck his head, did not lose consciousness. Other than midline back pain, patient has no complaints. No bowel or bladder dysfunction, lower extremity weakness, or any other concerns. Admitted for treatment and management. Hospital Course Hospital Course Hospital Course: 77-year-old male obese with chronic deconditioning, HTN, HLD, heart failure, CAD, AAA status post aortic grafting, IDDM presenting with back pain, belly pain, all after a fall. Patient has been seen at ED in the past. He has had multiple complaints including abdominal pain, back pain, generalized weakness. extensive previous workup was negative. Except for mild hyponatremia. Kidney function at baseline. Head to toe CT screening negative for acute process or traumatic fracture. CT of the head concerning for chronic ischemic changes with cerebral atrophy. Findings discussed with the ER for admission. Patient admitted for assistance with placement and medical management. Medications adjusted. Patient is been accepted by jL Castillo for further care and rehab. Stable for discharge today. Problems addressed as follows: -Frequent falls, generalized weakness and hyponatremia: -JACQUI on CKD Patient admitted for correction of electrolyte disturbances and medical management. Evaluated by therapy. Recommend placement given debility and weakness and frequent falls. Patient has been accepted by Lj Castillo for further care. Will discharge today to their care for rehab. Hyponatremia resolved during admission with dietary adjustment and medication adjustment. Has been tolerating good p.o. intake. Creatinine baseline appears to be 1.5-1.7. Creatinine bumped to 2.2 but has been stable at this level for 2 days with good UOP. Adjustments made to his home medications to account for JACQUI. Would benefit from repeat CBC, CMP, magnesium in 1 week to monitor electrolytes and kidney function. At this time patient needs significant assistance. Recommend walker to get around along with 1 person assist at minimum. Making good urine. Hypertension Hyperlipidemia -Adjustments made to home regimen. Will continue his Lipitor nightly, carvedilol twice daily. Recommend Lasix once daily. Discontinued HCTZ. Lisinopril decreased to 20 mg daily. Blood pressure well-controlled. GERD: Continue esomeprazole nightly Diabetes: Uncontrolled, A1c 10.1 on admission. Unsure how well he has been adhering to his regimen at home. Insulin was adjusted during admission. Will increase his glargine to 50 units nightly. Continue this at discharge. Started on Jardiance, increased to 25 mg daily for additional glucose control. Also initiated on metformin. Can continue home glipizide. Recommend fingersticks twice daily in the morning and before bed. If noting increases in glucose, recommend considering mealtime insulin. Would benefit from repeat A1c in 6 weeks. Obesity: complicate all Aspects of care. Patient unable to care for himself. Living by himself with complex medical conditions as one of his social determinants of health. Constipation: Has had small bowel movements during admission. Perseverates over his bowels. Continue bowel regimen at discharge. Goal 1-2 soft stools a day. Spent 30 minutes in discharge counseling, documentation, chart review, and direct care with patient. Exam Data for Last 24 hours Vital signs and Labs for Last 24 Hours: Temp Pulse Resp BP Pulse Ox O2 Del Method O2 Flow Rate 98.3 F 96 H 19 123/75 92 L Room Air 1 03/24/23 07:57 03/24/23 07:57 03/24/23 07:57 03/24/23 07:57 03/24/23 07:57 03/24/23 07:57 03/23/23 18:01 Laboratory Results - last 24 hr 03/23/23 12:22: POC Glucose 240 H 03/23/23 16:45: POC Glucose 304 H* 03/23/23 20:02: POC Glucose 182 H 03/24/23 05:26: POC Glucose 181 H 03/24/23 06:11: WBC 5.9, RBC 4.64, Hgb 13.7 L, Hct 40.9 L, MCV 88.3, MCH 29.6, MCHC 33.5, RDW 14.7, Plt Count 212, MPV 8.0, Neut % (Auto) 66.8, Lymph % (Auto) 24.2, [place] % (Auto) 4.9, Eos % (Auto) 3.9, Baso % (Auto) 0.2, Neut # (Auto) 4.0, Lymph # (Auto) 1.4, [place] # (Auto) 0.3, Eos # (Auto) 0.2, Baso # (Auto) 0.0, Sodium 135 L, Potassium 4.3, Chloride 99, Carbon Dioxide 30, Anion Gap 10.3, BUN 48 H, Creatinine 2.20 H, Estimated Creat Clear 47, Estimated GFR 29 L, Est GFR ( Amer) 35 L, Glucose 175 H, Calcium 8.8, Magnesium 1.8 D, Total Bilirubin 0.6, AST 29 D, ALT 25, Alkaline Phosphatase 99, Total Protein 7.4, Albumin 3.9, Globulin 3.5 H, Albumin/Globulin Ratio 1.1 I & O for Last 24 hours: Intake & Output 03/21/23 03/22/23 03/23/23 03/24/23 23:59 23:59 23:59 23:59 Intake Total 1819 1200 / 1200 240 / 240 Output Total 0 / 0 0 / 0 0 / 0 Balance 1819 1200 / 1200 240 / 240 Weight 118.66 kg 118.87 kg 118.161 kg 118.161 kg Constitutional Constitutional: no acute distress, obese, chronically ill appearing and cooperative *Routine HEENT Exam Head: Present normocephalic Eye: Present EOMI and PERRL ENT: Present mucous membranes moist *Routine Neck Exam Neck: Present supple; Absent lymphadenopathy *Routine Respiratory Exam Respiratory: Present CTA bilaterally; Absent rhonchi, wheezes or crackles *Routine Cardiovascular Exam Cardiovascular: Present RRR *Routine Abdominal Exam Abdominal: Present soft and normoactive bowel sounds; Absent tenderness, distended or rebound *Routine Rectal Exam Patient deferred: visual exam *Routine Exam Patient deferred: penile exam *Routine Extremities Exam Extremities: Absent cyanosis, clubbing or edema *Routine Skin Exam Skin: Present intact and warm; Absent rash *Routine Neurological Exam Neurological: Present alert, oriented X3 and moving all extremities; Absent altered mental status Comments: Hard of Hearing Results Data Completed and Pending Labs on day of discharge: Labs from last 24 hours 03/24/23 03/24/23 03/23/23 06:11 05:26 20:02 WBC 5.9 RBC 4.64 Hgb 13.7 L Hct 40.9 L MCV 88.3 MCH 29.6 MCHC 33.5 RDW 14.7 Plt Count 212 MPV 8.0 Neut % (Auto) 66.8 Lymph % (Auto) 24.2 [place] % (Auto) 4.9 Eos % (Auto) 3.9 Baso % (Auto) 0.2 Neut # (Auto) 4.0 Lymph # (Auto) 1.4 [place] # (Auto) 0.3 Eos # (Auto) 0.2 Baso # (Auto) 0.0 Sodium 135 L Potassium 4.3 Chloride 99 Carbon Dioxide 30 Anion Gap 10.3 BUN 48 H Creatinine 2.20 H Estimated Creat Clear 47 Estimated GFR 29 L Est GFR ( Amer) 35 L Glucose 175 H POC Glucose 181 H 182 H Calcium 8.8 Magnesium 1.8 D Total Bilirubin 0.6 AST 29 D ALT 25 Alkaline Phosphatase 99 Total Protein 7.4 Albumin 3.9 Globulin 3.5 H Albumin/Globulin Ratio 1.1 03/23/23 03/23/23 16:45 12:22 WBC RBC Hgb Hct MCV MCH MCHC RDW Plt Count MPV Neut % (Auto) Lymph % (Auto) [place] % (Auto) Eos % (Auto) Baso % (Auto) Neut # (Auto) Lymph # (Auto) [place] # (Auto) Eos # (Auto) Baso # (Auto) Sodium Potassium Chloride Carbon Dioxide Anion Gap BUN Creatinine Estimated Creat Clear Estimated GFR Est GFR ( Amer) Glucose POC Glucose 304 H* 240 H Calcium Magnesium Total Bilirubin AST ALT Alkaline Phosphatase Total Protein Albumin Globulin Albumin/Globulin Ratio DS: Diagnosis Discharge Diagnosis (1) Frequent falls: Status: Acute Code(s): R29.6 - Repeated falls (2) JACQUI (acute kidney injury): Status: Acute Code(s): N17.9 - Acute kidney failure, unspecified (3) Generalized weakness: Status: Acute Code(s): R53.1 - Weakness (4) Constipation: Status: Acute Code(s): K59.00 - Constipation, unspecified (5) Hyponatremia: Status: Acute Code(s): E87.1 - Hypo-osmolality and hyponatremia (6) Hearing impairment: Status: Acute Code(s): H91.90 - Unspecified hearing loss, unspecified ear Qualifiers: Hearing loss type: unspecified Laterality: bilateral Qualified Code(s): H91.93 - Unspecified hearing loss, bilateral (7) HTN (hypertension): Status: Acute Code(s): I10 - Essential (primary) hypertension Qualifiers: Hypertension type: primary hypertension Qualified Code(s): I10 - Essential (primary) hypertension (8) Chronic diastolic CHF (congestive heart failure): Status: Chronic Code(s): I50.32 - Chronic diastolic (congestive) heart failure (9) Diabetes mellitus with diabetic polyneuropathy: Status: Chronic Code(s): E11.42 - Type 2 diabetes mellitus with diabetic polyneuropathy Qualifiers: Diabetes mellitus usp insulin use: with hr analyst use Diabetes mellitus type: type 2 Qualified Code(s): E11.42 - Type 2 diabetes mellitus with diabetic polyneuropathy; Z79.4 - group home (current) use of insulin (10) CKD (chronic kidney disease): Status: Acute Code(s): N18.9 - Chronic kidney disease, unspecified Qualifiers: Chronic kidney disease stage: stage 3 (moderate) Chronic kidney disease stage 3 subtype: stage 3a (GFR 45-59) Qualified Code(s): N18.31 - Chronic kidney disease, stage 3a (11) Obesity (BMI 30-39.9): Status: Acute Code(s): E66.9 - Obesity, unspecified (12) Unable to care for self: Status: Acute Code(s): Z78.9 - Other specified health status Meds Home Medications and Allergies Home Medications Medication Instructions Recorded Confirmed Type glipizide 10 mg tablet 5 mg PO BIDWMEAL Diabetes 01/16/19 03/21/23 History atorvastatin 10 mg tablet 10 mg PO HS Cholesterol 90 days 02/16/23 03/21/23 Rx #90 tabs esomeprazole magnesium 20 mg 20 mg PO DAILY Acid Reflux 03/21/23 03/21/23 History capsule,delayed release carvedilol 6.25 mg tablet 6.25 mg PO BID #0 tabs 03/24/23 Rx empagliflozin 25 mg tablet 25 mg PO DAILY 30 days #30 tabs 03/24/23 Rx (Jardiance) furosemide 40 mg tablet 40 mg PO DAILY #0 tabs 03/24/23 Rx insulin glargine 100 unit/mL (3 50 unit (0.5 mL) SQ HS #0 mL 03/24/23 Rx mL) subcutaneous pen (Lantus Solostar U-100 Insulin) lisinopril 20 mg tablet 20 mg PO DAILY #0 tabs 03/24/23 Rx magnesium oxide 400 mg (241.3 mg 400 mg PO DAILY #0 tabs 03/24/23 Rx magnesium) tablet metformin 500 mg tablet 500 mg PO BIDWMEAL #0 tabs 03/24/23 Rx polyethylene glycol 3350 17 gram 17 g PO DAILY PRN Constipation #0 03/24/23 Rx oral powder packet (Miralax) ea New Prescriptions to Start Prescriptions: empagliflozin [Jardiance] Ney Torres Allergies Allergy/AdvReac Type Severity Reaction Status Date / Time ampicillin [From Unasyn] Allergy Severe S-SWELLS-OR Verified 03/20/23 13:59 AL/THROAT sulbactam [From Unasyn] Allergy Severe S-SWELLS-OR Verified 03/20/23 13:59 AL/THROAT Discharge Plan Disposition Patient Disposition: [facility] Condition: Fair Discharge Order Discharge Orders: Discharge Order (Routine); Ordered 03/24/23 Ordered By: Ney Torres Follow up Plan Prescriptions/Medication Reconciliation: New polyethylene glycol 3350 [Miralax] 17 gram Powder In Packet 17 g PO DAILY PRN (Reason: Constipation) Qty: 0 0RF metformin 500 mg Tablet 500 mg PO BIDWMEAL Qty: 0 0RF magnesium oxide 400 mg (241.3 mg magnesium) Tablet 400 mg PO DAILY Qty: 0 0RF furosemide 40 mg Tablet 40 mg PO DAILY Qty: 0 0RF carvedilol 6.25 mg Tablet 6.25 mg PO BID Qty: 0 0RF lisinopril 20 mg Tablet 20 mg PO DAILY Qty: 0 0RF insulin glargine [Lantus Solostar U-100 Insulin] 100 unit/mL (3 mL) Insulin Pen 50 unit SQ HS Qty: 0 0RF Jardiance 25 mg tablet 25 mg PO DAILY 30 Days Qty: 30 0RF Continued atorvastatin 10 mg tablet 10 mg PO HS 90 Days Qty: 90 1RF glipizide 10 MG tablet 5 mg PO BIDWMEAL esomeprazole magnesium 20 mg capsule,delayed release(DR/EC) 20 mg PO DAILY Patient Comments: TAKE ONE CAPSULE BY MOUTH ONCE DAILY Discontinued insulin degludec 200 unit/mL (3 mL) insulin pen 30 units SQ HS 90 Days lisinopril 40 mg tablet 40 mg PO BID 90 Days Qty: 180 1RF hydrochlorothiazide 25 mg tablet 25 mg PO DAILY 90 Days Qty: 90 1RF pioglitazone 45 MG tablet 45 mg PO HS furosemide 40 mg tablet 40 mg PO BIDL ferrous sulfate 325 MG tablet 325 mg PO DAILY dicyclomine 10 MG capsule 10 mg PO TID carvedilol 3.125 MG tablet 3.125 mg PO BID Problem Reconciliation Problems Reviewed?: Yes Patient Discharge Instructions ACTIVITY: Continue current activity DIET: continue same diet Patient Instructions: Exercises to Help Prevent Falls, [id number], How to Prevent Falls Providers Primary Care Provider: Gaby Lozano Admit Provider: Ney Torres Attending Provider: Ney Torres
[2023-03-24 11:30] LABS: POC Glucose,Bedside 227 (70-110)
[2023-03-24 16:31] LABS: POC Glucose,Bedside 189 (70-110)
== END 2023-03-24 17:40 ==
LOC: ER 15:13 → 2ND 18:21
PROVIDERS: Admitting Provider Internal Medicine Adolescent Medicine; Emergency Provider Emergency Medicine; PCP Nurse Practitioner Family; Visit Provider Internal Medicine Adolescent Medicine
DX: R29.6 Repeated falls (principal); E87.1 Hypo-osmolality and hyponatremia; H91.93 Unspecified hearing loss, bilateral; I10 Essential (primary) hypertension; I50.32 Chronic diastolic (congestive) heart failure; E11.42 Type 2 diabetes mellitus with diabetic polyneuropathy; Z79.4 Long term (current) use of insulin; N18.31 Chronic kidney disease, stage 3a; E66.9 Obesity, unspecified; Z78.9 Other specified health status; K59.00 Constipation, unspecified; N17.9 Acute kidney failure, unspecified; E11.22 Type 2 diabetes mellitus with diabetic chronic kidney disease; Z68.42 Body mass index [BMI] 45.0-49.9, adult
CPT/HCPCS: 36415; 70450; 72125; 72128; 72131; 72192; 80053; 82962; 83036; 83735; 85025; 93005; 97116; 97161; 97530; 99285; G0378; J2405; J3475

== ENCOUNTER 2024-10-05 08:34 | Outpatient (CLI) | payer MEDICARE, SELFPAY ==
--- OUTSIDE RECORDS SUMMARY | 2024-10-03 06:09 | XMS_ITS | Continuity of Care Document ---
Author Organization [address] [place] [address] Address [address] [facility] [address] [place] [address] Phone Care Team Providers [employer] Name Role Phone Jc Rogers DPM Unavailable Unavailable Allergies, Adverse Reactions, Alerts Substance Reaction Status Criticality ampicillin Active No Information sulbactam Active No Information Medications Medication Instructions Dosage Effective Dates (start - stop) Status Comments FeroSul 325 mg (65 mg iron) tablet - Active lidocaine 4 % topical cream - Active Farxiga 10 mg tablet - Activ e Eliquis 2.5 mg tablet - Acti ve Januvia 25 mg tablet - Activ e Myrbetriq 25 mg tablet,extended release - Active polyethylene glycol 3350 17 gram/dose oral powder - Active loratadine 10 mg tablet - Ac tive pantoprazole 40 mg tablet,delayed release - Active sertraline 25 mg tablet - Ac tive Procrit 40,000 unit/mL injection solution - Active alogliptin 25 mg tablet - Ac tive dapagliflozin propanediol 10 mg tablet - Active Skin Gel Protect Dressing Wipe - Active fluconazole 100 mg tablet - Active fluconazole 200 mg tablet - Active insulin aspart U-100 100 unit/mL subcutaneous solution - Active ketoconazole 2 % topical cream - Active fenofibrate nanocrystallized 48 mg tablet - Active docusate sodium 100 mg capsule - Active triamcinolone acetonide 0.5 % topical cream - Active dapagliflozin propanediol 5 mg tablet - Active Tradjenta 5 mg tablet - Acti ve Dexcom G6 Sensor device - Ac tive aspirin 81 mg chewable tablet - Active acetaminophen 325 mg tablet - Active cyanocobalamin (vit B-12) 1,000 mcg/mL injection solution - Active mirabegron ER 25 mg tablet,extended release 24 hr - Active oseltamivir 75 mg capsule - Active magnesium oxide 400 mg (241.3 mg magnesium) tablet - Active Vitamin D2 1,250 mcg (50,000 unit) capsule - Active oxybutynin chloride 2.5 mg tablet - Active alogliptin 12.5 mg tablet - Active Januvia 50 mg tablet - Activ e sodium chloride 0.9 % intravenous solution - Active doxycycline hyclate 100 mg tablet - Active Eliquis 5 mg tablet - Active Entresto 24 mg-26 mg tablet - Active spironolactone 25 mg tablet - Active aspirin 81 mg tablet,delayed release - Active BD Insyte Autoguard 22 gauge x 1 infusion set - Active hydroxyzine HCl 10 mg tablet - Active loperamide 2 mg tablet - Act daily nystatin 100,000 unit/gram topical powder - Active 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 - Active Dexcom G6 Transmitter device - Active fluticasone propionate 50 mcg/actuation nasal spray,suspension - Active nystatin 100,000 unit/gram topical cream - Active hydralazine 25 mg tablet - A ctive fluconazole 150 mg tablet - Active Marixa-Dryl 25 mg tablet - Act daily nitrofurantoin monohydrate/macrocrystals 100 mg capsule - Active isosorbide mononitrate ER 30 mg tablet,extended release 24 hr - Active balm mac-castor oil topical ointment - Active Nasal [place] 12 Hour (oxymetazoline) 0.05 % mist - Active albuterol sulfate HFA 90 mcg/actuation aerosol inhaler - Active Mucus Relief ER 600 mg tablet, extended release - Active prednisone 20 mg tablet - Ac tive metformin 850 mg tablet - Ac tive Jardiance 25 mg tablet - Act daily dicyclomine 20 mg tablet - A ctive carvedilol 6.25 mg tablet - Active esomeprazole magnesium 20 mg capsule,delayed release - Active furosemide 40 mg tablet - Ac tive glipizide 5 mg tablet - Acti ve lisinopril 20 mg tablet - Ac tive atorvastatin 10 mg tablet - Active BD AutoShield Duo Pen Needle 30 gauge x 04/24 - Active Basaglar Princess U-100 Insulin 100 unit/mL (3 mL) subcutaneous - Active azithromycin 250 mg tablet - Active metformin 500 mg tablet - Ac tive ondansetron HCl 4 mg tablet - Active ondansetron HCl 8 mg tablet - Active omeprazole 20 mg capsule,delayed release - Active hydrochlorothiazide 25 mg tablet - Active lisinopril 40 mg tablet TAKE ONE TABLET BY MOUTH TWICE DAILY FOR HIGH BLOOD PRESSURE - Active True Metrix Glucose Test Strip - Active carvedilol 3.125 mg tablet - Active pioglitazone 45 mg tablet - Active dicyclomine 10 mg capsule - Active glipizide 10 mg tablet - Act daily mupirocin 2 % topical ointment - Active lisinopril 10 mg tablet - Ac tive Procedures Procedure Date REMOVE IMPACTED EAR WAX FUNDUS PHOTOGRAPHY COVER EYE W/MEMBRANE external ocular photography w interp & report for document of medical progress COMPRE OPH EXAM EST PT 1/> PARING/CUTG B9 HYPRKER LES 1 DEBRIDE NAIL 1-5 Trim Dystrophic nail(s) UNLISTED ORL SERVICE/PX FULL FIELD ERG W/I&R SBSQ NF CARE MODERATE MDM 30 PARNG/CUTG B9 HYPRKR LES 2-4 DEBRIDE NAIL 1-5 Trim nail(s) PARNG/CUTG B9 HYPRKR LES 2-4 DEBRIDE NAIL 1-5 Trim nail(s) SBSQ NF CARE LOW MDM 20 REMOVE IMPACTED EAR WAX DISPENSING FEE, BINAURAL Hearing aid, digit, bin, bte Adjust Complete Denture Darryn Adjust Complete Denture Maxil Adjust Complete Denture Darryn Adjust Complete Denture Darryn SBSQ NF CARE LOW MDM 20 PURE TONE AUDIOMETRY (THRESHOLD); AIR ON LY SPEECH AUDIOMETRY THRESHOLD; WITH SPEECH RECOGNITION Complete Denture - Maxillary Complete Denture - Mandibular REMOVE IMPACTED EAR WAX PARING/CUTG B9 HYPRKER LES 1 DEBRIDE NAIL 1-5 Trim nail(s) FULL FIELD ERG W/I&R SBSQ NF CARE MODERATE MDM 30 House/Extended Care Facility Call Try In Bite Registration REMOVE IMPACTED EAR WAX Complete Series Of Radiographic Images M Denture Impression House/Extended Care Facility Call DEBRIDE NAIL 1-5 Trim nail(s) 1ST NF CARE SF/LOW MDM 25 Low extemity neur exam docum Compsve Oral Eval- New/Est Pat FUNDUS PHOTOGRAPHY COMPRE OPH EXAM NEW PT 1/> Advance Directives Directive Yes / No Effective Date File Name Resuscitation Do Not Attempt Resuscitation/DNR N/A N/A Other Directive No N/A N/A WARNING:The information contained in this section is historical and is provided for information only and does not constitute a legal document or any assurance that the information is still accurate. Please verify the information with the teixeira of the legal document before using it for clinical purposes. Encounters Encounter Description Practice Location Reason(s) For Visit Diagnoses Date Provider Providers Copied on Encounter [address] [place] [address], [id number] [place] [address], [id number], tel:[phone] [facility] No Information Ken Greene. [address] [facility], [facility] [address], [place], [id number], [place]. tel:[phone] [place] [address], [address], [id number], tel:[phone] [facility] ear care exam (chief complaint) Impacted cerumen, bilateral 5 [place]. Referring Provider: Charlie Graf. [address] [place] [address], [address] [place] [address], [place], [place], [id number], tel:[phone] [facility] Hypertensive retinopathy, bilateralType 2 diabetes mellitus without complicationsOt her chronic allergic conjunctivitisP unctate keratitis, bilateralPuncta te keratitis, right eye 5 [place], [place]. Referring Provider: Charlie Graf. [address] [place] [address], [address] [place] [address], [place], [place], [id number], tel:[phone] [facility] No Information 5 [place], [place]. [address] [place] [address], [address] [place] [address], [place], [place], [id number], tel:[phone] [facility] Onychogryphosis Nail dystrophyCorns and callositiesType 2 diabetes mellitus with diabetic peripheral angiopathy without gangreneLong term (current) use of insulinLong term (current) use of oral hypoglycemic drugs 5 Ken Greene. [address] [place] [address], [facility] [address], [place], [place], [id number], [place]. tel:[phone] Referring Provider: Charlie Graf. [address] [place] [address], [address] [place] [address], [place], [place], [id number], [place] tel:[phone] [facility] Unspecified hearing loss, bilateral 5 [place], [place]. Referring Provider: Charlie Graf. [facility] NF CARE MODERATE MDM [address] [place] [address], [place], [place], [id number], tel:[phone] [facility] Medical eye problem (chief complaint) Hypertensive retinopathy, bilateral Feb-0 5 [place], [place]. Referring Provider: Charlie Graf. [address] [place] [address], [address] [facility], [place], [place], [id number], [place] tel:[phone] [facility] Onychogryphosis Nail dystrophyCorns and callositiesOthe r specified peripheral vascular diseases 5 Ken Greene. [address] [facility], [address], [place], [place], [id number], [place]. tel:[phone] Referring Provider: Charlie Graf. [facility] NF CARE LOW MDM [address] [place] [address], [address] [facility] [place], [place], [id number], [place] tel:[phone] [facility] Onychogryphosis Nail dystrophyCorns and callositiesCont usion of left foot, initial encounterOther specified peripheral vascular diseases 4 Ken Greene. [address] [facility], [address], [place], [place], [id number], [place]. tel:[phone] Referring Provider: Charlie Graf. [address] [place] [address], [address] [address], [place], [place], [id number], [place] tel:[phone] [facility] ear care exam (chief complaint) Impacted cerumen, bilateral 4 [place], [place]. Referring Provider: Charlie Graf. [address] [place] [address], [address] [place], [place] [address], [place], [place], [id number], [place] tel:[phone] [facility] Unspecified hearing loss, bilateral 4 [facility]. , [place]. Referring Provider: Charlie Graf. [address] [place] [address], [address] [place], [place] [address], [place], [place], [id number], [place] tel:[phone] [facility] Encounter for fitting and adjustment of dental prosthetic device 4 Sofía Rodas. [address] [facility], [address], [place], [address], [place]. tel:[phone] Referring Provider: Charlie Graf. [address] [place] [address], [address] [place] [address], [place], [place], [id number], [place] tel:[phone] [facility] Encounter for fitting and adjustment of dental prosthetic device Oct- 4 Sofía Rodas. [address] [facility], [address], [place], [address], [place]. tel:[phone] Referring Provider: Charlie Graf. [address] [place] [address], [address] [place] [address], [place], [place], [id number], [place] tel:[phone] [facility] Encounter for fitting and adjustment of dental prosthetic device Sep-3 0- 4 Adrián [place], [place]. Referring Provider: Charlie Graf. [facility] CARE LOW MDM [address] [place] [address], [address] [place] [address], [place], [place], [id number], [place] tel:[phone] [facility] Ingrowing nail Sep-2 4 Ken Greene. [address] [facility], [address], [place], [place], [id number], [place]. tel:[phone] Referring Provider: Charlie Graf. [address] [place] [address], [address] [place] [address], [place], [place], [id number], [place] tel:[phone] [facility] Unspecified hearing loss, bilateral Sep-2 - 4 Lorna [place]. Referring Provider: Charlie Graf. [address] [place] [address], [address] [place] [address], [place], [place], [id number], [place] tel:[phone] [facility] Complete loss of teeth, unspecified cause, unspecified class Sep-1 4 Sofía Rodas. [address] [place] [address], [address], [place], [address], [place]. tel:[phone] Referring Provider: Charlie Graf. [address] [place] [address], [address] [place] [address], [place], [place], [id number], [place] tel:[phone] [facility] ear care exam (chief complaint) Impacted cerumen, bilateral 4 Aaron Interiano. , [place]. Referring Provider: Charlie Graf. [address] [place] [address], [address] [facility] [address], [place], [place], [id number], [place] tel:[phone] [facility] Onychogryphosis Nail dystrophyCorns and callositiesOthe r specified peripheral vascular diseases 4 Ken Greene. [address] [facility], [address], [place], [place], [id number], [place]. tel:[phone] [facility] NF CARE MODERATE MDM [address] [place] [address], [address] [place] [address], [place], [place], [id number], [place] tel:[phone] [facility] Medical eye problem (chief complaint) Hypertensive retinopathy, bilateral 4 Nino Perry. , [place]. Referring Provider: Charlie Graf. [address] [place] [address], [address] [place], [place] [address], [place], [place], [id number], [place] tel:[phone] [facility] Encounter for dental examination and cleaning without abnormal findings 4 Anthony Wolfe. [address] [facility], [address], [place], [place], [id number], [place]. tel:[phone] Referring Provider: Charlie Graf. [address] [place] [address], [address] [place] [address], [place], [place], [id number], [place] tel:[phone] [facility] No Information 4 Sofía Rodas. [address] [facility], [address], [place], [address], [place]. tel:[phone] Referring Provider: Charlie Graf. [address] [place] [address], [address] [facility] [address], [place], [place], [id number], [place] tel:[phone] [facility] ear care exam (chief complaint) Impacted cerumen, bilateral 4 Aaron Interiano. , [place]. Referring Provider: Charlie Graf. [address] [place] [address], [address] [place] [address], [place], [place], [id number], [place] tel:[phone] [facility] Encounter for dental examination and cleaning without abnormal findings 4 [place]. tel:[phone] Referring Provider: Charlie Graf. 1ST CARE SF/LOW MDM [address] [place] [address], [address] [place], [place] [address], [place], [place], [id number], tel:[phone] [facility] Onychogryphosis Nail dystrophyOther specified peripheral vascular diseasesType 2 diabetes mellitus with diabetic peripheral angiopathy without gangrene 4 Ken Greene. [address] [place] [address], [address], [place], [place], [id number], [place]. tel:[phone] Referring Provider: Charlie Graf. [address] [place] [address], [address] [place], [place] [address], [place], [place], [id number], tel:[phone] [facility] Encounter for dental examination and cleaning without abnormal findings 4 Ray[place]undo [place], [place], [place]. tel:[phone] Referring Provider: Charlie Graf. [address] [place] [address], [address] [place] [address], [place], [place], [id number], tel:[phone] [facility] Itching and tearing (chief complaint) Other chronic allergic conjunctivitisT ype 2 diabetes mellitus without complicationsHy pertensive retinopathy, bilateral 4 Nino [place] , [place]. Referring Provider: Charlie Graf. [address] [place] [address], [address] [place] [address], [place], [place], [id number], [place] tel:[phone] [facility] No Information 4 Nino [place] , [place]. Family History Family Member Type Diagnosis Age At Onset No Information Payers Payer name Insurance type Covered republican ID Authoriza tion(s) [employer] Medicare [id number] Medicaid [facility] [id number] Social History Type Description Quantity Date Captured Comments Sex Male Smoking Status No Information Chief Complaint And Reason For Visit No Information Reason For Referral Reason For Referral No Information Plan Of Treatment Date Type Action Status Appointment Winston Garcia BOOKED Appointment Winston Garcial Medicare Advantage/ Dental Medicaid BOOKED Patient Education Learning About Dental Care and Your Health Problem completed Patient Education Learning About Dental Care and Your Health Problem completed History Of Present Illness Encounter Date Complaint History Of Prese nt Illness Medical eye problem The 78 year old patient presents for evaluation of Medical eye problem in the right eye and left eye. It occurs always. The onset was gradual. The symptom is constant. ERG due to presence of hypertensive retinpathy OU. Medical eye problem The 77 year old patient presents for evaluation of Medical eye problem in the right eye and left eye. It occurs always. The onset was gradual. The symptom is constant. ERG due to hypertensive retinopathy OU. Itching and tearing The 77 year old patient presents for evaluation of Itching and tearing in the right eye and left eye. It occurs with no pattern. It affects VA not affected. The symptom is frequent. Functional Status Date Functional Assessmen t No Information Instructions Date Instruction Additional Infor salazar Performed cerumen re moval as per protocol. AU cleared. Follow up for reevaluation for chronic cerumen impaction. Related to Impacted cerumen, bilateral Return in 6-9 months for dry eye eval. Related to Punctate keratitis, bilateral Impression/Plan - Rx Pataday ophthalmic solution qd OU Related to Other chronic allergic conjunctivitis Follow up - Return i n 6-9 months for dry eye eval. 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 Use artificial tears bid OU. Related to Punctate keratitis, bilateral Impression/Plan - No active diabetic retinopathy present in either eye. We will monitor at regular intervals. Photodocument. Related to Type 2 diabetes mellitus without complications Impression/Plan - Mi ld retinal vascular changes consistent with hypertension. Minimal occlusive risk. Related to Hypertensive retinopathy, bilateral All of the thickened or mycotic nails described were debrided in both length and thickness. The nails were debrided using a nail nipper only. The patient tolerated the procedure well. Related to Onychogryphosis All dystrophic nails were trimmed as needed to prevent pain and other symptoms. Related to Nail dystrophy All callosities were debrided/pared to smooth intact skin prevent further tissue breakdown and pain. Related to Corns and callosities Return in 6-9 months for ERG TDS 16. Related to Hypertensive retinopathy, bilateral All callosities were debrided/pared to smooth intact skin prevent further tissue breakdown and pain. Related to Corns and callosities All dystrophic nails were trimmed as needed to prevent pain and other symptoms. Related to Nail dystrophy All of the thickened or mycotic nails described were debrided in both length and thickness. The nails were debrided using a nail nipper only. The patient tolerated the procedure well. Related to Onychogryphosis Impression/Plan - ER G results are abnormal OU; monitor for changes. Related to Hypertensive retinopathy, bilateral Follow up - Return i n 6-9 months for ERG TDS16. Related to Hypertensive retinopathy, bilateral All of the thickened or mycotic nails described were debrided in both length and thickness. The nails were debrided using a nail nipper only. The patient tolerated the procedure well. Related to Onychogryphosis All dystrophic nails were reduced as needed to prevent pain and other symptoms. Related to Nail dystrophy All callosities were debrided/pared to smooth intact skin prevent further tissue breakdown and pain. Related to Corns and callosities Nursing Staff should Monitor affected area for trophic changes, pain, or Signs of infection. Should redness, drainage, or edema arise; have patient follow up with primary care for appropriate treatment Related to Contusion of left foot, initial encounter Performed cerumen re moval as per protocol. AU cleared. Follow up for reevaluation for chronic cerumen impaction. Related to Impacted cerumen, bilateral Return for a periodi c hearing aid check at the next facility visit. Related to Unspecified hearing loss, bilateral Nail Trimmed and smo othed to alleviate pressure on the adjacent soft tissue. No ulceration or signs of infection. Patient tolerated well and voiced instant reliefWill follow up with patient at next visit for continued routine foot care Had discussion with nursing staff regarding today's visit and desired plan of care Related to Ingrowing nail Return for a hearing aid fitting . Related to Unspecified hearing loss, bilateral Performed cerumen re moval as per protocol. AU cleared. Follow up for reevaluation for chronic cerumen impaction. Patient declines referral to occupational therapy supervisor at this time. Related to Impacted cerumen, bilateral All callosities were debrided/pared to smooth intact skin prevent further tissue breakdown and pain. Related to Corns and callosities All dystrophic nails were reduced as needed to prevent pain and other symptoms. Related to Nail dystrophy All of the thickened or mycotic nails described were debrided in both length and thickness. The nails were debrided using a nail nipper only. The patient tolerated the procedure well. Related to Onychogryphosis Return in 6-9 months for ERG. Re lated to Hypertensive retinopathy, bilateral Impression/Plan - ER G is normal OU; monitor for changes. Related to Hypertensive retinopathy, bilateral Follow up - Return i n 6-9 months for ERG. Related to Hypertensive retinopathy, bilateral Performed cerumen re moval as per protocol. AU cleared. Follow up for reevaluation for chronic cerumen impaction. Patient declines referral to occupational therapy supervisor at this time. Related to Impacted cerumen, bilateral Diabetic foot exam p erformed; patient advised on appropriate shoe gear and the importance of maintaining foot health by blood glucose control, daily foot checks, and regular podiatry check-ups. Related to Type 2 diabetes mellitus with diabetic peripheral angiopathy without gangrene All dystrophic nails were reduced as needed to prevent pain and other symptoms. Related to Nail dystrophy All of the thickened or mycotic nails described were debrided in both length and thickness. The nails were debrided using a nail nipper only. The patient tolerated the procedure well. Related to Onychogryphosis Return in 12-15 nate hs for dilated fundus exam. Return in 3-6 months for ERG. Related to Hypertensive retinopathy, bilateral Impression/Plan - Za diator bid OU for itchy eyes. Related to Other chronic allergic conjunctivitis Impression/Plan - Mi ld retinal vascular changes consistent with hypertension. Minimal occlusive risk. Related to Hypertensive retinopathy, bilateral Follow up - Return i n 12-15 months for dilated fundus exam. Return in 3-6 months for ERG. Related to Hypertensive retinopathy, bilateral Impression/Plan - No active diabetic retinopathy present in either eye. We will monitor at regular intervals. Related to Type 2 diabetes mellitus without complications Assessments Type Assessment Date No Information Patient Care Teams Name Effective Dates (start - stop) Status Members No Information
--- OUTSIDE RECORDS SUMMARY | 2024-10-05 08:37 | XMS_ITS ---
Author Organization Lj Care Team Providers Care Sales And Service Representative Name Role Phone Marisa Rodrigues Unavailable Unavailable Orlando Waldron Unavailable Unavailable Ольга Rahman Unavailable Unavailable Charlie Graf Unavailable Unavailable Ca, Dali Unavailable Unavailable Allergies and adverse reactions Code CodeSystem Substance Reaction Severity StartDate Concern Status 88540 RXNORM Sulbactam Severe 03/24/2023 active 7454 RXNORM Macrobid Unknown 10/07/2023 active 733 RXNORM Ampicillin Severe 03/24/2023 active Care Team Name Role Address Phone Organization Dates Charlie Graf [facility] [address] , [place], [address], [facility] (Office): : : [place] 01/29/2024 - 10/04/2024 Marisa Rodrigues [facility] (Office): [place] 01/29/2024 - 10/04/2024 Orlando Waldron [facility] (Office): [place] 01/29/2024 - 10/04/2024 Ольга Rahman [facility] (Office): [place] 01/29/2024 - 10/04/2024 Dali ePnaloza [address] [facility] [place], [place], [address], [place] (Office): [place] 01/29/2024 - 10/04/2024 Goals Section Goals Description Status Target Date The resident will be free fr om contractures and maintain current level of ROM function AEB: Resident will participate in AROM to BUE and BLE with supervision/cueing as ordered through review date Active 11/13/2024 The resident will be free of infection, pain or bleeding in the oral cavity by/through review date. Active 11/13/2024 1. Nose will show signs of improvement by next r eview date Active 11/13/2024 2. Dry patchy skin to top of right foot will show signs of improvement by next review date. Active 11/13/2024 3. Callous to right lateral sole of foot will be without s/s of worsening through review date. Active 11/13/2024 4. blanchable redness to joe ateral buttock will show s/s of improvement by next review date. Active 11/13/2024 5. rash will improve by next review date. Active 11/13/2024 Advanced Directives will be honored. Active 11/13/2024 No s/s of hypo/hyperglycemia Active 06/2024 Optimal cognition will be maintained with no avani idable decline. Active 11/13/2024 Pain will be managed with goal range. Active 11/13/2024 Prevent/heal wounds and prevent avoidable skin b reakdown. Active 11/13/2024 Resident will have a normal bowel movement at least every 3 days through the review date. Active 11/13/2024 Resident will have improveme nt in cough without complications through review Active 11/13/2024 Resident will not be exposed to know allergen and be free of allergic reaction through the review date. Active 11/13/2024 Resident will not exhibit s/ s of recurring infection through next review Active 11/13/2024 Resident will not experience a recurrence of identified stressor while in the facility. Active 11/13/2024 Resident will not have any a dverse outcomes related to their nutritional status through the next review. Active 11/13/2024 Resident will not have recurring infection throu gh the next review Active 11/13/2024 Staff will recognize s/s of complications and/or changes of status and notify MD thru next review date. Active 11/13/2024 The resident will be able to function at the fullest potential possible as outlined by the interdisciplinary team through the review date. Active 11/13/2024 The resident will be able to make basic needs known on a daily basis through the review date. Active 11/13/2024 The resident will be free fr om discomfort or adverse reactions related to anticoagulant use through the review date. Active 11/13/2024 The resident will have no s/ sx of complications relate to fluid overload through the review date. Active 11/13/2024 The resident will maintain c urrent level of function with ambulation AEB: will ambulate with FWW for 50-100ft with CGA x1, distance as tolerated/varies through review date Active 11/13/2024 The resident will maintain n ormal breathing pattern as evidenced by normal respirations, normal skin color, and regular respiratory rate/pattern through the review date. Active 11/13/2024 The resident will remain jose e from discomfort, complications or s/sx related to gastro-intestinal alterations through review date. Active 11/13/2024 Will achieve/maintain maximum functional mobilit y. Active 11/13/2024 Will attend/participate in activities of choice. Active 11/13/2024 Will be free of psychosocial wellbeing and mood change complications Active 11/13/2024 Will benefit from medication without adverse eff ects. Active 11/13/2024 Will consume adequate fluids to maintain hydrati on. Active 11/13/2024 Will have needs met by assistance of staff as ne eded. Active 11/13/2024 Will have no cardiac complications. Active 11/13/2024 Will have no further falls. Active 06/2024 Will have reduction of behavioral episodes. Acti ve 11/13/2024 Will not develop any complications associated wi th incontinence. Active 11/13/2024 Will remain free of any adve rse outcomes from need for oxygen use through next review. Active 11/13/2024 Immunizations Immunization Status Vaccine Details Vaccine Code CodeSystem Date Notes Influenza completed Influenza, high-dose, split virus, quadrivalent, injectable, preservative free 197 CVX created date: 12/07/2023 administer ed date: 01/16/2023 TB 1 Step Mantoux (PPD) completed tuberculin skin test; unspecified formulation lotNumber: [id number] expiry: 07/08/2025 Mfg: sanofi pasteur Given 0.1 ml Right Forearm intradermally 98 CVX created date: 04/12/2024 consent date: 04/09/2024 administer ed date: 04/11/2024 Educated by on 08/04/2024 TB 2 Step Mantoux Skin Test completed tuberculin skin test; unspecified formulation lotNumber: [id number] expiry: 04/09/2024 Mfg: Sanofi pasteur Given 0.1 ml Right Forearm intradermally Step 2 of Multi-step with next step required 98 CVX created date: 04/27/2023 consent date: 04/27/2023 administer ed date: 04/27/2023 TB 2 Step Mantoux Skin Test completed tuberculin skin test; unspecified formulation lotNumber: [id number] expiry: 05/10/2026 Mfg: Sanofi pasteur Given 0.1 ml Right Forearm intradermally Step 1 of Multi-step with next step required 98 CVX created date: 04/20/2023 consent date: 04/20/2023 administer ed date: 04/20/2023 Pneumococcal Prevnar 20 completed Pneumococcal conjugate vaccine 20-valent (PCV20), polysaccharide [id number] conjugate, adjuvant, preservative free 216 CVX created date: 12/07/2023 administer ed date: 01/16/2023 Covid 19 Moderna Booster completed SARS-COV-2 (COVID-19) vaccine, mRNA, spike protein, LNP, preservative free, 100 mcg/0.5mL dose or 50 mcg/0.25mL dose 207 CVX created date: 12/07/2023 administer ed date: 05/03/2020 covid 19 Moderna 1st Dose completed SARS-COV-2 (COVID-19) vaccine, mRNA, spike protein, LNP, preservative free, 100 mcg/0.5mL dose or 50 mcg/0.25mL dose 207 CVX created date: 12/07/2023 administer ed date: 04/05/2020 Medications Section Medication Name Status Code CodeSystem Dose Route Frequency Admin Type Sig Text Start Date End Date Mirabegron ER Oral Tablet Extended Release 24 Hour 25 MG active 049666 1 RXNORM 1 tablet Oral one time a day Routine Give 1 tablet by mouth one time a day for overclaudia herrerae r 2024 - Apixaban Oral Tablet 2.5 MG active 204235 5 RXNORM 2.5 mg Oral every 12 hours Routine Give 2.5 mg by mouth every 12 hours for Histor y DVT 2024 - Pantoprazole Sodium Oral Tablet Delayed Release 40 MG active 608715 RXNORM 1 tablet Oral two times a day Routine Give 1 tablet by mouth two times a day for GI 2024 - Sertraline HCl Oral Tablet 25 MG active 554495 RXNORM 1 tablet Oral one time a day Routine Give 1 tablet by mouth one time a day for depres gigi 2024 - Tetrahydrozol ine HCl Ophthalmic Solution 0.05 % active 523852 3 RXNORM 1 drop Ophthal anita one time a day Routine Instil l 1 drop in both eyes one time a day for itchin g 2024 - Furosemide Oral Tablet 20 MG active 859627 RXNORM 1 tablet Oral in the morning Routine Give 1 tablet by mouth in the mornin g every other day for CHF 2024 - MiraLax Oral Powder 17 GM/SCOOP active 482418 RXNORM 1 scoop Oral one time a day Routine Give 1 scoop by mouth one time a day for consti pation 2024 - Claritin Oral Tablet 10 MG active 655738 RXNORM 1 tablet Oral in the morning Routine Give 1 tablet by mouth in the mornin g for ALLERG IES 2024 - Insulin Pen Needle Miscellaneous 29G X 5MM active 1 applic ator Subcuta neous at bedtime Routine Inject 1 applic ator subcut aneous ly at bedtim e for DM 2024 - Diclofenac Sodium External Gel 1 % active 386655 RXNORM n/a n/a Topical every day and body joiner Routine Apply to lower extrem ity joints topica lly every day and body joiner for pain *Apply 4 grams* 2024 - Farxiga Oral Tablet 10 MG active 817994 7 RXNORM 1 tablet Oral one time a day Routine Give 1 tablet by mouth one time a day for DM2, CHF 2024 - Lantus SoloStar Subcutaneous Solution Pen-injector 100 UNIT/ML active 337993 RXNORM 30 unit Subcuta neous two times a day Routine Inject 30 unit subcut aneous ly two times a day for DM2 2024 - NovoLOG Injection Solution 100 UNIT/ML active 894548 RXNORM 5 unit Subcuta neous with meals Routine Inject 5 unit subcut aneous ly with meals for DM2 2024 - Skin Prep Wipes Miscellaneous active n/a n/a Topical every day and body joiner Routine Apply to Right latera l sole foot topica lly every day and body joiner for Callou s to right latera l sole of foot. 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) 2024 - Ferrous Sulfate Oral Tablet 325 (65 Fe) MG active 335849 RXNORM 1 tablet Oral one time a day Routine Give 1 tablet by mouth one time a day for supple ment relate d to IRON DEFICI ENCY ANEMIA SECOND DODIE TO BLOOD LOSS (CHRON IC) (D50.0 ) 2024 - Carvedilol 12.5 MG Tablet active 589538 RXNORM 1 tablet Oral two times a day Routine Give 1 tablet by mouth two times a day relate d to ESSENT IAL (PRIMA RY) HYPERT ENSION (I10) Hold for SBP< 100 or Heartr ate < 60 2024 - Artificial Tears Ophthalmic Solution active 1 drop Ophthal anita two times a day Routine Instil l 1 drop in both eyes two times a day for Kerati tis 2024 - Calmoseptine External Ointment 0.44-20.6 % active 284194 1 RXNORM n/a n/a Topical every day and body joiner Routine Apply to buttoc k rednes s topica lly every day and body joiner for rednes s 2024 - Dexcom G7 Oxygraph Operator Device active 1 device Subcuta neous every day and body joiner Routine Inject 1 device subcut aneous ly every day and body joiner for Ensure device is within 20 ft of reside nt at all time 2024 - Dexcom G7 Sensor Miscellaneous active 1 applic ation Subcuta neous every day shift Routine Inject 1 applic ation subcut aneous ly every day shift every 10 day(s) for Change q14 days or once indica kelly by receiv er device relate d to 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) 2024 - Gold Ramesh Healing External Lotion aborted n/a n/a Topical every day and body joiner Routine Apply to face and neck topica lly every day and body joiner for faint rash 09/17 Benadryl Allergy Oral Capsule 25 MG complete d 468558 0 RXNORM 25 mg Oral as needed PRN Give 25 mg by mouth every 6 hours as needed for allerg ic reacti on until 2024 07:59 09/09 Suprep Bowel Prep Kit Oral Solution 17.5-3.13-1.6 GM/177ML aborted 16 ounce Oral one time only One Time Only Give 16 ounce by mouth one time only for pre op for 1 Day 16 oz of suprep and 3 glasse s of water 09/15 MiraLax Oral Packet complete d 1 dose Oral every 4 hours Routine Give 1 dose by mouth every 4 hours for pre op orders for 1 Day 09/14 Suprep Bowel Prep Kit Oral Solution 17.5-3.13-1.6 GM/177ML aborted 16 ounce Oral one time only One Time Only Give 16 ounce by mouth one time only for pre op for 1 Day 16 oz of suprep and 3 glasse s of water 09/15 Triamcinolone Acetonide External Cream 0.5 % complete d 950842 6 RXNORM n/a n/a Topical every shift Routine Apply to face and neck topica lly every shift for rash for 14 Days 09/275 Marixa-Tussin Oral Liquid complete d 10 ml Oral as needed PRN Give 10 ml by mouth every 6 hours as needed for cough/ conges tion for 7 Days 09/22 Acetaminophen Tablet 325 MG complete d 800826 RXNORM 2 tablet Oral as needed PRN Give 2 tablet by mouth every 8 hours as needed for Mild Pain until 2024 02:05 More than 3 doses in 48 hours, notify physic alphonso/sol shaffer ce provid er(BRIAN ).Do not exceed 3g/day . (stand ing order) 09/20 Ketoconazole External Cream 2 % active 20290916 RXNORM n/a n/a Topical every evening and body joiner Routine Apply to face/e ars topica lly every evenin g and body joiner for dermat itis for 30 Days 11/03 Ketoconazole External Cream 2 % aborted 20290916 RXNORM n/a n/a Topical every evening and body joiner Routine Apply to face/e ars topica lly every evenin g and body joiner for dermat itis 10/03 Mental Status Section Date Assessment Total Score Description 07/10/2024 BIMS 14 cognitively int act CAM 0 No delirium ind icated PHQ-9 01 minimal depress ion 04/09/2024 BIMS 15 cognitively int act CAM 0 No delirium ind icated PHQ-9 00 Problems Problem # Description Date of onset Resolved Date Code CodeSystem Concern Status 1 VASCULAR DEMENTIA, MODERATE, WITH ANXIETY [address] active 2 VASCULAR DEMENTIA, MODERATE, WITH MOOD DISTURBANCE [address] active 3 CHRONIC OR UNSPECIFIED DUODENAL ULCER WITH HEMORRHAGE [address] active 4 ACUTE AND CHRONIC RESPIRATORY FAILURE, UNSPECIFIED WHETHER WITH HYPOXIA OR HYPERCAPNIA [address] active 5 DIFFICULTY IN WALKING, NOT ELSEWHERE CLASSIFIED [address] active 6 ACUTE KIDNEY FAILURE, UNSPECIFIED [address] active 7 DISORIENTATION, UNSPECIFIED [address] active 8 IRON DEFICIENCY ANEMIA SECONDARY TO BLOOD LOSS (CHRONIC) [address] active 9 PNEUMONIA, UNSPECIFIED ORGANISM 04/01/[address] completed 10 ACUTE CYSTITIS WITH HEMATURIA 024 02/01/[address] completed 11 ANXIETY DISORDER, UNSPECIFIED 010088607 SNOMED CT active 12 NEED FOR ASSISTANCE WITH PERSONAL CARE 02031614807242945 SNOMED CT active 13 ACUTE KIDNEY FAILURE, UNSPECIFIED 10/05/[address] completed 14 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 20175574 SNOMED CT active 15 DEHYDRATION 10/05/[address] completed 16 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 643247655433136 SNOMED CT active 17 HYPOTENSION, UNSPECIFIED 75399614 SNOMED CT active 18 OTHER SPECIFIED DISORDERS INVOLVING THE IMMUNE MECHANISM, NOT ELSEWHERE CLASSIFIED 780650681 SNOMED CT active 19 SYNCOPE AND COLLAPSE 10/05/[address] completed 20 UNSPECIFIED SYMPTOMS AND SIGNS INVOLVING THE NERVOUS SYSTEM [address] active 21 COVID-19 024 09/21/[address] completed 22 ACUTE RESPIRATORY FAILURE WITH HYPOXIA 024 09/22/[address] completed 23 PNEUMONIA DUE TO CORONAVIRUS DISEASE 2019 024 09/22/[address] completed 24 IRRITABILITY AND ANGER [address] active 25 UNSPECIFIED DEMENTIA, MODERATE, WITHOUT BEHAVIORAL DISTURBANCE, PSYCHOTIC DISTURBANCE, MOOD DISTURBANCE, AND ANXIETY [address] active 26 ATHEROSCLEROTIC HEART DISEASE OF [place] CORONARY ARTERY WITHOUT ANGINA PECTORIS [address] active 27 ACUTE KIDNEY FAILURE, UNSPECIFIED 024 06/10/[address] completed 28 CEREBRAL ISCHEMIA [address] active 29 CHRONIC DIASTOLIC (CONGESTIVE) HEART FAILURE [address] active 30 CHRONIC KIDNEY DISEASE, STAGE 3A [address] active 31 CONSTIPATION, UNSPECIFIED 024 10/05/[address] completed 32 DUODENITIS WITHOUT BLEEDING [address] active 33 ESSENTIAL (PRIMARY) HYPERTENSION [address] active 34 GASTRO-ESOPHAGEAL REFLUX DISEASE WITHOUT ESOPHAGITIS [address] active 35 HYPERLIPIDEMIA, UNSPECIFIED [address] active 36 LOW BACK PAIN, UNSPECIFIED [address] active 37 MORBID (SEVERE) OBESITY DUE TO EXCESS CALORIES [address] active 38 OBESITY, UNSPECIFIED 024 04/06/[address] completed 39 RESPIRATORY DISORDERS IN DISEASES CLASSIFIED ELSEWHERE 024 03/24/[address] completed 40 TYPE 2 DIABETES MELLITUS WITH DIABETIC POLYNEUROPATHY [address] active 41 UNSPECIFIED HEARING LOSS, UNSPECIFIED EAR [address] active 42 WEAKNESS [address] active 43 MUSCLE WEAKNESS (GENERALIZED) [address] active 44 OTHER LACK OF COORDINATION [address] active Reason for Referral No Reasons for Referral Entered Diagnostic Results Result Code Code System Date Test Result Interpretation Reference Range Status Notes [id number] LOINC 09/30 URINALYSIS / CULTURE, URINE / PROTEIN/CRE ATININE RATIO,UR Completed Result for: WINSTON GARCIA ( 1945, M) [phone] 99-9 LOINC 09/28 CULTURE, URINE Value: . Units: Normal Final (Final) Source: URINE 40-50,000 CFU/mL ESCHERICHIA COLI 40-50,000 CFU/mL PROTEUS MIRABILIS <10,000 CFU/mL MIXED SKIN INEZ, NO SENS DONE Sensitivity E. COLI PROETUS MIRABILIS A MP/SULBACTA M I 16/8 S <=8/4 AMPICILLIN R >16 R >16 BACTRIM (TRIMETH/S S <=2/38 S <=2/38 CEFAZOLIN S <=2 I 4 CEFTRIAXON E S <=1 S <=1 CIPROFLOXI TONY S <=0.25 R >2 GENTAMICIN S <=2 S <=2 LEVOFLOXAC IN S <=0.5 R >4 NITROFURAN TOIN S <=32 PIPERACILL IN/TAZOB S <=8 S <=8 TOBRAMYCIN S <=2 S <=2 5778-6 [facility] 09/28 COLOR Value: LIGHT YELLOW Units: Normal YELLOW Final 08779-1 [facility] 09/28 CLARITY Value: CLEAR Units: Normal CLEAR Final 2349-9 [facility] 09/28 GLUCOSE,UR Value: 4+ Units: Abnormal NEGATIVE Final 1977-8 [facility] 09/28 BILIRUBIN,U R Value: NEGATIVE Units: Normal NEGATIVE Final 58442-7 [facility] 09/28 KETONES,UR Value: NEGATIVE Units: Normal NEGATIVE Final 2965-2 [facility] 09/28 SPECIFIC GRAVITY Value: 1.022 Units: Normal 1.001-1.03 0 Final 5794-3 [facility] 09/28 BLOOD,UR Value: NEGATIVE Units: Normal NEGATIVE Final 2756-5 [facility] 09/28 PH, URINE Value: 5.5 Units: Normal 5.0-8.5 Final 96122-6 [facility] 09/28 PROTEIN,UR Value: NEGATIVE Units: Normal NEGATIVE Final 5818-0 [facility] 09/28 UROBILINOGE N,UR Value: NEGATIVE Units: Normal NEGATIVE Final 5802-4 [facility] 09/28 NITRITE,UR Value: NEGATIVE Units: Normal NEGATIVE Final 5799-2 [facility] 09/28 LEUKOCYTES, UR Value: NEGATIVE Units: Normal NEGATIVE Final 8247-9 [facility] 09/28 MUCOUS Value: PRESENT Units: Abnormal ABSENT Final 24259-5 [facility] 09/28 BUDDING YEAST Value: PRESENT Units: Abnormal ABSENT Final 73456-4 [facility] 09/28 RBC,UR Value: 0-2 Units: /HPF Normal <6 Final 5821-4 [facility] 09/28 WBC,UR Value: 0-2 Units: /HPF Normal <6 Final 25251-9 [facility] 09/28 CREATININE, URINE Value: 68.4 Units: mg/dL Normal SEE BELOW Final NO NORMAL RANGES ESTABLISHED FOR RANDOM SPECIMENS 2888-6 [facility] 09/28 URINE PROTEIN Value: 23 Units: mg/dL Normal SEE BELOW Final Verified NO NORMAL RANGES ESTABLISHED FOR RANDOM SPECIMENS 2890-2 [facility] 09/28 PROTEIN/CRE ATININE RATIO Value: 336.3 Units: mg/g{crea t} Normal <200.0 Final Verified [id number] [facility] 09/28 CMP-COMPREH ENSIVE METABOLIC PNL / URIC ACID / GLYCO-HGBA1 C / IRON / FERRITIN / CBC W/DIFF / PTH, INTACT / VITAMIN D 25-OH TOTAL Completed Result for: WINSTON GARCIA ( 1945, M) 99130-8 [facility] 09/28 GFR- Value: 33 Units: mL/min/{1 .73_m2} Low >60 Final 95949-1 [facility] 09/28 GFR-NON-AFR ICAN [place] Value: 28 Units: mL/min/{1 .73_m2} Low >60 Final Stage of CKD eGFR (mL/min/1.7 3 square meters) Stage 1 >/= 90 or > 90 Stage 2 60 - 89 Stage 3 30 - 59 Stage 4 15 - 29 Stage 5 </= 14 or < 15 GFR is reliable for adults 17 to 69 years with stable kidney function. 82373-3 [facility] 09/28 VITAMIN D 25-OH TOTAL Value: 18 Units: ng/mL Low 30-100 Final 2276-4 [facility] 09/28 FERRITIN Value: 11 Units: ng/mL Low 29-307 Final 17490-2 [facility] 09/28 CALCIUM Value: 8.3 Units: mg/dL Low 8.6-10.3 Final 35255-0 [facility] 09/28 eAG (Mean Glucose) Value: 169 Units: mg/dL High 70-120 Final 1975-2 [facility] 09/28 BILIRUBIN, TOTAL Value: 0.3 Units: mg/dL Normal 0.2-1.2 Final 2345-7 [facility] 09/28 GLUCOSE Value: 143 Units: mg/dL High Final GLUCOSE, FASTING 65-99 mg/dL GLUCOSE, NON-FASTING 65-125 mg/dL 771-6 [facility] 09/28 NUCLEATED RBC Value: 0.3 Units: {RBC}/100 {WBC} Normal <1.0 Final 785-6 [facility] 09/28 MCH Value: 27.3 Units: pg Normal 26.0-35.0 Final 2731-8 [facility] 09/28 PTH, INTACT Value: 131 Units: pg/mL High 15-65 Final 2498-4 [facility] 09/28 IRON Value: 32 Units: ug/dL Low 50-212 Final 6768-6 [facility] 09/28 ALKALINE PHOS Value: 98 Units: [IU]/L Normal 38-126 Final 19208 [facility] 09/28 AST (SGOT) Value: 9 Units: [IU]/L Low 14-36 Final 17426 [facility] 09/28 ALT (SGPT) Value: 8 Units: [IU]/L Normal 7-52 Final 6690-2 [facility] 09/28 WBC Value: 5.8 Units: K/cmm Normal 4.5-10.8 Final 10908-4 [facility] 09/28 MCV Value: 87.2 Units: fL Normal 80.0-100.0 Final 00289-2 [facility] 09/28 MPV Value: 7.4 Units: fL Normal 6.5-12.0 Final 786-4 [facility] 09/28 MCHC Value: 31.3 Units: g/dL Normal 31.0-36.5 Final 2885-2 [facility] 09/28 PROTEIN, TOTAL Value: 6.8 Units: g/dL Normal 6.0-8.3 Final 1751-7 [facility] 09/28 ALBUMIN Value: 3.4 Units: g/dL Low 3.5-5.5 Final 718-7 [facility] 09/28 HEMOGLOBIN Value: 11.2 Units: g/dL Low 14.0-18.0 Final 777-3 [facility] 09/28 PLATELET Value: 210 Units: K/cmm Normal 150-450 Final 751-8 [facility] 09/28 NEUTS (ABSOLUTE) Value: 3.80 Units: K/uL Normal 1.50-7.60 Final 731-0 [facility] 09/28 LYMPHS (ABSOLUTE) Value: 1.30 Units: K/uL Normal 0.90-5.50 Final 742-7 [facility] 09/28 MONOCYTES (ABSOLUTE) Value: 0.40 Units: K/uL Normal 0.15-1.10 Final 711-2 [facility] 09/28 EOS (ABSOLUTE) Value: 0.30 Units: K/uL Normal 0.20-0.80 Final 704-7 [facility] 09/28 BASO (ABSOLUTE) Value: 0.10 Units: K/uL Normal 0.00-0.30 Final 789-8 [facility] 09/28 RBC Value: 4.10 Units: 10*3/mm3 Normal 4.00-6.60 Final 2951-2 [facility] 09/28 SODIUM Value: 142 Units: mEq/L Normal 136-145 Final 282-3 [facility] 09/28 POTASSIUM Value: 4.0 Units: mEq/L Normal 3.5-5.3 Final 2074-0 [facility] 09/28 CHLORIDE Value: 108 Units: mEq/L Normal 98-110 Final 2027- [facility] 09/28 CARBON DIOXIDE (CO2) Value: 24 Units: mEq/L Normal 21-33 Final 309-0 [facility] 09/28 BUN (UREA NITROGEN) Value: 33 Units: mg/dL High 7-25 Final 216-0 [facility] 09/28 CREATININE Value: 2.3 Units: mg/dL High 0.6-1.3 Final 308- [facility] 09/28 URIC ACID Value: 7.7 Units: mg/dL Normal 2.5-8.9 Final 309- [facility] 09/28 BUN/CREATIN INE RATIO Value: 14 Units: Normal 6-25 Final 1759-0 [facility] 09/28 A/G RATIO Value: 1.0 Units: Normal 0.8-2.0 Final 123-999 99-9 [facility] 09/28 ANISOCYTOSI S Value: 1+ Units: Abnormal NEGATIVE Final 770-8 LOINC 09/28 NEUTROPHILS Value: 64.2 Units: % Normal 40.0-80.0 Final 736-9 LOINC 09/28 LYMPHS Value: 21.8 Units: % Normal 13.0-48.0 Final 43449-6 LOINC 09/28 MONOCYTES Value: 7.6 Units: % Normal 2.0-12.0 Final 713-8 LOINC 09/28 EOS Value: 5.1 Units: % Normal 0.0-8.0 Final 706-2 LOINC 09/28 BASO Value: 1.3 Units: % Normal 0.0-2.0 Final 4543-3 [facility] 09/28 HEMATOCRIT Value: 35.7 Units: % Low 42.0-54.0 Final 788-0 [facility] 09/28 RDW Value: 16.9 Units: % High 11.0-16.0 Final 8-4 [facility] 09/28 GLYCOHEMOGL OBIN-HGBA1C Value: 7.5 Units: % High 4.1-6.1 Final OK0753- 6 [facility] 09/12 CBC W/DIFF Completed Result for: NICK WINSTON ( 1945, M) 770-8 [facility] 09/12 NEUTROPHILS Value: 63.4 Units: % Normal 40.0-80.0 Final 736-9 LOINC 09/12 LYMPHS Value: 23.1 Units: % Normal 13.0-48.0 Final 41990-4 LOINC 09/12 MONOCYTES Value: 7.5 Units: % Normal 2.0-12.0 Final 713-8 LOINC 09/12 EOS Value: 5.3 Units: % Normal 0.0-8.0 Final 706-2 LOINC 09/12 BASO Value: 0.7 Units: % Normal 0.0-2.0 Final 4-3 LOINC 09/12 HEMATOCRIT Value: 34.6 Units: % Low 42.0-54.0 Final 788-0 LOINC 09/12 RDW Value: 17.5 Units: % High 11.0-16.0 Final 751-8 [facility] 09/12 NEUTS (ABSOLUTE) Value: 4.30 Units: K/uL Normal 1.50-7.60 Final 731-0 [facility] 09/12 LYMPHS (ABSOLUTE) Value: 1.60 Units: K/uL Normal 0.90-5.50 Final 742-7 [facility] 09/12 MONOCYTES (ABSOLUTE) Value: 0.50 Units: K/uL Normal 0.15-1.10 Final 711-2 [facility] 09/12 EOS (ABSOLUTE) Value: 0.40 Units: K/uL Normal 0.20-0.80 Final 789-8 [facility] 09/12 RBC Value: 4.02 Units: 10*3/mm3 Normal 4.00-6.60 Final 718-7 [facility] 09/12 HEMOGLOBIN Value: 11.3 Units: g/dL Low 14.0-18.0 Final 786-4 [facility] 09/12 MCHC Value: 32.5 Units: g/dL Normal 31.0-36.5 Final 777-3 [facility] 09/12 PLATELET Value: 223 Units: K/cmm Normal 150-450 Final 6690-2 [facility] 09/12 WBC Value: 6.8 Units: K/cmm Normal 4.5-10.8 Final 74072-9 [facility] 09/12 MCV Value: 86.2 Units: fL Normal 80.0-100.0 Final 63818-9 [facility] 09/12 MPV Value: 8.3 Units: fL Normal 6.5-12.0 Final 785-6 [facility] 09/12 MCH Value: 28.1 Units: pg Normal 26.0-35.0 Final 123-999 99-9 [facility] 09/12 ANISOCYTOSI S Value: 1+ Units: Abnormal NEGATIVE Final 771-6 [facility] 09/12 NUCLEATED RBC Value: 0.5 Units: {RBC}/100 {WBC} Normal <1.0 Final Test Code Code System Name Date 09/28/2024 URINALYSIS 09/28/2024 PROTEIN/CREATININE RATIO,UR 09/28/2024 CMP-COMPREHENSIVE METABOLIC PNL 09/28/2024 09/28/2024 CMP-COMPREHENSIVE METABOLIC PNL 09/28/2024 GLYCO-HGBA1C 09/28/2024 CMP-COMPREHENSIVE METABOLIC PNL 09/28/2024 CBC W/DIFF 09/28/2024 09/28/2024 CMP-COMPREHENSIVE METABOLIC PNL 09/28/2024 CBC W/DIFF 09/28/2024 CMP-COMPREHENSIVE METABOLIC PNL 09/28/2024 CBC W/DIFF 09/28/2024 CMP-COMPREHENSIVE METABOLIC PNL 09/28/2024 09/28/2024 CMP-COMPREHENSIVE METABOLIC PNL 09/28/2024 CBC W/DIFF 09/28/2024 GLYCO-HGBA1C 09/28/2024 CBC W/DIFF 09/12/2024 Social History Social History Observation Description Start Date End Date Code Code System Current Smoking Status Tobacco smoking consumption unknown 599186673 SNOMED CT Sex Assigned At Male 1945 22553-1 [facility] Gender Identity Vital Signs Code Code System Vitals Name Values and Units Timing Information 8462-4 [facility] Blood Pressure-Diastolic Value=86 Un its=mmHg 10/04/2024 8480-6 [facility] Blood Pressure-Systolic Ggygc=814 Un its=mmHg 10/04/2024 2339-0 [facility] Blood Sugar Fsifl=305.0 Units=mg/dL 10/04/2024 26430-7 [facility] Pain Level Value=0.0 10/04/2024 8867-4 [facility] Heart rate Value=60.0 Units=/min 9279-1 [facility] Respiratory Rate Value=18.0 Units=/m in 09/30/2024 8310-5 [facility] Body Temperature Value=97.6 Units= F 09/30/2024 37861-7 [facility] O2 % dC Oximetry Value=94.0 Units= % 09/30/2024 31370-0 [facility] Weight Bonkb=568.6 Units=Lbs 8302-2 [facility] Height Value=68.0 Units=Inches 04/03/2024
[2024-10-05 08:46] LABS: Hematocrit 35.4 % (42.0-52.0); Hemoglobin 10.9 g/dL (14.1-18.0); Immature Granulocytes % 0.2 %; Mean Corpuscular HGB Conc 30.8 g/dL (31.8-35.4); Mean Corpuscular Hemoglobin 27.3 pg (27.0-31.2); Mean Corpuscular Volume 88.5 fl (80-94); Nucleated Red Blood Cells % 0 %; Platelet Count 134 K/mm3 (142-424); Red Blood Count 4.00 M/mm3 (4.60-6.20); Red Cell Distribution Width-SD 50.3 fL; White Blood Count 6.5 K/mm3 (4.8-10.8)
[2024-10-05 08:51] LABS: Albumin Level 3.8 g/dl (3.5-5.0); Chloride 111 mmol/L (98-107)
[2024-10-05 08:52] LABS: Potassium 4.4 mmoL/L (3.5-5.1); Sodium 143 mmol/L (136-145)
[2024-10-05 08:54] LABS: Alanine Aminotransferase 11 U/L (12-78); Albumin/Globulin Ratio 1.1 (1.1-1.8); Anion Gap 10.4 mEq/L (5-15); Aspartate Amino Transferase 19 U/L (17-59); Blood Urea Nitrogen 32 mg/dl (9-20); Carbon Dioxide 26 mmol/L (22.0-30.0); Creatinine,Serum 2.20 mg/dl (0.66-1.25); Estimated Glomerular Filt Rate 29 ml/min (>60); GFR (African American) 35 ML/MIN (>60); Globulin 3.6 g/dL (1.3-3.2); Total Protein,Serum 7.4 g/dl (6.3-8.2)
[2024-10-05 08:55] LABS: Alkaline Phosphatase 111 U/L (38-126); Bilirubin,Total 0.4 mg/dl (0.2-1.3); Calcium 8.8 mg/dl (8.4-10.2); Cholesterol 129 mg/dl (140-200); Glucose 139 mg/dl (74-100); HDL Cholesterol 23 mg/dl (40-60); Triglycerides 112 mg/dl (30-150)
[2024-10-05 23:09] LABS: Hemoglobin A1C 7.4 % (4.0-6.0)
== END 2024-10-05 23:59 | disposition home or self-care (01) ==
PROVIDERS: PCP Family Medicine; Visit Provider Family Medicine
DX: E11.42 Type 2 diabetes mellitus with diabetic polyneuropathy (principal); E78.5 Hyperlipidemia, unspecified; I10 Essential (primary) hypertension; D50.8 Other iron deficiency anemias
CPT/HCPCS: 36415; 80053; 80061; 83036; 85025

== ENCOUNTER 2024-10-11 19:35 | Inpatient (IN) | payer MEDICARE, SELFPAY ==
[2024-10-11 19:41] VITALS: BP 125/62; PULSE 112; RESP 17; TEMP 38.3; O2SAT 94; BMI 34.9
--- NOTE | 2024-10-11 19:42 | ECG_ITS ---
APPROVED REPORT Exam: Resting ECG HR:105 bpm ECG Measurements Heart Rate 105 AXES AK 169 P 28 QRSd 93 QRS 26 QT 332 T 51 QTc 393 Conclusion SINUS TACHYCARDIA POSSIBLE INFERIOR MYOCARDIAL INFARCTION , PROBABLY OLD [30 ms Q WAVE IN II/aVF] ABNORMAL RHYTHM ECG UNCONFIRMED REPORT Sinus tachycardia. No ST elevation or depression. QTc of 393 Electronically signed by : COMPA MCKEON, 10/12/2024 00:06:36
--- NOTE | 2024-10-11 19:43 | CT_ITS ---
PROCEDURE INFORMATION: Exam: CT Abdomen And Pelvis With Contrast Exam date and time: 10/11/2024 8:24 PM Age: 78 years old Clinical indication: Nausea and vomiting TECHNIQUE: Imaging protocol: Computed tomography of the abdomen and pelvis with contrast. 3D rendering (Not supervised by radiologist): MIP and/or 3D reconstructed images were created by the technologist. Radiation optimization: All CT scans at this facility use at least one of these dose optimization techniques: automated exposure control; mA and/or kV adjustment per patient size (includes targeted exams where dose is matched to clinical indication); or iterative reconstruction. Contrast material: ISOVUE; Contrast volume: 80 ml; Contrast route: IV; COMPARISON: CT [facility] PELVIS 03/20/2023 3:51 PM FINDINGS: Liver: Hepatomegaly 18 cm Gallbladder and biliary ducts: The gallbladder is unremarkable Pancreas: Normal. No ductal dilation. Spleen: Splenomegaly 14 cm Adrenal glands: Normal. No mass. Kidneys and ureters: There is no evidence of renal or ureteral calcifications. 2.4 cm simple cyst left kidney. . No follow-up imaging recommended . 3.3 x 2.6 cm Possible mass in the inferior aspect of the right kidney (series 5, image 55 ) . Recommend nonemergent evaluation of the mass with MR without and with contrast or CT without and with contrast. MR is preferred for masses under 1.5 cm. Stomach and bowel: Diverticulosis of the rectosigmoid. No diverticulitis Appendix: Normal appendix Intraperitoneal space: Unremarkable. No free air. No significant fluid collection. Vasculature: Aortic iliac bypass. [place] aorta 3.56 x 3.46 cm Lymph nodes: Unremarkable. No enlarged lymph nodes. Urinary bladder: Unremarkable as visualized. Reproductive: Radionuclide seeds in the prostate Bones/joints: Unremarkable. No acute fracture. Soft tissues: Unremarkable. IMPRESSION: Possible mass in the inferior aspect of the right kidney (series 5, image 55 ) . Recommend nonemergent evaluation of the mass with MR without and with contrast or CT without and with contrast. MR is preferred for masses under 1.5 cm. Splenomegaly.Differential diagnosis of splenomegaly is lymphoma/leukemia, mononucleosis, hemolytic anemia, portal hypertension. Aortic iliac bypass. [place] aorta 3.56 x 3.46 cm COMMENTS: Consistent with the [employer]'s Incidental Findings Committee white paper (J Am Bella Radiol 2018): Any incidental renal lesion less than 1 cm or classified as too small to characterize, or any incidental cystic renal lesion characterized as simple-appearing, is likely benign. No follow-up imaging is recommended for these lesions per consensus recommendations based on imaging criteria.
--- NOTE | 2024-10-11 19:43 | CT_ITS ---
PROCEDURE INFORMATION: Exam: CTA Chest With Contrast Exam date and time: 10/11/2024 8:24 PM Age: 78 years old Clinical indication: Shortness of breath; Additional info: Short of breath TECHNIQUE: Imaging protocol: Computed tomographic angiography of the chest with contrast. Exam focused on the arteries. 3D rendering (Not supervised by radiologist): MIP and/or 3D reconstructed images were created by the technologist. Radiation optimization: All CT scans at this facility use at least one of these dose optimization techniques: automated exposure control; mA and/or kV adjustment per patient size (includes targeted exams where dose is matched to clinical indication); or iterative reconstruction. Contrast material: ISO 370; Contrast volume: 80 ml; Contrast route: INTRAVENOUS (IV); COMPARISON: CR XR CHEST PORTABLE 10/18/2020 2:02 AM FINDINGS: Pulmonary arteries: No evidence of pulmonary embolus to the segmental level. 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 Nodule between the aorta and IVC measures 20 x 18 mm ( series 5, image 127). May represent part of a vascular structure versus retroperitoneal lymph node.. No dissection of the aorta. Lungs: Bibasilar atelectasis Pleural spaces: Unremarkable. No pneumothorax. No pleural effusion. Heart: Unremarkable. No cardiomegaly. No pericardial effusion. Coronary arteries: Coronary artery calcifications may indicate coronary artery disease. Lymph nodes: Calcified mediastinal nodes consistent with prior granulomatous disease Liver: Lobulated liver consistent with cirrhosis Bones/joints: Unremarkable. No acute fracture. Soft tissues: Unremarkable. IMPRESSION: 1. No evidence of pulmonary embolus to the segmental level. 2. 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 3. Nodule between the aorta and IVC measures 20 x 18 mm ( series 5, image 127). May represent part of a vascular structure versus retroperitoneal lymph node.. 4. No dissection of the aorta.
--- NOTE | 2024-10-11 19:47 | [facility]H.EDGENADL ---
Discharge Plan Disposition Patient Disposition: Admitted Clinical Impressions Clinical Impression: JACQUI (acute kidney injury), Acute hypoxic respiratory failure, Sepsis Discharge ED Provider: Wing Ruth General Adult HPI <Georgia Wright (ED), JUNIOR WEB DEVELOPER - Last Filed: 10/11/24 21:28> General Chief complaint: Nausea/Vomiting/Diarrhea Stated complaint: Nausea Time Seen by Provider: 10/11/24 19:36 History of Present Illness HPI narrative: 78-year-old male presents today from retirement in [place] for nausea, vomiting and fevers since yesterday. He arrived to the ED via EMS with a temp of 100.9. His oxygen was 75% on room air upon my arrival to the room. We placed 2-1/2 L of O2 on him and went up to 91%. Patient does have history of CHF, hypertension, CKD JACQUI, diabetes and mobility issues he does use a wheelchair at the retirement. Patient is a DNR. Related Data Home Medications ?Medication ?Instructions ?Recorded ?Confirmed apixaban 2.5 mg tablet 2.5 mg PO BID 10/06/24 10/11/24 carvedilol 12.5 mg tablet 12.5 mg PO BID 10/06/24 10/11/24 dapagliflozin propanediol 10 mg 10 mg PO DAILY 10/06/24 10/11/24 tablet (Farxiga) diclofenac sodium 1 % topical gel 2 g topical QID 10/06/24 10/11/24 (Arthritis Pain (diclofenac)) ferrous sulfate 325 mg (65 mg 325 mg PO DAILY 10/06/24 10/11/24 iron) tablet furosemide 20 mg tablet (Lasix) 20 mg PO DAILY 10/06/24 10/11/24 insulin glargine 100 unit/mL (3 30 unit SQ BID 10/06/24 10/11/24 mL) subcutaneous pen (Lantus Solostar U-100 Insulin) ketoconazole 2 % topical cream 1 applic topical DAILY 10/06/24 10/11/24 mirabegron 25 mg tablet,extended 25 mg PO DAILY 10/06/24 10/11/24 release 24 hr pantoprazole 40 mg tablet,delayed 40 mg PO BID 10/06/24 10/11/24 release polyethylene glycol 3350 17 17 g PO DAILY 08/28/25 09/02/25 gram/dose oral powder (Miralax) sertraline 25 mg tablet 25 mg PO DAILY 10/06/24 10/11/24 sitagliptin phosphate 25 mg tablet 25 mg PO DAILY 10/06/24 10/11/24 (Januvia) tetrahydrozoline 0.05 % eye drops 1 drp ophthalmic (eye) TID 10/06/24 10/11/24 insulin aspart U-100 100 unit/mL 1 sliding scale dose SQ ACHS 10/11/24 10/11/24 subcutaneous solution (Novolog U-100 Insulin aspart) loratadine 10 mg tablet 10 mg PO DAILY 10/11/24 10/11/24 Allergies Allergy/AdvReac Type Severity Reaction Status Date / Time ampicillin (From Unasyn) Allergy Severe S-SWELLS-OR Verified 03/20/23 13:59 AL/THROAT sulbactam (From Unasyn) Allergy Severe S-SWELLS-OR Verified 03/20/23 13:59 AL/THROAT nitrofurantoin (From Allergy Verified 10/06/24 15:15 Macrobid) [facility] <Georgia Wright (ED)SAL - Last Filed: 10/11/24 21:28> [facility] Disclaimer: The information contained in this section may have been updated after the patient was seen, as this information can be updated by other users. Medical History (Updated 10/11/24 @ 23:50 by Myrna Bryant APRN) Hearing loss GERD (gastroesophageal reflux disease) Hypertension Chronic diastolic heart failure Atherosclerotic heart disease Vascular dementia Diabetes type 2 Iron deficiency anemia Hyperlipidemia Duodenitis without bleeding Chronic kidney disease Cerebral ischemia Hypertension Alteration in physical mobility Constipation Back pain Diastolic dysfunction HTN (hypertension) History of GI bleed Abnormal electrocardiography Dyspnea Surgical History History of endovascular stent graft for abdominal aortic aneurysm Social History (Updated 10/11/24 @ 23:45 by Kelsea Mccormack RN) Smoking Status: Unknown if ever smoked alcohol intake: former substance use type: denies use current occupational status: retired Travel in the last 8 weeks?: None housing: retirement marital status: caffeine: Yes kitty/congregational: [employer] Have you lived/traveled outside US in past 30 days?: No Contact w/someone who lives/traveled outside US past 30 days?: No Exposure to someone with infectious disease in past 14 days?: No Do you have a fever (greater than 100.4 F or 38 C)?: No Have you tested positive for COVID-19?: No Exposed to someone with COVID-19 in past 14 days?: No Do you have a sore throat?: No Do you have a cough?: No Do you have any weakness?: No Are you experiencing any nausea/vomitting?: No Do you have any diarrhea?: No Are you experiencing any unusual bleeding?: No Do you have any muscle aches/pain?: No Do you have any abdominal pain?: No Are you experiencing loss of taste or smell?: No Other Medical History Have you received the Flu Vaccine for this season: No Have you received the Pneumonia Vaccine: No (unknown) <Georgia Wright (ED), JUNIOR WEB DEVELOPER - Last Filed: 10/11/24 21:28> ROS Obtained: Yes Systems reviewed as appropriate & no additional complaints except as documented Constitutional Constitutional: Reports as per HPI Physical Exam <Georgia Wright (ED), JUNIOR WEB DEVELOPER - Last Filed: 10/11/24 21:28> General General appearance: alert and in no apparent distress Head Head exam: normocephalic Eye Eye exam: Present PERRL and EOMI ENT ENT exam: Present normal oropharynx and mucous membranes moist Neck Neck exam: Present full ROM and trachea midline Respiratory Respiratory exam: Present other (Rhonchi) Cardiovascular Cardiovascular exam: Present regular rate, normal rhythm, normal heart sounds, +S1 and +S2 Abdominal Exam Abdominal exam: Present soft and normal bowel sounds Extremities Exam Extremities exam: Present normal inspection, full ROM and normal capillary refill Back Exam Back exam: Present normal inspection Neurological Exam Neurological exam: Present alert and other (Patient is able to answer questions but some confusion present) Skin Skin exam: Present warm, dry and intact Medical Decision Making <Georgia Wright (ED), JUNIOR WEB DEVELOPER - Last Filed: 10/11/24 21:28> Medical Records Screening: Per USPSTF and CDC recommendations, given the prevalence of disease in our region, it is our hospital?s policy to screen for HIV and viral Hepatitis for all patients aged 18 and over and those with ongoing risk factors. Nelson Inquiry Pt receiving controlled substance: No Nelson was queried for this patient: No Vital Signs: 10/11/24 19:41 10/11/24 21:15 10/11/24 22:50 Temperature 100.9 F H 98.2 F Temperature Source Oral Pulse Rate 96 H 84 Pulse Rate [Left] 112 H Respiratory Rate 17 16 21 Blood Pressure 130/57 L 124/56 L Blood Pressure [Right Arm] 125/62 Blood Pressure Mean [Right Arm] 83 02 Sat by Pulse Oximetry 94 L 95 Oxygen Delivery Method Nasal Cannula Room Air Oxygen Flow Rate (LPM) 2 Lab Data Lab Results 10/11/24 19:35: WBC 9.0, RBC 4.00 L, Hgb 10.8 L, Hct 35.1 L, MCV 87.8, MCH 27.0, MCHC 30.8 L, RDW 15.5, Plt Count 143, MPV 9.6, Neut % (Auto) 90.7 H, Lymph % (Auto) 4.6 L, Dixie % (Auto) 3.3, Eos % (Auto) 0.7, Baso % (Auto) 0.3, Neut # (Auto) 8.1 H, Lymph # (Auto) 0.4 L, Dixie # (Auto) 0.3, Eos # (Auto) 0.1, Baso # (Auto) 0.0, Total Counted 100, Neutrophils % (Manual) 72, Band Neutrophils % 21 H, Lymphocytes % (Manual) 5 L, Atypical Lymphs % 2, Platelet Estimate Not Reportable, RBC Morphology Not Reportable, ESR 48 H, PT 12.4, INR 1.13 H, APTT 27.6, Sodium 139, Potassium 4.1, Chloride 108 H, Carbon Dioxide 24, Anion Gap 11.1, BUN 40 H, Creatinine 2.70 H, Estimated Creat Clear 36, Estimated GFR 23 L, Est GFR ( Amer) 28 L, Glucose 188 H, Lactate 0.9, Calcium 8.7, Total Bilirubin 0.9, AST 25, ALT 16, Alkaline Phosphatase 134 H, Total Creatine Kinase 97, C-Reactive Protein 109.2 H, NT-Pro-B Natriuret Pep 2300 H, Total Protein 7.6, Albumin 3.7, Globulin 3.9 H, Albumin/Globulin Ratio 0.9 L, HIV Ag/Ab Combo Qual Negative 10/11/24 21:23: Chlamy pneumoniae PCR Not detected, Adenovirus (PCR) Not detected, B. pertussis DNA (PCR) Not detected, Coronavirus OC43 (PCR) Not detected, Coronavirus HKU1 (PCR) Not detected, Coronavirus 229E (PCR) Not detected, SARS-CoV-2 (PCR) Not detected, Coronavirus NL63 (PCR) Not detected, Human Metapneumovir PCR Not detected, Influenza A (H1) PCR Not detected, Influ A (H1N1/09) PCR Not detected, Influenza A (H3) PCR Not detected, Influenza Type A (PCR) Not detected, Influenza Type B (PCR) Not detected, M. pneumoniae (PCR) Not detected, Parainfluenza 1 (PCR) Not detected, Parainfluenza 2 (PCR) Not detected, Parainfluenza 3 (PCR) Not detected, Parainfluenza 4 (PCR) Not detected, RSV (PCR) Not detected, Entero/Rhino (PCR) Not detected 10/11/24 19:35 10/11/24 19:35 Orders (Tests/Meds): ED MEDICATIONS Generic Name Dose Route Start Last Admin Trade Name Freq PRN Reason Stop Dose Admin Acetaminophen 650 mg 10/11/24 22:27 Acetaminophen 325mg Tab PO 11/10/24 22:26 Q4HP PRN Fever or Mild Pain (1-3) Hydrocodone Bitart/Acetaminophen 1 tab 10/11/24 22:27 Hydrocodone/Apap 5/325 Mg Tablet PO 11/10/24 22:26 Q4HP PRN Mild to Moderate Pain (1-6) Al Hydrox/Mg Hydrox/Simethicone 30 ml 10/11/24 22:27 Aluminum/Magnesium/Simethicone 30ml Udc PO 11/10/24 22:26 QIDP PRN Dyspepsia Furosemide 40 mg 10/12/24 09:00 Furosemide 40mg/4ml Vial IV 11/11/24 08:59 DAILY TIA Heparin Sodium (Porcine) 5,000 unit 10/12/24 09:00 Heparin Sodium 5,000 Unit/Ml Vial SUBCUT 11/11/24 08:59 TID TIA Ceftriaxone Sodium 1 gm/ 50 mls @ 100 mls/hr 10/11/24 23:45 Sodium Chloride IV 10/21/24 23:44 Q24H TIA Insulin Human Lispro 0 unit 10/12/24 06:00 Humalog 100 Units/Ml 10ml Vial (Ssi) SUBCUT 11/11/24 05:59 ACHS TIA Protocol Ondansetron HCl 4 mg 10/11/24 22:27 Ondansetron 4mg/2ml Vial IV 11/10/24 22:26 Q8HP PRN Nausea Sodium Chloride 8 ml 10/11/24 19:42 10/11/24 19:56 Sodium Chloride 0.9% 10ml Vial IV 11/10/24 19:41 8 ml NEEDED PRN Administration dilute pepcid Discontinued Medications Generic Name Dose Route Start Last Admin Trade Name Freq PRN Reason Stop Dose Admin Acetaminophen 1,000 mg 10/11/24 19:37 10/11/24 19:56 Acetaminophen 1,000mg/100ml Vial IV 10/11/24 19:38 1,000 mg ONCE ONE Administration Famotidine 20 mg 10/11/24 19:42 10/11/24 19:56 Famotidine 20mg/2ml Vial IV 10/11/24 19:43 20 mg ONCE ONE Administration Cefepime HCl 2 gm/ Sodium 100 mls @ 200 mls/hr 10/11/24 19:37 10/11/24 20:52 Chloride IV 10/11/24 20:06 Infused ONCE ONE Infusion Iopamidol 80 ml 10/11/24 20:28 10/11/24 20:29 Iopamidol-370 (76%);100ml Bottle IV 10/11/24 20:29 80 ml ONCE ONE Administration Ondansetron HCl 4 mg 10/11/24 19:42 10/11/24 19:57 Ondansetron 4mg/2ml Vial IV 10/11/24 19:43 4 mg ONCE ONE Administration Sodium Chloride 50 ml 10/11/24 20:28 10/11/24 20:29 0.9 % Sodium Chloride 50 Ml Vial IV 10/11/24 20:29 50 ml ONCE ONE Administration Sodium Chloride 10 ml 10/11/24 20:28 10/11/24 20:29 Sodium Chloride 0.9% 10ml Syr (Rad Only) IV 10/11/24 20:29 10 ml ONCE ONE Administration ORDERS Category Date Time Status CT abdomen pelvis w con Stat Cat Scan 10/11/24 19:43 Completed CTA Chest [CT angio chest PE protocol] Stat Cat Scan 10/11/24 19:43 Completed Activated Partial Thrombo Time Stat Lab 10/11/24 19:35 Completed BNP [NT Pro Brain Natriuretic Pep.] Stat Lab 10/11/24 19:35 Completed Basic Metabolic Panel AMLAB Lab 10/12/24 06:00 Ordered C-Reactive Protein Stat Lab 10/11/24 19:35 Completed Complete Blood Count Auto Diff AMLAB Lab 10/12/24 06:00 Ordered Complete Blood Count Auto Diff Stat Lab 10/11/24 19:35 Completed Comprehensive Metabolic Panel Stat Lab 10/11/24 19:35 Completed Creatine Kinase Stat Lab 10/11/24 19:35 Completed Erythrocyte Sedimentation Rate Stat Lab 10/11/24 19:35 Completed Full Resp Panel w/COVID ([facility]) Routine Lab 10/11/24 21:23 Completed HIV Combo Routine Lab 10/11/24 19:35 Completed Lactic Acid Stat Lab 10/11/24 19:35 Completed Prothrombin Time INR Stat Lab 10/11/24 19:35 Completed Urinalysis and Microscopic Stat Lab 10/11/24 22:47 Completed Blood Culture Stat Micro 10/11/24 19:48 Received Urine Culture Stat Micro 10/11/24 22:47 Received Medical Decision Narrative: patient is a 78-year-old male presenting to the emergency department for evaluation of nausea, vomiting and fevers since yesterday. Patient is hemodynamically stable and nontoxic-appearing upon arrival, afebrile. Differential diagnosis includes sepsis, pneumonia, UTI, among other things. Workup will be conducted with hematologic labs, specific imaging, provocative tests. Initial inventions include antibiotics. Initial workup reviewed by sc hematologic labs are remarkable for elevated BNP at 2300, BUN and creatinine of 40 and 2.7 which are normal for patient. Inflammatory markers are elevated for patient. CT scan showed mass on the right kidney which needs further imaging, splenomegaly which also needs further imaging, he does have an aneurysm that is unruptured that is 4.5 x 4.4 cm. Please see radiology reports of the CTs for full details. We are still waiting on urine and respiratory swab. <Wing Ruth MD - Last Filed: 10/12/24 00:26> Vital Signs: 10/11/24 19:41 10/11/24 21:15 10/11/24 22:50 Temperature 100.9 F H 98.2 F Temperature Source Oral Pulse Rate 96 H 84 Pulse Rate [Left] 112 H Respiratory Rate 17 16 21 Blood Pressure 130/57 L 124/56 L Blood Pressure [Right Arm] 125/62 Blood Pressure Mean [Right Arm] 83 02 Sat by Pulse Oximetry 94 L 95 Oxygen Delivery Method Nasal Cannula Room Air Oxygen Flow Rate (LPM) 2 Lab Data Lab Results 10/11/24 19:35: WBC 9.0, RBC 4.00 L, Hgb 10.8 L, Hct 35.1 L, MCV 87.8, MCH 27.0, MCHC 30.8 L, RDW 15.5, Plt Count 143, MPV 9.6, Neut % (Auto) 90.7 H, Lymph % (Auto) 4.6 L, Dixie % (Auto) 3.3, Eos % (Auto) 0.7, Baso % (Auto) 0.3, Neut # (Auto) 8.1 H, Lymph # (Auto) 0.4 L, Dixie # (Auto) 0.3, Eos # (Auto) 0.1, Baso # (Auto) 0.0, Total Counted 100, Neutrophils % (Manual) 72, Band Neutrophils % 21 H, Lymphocytes % (Manual) 5 L, Atypical Lymphs % 2, Platelet Estimate Not Reportable, RBC Morphology Not Reportable, ESR 48 H, PT 12.4, INR 1.13 H, APTT 27.6, Sodium 139, Potassium 4.1, Chloride 108 H, Carbon Dioxide 24, Anion Gap 11.1, BUN 40 H, Creatinine 2.70 H, Estimated Creat Clear 36, Estimated GFR 23 L, Est GFR ( Amer) 28 L, Glucose 188 H, Lactate 0.9, Calcium 8.7, Total Bilirubin 0.9, AST 25, ALT 16, Alkaline Phosphatase 134 H, Total Creatine Kinase 97, C-Reactive Protein 109.2 H, NT-Pro-B Natriuret Pep 2300 H, Total Protein 7.6, Albumin 3.7, Globulin 3.9 H, Albumin/Globulin Ratio 0.9 L, HIV Ag/Ab Combo Qual Negative 10/11/24 21:23: Chlamy pneumoniae PCR Not detected, Adenovirus (PCR) Not detected, B. pertussis DNA (PCR) Not detected, Coronavirus OC43 (PCR) Not detected, Coronavirus HKU1 (PCR) Not detected, Coronavirus 229E (PCR) Not detected, SARS-CoV-2 (PCR) Not detected, Coronavirus NL63 (PCR) Not detected, Human Metapneumovir PCR Not detected, Influenza A (H1) PCR Not detected, Influ A (H1N1/09) PCR Not detected, Influenza A (H3) PCR Not detected, Influenza Type A (PCR) Not detected, Influenza Type B (PCR) Not detected, M. pneumoniae (PCR) Not detected, Parainfluenza 1 (PCR) Not detected, Parainfluenza 2 (PCR) Not detected, Parainfluenza 3 (PCR) Not detected, Parainfluenza 4 (PCR) Not detected, RSV (PCR) Not detected, Entero/Rhino (PCR) Not detected Orders (Tests/Meds): ED MEDICATIONS Generic Name Dose Route Start Last Admin Trade Name Freq PRN Reason Stop Dose Admin Acetaminophen 650 mg 10/11/24 22:27 Acetaminophen 325mg Tab PO 11/10/24 22:26 Q4HP PRN Fever or Mild Pain (1-3) Hydrocodone Bitart/Acetaminophen 1 tab 10/11/24 22:27 Hydrocodone/Apap 5/325 Mg Tablet PO 11/10/24 22:26 Q4HP PRN Mild to Moderate Pain (1-6) Al Hydrox/Mg Hydrox/Simethicone 30 ml 10/11/24 22:27 Aluminum/Magnesium/Simethicone 30ml Udc PO 11/10/24 22:26 QIDP PRN Dyspepsia Furosemide 40 mg 10/12/24 09:00 Furosemide 40mg/4ml Vial IV 11/11/24 08:59 DAILY [facility] Heparin Sodium (Porcine) 5,000 unit 10/12/24 09:00 Heparin Sodium 5,000 Unit/Ml Vial SUBCUT 11/11/24 08:59 TID [facility] Ceftriaxone Sodium 1 gm/ 50 mls @ 100 mls/hr 10/11/24 23:45 Sodium Chloride IV 10/21/24 23:44 Q24H [facility] Insulin Human Lispro 0 unit 10/12/24 06:00 Humalog 100 Units/Ml 10ml Vial (Ssi) SUBCUT 11/11/24 05:59 ACHS [facility] Protocol Ondansetron HCl 4 mg 10/11/24 22:27 Ondansetron 4mg/2ml Vial IV 11/10/24 22:26 Q8HP PRN Nausea Sodium Chloride 8 ml 10/11/24 19:42 10/11/24 19:56 Sodium Chloride 0.9% 10ml Vial IV 11/10/24 19:41 8 ml NEEDED PRN Administration dilute pepcid Discontinued Medications Generic Name Dose Route Start Last Admin Trade Name Sanfordq PRN Reason Stop Dose Admin Acetaminophen 1,000 mg 10/11/24 19:37 10/11/24 19:56 Acetaminophen 1,000mg/100ml Vial IV 10/11/24 19:38 1,000 mg ONCE ONE Administration Famotidine 20 mg 10/11/24 19:42 10/11/24 19:56 Famotidine 20mg/2ml Vial IV 10/11/24 19:43 20 mg ONCE ONE Administration Cefepime HCl 2 gm/ Sodium 100 mls @ 200 mls/hr 10/11/24 19:37 10/11/24 20:52 Chloride IV 10/11/24 20:06 Infused ONCE ONE Infusion Iopamidol 80 ml 10/11/24 20:28 10/11/24 20:29 Iopamidol-370 (76%);100ml Bottle IV 10/11/24 20:29 80 ml ONCE ONE Administration Ondansetron HCl 4 mg 10/11/24 19:42 10/11/24 19:57 Ondansetron 4mg/2ml Vial IV 10/11/24 19:43 4 mg ONCE ONE Administration Sodium Chloride 50 ml 10/11/24 20:28 10/11/24 20:29 0.9 % Sodium Chloride 50 Ml Vial IV 10/11/24 20:29 50 ml ONCE ONE Administration Sodium Chloride 10 ml 10/11/24 20:28 10/11/24 20:29 Sodium Chloride 0.9% 10ml Syr (Rad Only) IV 10/11/24 20:29 10 ml ONCE ONE Administration ORDERS Category Date Time Status CT abdomen pelvis w con Stat Cat Scan 10/11/24 19:43 Completed CTA Chest [CT angio chest PE protocol] Stat Cat Scan 10/11/24 19:43 Completed Activated Partial Thrombo Time Stat Lab 10/11/24 19:35 Completed BNP [NT Pro Brain Natriuretic Pep.] Stat Lab 10/11/24 19:35 Completed Basic Metabolic Panel AMLAB Lab 10/12/24 06:00 Ordered C-Reactive Protein Stat Lab 10/11/24 19:35 Completed Complete Blood Count Auto Diff AMLAB Lab 10/12/24 06:00 Ordered Complete Blood Count Auto Diff Stat Lab 10/11/24 19:35 Completed Comprehensive Metabolic Panel Stat Lab 10/11/24 19:35 Completed Creatine Kinase Stat Lab 10/11/24 19:35 Completed Erythrocyte Sedimentation Rate Stat Lab 10/11/24 19:35 Completed Full Resp Panel w/COVID (H) Routine Lab 10/11/24 21:23 Completed HIV Combo Routine Lab 10/11/24 19:35 Completed Lactic Acid Stat Lab 10/11/24 19:35 Completed Prothrombin Time INR Stat Lab 10/11/24 19:35 Completed Urinalysis and Microscopic Stat Lab 10/11/24 22:47 Completed Blood Culture Stat Micro 10/11/24 19:48 Received Urine Culture Stat Micro 10/11/24 22:47 Received ECG Data Tracing #1: I reviewed this ECG and interpreted as documented below: Sinus tachycardia. No ST elevation or depression. QTc of 393. Medical Decision Narrative: patient is a 78-year-old male presenting to the emergency department for evaluation of nausea, vomiting and fevers since yesterday. Patient is hemodynamically stable and nontoxic-appearing upon arrival, afebrile. Differential diagnosis includes sepsis, pneumonia, UTI, among other things. Workup will be conducted with hematologic labs, specific imaging, provocative tests. Initial inventions include antibiotics. Initial workup reviewed by me hematologic labs are remarkable for elevated BNP at 2300, BUN and creatinine of 40 and 2.7 which are normal for patient. Inflammatory markers are elevated for patient. CT scan showed mass on the right kidney which needs further imaging, splenomegaly which also needs further imaging, he does have an aneurysm that is unruptured that is 4.5 x 4.4 cm. Please see radiology reports of the CTs for full details. We are still waiting on urine and respiratory swab. I was consulted by the BRIAN, and we discussed the complexity of the problems being addressed. I approve the treatment and management plan for this patient's care in the emergency department, thus performing a substantive portion of the medical decision making. Ultimately, patient is continue to require oxygen here in the emergency department. He has evidence of an JACQUI on his workup today with concern for sepsis given his vital sign and elevated inflammatory markers. His urine studies and nasopharyngeal panel are pending at this time. I did discuss patient's case with BRIAN Leon, with the hospital medicine service who agreed to admit the patient for further management. Wing Ruth MD Critical Care <Wing Ruth MD - Last Filed: 10/12/24 00:26> Critical Care Time Critical Care Time: No
[2024-10-11 19:53] LABS: Hematocrit 35.1 % (42.0-52.0); Hemoglobin 10.8 g/dL (14.1-18.0); Immature Granulocytes % 0.4 %; Mean Corpuscular HGB Conc 30.8 g/dL (31.8-35.4); Mean Corpuscular Hemoglobin 27.0 pg (27.0-31.2); Mean Corpuscular Volume 87.8 fl (80-94); Nucleated Red Blood Cells % 0 %; Platelet Count 143 K/mm3 (142-424); Red Blood Count 4.00 M/mm3 (4.60-6.20); Red Cell Distribution Width-SD 50.3 fL; White Blood Count 9.0 K/mm3 (4.8-10.8)
[2024-10-11] MEDS: ACETAMINOPHEN 1,000MG/100ML VIAL 1000 MG IV (19:56)
[2024-10-11] MEDS: SODIUM CHLORIDE 0.9% 10ML VIAL 8 ML IV (19:56)
[2024-10-11] MEDS: FAMOTIDINE 20MG/2ML VIAL 20 MG IV (19:56)
[2024-10-11] MEDS: CEFEPIME HCL 2 GM in 0.9 % SODIUM CHLORIDE 100 ML IV (19:57)
[2024-10-11] MEDS: ONDANSETRON 4MG/2ML VIAL 4 MG IV (19:57)
[2024-10-11 20:01] LABS: Albumin Level 3.7 g/dl (3.5-5.0); Chloride 108 mmol/L (98-107); Potassium 4.1 mmoL/L (3.5-5.1); Sodium 139 mmol/L (136-145)
[2024-10-11 20:04] LABS: Alanine Aminotransferase 16 U/L (12-78); Albumin/Globulin Ratio 0.9 (1.1-1.8); Alkaline Phosphatase 134 U/L (38-126); Anion Gap 11.1 mEq/L (5-15); Aspartate Amino Transferase 25 U/L (17-59); Bilirubin,Total 0.9 mg/dl (0.2-1.3); Blood Urea Nitrogen 40 mg/dl (9-20); Carbon Dioxide 24 mmol/L (22.0-30.0); Creatine Kinase 97 U/L (55-170); Creatinine Clearance Estimated 36 mL/min (50-200); Creatinine,Serum 2.70 mg/dl (0.66-1.25); Estimated Glomerular Filt Rate 23 ml/min (>60); GFR (African American) 28 ML/MIN (>60); Globulin 3.9 g/dL (1.3-3.2); Total Protein,Serum 7.6 g/dl (6.3-8.2)
[2024-10-11 20:07] LABS: Activated Partial Thrombo Time 27.6 seconds (22.8-30.6); INR 1.13 (0.9-1.1); Prothrombin Time 12.4 seconds (10.1-12.5)
[2024-10-11 20:25] LABS: NT Pro Brain Natriuretic Pep. 2300 pg/mL (0-450)
[2024-10-11] MEDS: IOPAMIDOL-370 (76%);100ML BOTTLE 80 ML IV (20:29)
[2024-10-11] MEDS: 0.9 % SODIUM CHLORIDE 50 ML VIAL IV (20:29)
[2024-10-11] MEDS: SODIUM CHLORIDE 0.9% 10ML SYR (RAD ONLY) 10 ML IV (20:29)
[2024-10-11 20:32] LABS: Calcium 8.7 mg/dl (8.4-10.2); Glucose 188 mg/dl (74-100)
[2024-10-11 20:37] LABS: C-Reactive Protein 109.2 mg/L (0-4)
[2024-10-11 20:56] LABS: Total Cells Counted 100
[2024-10-11 21:15] VITALS: BP 130/57; PULSE 96; RESP 16; O2SAT 95
[2024-10-11 21:41] LABS: Adenovirus,PCR Not Detected (NotDetected); Chlamydophila Pneumoniae, PCR Not Detected (NotDetected); Coronavirus 19, PCR Not Detected (NotDetected); Coronovirus HKU1,PCR Not Detected (NotDetected); Influenza A, PCR Not Detected (NotDetected); Influenza AH1, 2009 Not Detected (NotDetected); Influenza AH1, PCR Not Detected (NotDetected); Influenza AH3,PCR Not Detected (NotDetected); Influenza B, PCR Not Detected (NotDetected); Mycoplasma Pneumoniae, PCR Not Detected (NotDetected); Parainfluenza 1, PCR Not Detected (NotDetected); Parainfluenza 2, PCR Not Detected (NotDetected); Parainfluenza 3, PCR Not Detected (NotDetected); Parainfluenza 4, PCR Not Detected (NotDetected)
--- NOTE | 2024-10-11 22:49 | PC.NURSE ---
report called to MADELEINE nunez
[2024-10-11 22:50] VITALS: BP 124/56; PULSE 84; RESP 21; TEMP 36.8; O2SAT 92
[2024-10-11 22:51] LABS: Microscopic, Urine URINE MICROSCOPIC (MICROSCOPIC)
[2024-10-11 22:53] LABS: Bilirubin,Urine Negative (Negative); Color,Urine YELLOW (Yellow); Glucose,Urine (UA) 3+ (Negative); Ketones,Urine Negative (Negative); Leukocyte Esterase,Urine 2+ (Negative); PH,Urine 5.5 (5.0-8.5); Protein,Urine 1+ (Negative); Specific Gravity, Urine 1.010 (1.005-1.030); Urobilinogen,Urine 0.2 EU/dl (0.2)
--- NOTE | 2024-10-11 23:02 | PC.NURSE ---
Patient arrived to floor at 23:01 via stretcher.
--- NOTE | 2024-10-11 23:03 | PC.NURSE ---
Called and spoke with his daughterMarissa regarding pt being admitted.
[2024-10-11 23:26] LABS: Bacteria,Urine 2+ /lpf; WBC,Urine TNTC #/hpf (0-3)
--- NOTE | 2024-10-11 23:32 | P.HP_ITS ---
<Statement entered by Ney Torres MD - 10/12/24 07:59> Rounded on patient after nurse practitioner. Personally examined and interviewed patient. Agree with exam findings and care plan as documented. History of Present Illness *Admission Date: 10/11/24 *Reason for visit:: Nausea/Vomiting/Diarrhea *History of present illness: Mr. Garcia is a 78-year-old male presents here for evaluation of nausea, vomiting, diarrhea. Patient has a past medical history of congestive heart failure, hypertension, diabetes mellitus, chronic kidney disease, obesity, and GI bleed. Patient reports 4-5 episodes of nausea and vomiting today as well as 2 episodes of loose stools. He denies any blood in his emesis or stool but he does report stools or dark in color. He also reports chills today. Patient denies fever, cough, congestion, runny nose, dyspnea, chest pain, abdominal pain, constipation, headache, lightheadedness, dizziness, or syncope. [facility] Disclaimer: The information contained in this section may have been updated after the patient was seen, as this information can be updated by other users. Medical History (Updated 10/11/24 @ 23:50 by Myrna Bryant APRN) Hearing loss GERD (gastroesophageal reflux disease) Hypertension Chronic diastolic heart failure Atherosclerotic heart disease Vascular dementia Diabetes type 2 Iron deficiency anemia Hyperlipidemia Duodenitis without bleeding Chronic kidney disease Cerebral ischemia Hypertension Alteration in physical mobility Constipation Back pain Diastolic dysfunction HTN (hypertension) History of GI bleed Abnormal electrocardiography Dyspnea Surgical History (Updated 10/06/24 @ 15:47 by Ben Hall MD) History of endovascular stent graft for abdominal aortic aneurysm Social History (Updated 10/06/24 @ 14:56 by Ben Hall MD) Smoking Status: Unknown if ever smoked alcohol intake: former substance use type: denies use current occupational status: retired Travel in the last 8 weeks?: None housing: [facility] marital status: caffeine: Yes kitty/confucianism: Shinto Other Medical History Have you received the Flu Vaccine for this season: No Have you received the Pneumonia Vaccine: No (unknown) Review of Systems Constitutional Constitutional: Reports chills, Denies fever(s) and Denies headache(s) ENT Ears, Nose, Mouth, and Throat: Denies dizziness and Denies headache(s) *Cardiovascular Cardiovascular: Denies chest pain, Denies dyspnea and Denies lightheadedness *Respiratory Respiratory: Denies cough and Denies dyspnea *Gastrointestinal Gastrointestinal: Denies constipation, Reports diarrhea, Denies hematemesis, Denies hematochezia, Reports nausea and Reports vomiting *Genitourinary Genitourinary: Reports system reviewed and no additional complaints, except as documented *Musculoskeletal Musculoskeletal: Reports system reviewed and no additional complaints, except as documented *Neurologic Neurologic: Denies dizziness and Denies headache(s) Meds Home Medications and Allergies Home Medications ?Medication ?Instructions ?Recorded ?Confirmed ?Type apixaban 2.5 mg tablet 2.5 mg PO BID 10/06/2410/11 History carvedilol 12.5 mg tablet 12.5 mg PO BID 10/06/2404/05 History dapagliflozin propanediol 10 mg 10 mg PO DAILY 5 10/11/24 History tablet (Farxiga) diclofenac sodium 1 % topical gel 2 g topical QID 09/1010/11/24 History (Arthritis Pain (diclofenac)) ferrous sulfate 325 mg (65 mg 325 mg PO DAILY 10/06/24 10/11/24 History iron) tablet furosemide 20 mg tablet (Lasix) 20 mg PO DAILY 5 10/11/24 History insulin glargine 100 unit/mL (3 30 unit SQ BID 5 10/11/24 History mL) subcutaneous pen (Lantus Solostar U-100 Insulin) ketoconazole 2 % topical cream 1 applic topical DAILY 10/06/24 10/11/24 History mirabegron 25 mg tablet,extended 25 mg PO DAILY 10/11/24 History release 24 hr pantoprazole 40 mg tablet,delayed 40 mg PO BID 5 10/11/24 History release polyethylene glycol 3350 17 17 g PO DAILY 10/06/2404/05 History gram/dose oral powder (Miralax) sertraline 25 mg tablet 25 mg PO DAILY 10/06/2404/05 History sitagliptin phosphate 25 mg tablet 25 mg PO DAILY 09/1010/11/24 History (Januvia) tetrahydrozoline 0.05 % eye drops 1 drp ophthalmic (ey e) TID 10/06/24 10/11/24 History insulin aspart U-100 100 unit/mL 1 sliding scale dose SQ ACHS 10/11/24 10/11/24 History subcutaneous solution (Novolog U-100 Insulin aspart) loratadine 10 mg tablet 10 mg PO DAILY 10/11/2404/05 History New Prescriptions to Start Prescriptions: Allergies Allergy/AdvReac Type Severity Reaction Status Date / Time ampicillin (From Unasyn) Allergy Severe S-SWELLS-OR Verified 03/20/23 13:59 AL/THROAT sulbactam (From Unasyn) Allergy Severe S-SWELLS-OR Verified 03/20/23 13:59 AL/THROAT nitrofurantoin (From Allergy Verified 10/06/24 15:15 Macrobid) Exam Data for Last 24 hours Vital signs and Labs for Last 24 Hours: Temp Pulse Resp BP Pulse Ox O2 Del Method O2 Flow Rate 98.2 F 84 21 124/56 L 95 Room Air 2 10/11/24 22:50 10/11/24 22:50 10/11/24 22:50 10/11/24 22:50 10/11/24 21:15 10/11/24 22:50 10/11/24 19:41 Laboratory Results - last 24 hr 10/11/24 19:35: WBC 9.0, RBC 4.00 L, Hgb 10.8 L, Hct 35.1 L, MCV 87.8, MCH 27.0, MCHC 30.8 L, RDW 15.5, Plt Count 143, MPV 9.6, Neut % (Auto) 90.7 H, Lymph % (Auto) 4.6 L, Ashley % (Auto) 3.3, Eos % (Auto) 0.7, Baso % (Auto) 0.3, Neut # (Auto) 8.1 H, Lymph # (Auto) 0.4 L, Ashley # (Auto) 0.3, Eos # (Auto) 0.1, Baso # (Auto) 0.0, Total Counted 100, Neutrophils % (Manual) 72, Band Neutrophils % 21 H, Lymphocytes % (Manual) 5 L, Atypical Lymphs % 2, Platelet Estimate Not Reportable, RBC Morphology Not Reportable, ESR 48 H, PT 12.4, INR 1.13 H, APTT 27.6, Sodium 139, Potassium 4.1, Chloride 108 H, Carbon Dioxide 24, Anion Gap 11.1, BUN 40 H, Creatinine 2.70 H, Estimated Creat Clear 36, Estimated GFR 23 L, Est GFR ( Amer) 28 L, Glucose 188 H, Lactate 0.9, Calcium 8.7, Total Bilirubin 0.9, AST 25, ALT 16, Alkaline Phosphatase 134 H, Total Creatine Kinase 97, C-Reactive Protein 109.2 H, NT-Pro-B Natriuret Pep 2300 H, Total Protein 7.6, Albumin 3.7, Globulin 3.9 H, Albumin/Globulin Ratio 0.9 L, HIV Ag/Ab Combo Qual Negative 10/11/24 21:23: Chlamy pneumoniae PCR Not detected, Adenovirus (PCR) Not detected, B. pertussis DNA (PCR) Not detected, Coronavirus OC43 (PCR) Not detected, Coronavirus HKU1 (PCR) Not detected, Coronavirus 229E (PCR) Not detected, SARS-CoV-2 (PCR) Not detected, Coronavirus NL63 (PCR) Not detected, Human Metapneumovir PCR Not detected, Influenza A (H1) PCR Not detected, Influ A (H1N1/09) PCR Not detected, Influenza A (H3) PCR Not detected, Influenza Type A (PCR) Not detected, Influenza Type B (PCR) Not detected, M. pneumoniae (PCR) Not detected, Parainfluenza 1 (PCR) Not detected, Parainfluenza 2 (PCR) Not detected, Parainfluenza 3 (PCR) Not detected, Parainfluenza 4 (PCR) Not detected, RSV (PCR) Not detected, Entero/Rhino (PCR) Not detected 10/11/24 22:47: Urine Color Yellow, Urine Appearance Clear, Urine pH 5.5, Ur Specific Mckinney 1.010, Urine Protein 1+ A, Urine Glucose (UA) 3+, Urine Ketones Negative, Urine Blood 2+ A, Urine Nitrate Positive A, Urine Bilirubin Negative, Urine Urobilinogen 0.2, Ur Leukocyte Esterase 2+ A, Urine RBC None, Urine WBC Tntc, Ur Squamous Epith Cells None, Urine Bacteria 2+ I & O for Last 24 hours: Intake & Output 10/08/24 10/09/24 10/10/24 10/11/24 23:59 23:59 23:59 23:59 Intake Total 100 / 100 Balance 100 / 100 Weight 113.852 kg *Routine HEENT Exam Head: Present normocephalic and atraumatic Eye: Present EOMI and PERRL ENT: Present mucous membranes dry *Routine Neck Exam Neck: Present supple and full ROM *Routine Respiratory Exam Respiratory: Present CTA bilaterally, normal respiratory effort, able to speak in complete sentences and symmetric chest movement; Absent accessory muscle use, respiratory distress, rhonchi, wheezes or crackles *Routine Cardiovascular Exam Cardiovascular: Present RRR, Normal S1 and Normal S2 *Routine Abdominal Exam Abdominal: Present soft and obese; Absent normoactive bowel sounds (hyperactive) or tenderness *Routine Rectal Exam Rectal:: deferred *Routine Genitalia Exam Genitalia:: deferred *Routine Extremities Exam Extremities: Present full ROM and normal capillary refill; Absent edema *Routine Skin Exam Skin: Present intact, dry and warm; Absent erythema *Routine Neurological Exam Neurological: Present alert, oriented X3 and CN II-XII intact Assessment and Plan *Assessment and plan (1) Acute hypoxic respiratory failure: Status: Acute Category: Medical Code(s): J96.01 - Acute respiratory failure with hypoxia Plan: 75% on room air in ER 2L NC in ER satting 90% No history of supplemental O2 use Reviewed CTA chest negative for PE, unruptured aneurysm, no dissection of aorta Respiratory bio fire negative Blood cultures pending at this time (2) Chronic diastolic CHF (congestive heart failure): Status: Chronic Category: Medical Code(s): I50.32 - Chronic diastolic (congestive) heart failure Plan: Acute respiratory failure could be caused by exacerbation of heart failure Start Lasix 40 mg IV daily Strict I's and O's 1500 mL fluid restriction daily Daily weights BMP daily (3) Elevated brain natriuretic peptide (BNP) level: Status: Acute Category: Medical Code(s): R79.89 - Other specified abnormal findings of blood chemistry Plan: BNP 2300 Continue Lasix (4) UTI (urinary tract infection): Status: Acute Category: Medical Code(s): N39.0 - Urinary tract infection, site not specified Plan: UA: 1+ protein, 2+ blood, nitrates positive, leukocytes 2+, WBC TNTC, urine bacteria 2+ Patient given cefepime in the ER Start Rocephin 1 g daily Follow urine culture and adjust antibiotics if indicated (5) Hwdtk-te-vkxtnyz kidney injury: Status: Acute Category: Medical Code(s): N17.9 - Acute kidney failure, unspecified; N18.9 - Chronic kidney disease, unspecified Plan: Creatinine 2.70/BUN 40 Baseline creatinine around 2.20 Could be result of volume loss Monitor BMP daily (6) Fever: Status: Acute Category: Medical Code(s): R50.9 - Fever, unspecified Plan: Temperature 100.9 Blood cultures pending Vital signs every 4 hours Tylenol as needed (7) Loose stools: Status: Acute Category: Medical Code(s): R19.5 - Other fecal abnormalities Plan: Consider stool studies if loose stools continue (8) Tachycardia: Status: Acute Category: Medical Code(s): R00.0 - Tachycardia, unspecified Plan: Could be combination of volume loss, fluid overload, or infectious process Monitor vital signs every 4 hours Continue Coreg (9) HTN (hypertension): Status: Acute Qualifiers: Hypertension type: primary hypertension Qualified Code(s): I10 - Essential (primary) hypertension Category: Medical Code(s): I10 - Essential (primary) hypertension Plan: Continue appropriate home antihypertensives once med rec is complete (10) Diabetes mellitus with diabetic polyneuropathy: Status: Chronic Qualifiers: Diabetes mellitus type: type 2 Diabetes mellitus [facility] insulin use: with remote computer terminal operator use Qualified Code(s): E11.42 - Type 2 diabetes mellitus with diabetic polyneuropathy; Z79.4 - group home (current) use of insulin Category: Medical Code(s): E11.42 - Type 2 diabetes mellitus with diabetic polyneuropathy Plan: Blood glucose checks before meals and at bedtime Sliding scale insulin Monitor BMP Plan Spoke with ER providerWing. Decision to admit based on respiratory failure, tachycardia, fever, and elevated BNP with need for diuresis.
[2024-10-11 23:42] VITALS: BP 114/53; PULSE 82; RESP 17; TEMP 36.9; O2SAT 90; BMI 35.2
[2024-10-12 04:00] VITALS: BP 126/54; PULSE 75; RESP 16; TEMP 37.1; O2SAT 97; BMI 35.2
[2024-10-12] MEDS: humaLOG 100 UNITS/ML 10ML VIAL (SSI) SUBCUT ×4 (06:12→20:19)
[2024-10-12 06:20] LABS: Hematocrit 33.4 % (42.0-52.0); Hemoglobin 10.3 g/dL (14.1-18.0); Immature Granulocytes % 0.3 %; Mean Corpuscular HGB Conc 30.8 g/dL (31.8-35.4); Mean Corpuscular Hemoglobin 27.3 pg (27.0-31.2); Mean Corpuscular Volume 88.6 fl (80-94); Nucleated Red Blood Cells % 0 %; Platelet Count 134 K/mm3 (142-424); Red Blood Count 3.77 M/mm3 (4.60-6.20); Red Cell Distribution Width-SD 50.1 fL; White Blood Count 11.5 K/mm3 (4.8-10.8)
[2024-10-12 06:32] LABS: Anion Gap 14.2 mEq/L (5-15); Blood Urea Nitrogen 43 mg/dl (9-20); Calcium 8.7 mg/dl (8.4-10.2); Carbon Dioxide 23 mmol/L (22.0-30.0); Chloride 106 mmol/L (98-107); Creatinine Clearance Estimated 35 mL/min (50-200); Creatinine,Serum 2.80 mg/dl (0.66-1.25); Estimated Glomerular Filt Rate 22 ml/min (>60); GFR (African American) 27 ML/MIN (>60); Glucose 150 mg/dl (74-100); Potassium 4.2 mmoL/L (3.5-5.1); Sodium 139 mmol/L (136-145)
--- NOTE | 2024-10-12 07:34 | SW/DCPLANNER ---
Addendum entered by Sonal Vila 10/14/24 11:00: I have updated Clarice Boone that patient will return today. Addendum entered by Sonal Vila 10/13/24 09:25: Per Clarice Boone patient can return skilled when medically stable for discharge. Original Note: Patient currently resides at [facility] in [facility]. Updated patient information has been faxed to Clarice Boone. Discharge date is unknown at this time. CM will continue to follow up.
[2024-10-12 08:00] VITALS: BP 121/51; PULSE 84; RESP 18; TEMP 36.8; O2SAT 93
--- NOTE | 2024-10-12 08:07 | P.CONPHA_ITS ---
Pharmacy Intervention Comments: HOME MEDICATION LIST VERIFIED SUING LIST FROM SKILLED NURSING MAR
--- NOTE | 2024-10-12 08:07 | HMH.PHAINT1 ---
Pharmacy Intervention Comments: HOME MEDICATION LIST VERIFIED SUING LIST FROM LONG TERM MAR
[2024-10-12] MEDS: PANTOPRAZOLE 40MG TABLET 40 MG PO ×2 (08:50→20:18)
[2024-10-12] MEDS: APIXABAN 5MG TABLET 2.5 MG PO ×2 (08:50→20:18)
[2024-10-12] MEDS: SERTRALINE 50MG TABLET 25 MG PO (08:50)
[2024-10-12] MEDS: CARVEDILOL 12.5MG TABLET 12.5 MG PO ×2 (08:50→20:18)
[2024-10-12] MEDS: INSULIN GLARGINE 100 UNITS/ML 3ML FLEXPEN 30 UNIT SUBCUT ×2 (08:51→20:19)
[2024-10-12 09:00] LABS: POC Glucose,Bedside 244 gm/dL (70-110)
--- NOTE | 2024-10-12 09:28 | HMH.PTEV ---
Physical Therapy Evaluation Rehab PT IP Evaluation Start: 10/12/24 01:25 Freq: ONCE Status: Active Protocol: Document 10/12/24 09:00 VIDHYA (Rec: 10/12/24 09:18 VIDHYA [id number]) Subjective/History History History Per H&P: Mr. Garcia is a 78-year-old male presents here for evaluation of nausea, vomiting, diarrhea. Patient has a past medical history of congestive heart failure, hypertension, diabetes mellitus, chronic kidney disease, obesity, and GI bleed . Patient reports 4-5 episodes of nausea and vomiting today as well as 2 episodes of loose stools. He denies any blood in his emesis or stool but he does report stools or dark in color. He also reports chills today. Patient denies fever, cough, congestion, runny nose, dyspnea, chest pain, abdominal pain, constipation, headache, lightheadedness, dizziness, or syncope. Subjective Subjective Pt reports he lives in a halfway where he uses a w /c for community navigation and a RW for short IND household level ambulation. New diagnosis of No cancer in past 12 months? [facility] How much help from another person do you currently need... Turning from your A little back to your side while in a flat bed without using bedrails? Moving from lying on A little back to sitting on the side of a flat bed without using bedrails? Moving to and from a A little bed to a chair ( including a wheelchair)? Standing up from a A little chair using your arms? (e.g., wheelchair, bedside chair) Walking in hospital A little room? Climbing 3-5 steps A lot with a railing? Mobility Score 17 Mobility Level [facility] Mobility 5 Stand (1 or more minutes) Mobility Calculator Rehab PT IP Eval Objective Appearance Patient Behavior Appropriate,Cooperative Patient Orientation Person,Situation Difficulty following none instructions Speech Pattern Clear Ambulation Patient Able to Yes Ambulate Ambulation Observation IP General Gait Wide Based Gait Pattern Observation Ambulation Distance 27 (feet) Ambulation Assistive Rolling Walker Device Ambulation Ability Contact Guard/Hand Hold,Minimal x 1 (25% assist) Balance Ability to Arise Able, uses arms to help Sitting Balance Steady, safe Standing Balance Steady, wide stance Dynamic Sitting Good Balance Ability Dynamic Standing Good Balance Ability Rehab PT IP prob,goals,plan Problems Date of Evaluation: 10/12/24 PT IP Problems Bed Mobility,Transfers,Gait,Balance,Self care,Safety Rehab Potential Rehab Potential Good Plan PT Intervention Plan Bed Mobility,Transfers,Gait,Balance,Self care,Safety, Therapeutic Exercise Other Intervention 1-2 times Plan PT Plan Frequency Daily Duration LOS Discharge Goals Bed Transfer Ability Independent Sit to Stand Chair Contact Guard/Hand Hold Transfer Ability Ambulation Assistive Rolling Walker Device Ambulation Distance 50 (feet) Discharge Plan PT Discharge Plan Pt presents below his baseline in functional mobility, strength, and gait. Pt presents as a fall risk and PT is recommending pt receive 24/ supervision with mobility at this time. PT recommending pt receive rehabilitation services upon d/c from [facility] to maximize safety and address deficits. Pt would benefit from skilled acute care physical therapy while at [facility] to prevent further functional decline. Eval Complexity Eval Charge Codes 21821 - Moderate Complexity PHYSICIAN CERTIFICATION: I certify the specified therapy services for Winston Garcia are required, authorized, and reviewed every 30 days.
--- NOTE | 2024-10-12 09:51 | HMH.PTEV ---
Physical Therapy Evaluation Rehab PT IP Evaluation Start: 10/12/24 01:25 Freq: ONCE Status: Active Protocol: Document 10/12/24 09:00 VIDHYA (Rec: 10/12/24 09:18 [email or web address] [id number]) Subjective/History History History Per H&P: Mr. Garcia is a 78-year-old male presents here for evaluation of nausea, vomiting, diarrhea. Patient has a past medical history of congestive heart failure, hypertension, diabetes mellitus, chronic kidney disease, obesity, and GI bleed . Patient reports 4-5 episodes of nausea and vomiting today as well as 2 episodes of loose stools. He denies any blood in his emesis or stool but he does report stools or dark in color. He also reports chills today. Patient denies fever, cough, congestion, runny nose, dyspnea, chest pain, abdominal pain, constipation, headache, lightheadedness, dizziness, or syncope. Subjective Subjective Pt reports he [place] [facility] where he uses a w /c for community navigation and a RW for short IND household level ambulation. New diagnosis of No cancer in past 12 months? [facility] How much help from another person do you currently need... Turning from your A little back to your side while in a flat bed without using bedrails? Moving from lying on A little back to sitting on the side of a flat bed without using bedrails? Moving to and from a A little bed to a chair ( including a wheelchair)? Standing up from a A little chair using your arms? (e.g., wheelchair, bedside chair) Walking in hospital A little room? Climbing 3-5 steps A lot with a railing? Mobility Score 17 Mobility Level [facility] Mobility 5 Stand (1 or more minutes) Mobility Calculator Rehab PT IP Eval Objective Appearance Patient Behavior Appropriate,Cooperative Patient Orientation Person,Situation Difficulty following none instructions Speech Pattern Clear Ambulation Patient Able to Yes Ambulate Ambulation Observation IP General Gait Wide Based Gait Pattern Observation Ambulation Distance 27 (feet) Ambulation Assistive Rolling Walker Device Ambulation Ability Contact Guard/Hand Hold,Minimal x 1 (25% assist) Balance Ability to Arise Able, uses arms to help Sitting Balance Steady, safe Standing Balance Steady, wide stance Dynamic Sitting Good Balance Ability Dynamic Standing Good Balance Ability Rehab PT IP prob,goals,plan Problems Date of Evaluation: 10/12/24 PT IP Problems Bed Mobility,Transfers,Gait,Balance,Self care,Safety Rehab Potential Rehab Potential Good Plan PT Intervention Plan Bed Mobility,Transfers,Gait,Balance,Self care,Safety, Therapeutic Exercise Other Intervention 1-2 times Plan PT Plan Frequency Daily Duration LOS Discharge Goals Bed Transfer Ability Independent Sit to Stand Chair Contact Guard/Hand Hold Transfer Ability Ambulation Assistive Rolling Walker Device Ambulation Distance 50 (feet) Discharge Plan PT Discharge Plan Pt presents below his baseline in functional mobility, strength, and gait. Pt presents as a fall risk and PT is recommending pt receive 24/ supervision with mobility at this time. PT recommending pt receive rehabilitation services upon d/c from [facility] to maximize safety and address deficits. Pt would benefit from skilled acute care physical therapy while at [facility] to prevent further functional decline. Eval Complexity Eval Charge Codes 62085 - Moderate Complexity PHYSICIAN CERTIFICATION: I certify the specified therapy services for Winston Garcia are required, authorized, and reviewed every 30 days.
--- NOTE | 2024-10-12 10:38 | HMH.OTEV ---
OT Inpatient Evaluation Rehab OT IP Evaluation Start: 10/12/24 09:51 Freq: ONCE Status: Active Protocol: [facility]24 [facility] (Rec: 10/12/24 10:37 [facility] [id number]) Rehab OT IP Assessment Subjective History Pt oriented x 2 on arrival. Pt very TUSCARORA. Pt admitted on 10/11/24 due to JACQUI and sepsis. Per H&P: Mr. Garcia is a 78-year-old male presents here for evaluation of nausea, vomiting, diarrhea. Patient has a past medical history of congestive heart failure, hypertension, diabetes mellitus, chronic kidney disease, obesity, and GI bleed . Patient reports 4-5 episodes of nausea and vomiting today as well as 2 episodes of loose stools. He denies any blood in his emesis or stool but he does report stools or dark in color. He also reports chills today. Patient denies fever, cough, congestion, runny nose, dyspnea, chest pain, abdominal pain, constipation, headache, lightheadedness, dizziness, or syncope. Subjective Prior to being in the hospital, pt lived at [facility]. Pt claims normally he is independent with ADLs (dressing, bathing, and feeding). He is dependent upon staff for completion of all IADLs. Pt uses a rolling walker during functional transfers. Objective Patient Orientation Person,Birthday Right Upper Min Limitation <25% Extremity Gross ROM Left Upper Extremity Min Limitation <25% Gross ROM Shoulder ROM Muscle Weakness Limitations Elbow ROM Muscle Weakness Limitations Wrist Limitations of Muscle Weakness Range of Motion Bed Mobility bed mobility-scooting,bed mobility - supine/sit Assist Level Moderate x 1 (50% assist) Rehab OT IP prob,goals,plan Problems Date of Evaluation: 10/12/24 OT IP Problems Bed Mobility,Transfers,Balance,Self care,Safety Rehab Potential Rehab Potential Good Equipment Needs Assistive Devices Rolling / Wheeled Walker Plan OT intervention Plan Bed Mobility,Transfers,Balance,Self care,Safety, Therapeutic Exercise OT Plan Frequency Daily Duration LOS Discharge Goals Bed Mobility Ability Assistance x1 Sit to Stand Chair Contact Guard/Hand Hold,Minimal x 1 (25% assist) Transfer Ability Chair Transfer Contact Guard/Hand Hold,Minimal x 1 (25% assist) Ability Chair Transfer Stand Step Pivot Technique Chair Transfer Rolling Walker Assistive Devices Lower Body Dressing Minimal Assistance Ability Upper Body Dressing Standby Assistance Ability Performing Toilet Minimal Assistance Hygiene Ability Overall Commode/ Contact Guard,Minimal Assistance Toilet Transfer Ability Commode/Toilet Sit to/from Ambulatory Transfer Technique Discharge Plan OT Discharge Plan Pt will continue to be seen for OT services while at [facility]. Pt would benefit most from short term rehab once he returns to SNF. Continued skilled therapy is important in order for patient to improve strength, safety, endurance, ADL independence, and functional transfers to reach PLOF. Eval Complexity Eval Charge Codes 02804 - Moderate Complexity PHYSICIAN CERTIFICATION: I certify the specified therapy services for Winston Garcia are required, authorized, and reviewed every 30 days.
[2024-10-12 10:43] LABS: Acinetobacter calcoaceticus-ba Not Detected; Bacteroides fragilis Not Detected; CTX-M Not Detected; Candida auris Not Detected; Candida glabrata Not Detected; Enterobacterales Detected; Enterococcus faecalis Not Detected; Enterococcus faecium Not Detected; IMP Not Detected; KPC Not Detected; Klebsiella aerogenes Not Detected; Klebsiella pneumoniae grp Not Detected; NDM Not Detected; OXA-48-like Not Detected; Proteus spp. Not Detected; Salmonella spp. Not Detected; Serratia marcescens Not Detected; Staphylococcus epidermidis Not Detected; Staphylococcus lugdunensis Not Detected; Staphylococcus spp. Not Detected; Stenotrophomonas maltophilia Not Detected; Streptococcus agalactiae(GrpB) Not Detected; Streptococcus pyogenes Group A Not Detected; Streptococcus spp. Not Detected; VIM Not Detected; mcr-1 Not Detected
[2024-10-12 10:53] LABS: Acinetobacter calcoaceticus-ba Not Detected; Bacteroides fragilis Not Detected; CTX-M Not Detected; Candida auris Not Detected; Candida glabrata Not Detected; Enterobacterales Detected; Enterococcus faecalis Not Detected; Enterococcus faecium Not Detected; IMP Not Detected; KPC Not Detected; Klebsiella aerogenes Not Detected; Klebsiella pneumoniae grp Not Detected; NDM Not Detected; OXA-48-like Not Detected; Proteus spp. Not Detected; Salmonella spp. Not Detected; Serratia marcescens Not Detected; Staphylococcus epidermidis Not Detected; Staphylococcus lugdunensis Not Detected; Staphylococcus spp. Not Detected; Stenotrophomonas maltophilia Not Detected; Streptococcus agalactiae(GrpB) Not Detected; Streptococcus pyogenes Group A Not Detected; Streptococcus spp. Not Detected; VIM Not Detected; mcr-1 Not Detected
--- NOTE | 2024-10-12 11:36 | P.PN_ITS ---
Subjective *Date: 10/12/24 *Time: 12:33 Interval history: Patient somewhat hard of hearing. Stable on 2 L oxygen this morning. Denies chest pain or shortness of breath. States he is feeling a little bit better. No nausea or vomiting. Medical Exam Vital signs and Labs for Last 24 Hours: Vital Signs Temp Pulse Pulse Resp BP BP Pulse Ox 10/12/24 10:51 10/12/24 09:00 10/12/24 08:00 98.2 F 84 18 121/51 L 93 L 10/12/24 08:00 10/12/24 06:42 10/12/24 05:00 10/12/24 04:00 98.7 F 75 16 126/54 L 97 10/12/24 03:00 10/12/24 01:00 10/11/24 23:42 98.4 F 82 17 114/53 L 90 L 10/11/24 23:00 10/11/24 22:50 98.2 F 84 21 124/56 L 10/11/24 22:43 10/11/24 21:15 96 H 16 130/57 L 95 10/11/24 19:41 100.9 F H 112 H 17 125/62 94 L O2 Del Method O2 Flow Rate 10/12/24 10:51 Nasal Cannula 2 10/12/24 09:00 Nasal Cannula 2 10/12/24 08:00 Nasal Cannula 1 10/12/24 08:00 Nasal Cannula 2 10/12/24 06:42 Nasal Cannula 2 10/12/24 05:00 Nasal Cannula 2 10/12/24 04:00 Nasal Cannula 2 10/12/24 03:00 Nasal Cannula 2 10/12/24 01:00 Nasal Cannula 2 10/11/24 23:42 Room Air 10/11/24 23:00 Nasal Cannula 2 10/11/24 22:50 Room Air 10/11/24 22:43 Nasal Cannula 2 10/11/24 21:15 10/11/24 19:41 Nasal Cannula 2 Intake and Output 10/11/24 10/12/24 10/12/24 23:59 07:59 15:59 Intake Total 100 / 250 200 / 680 480 / 680 Output Total 0 / 0 0 / 0 Balance 100 / 250 200 / 680 480 / 680 Intake: Intake, Oral Amount 150 / 630 480 / 630 Intake, Total IV Amount 100 / 100 50 / 50 Cefepime HCl 2 gm In 0.9 % 100 / 100 Sodium Chloride 100 ml @ 200 mls/hr IV ONCE ONE Rx#:[id number] Ceftriaxone Sodium 1 gm In 0.9 50 / 50 % Sodium Chloride 50 ml @ 100 mls/hr IV Q24H [facility] Rx#: [id number] Output: Output, Urine Amount 0 / 0 0 / 0 Other: Number of Unmeasured Voids 1 1 Number of Bowel Movements 1 Weight 114.305 kg 114.305 kg Patient Weight 10/12/24 23:59 Weight 114.305 kg Laboratory Results - last 24 hr 10/11/24 19:35: WBC 9.0, RBC 4.00 L, Hgb 10.8 L, Hct 35.1 L, MCV 87.8, MCH 27.0, MCHC 30.8 L, RDW 15.5, Plt Count 143, MPV 9.6, Neut % (Auto) 90.7 H, Lymph % (Auto) 4.6 L, [place] % (Auto) 3.3, Eos % (Auto) 0.7, Baso % (Auto) 0.3, Neut # (Auto) 8.1 H, Lymph # (Auto) 0.4 L, [place] # (Auto) 0.3, Eos # (Auto) 0.1, Baso # (Auto) 0.0, Total Counted 100, Neutrophils % (Manual) 72, Band Neutrophils % 21 H, Lymphocytes % (Manual) 5 L, Atypical Lymphs % 2, Platelet Estimate Not Reportable, RBC Morphology Not Reportable, ESR 48 H, PT 12.4, INR 1.13 H, APTT 27.6, Sodium 139, Potassium 4.1, Chloride 108 H, Carbon Dioxide 24, Anion Gap 11.1, BUN 40 H, Creatinine 2.70 H, Estimated Creat Clear 36, Estimated GFR 23 L, Est GFR ( Amer) 28 L, Glucose 188 H, Lactate 0.9, Calcium 8.7, Total Bilirubin 0.9, AST 25, ALT 16, Alkaline Phosphatase 134 H, Total Creatine Kinase 97, C-Reactive Protein 109.2 H, NT-Pro-B Natriuret Pep 2300 H, Total Protein 7.6, Albumin 3.7, Globulin 3.9 H, Albumin/Globulin Ratio 0.9 L, HIV Ag/Ab Combo Qual Negative 10/11/24 21:23: Chlamy pneumoniae PCR Not detected, Adenovirus (PCR) Not detected, B. pertussis DNA (PCR) Not detected, Coronavirus OC43 (PCR) Not detected, Coronavirus HKU1 (PCR) Not detected, Coronavirus 229E (PCR) Not detected, SARS-CoV-2 (PCR) Not detected, Coronavirus NL63 (PCR) Not detected, Human Metapneumovir PCR Not detected, Influenza A (H1) PCR Not detected, Influ A (H1N1/09) PCR Not detected, Influenza A (H3) PCR Not detected, Influenza Type A (PCR) Not detected, Influenza Type B (PCR) Not detected, M. pneumoniae (PCR) Not detected, Parainfluenza 1 (PCR) Not detected, Parainfluenza 2 (PCR) Not detected, Parainfluenza 3 (PCR) Not detected, Parainfluenza 4 (PCR) Not detected, RSV (PCR) Not detected, Entero/Rhino (PCR) Not detected 10/11/24 22:47: Urine Color Yellow, Urine Appearance Clear, Urine pH 5.5, Ur Specific [place] 1.010, Urine Protein 1+ A, Urine Glucose (UA) 3+, Urine Ketones Negative, Urine Blood 2+ A, Urine Nitrate Positive A, Urine Bilirubin Negative, Urine Urobilinogen 0.2, Ur Leukocyte Esterase 2+ A, Urine RBC None, Urine WBC Tntc, Ur Squamous Epith Cells None, Urine Bacteria 2+ 10/12/24 06:05: WBC 11.5 H D, RBC 3.77 L, Hgb 10.3 L, Hct 33.4 L, MCV 88.6, MCH 27.3, MCHC 30.8 L, RDW 15.6, Plt Count 134 L, MPV 9.8, Neut % (Auto) 79.4, Lymph % (Auto) 9.4 L, [place] % (Auto) 9.7 H, Eos % (Auto) 0.9, Baso % (Auto) 0.3, Neut # (Auto) 9.2 H, Lymph # (Auto) 1.1, [place] # (Auto) 1.1 H, Eos # (Auto) 0.1, Baso # (Auto) 0.0, Sodium 139, Potassium 4.2, Chloride 106, Carbon Dioxide 23, Anion Gap 14.2, BUN 43 H, Creatinine 2.80 H, Estimated Creat Clear 35, Estimated GFR 22 L, Est GFR ( Amer) 27 L, Glucose 150 H D, Calcium 8.7 10/12/24 08:50: POC Glucose 244 H I & O for Labs for Last 24 Hours: Intake & Output 10/09/24 10/10/24 10/11/24 10/12/24 23:59 23:59 23:59 23:59 Intake Total 100 / 250 680 / 680 Output Total 0 / 0 Balance 100 / 250 680 / 680 Weight 114.305 kg 114.305 kg Constitutional: Present no acute distress, obese, chronically ill appearing, disheveled and cooperative Head: Present atraumatic and normocephalic ENT: Present normal exam Neck: Present normal inspection Respiratory: Present normal respiratory effort; Absent rhonchi, wheezes or crackles Cardiac: Present Reg Rate and Rhythm GI: Present soft and normal bowel sounds; Absent distention or tenderness Extremities: Present normal inspection, full ROM and edema (trace); Absent tenderness Skin: Present intact; Absent erythema Neuro: Present Grossly Intact, alert, awake, oriented x 3 and moves all extremities Comment:: hard of hearing Assessment and Plan *Assessment and plan (1) Acute hypoxic respiratory failure: Status: Acute Category: Medical Code(s): J96.01 - Acute respiratory failure with hypoxia Plan: 75% on room air in ER 2L NC in ER satting 90% No history of supplemental O2 use Reviewed CTA chest negative for PE, unruptured aneurysm, no dissection of aorta Respiratory bio fire negative Blood cultures pending at this time Continue ceftriaxone 1 g daily for infection. Monitor oxygen needs. Goal sats greater 90%. Wean as tolerated (2) Chronic diastolic CHF (congestive heart failure): Status: Chronic Category: Medical Code(s): I50.32 - Chronic diastolic (congestive) heart failure Plan: Acute respiratory failure could be caused by exacerbation of heart failure. BNP elevated at 2300. Initiate Bumex 2 mg IV daily Strict I's and O's 1500 mL fluid restriction daily Daily weights Repeat CBC, CMP, magnesium ordered for the morning. (3) Elevated brain natriuretic peptide (BNP) level: Status: Acute Category: Medical Code(s): R79.89 - Other specified abnormal findings of blood chemistry (4) UTI (urinary tract infection): Status: Acute Category: Medical Code(s): N39.0 - Urinary tract infection, site not specified Plan: UA: 1+ protein, 2+ blood, nitrates positive, leukocytes 2+, WBC TNTC, urine [place] 2+ Patient given cefepime in the ER; transition to ceftriaxone 1 g daily. Urine cultures pending. White count 11.5, hemoglobin 10.3. (5) Cgriv-mg-[id number] kidney injury: Status: Acute Category: Medical Code(s): N17.9 - Acute kidney failure, unspecified; N18.9 - Chronic kidney disease, unspecified Plan: Creatinine 2.70/BUN 40 on presentation. Consistent this morning with BUN 43, creatinine 2.8. Baseline creatinine around 2.20 (6) Fever: Status: Acute Category: Medical Code(s): R50.9 - Fever, unspecified Plan: Temperature 100.9 Blood cultures pending Vital signs every 4 hours Tylenol as needed (7) Loose stools: Status: Acute Category: Medical Code(s): R19.5 - Other fecal abnormalities Plan: Consider stool studies if loose stools continue (8) Tachycardia: Status: Acute Category: Medical Code(s): R00.0 - Tachycardia, unspecified Plan: Could be combination of volume loss, fluid overload, or infectious process Monitor vital signs every 4 hours Continue Coreg (9) HTN (hypertension): Status: Acute Qualifiers: Hypertension type: primary hypertension Qualified Code(s): I10 - Essential (primary) hypertension Category: Medical Code(s): I10 - Essential (primary) hypertension Plan: Resume home carvedilol 12.5 mg twice daily, Eliquis 2.5 mg twice daily (10) Diabetes mellitus with diabetic polyneuropathy: Status: Chronic Qualifiers: Diabetes mellitus type: type 2 Diabetes mellitus data reduction technician insulin use: with data reduction technician use Qualified Code(s): E11.42 - Type 2 diabetes mellitus with diabetic polyneuropathy; Z79.4 - sprayer automatic spray machine (current) use of insulin Category: Medical Code(s): E11.42 - Type 2 diabetes mellitus with diabetic polyneuropathy Plan: Continue fingerstick ACHS with sliding scale insulin. Resume insulin glargine 30 units twice daily. Will hold dapagliflozin in the setting of UTI
[2024-10-12] MEDS: ACETAMINOPHEN 325MG TAB 650 MG PO (11:55)
[2024-10-12] MEDS: BUMETANIDE 1MG/4ML VIAL 2 MG IV (13:26)
[2024-10-12 16:00] VITALS: BP 137/66; PULSE 99; RESP 16; TEMP 37; O2SAT 92
[2024-10-12 16:59] LABS: POC Glucose,Bedside 233 gm/dL (70-110)
--- NOTE | 2024-10-12 18:15 | PC.NURSE ---
pt resting in bed, no complaints at this time, call light in reach
[2024-10-12 20:00] VITALS: BP 118/50; PULSE 91; RESP 16; TEMP 36.8; O2SAT 90
[2024-10-12 21:26] LABS: POC Glucose,Bedside 204 gm/dL (70-110)
[2024-10-13] VITALS: BP 121/46; PULSE 87; RESP 17; TEMP 37.1; O2SAT 91
[2024-10-13 04:00] VITALS: BP 120/55; PULSE 80; RESP 14; TEMP 36.8; O2SAT 94; BMI 34.8
[2024-10-13] MEDS: humaLOG 100 UNITS/ML 10ML VIAL (SSI) SUBCUT ×4 (05:54→20:25)
[2024-10-13 06:03] LABS: POC Glucose,Bedside 154 gm/dL (70-110)
[2024-10-13 06:04] LABS: Hematocrit 32.9 % (42.0-52.0); Hemoglobin 10.3 g/dL (14.1-18.0); Immature Granulocytes % 0.4 %; Mean Corpuscular HGB Conc 31.3 g/dL (31.8-35.4); Mean Corpuscular Hemoglobin 27.2 pg (27.0-31.2); Mean Corpuscular Volume 87.0 fl (80-94); Nucleated Red Blood Cells % 0 %; Platelet Count 134 K/mm3 (142-424); Red Blood Count 3.78 M/mm3 (4.60-6.20); Red Cell Distribution Width-SD 49.5 fL; White Blood Count 8.9 K/mm3 (4.8-10.8)
[2024-10-13 06:24] LABS: Alanine Aminotransferase 17 U/L (12-78); Albumin Level 3.5 g/dl (3.5-5.0); Albumin/Globulin Ratio 0.9 (1.1-1.8); Alkaline Phosphatase 166 U/L (38-126); Anion Gap 16.1 mEq/L (5-15); Aspartate Amino Transferase 23 U/L (17-59); Bilirubin,Total 0.5 mg/dl (0.2-1.3); Blood Urea Nitrogen 53 mg/dl (9-20); Calcium 8.8 mg/dl (8.4-10.2); Carbon Dioxide 22 mmol/L (22.0-30.0); Chloride 103 mmol/L (98-107); Creatinine Clearance Estimated 29 mL/min (50-200); Creatinine,Serum 3.40 mg/dl (0.66-1.25); Estimated Glomerular Filt Rate 18 ml/min (>60); GFR (African American) 21 ML/MIN (>60); Globulin 4.1 g/dL (1.3-3.2); Glucose 147 mg/dl (74-100); Magnesium 1.7 mg/dl (1.6-2.3); Potassium 4.1 mmoL/L (3.5-5.1); Sodium 137 mmol/L (136-145); Total Protein,Serum 7.6 g/dl (6.3-8.2)
[2024-10-13 08:00] VITALS: BP 133/55; PULSE 82; RESP 18; TEMP 36.9; O2SAT 92; O2SAT 95
[2024-10-13] MEDS: SERTRALINE 50MG TABLET 25 MG PO (08:20)
[2024-10-13] MEDS: INSULIN GLARGINE 100 UNITS/ML 3ML FLEXPEN 30 UNIT SUBCUT ×2 (08:20→20:26)
[2024-10-13] MEDS: CARVEDILOL 12.5MG TABLET 12.5 MG PO ×2 (08:20→20:25)
[2024-10-13] MEDS: APIXABAN 5MG TABLET 2.5 MG PO ×2 (08:20→20:25)
[2024-10-13] MEDS: PANTOPRAZOLE 40MG TABLET 40 MG PO ×2 (08:20→20:25)
[2024-10-13 08:45] LABS: POC Glucose,Bedside 215 gm/dL (70-110)
[2024-10-13] MEDS: LACTATED RINGERS 1000ML 500 ML 125 ML IV (09:01)
[2024-10-13 11:22] LABS: POC Glucose,Bedside 181 gm/dL (70-110)
[2024-10-13 12:00] VITALS: BP 141/65; PULSE 71; RESP 18; TEMP 37; O2SAT 96
--- NOTE | 2024-10-13 14:35 | HMH.PTEV ---
Physical Therapy Evaluation Rehab PT IP Evaluation Start: 10/12/24 01:25 Freq: ONCE Status: Active Protocol: Document 10/12/24 09:00 VIDHYA (Rec: 10/12/24 09:18 [email or web address] [id number]) Subjective/History History History Per H&P: Mr. Garcia is a 78-year-old male presents here for evaluation of nausea, vomiting, diarrhea. Patient has a past medical history of congestive heart failure, hypertension, diabetes mellitus, chronic kidney disease, obesity, and GI bleed . Patient reports 4-5 episodes of nausea and vomiting today as well as 2 episodes of loose stools. He denies any blood in his emesis or stool but he does report stools or dark in color. He also reports chills today. Patient denies fever, cough, congestion, runny nose, dyspnea, chest pain, abdominal pain, constipation, headache, lightheadedness, dizziness, or syncope. Subjective Subjective Pt reports he lives in a retirement where he uses a w /c for community navigation and a RW for short IND household level ambulation. New diagnosis of No cancer in past 12 months? [facility] How much help from another person do you currently need... Turning from your A little back to your side while in a flat bed without using bedrails? Moving from lying on A little back to sitting on the side of a flat bed without using bedrails? Moving to and from a A little bed to a chair ( including a wheelchair)? Standing up from a A little chair using your arms? (e.g., wheelchair, bedside chair) Walking in hospital A little room? Climbing 3-5 steps A lot with a railing? Mobility Score 17 Mobility Level [facility] Mobility 5 Stand (1 or more minutes) Mobility Calculator Rehab PT IP Eval Objective Appearance Patient Behavior Appropriate,Cooperative Patient Orientation Person,Situation Difficulty following none instructions Speech Pattern Clear Ambulation Patient Able to Yes Ambulate Ambulation Observation IP General Gait Wide Based Gait Pattern Observation Ambulation Distance 27 (feet) Ambulation Assistive Rolling Walker Device Ambulation Ability Contact Guard/Hand Hold,Minimal x 1 (25% assist) Balance Ability to Arise Able, uses arms to help Sitting Balance Steady, safe Standing Balance Steady, wide stance Dynamic Sitting Good Balance Ability Dynamic Standing Good Balance Ability Rehab PT IP prob,goals,plan Problems Date of Evaluation: 10/12/24 PT IP Problems Bed Mobility,Transfers,Gait,Balance,Self care,Safety Rehab Potential Rehab Potential Good Plan PT Intervention Plan Bed Mobility,Transfers,Gait,Balance,Self care,Safety, Therapeutic Exercise Other Intervention 1-2 times Plan PT Plan Frequency Daily Duration LOS Discharge Goals Bed Transfer Ability Independent Sit to Stand Chair Contact Guard/Hand Hold Transfer Ability Ambulation Assistive Rolling Walker Device Ambulation Distance 50 (feet) Discharge Plan PT Discharge Plan Pt presents below his baseline in functional mobility, strength, and gait. Pt presents as a fall risk and PT is recommending pt receive 24/ supervision with mobility at this time. PT recommending pt receive rehabilitation services upon d/c from [facility] to maximize safety and address deficits. Pt would benefit from skilled acute care physical therapy while at [facility] to prevent further functional decline. Eval Complexity Eval Charge Codes 77312 - Moderate Complexity PHYSICIAN CERTIFICATION: I certify the specified therapy services for Winston Garcia are required, authorized, and reviewed every 30 days.
--- NOTE | 2024-10-13 14:49 | P.PN_ITS ---
Subjective *Date: 10/13/24 *Time: 14:49 Interval history: Patient stable on 2 L supplemental oxygen today. Unfortunately kidney function worsened overnight. Concern for component of contrast from admission and diuresis yesterday. Will have gentle hydration today. Denies any chest pain or shortness of breath. No nausea or vomiting. Continuing treatment for UTI. Afebrile. Medical Exam Vital signs and Labs for Last 24 Hours: Vital Signs Temp Pulse Resp BP Pulse Ox O2 Del Method O2 Flow Rate 10/13/24 13:00 Nasal Cannula 2 10/13/24 12:00 98.6 F 71 18 141/65 H 96 Nasal Cannula 2 10/13/24 11:00 Nasal Cannula 2 10/13/24 08:58 Nasal Cannula 2 10/13/24 08:00 98.5 F 82 18 133/55 L 95 Nasal Cannula 2 10/13/24 08:00 92 L Nasal Cannula 2 10/13/24 06:46 Nasal Cannula 2 10/13/24 05:00 Nasal Cannula 2 10/13/24 04:00 98.2 F 80 14 120/55 L 94 L Nasal Cannula 2 10/13/24 03:00 Nasal Cannula 2 10/13/24 01:00 Nasal Cannula 2 10/13/24 00:00 98.7 F 87 17 121/46 L 91 L Nasal Cannula 2 10/12/24 23:00 Nasal Cannula 1 10/12/24 21:00 Nasal Cannula 1 10/12/24 20:00 98.2 F 91 H 16 118/50 L 90 L Nasal Cannula 1 10/12/24 19:42 Room Air 10/12/24 18:13 Nasal Cannula 2 10/12/24 17:00 Nasal Cannula 2 10/12/24 16:00 98.6 F 99 H 16 137/66 92 L Nasal Cannula 1 10/12/24 15:00 Nasal Cannula 2 Intake and Output 10/12/24 10/13/24 10/13/24 23:59 07:59 15:59 Intake Total 150 / 1240 50 / 790 740 / 790 Output Total 800 / 1050 400 / 400 Balance -650 / 190 -350 / 390 740 / 390 Intake: Intake, Oral Amount 150 / 1140 240 / 240 Intake, Total IV Amount 50 / 550 500 / 550 Ceftriaxone Sodium 1 gm In 0.9 50 / 50 % Sodium Chloride 50 ml @ 100 mls/hr IV Q24H [facility] Rx#:[id number] Lactated Ringers 1000ML 500 ml 500 / 500 @ 125 mls/hr IV .Q4H [facility] Rx#: [id number] Output: Output, Urine Amount 800 / 1050 400 / 400 Other: Number of Unmeasured Voids 0 0 Number of Bowel Movements 1 Weight 112.854 kg Patient Weight 10/13/24 23:59 Weight 112.854 kg Laboratory Results - last 24 hr 10/11/24 22:47: Urine Color Yellow, Urine Appearance Clear, Urine pH 5.5, Ur Specific [place] 1.010, Urine Protein 1+ A, Urine Glucose (UA) 3+, Urine Ketones Negative, Urine Blood 2+ A, Urine Nitrate Positive A, Urine Bilirubin Negative, Urine Urobilinogen 0.2, Ur Leukocyte Esterase 2+ A, Urine RBC None, Urine WBC Tntc, Ur Squamous Epith Cells None, Urine Bacteria 2+ 10/12/24 16:52: POC Glucose 233 H 10/12/24 20:00: POC Glucose 204 H 10/13/24 05:53: POC Glucose 154 H 10/13/24 05:54: WBC 8.9, RBC 3.78 L, Hgb 10.3 L, Hct 32.9 L, MCV 87.0, MCH 27.2, MCHC 31.3 L, RDW 15.6, Plt Count 134 L, MPV 9.5, Neut % (Auto) 80.2 H, Lymph % (Auto) 9.2 L, [place] % (Auto) 9.7 H, Eos % (Auto) 0.4, Baso % (Auto) 0.1, Neut # (Auto) 7.1, Lymph # (Auto) 0.8, [place] # (Auto) 0.9, Eos # (Auto) 0.0, Baso # (Auto) 0.0, Sodium 137, Potassium 4.1, Chloride 103, Carbon Dioxide 22, Anion Gap 16.1 H, BUN 53 H, Creatinine 3.40 H D, Estimated Creat Clear 29, Estimated GFR 18 L*, Est GFR ( Amer) 21 L D, Glucose 147 H, Calcium 8.8, Magnesium 1.7, Total Bilirubin 0.5, AST 23, ALT 17, Alkaline Phosphatase 166 H, Total Protein 7.6, Albumin 3.5, Globulin 4.1 H, Albumin/Globulin Ratio 0.9 L 10/13/24 08:17: POC Glucose 215 H 10/13/24 11:16: POC Glucose 181 H I & O for Labs for Last 24 Hours: Intake & Output 10/10/24 10/11/24 10/12/24 10/13/24 23:59 23:59 23:59 23:59 Intake Total 100 / 250 1190 / 1240 790 / 790 Output Total 800 / 1050 400 / 400 Balance 100 / 250 390 / 190 390 / 390 Weight 114.305 kg 114.305 kg 112.854 kg Microbiology Reports for the Last 24 Hours: Microbiology 10/11/24 19:48 Blood Blood Culture - Preliminary Gram Negative Rods 10/11/24 19:35 Blood Blood Culture - Preliminary Gram Negative Rods 10/11/24 22:47 Urine,Clean Catch Urine Culture - Preliminary Gram Negative Rods Constitutional: Present no acute distress, obese, chronically ill appearing, disheveled and cooperative Head: Present atraumatic and normocephalic ENT: Present normal exam Neck: Present normal inspection Respiratory: Present normal respiratory effort; Absent rhonchi, wheezes or crackles Cardiac: Present Reg Rate and Rhythm GI: Present soft and normal bowel sounds; Absent distention or tenderness Extremities: Present normal inspection, full ROM and edema (trace); Absent tenderness Skin: Present intact; Absent erythema Neuro: Present Grossly Intact, alert, awake, oriented x 3 and moves all extremities Comment:: hard of hearing Assessment and Plan *Assessment and plan (1) Acute hypoxic respiratory failure: Status: Acute Category: Medical Code(s): J96.01 - Acute respiratory failure with hypoxia Plan: 75% on room air in ER 2L NC in ER satting 90%. Monitored for improvement with diuresis. Continues to require oxygen however. Reviewed CTA chest negative for PE, unruptured aneurysm, no dissection of aorta Respiratory bio fire negative Blood cultures pending at this time Continue ceftriaxone 1 g daily for infection. Monitor oxygen needs. Goal sats greater 90%. Wean as tolerated (2) Chronic diastolic CHF (congestive heart failure): Status: Chronic Category: Medical Code(s): I50.32 - Chronic diastolic (congestive) heart failure Plan: Acute respiratory failure could be caused by exacerbation of heart failure. BNP elevated at 2300. Holding diuresis due to worsening JACQUI. Strict I's and O's 1500 mL fluid restriction daily Daily weights Repeat CBC, CMP, magnesium ordered for the morning. (3) Elevated brain natriuretic peptide (BNP) level: Status: Acute Category: Medical Code(s): R79.89 - Other specified abnormal findings of blood chemistry (4) UTI (urinary tract infection): Status: Acute Category: Medical Code(s): N39.0 - Urinary tract infection, site not specified Plan: UA: 1+ protein, 2+ blood, nitrates positive, leukocytes 2+, WBC TNTC, urine bacteria 2+ White count improved to 8.9. Urine and blood cultures all positive for gram- negative rods. Continue ceftriaxone 1 g IV daily. Awaiting speciation and sensitivity of blood and urine cultures. (5) Nhzkp-sq-[id number] kidney injury: Status: Acute Category: Medical Code(s): N17.9 - Acute kidney failure, unspecified; N18.9 - Chronic kidney disease, unspecified Plan: Creatinine 2.70/BUN 40 on presentation. Worse today with BUN 57, creatinine 3.4. Hold on further diuresis. Gentle rehydration today with 500 cc of IV fluids. Reconsider further hydration after BMP this afternoon. Baseline creatinine 2.2 (6) Fever: Status: Acute Category: Medical Code(s): R50.9 - Fever, unspecified Plan: Temperature 100.9 Resolved. Likely in the setting of infection with bacteremia (7) Loose stools: Status: Acute Category: Medical Code(s): R19.5 - Other fecal abnormalities Plan: Consider stool studies if loose stools continue (8) Tachycardia: Status: Acute Category: Medical Code(s): R00.0 - Tachycardia, unspecified Plan: Could be combination of volume loss, fluid overload, or infectious process Monitor vital signs every 4 hours Continue Coreg (9) HTN (hypertension): Status: Acute Qualifiers: Hypertension type: primary hypertension Qualified Code(s): I10 - Essential (primary) hypertension Category: Medical Code(s): I10 - Essential (primary) hypertension Plan: Resume home carvedilol 12.5 mg twice daily, Eliquis 2.5 mg twice daily (10) Diabetes mellitus with diabetic polyneuropathy: Status: Chronic Qualifiers: Diabetes mellitus type: type 2 Diabetes mellitus tank terminal 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 Resume insulin glargine 30 units twice daily. Will hold dapagliflozin in the setting of UTI (11) Gram-negative bacteremia: Status: Acute Category: Medical Code(s): R78.81 - Bacteremia
[2024-10-13 14:50] VITALS: BMI 34.8
[2024-10-13 16:00] VITALS: BP 149/61; PULSE 77; RESP 18; TEMP 37.1; O2SAT 96
[2024-10-13 16:36] LABS: POC Glucose,Bedside 181 gm/dL (70-110)
--- NOTE | 2024-10-13 17:03 | PC.NURSE ---
pt resting supine in bed at this time. no complaints of pain this shift. pt is EXTREMELY hard of hearing. PT/OT worked with pt this shift. pt was not willing to interact much with them. 500ml of LR given per mar this shift. no needs at this time. call light within reach.
[2024-10-13 17:40] LABS: Anion Gap 14.0 mEq/L (5-15); Blood Urea Nitrogen 56 mg/dl (9-20); Calcium 8.4 mg/dl (8.4-10.2); Carbon Dioxide 21 mmol/L (22.0-30.0); Chloride 104 mmol/L (98-107); Creatinine Clearance Estimated 29 mL/min (50-200); Creatinine,Serum 3.30 mg/dl (0.66-1.25); Estimated Glomerular Filt Rate 18 ml/min (>60); GFR (African American) 22 ML/MIN (>60); Glucose 177 mg/dl (74-100); Potassium 4.0 mmoL/L (3.5-5.1); Sodium 135 mmol/L (136-145)
[2024-10-13 20:00] VITALS: BP 120/60; PULSE 76; RESP 16; TEMP 36.8; O2SAT 96
[2024-10-13 20:04] LABS: POC Glucose,Bedside 239 gm/dL (70-110)
[2024-10-14] VITALS: BP 137/63; PULSE 70; RESP 16; TEMP 37.7; O2SAT 97
[2024-10-14 04:00] VITALS: BP 127/62; PULSE 77; RESP 16; TEMP 37.1; O2SAT 96; BMI 34.8
[2024-10-14 06:02] LABS: POC Glucose,Bedside 139 gm/dL (70-110)
[2024-10-14 06:24] LABS: Alanine Aminotransferase 19 U/L (12-78); Albumin Level 3.4 g/dl (3.5-5.0); Albumin/Globulin Ratio 0.9 (1.1-1.8); Alkaline Phosphatase 215 U/L (38-126); Anion Gap 13.9 mEq/L (5-15); Aspartate Amino Transferase 30 U/L (17-59); Bilirubin,Total 0.4 mg/dl (0.2-1.3); Blood Urea Nitrogen 55 mg/dl (9-20); Calcium 8.6 mg/dl (8.4-10.2); Carbon Dioxide 23 mmol/L (22.0-30.0); Chloride 104 mmol/L (98-107); Creatinine Clearance Estimated 29 mL/min (50-200); Creatinine,Serum 3.40 mg/dl (0.66-1.25); Estimated Glomerular Filt Rate 18 ml/min (>60); GFR (African American) 21 ML/MIN (>60); Globulin 3.7 g/dL (1.3-3.2); Glucose 137 mg/dl (74-100); Potassium 3.9 mmoL/L (3.5-5.1); Sodium 137 mmol/L (136-145); Total Protein,Serum 7.1 g/dl (6.3-8.2)
[2024-10-14 06:32] LABS: Hematocrit 31.8 % (42.0-52.0); Hemoglobin 9.5 g/dL (14.1-18.0); Immature Granulocytes % 0.5 %; Mean Corpuscular HGB Conc 29.9 g/dL (31.8-35.4); Mean Corpuscular Hemoglobin 26.2 pg (27.0-31.2); Mean Corpuscular Volume 87.6 fl (80-94); Nucleated Red Blood Cells % 0 %; Platelet Count 133 K/mm3 (142-424); Red Blood Count 3.63 M/mm3 (4.60-6.20); Red Cell Distribution Width-SD 49.0 fL; White Blood Count 6.0 K/mm3 (4.8-10.8)
[2024-10-14 08:00] VITALS: BP 158/73; PULSE 73; RESP 16; TEMP 36.8; O2SAT 96
--- NOTE | 2024-10-14 08:43 | P.PN_ITS ---
Subjective *Date: 10/14/24 *Time: 08:43 Medical Exam Vital signs and Labs for Last 24 Hours: Vital Signs Temp Pulse Resp BP Pulse Ox O2 Del Method O2 Flow Rate 10/14/24 08:00 98.3 F 73 16 158/73 H 96 Nasal Cannula 2 10/14/24 07:00 Nasal Cannula 2 10/14/24 05:00 Nasal Cannula 2 10/14/24 04:00 98.8 F 77 16 127/62 96 Nasal Cannula 2 10/14/24 03:00 Nasal Cannula 2 10/14/24 01:00 Nasal Cannula 2 10/14/24 00:00 100 F H 70 16 137/63 97 Nasal Cannula 2 10/13/24 23:00 Nasal Cannula 2 10/13/24 21:00 Nasal Cannula 2 10/13/24 20:00 Nasal Cannula 2 10/13/24 20:00 98.3 F 76 16 120/60 96 Nasal Cannula 2 10/13/24 18:51 Nasal Cannula 2 10/13/24 17:00 Nasal Cannula 2 10/13/24 16:00 98.7 F 77 18 149/61 H 96 Nasal Cannula 2 10/13/24 15:00 Nasal Cannula 2 10/13/24 13:00 Nasal Cannula 2 10/13/24 12:00 98.6 F 71 18 141/65 H 96 Nasal Cannula 2 10/13/24 11:00 Nasal Cannula 2 10/13/24 08:58 Nasal Cannula 2 Intake and Output 10/13/24 10/14/24 10/14/24 23:59 07:59 15:59 Intake Total 480 / 1510 290 / 290 Output Total 600 / 1275 475 / 575 100 / 575 Balance -120 / 235 -185 / -285 -100 / -285 Intake: Intake, Oral Amount 480 / 960 240 / 240 Intake, Total IV Amount 50 / 50 Ceftriaxone Sodium 1 gm In 0.9 50 / 50 % Sodium Chloride 50 ml @ 100 mls/hr IV Q24H [facility] Rx#:[id number] Output: Output, Urine Amount 600 / 1275 475 / 575 100 / 575 Other: Weight 112.845 kg Patient Weight 10/14/24 23:59 Weight 112.845 kg Laboratory Results - last 24 hr 10/11/24 22:47: Urine Color Yellow, Urine Appearance Clear, Urine pH 5.5, Ur Specific [place] 1.010, Urine Protein 1+ A, Urine Glucose (UA) 3+, Urine Ketones Negative, Urine Blood 2+ A, Urine Nitrate Positive A, Urine Bilirubin Negative, Urine Urobilinogen 0.2, Ur Leukocyte Esterase 2+ A, Urine RBC None, Urine WBC Tntc, Ur Squamous Epith Cells None, Urine Bacteria 2+ 10/13/24 08:17: POC Glucose 215 H 10/13/24 11:16: POC Glucose 181 H 10/13/24 16:18: POC Glucose 181 H 10/13/24 17:09: Sodium 135 L, Potassium 4.0, Chloride 104, Carbon Dioxide 21 L, Anion Gap 14.0, BUN 56 H, Creatinine 3.30 H, Estimated Creat Clear 29, Estimated GFR 18 L*, Est GFR ( Amer) 22 L, Glucose 177 H D, Calcium 8.4 10/13/24 19:57: POC Glucose 239 H 10/14/24 05:55: POC Glucose 139 H 10/14/24 05:56: WBC 6.0 D, RBC 3.63 L, Hgb 9.5 L, Hct 31.8 L, MCV 87.6, MCH 26.2 L, MCHC 29.9 L, RDW 15.4, Plt Count 133 L, MPV 10.5 H, Neut % (Auto) 68.6, Lymph % (Auto) 15.9, Webb % (Auto) 12.5 H, Eos % (Auto) 2.3, Baso % (Auto) 0.2, Neut # (Auto) 4.1, Lymph # (Auto) 1.0, Webb # (Auto) 0.8, Eos # (Auto) 0.1, Baso # (Auto) 0.0, Sodium 137, Potassium 3.9, Chloride 104, Carbon Dioxide 23, Anion Gap 13.9, BUN 55 H, Creatinine 3.40 H, Estimated Creat Clear 29, Estimated GFR 18 L*, Est GFR ( Amer) 21 L, Glucose 137 H D, Calcium 8.6, Total Bilirubin 0.4, AST 30 D, ALT 19, Alkaline Phosphatase 215 H, Total Protein 7.1, Albumin 3.4 L, Globulin 3.7 H, Albumin/Globulin Ratio 0.9 L I & O for Labs for Last 24 Hours: Intake & Output 0910/12/24 10/13/24 10/14/24 23:59 23:59 23:59 23:59 Intake Total 100 / 250 1190 / 1240 1270 / 1510 290 / 290 Output Total 800 / 1050 1000 / 1275 575 / 575 Balance 100 / 250 390 / 190 270 / 235 -285 / -285 Weight 114.305 kg 114.305 kg 112.854 kg 112.845 kg Microbiology Reports for the Last 24 Hours: Microbiology 10/11/24 19:48 Blood Blood Culture - Preliminary Gram Negative Rods 10/11/24 19:35 Blood Blood Culture - Preliminary Gram Negative Rods 10/11/24 22:47 Urine,Clean Catch Urine Culture - Preliminary Gram Negative Rods The patient's infection will respond to the chosen ABx?: Yes (BLOOD AND URINE CX = GRAM NEGATIVE RODS, ID/SENSITIVITY PENDING.) Is the patient receiving the right drug, dose, and route?: Yes Could a more targeted ABx be ordered?: Yes How long ABx needed (days)?: 7
[2024-10-14] MEDS: PANTOPRAZOLE 40MG TABLET 40 MG PO ×2 (08:46→20:52)
[2024-10-14] MEDS: CARVEDILOL 12.5MG TABLET 12.5 MG PO ×2 (08:46→20:52)
[2024-10-14] MEDS: SERTRALINE 50MG TABLET 25 MG PO (08:46)
[2024-10-14] MEDS: APIXABAN 5MG TABLET 2.5 MG PO ×2 (08:47→20:52)
[2024-10-14] MEDS: LACTATED RINGERS 1000ML 500 ML IV (08:52)
[2024-10-14] MEDS: INSULIN GLARGINE 100 UNITS/ML 3ML FLEXPEN 30 UNIT SUBCUT ×2 (08:54→20:53)
[2024-10-14 10:29] LABS: POC Glucose,Bedside 136 gm/dL (70-110)
[2024-10-14 13:33] LABS: Anion Gap 14.0 mEq/L (5-15); Blood Urea Nitrogen 58 mg/dl (9-20); Calcium 8.6 mg/dl (8.4-10.2); Carbon Dioxide 23 mmol/L (22.0-30.0); Chloride 105 mmol/L (98-107); Creatinine Clearance Estimated 30 mL/min (50-200); Creatinine,Serum 3.20 mg/dl (0.66-1.25); Estimated Glomerular Filt Rate 19 ml/min (>60); GFR (African American) 23 ML/MIN (>60); Glucose 183 mg/dl (74-100); Potassium 4.0 mmoL/L (3.5-5.1); Sodium 138 mmol/L (136-145)
--- NOTE | 2024-10-14 14:12 | EXP.DC.SUM ---
General Admission date:: 10/11/24 HPI HPI HPI: Mr. Garcia is a 78-year-old male presents here for evaluation of nausea, vomiting, diarrhea. Patient has a past medical history of congestive heart failure, hypertension, diabetes mellitus, chronic kidney disease, obesity, and GI bleed. Patient reports 4-5 episodes of nausea and vomiting today as well as 2 episodes of loose stools. He denies any blood in his emesis or stool but he does report stools or dark in color. He also reports chills today. Patient denies fever, cough, congestion, runny nose, dyspnea, chest pain, abdominal pain, constipation, headache, lightheadedness, dizziness, or syncope. Hospital Course Hospital Course Hospital Course: Mr. Garcia is a 78-year-old male who presented with nausea/vomiting/diarrhea and was admitted for sepsis secondary to UTI and HFpEF exacerbation. Of note, patient is very hard of hearing. #Sepsis, resolved #UTI #E. coli bacteremia ? Presented with nausea/vomiting, weakness. UA grossly abnormal, urine culture growing E. coli essentially pansensitive. ? Blood culture also growing E. coli, essentially pansensitive. ? Initial WBC 11.5, with fever 100.9 and tachycardia. ? Clinically improved with IV ceftriaxone, transition to p.o. cefdinir. ? Discharged with cefdinir 300 mg twice daily for 7 more days for total of 10 days. #HFpEF exacerbation #Acute hypoxic respiratory failure ? Initially hypoxic requiring 2 L nasal cannula. BNP 2300. ? Improved with IV Lasix, transition back to Lasix 20 mg every 48 hours. Can give additional dose if signs of volume overload. #JACQUI on CKD ? Creatinine bumped to 3.40 admission in the setting of diuresis, improved to 3.2 on day of discharge. ? Follow-up repeat BMP in 5 days. Baseline creatinine around 2.2. #A-fib ? Continue home Coreg, Eliquis. #GERD ? Continue home PPI. # Anxiety/depression ? Continue home sertraline. #Type 2 diabetes ? Continue home sitagliptin, Farxiga, insulin regimen. Total time spent on discharge: 31 minutes on chart review, counseling, documentation, and direct care with patient. Exam Data for Last 24 hours Vital signs and Labs for Last 24 Hours: Temp Pulse Resp BP Pulse Ox O2 Del Method O2 Flow Rate 98.3 F 73 16 158/73 H 96 Nasal Cannula 2 10/14/24 08:00 10/14/24 08:00 10/14/24 08:00 10/14/24 08:00 10/14/24 08:00 10/14/24 11:00 10/14/24 11:00 Laboratory Results - last 24 hr 10/13/24 16:18: POC Glucose 181 H 10/13/24 17:09: Sodium 135 L, Potassium 4.0, Chloride 104, Carbon Dioxide 21 L, Anion Gap 14.0, BUN 56 H, Creatinine 3.30 H, Estimated Creat Clear 29, Estimated GFR 18 L*, Est GFR ( Amer) 22 L, Glucose 177 H D, Calcium 8.4 10/13/24 19:57: POC Glucose 239 H 10/14/24 05:55: POC Glucose 139 H 10/14/24 05:56: WBC 6.0 D, RBC 3.63 L, Hgb 9.5 L, Hct 31.8 L, MCV 87.6, MCH 26.2 L, MCHC 29.9 L, RDW 15.4, Plt Count 133 L, MPV 10.5 H, Neut % (Auto) 68.6, Lymph % (Auto) 15.9, [place] % (Auto) 12.5 H, Eos % (Auto) 2.3, Baso % (Auto) 0.2, Neut # (Auto) 4.1, Lymph # (Auto) 1.0, [place] # (Auto) 0.8, Eos # (Auto) 0.1, Baso # (Auto) 0.0, Sodium 137, Potassium 3.9, Chloride 104, Carbon Dioxide 23, Anion Gap 13.9, BUN 55 H, Creatinine 3.40 H, Estimated Creat Clear 29, Estimated GFR 18 L*, Est GFR ( Amer) 21 L, Glucose 137 H D, Calcium 8.6, Total Bilirubin 0.4, AST 30 D, ALT 19, Alkaline Phosphatase 215 H, Total Protein 7.1, Albumin 3.4 L, Globulin 3.7 H, Albumin/Globulin Ratio 0.9 L 10/14/24 08:53: POC Glucose 136 H 10/14/24 13:09: Sodium 138, Potassium 4.0, Chloride 105, Carbon Dioxide 23, Anion Gap 14.0, BUN 58 H, Creatinine 3.20 H, Estimated Creat Clear 30, Estimated GFR 19 L*, Est GFR ( Amer) 23 L, Glucose 183 H D, Calcium 8.6 I & O for Last 24 hours: Intake & Output 10/11/24 10/12/24 10/13/24 10/14/24 23:59 23:59 23:59 23:59 Intake Total 100 / 250 1190 / 1240 1270 / 1510 790 / 790 Output Total 800 / 1050 1000 / 1275 575 / 575 Balance 100 / 250 390 / 190 270 / 235 215 / 215 Weight 114.305 kg 114.305 kg 112.854 kg 112.845 kg Microbiology Reports for the Last 24 Hours: Microbiology 10/11/24 19:35 Blood Blood Culture - Final Escherichia coli 10/11/24 19:48 Blood Blood Culture - Final Escherichia coli 10/11/24 22:47 Urine,Clean Catch Urine Culture - Final Escherichia coli Constitutional Constitutional: no acute distress and obese Comments: Very hard of hearing. *Routine HEENT Exam Head: Present normocephalic Eye: Present EOMI and PERRL ENT: Present mucous membranes moist *Routine Neck Exam Neck: Present supple; Absent lymphadenopathy *Routine Respiratory Exam Respiratory: Present CTA bilaterally *Routine Cardiovascular Exam Cardiovascular: Present RRR *Routine Abdominal Exam Abdominal: Present soft and normoactive bowel sounds; Absent tenderness *Routine Extremities Exam Extremities: Absent cyanosis, clubbing or edema *Routine Skin Exam Skin: Present warm; Absent rash *Routine Neurological Exam Neurological: Present alert and oriented X3 Results Data Completed and Pending Labs on day of discharge: Labs from last 24 hours 10/14/24 10/14/24 10/14/24 13:09 08:53 05:56 WBC 6.0 D RBC 3.63 L Hgb 9.5 L Hct 31.8 L MCV 87.6 MCH 26.2 L MCHC 29.9 L RDW 15.4 Plt Count 133 L MPV 10.5 H Neut % (Auto) 68.6 Lymph % (Auto) 15.9 [place] % (Auto) 12.5 H Eos % (Auto) 2.3 Baso % (Auto) 0.2 Neut # (Auto) 4.1 Lymph # (Auto) 1.0 [place] # (Auto) 0.8 Eos # (Auto) 0.1 Baso # (Auto) 0.0 Sodium 138 137 Potassium 4.0 3.9 Chloride 105 104 Carbon Dioxide 23 23 Anion Gap 14.0 13.9 BUN 58 H 55 H Creatinine 3.20 H 3.40 H Estimated Creat Clear 30 29 Estimated GFR 19 L* 18 L* Est GFR ( Amer) 23 L 21 L Glucose 183 H D 137 H D POC Glucose 136 H Calcium 8.6 8.6 Total Bilirubin 0.4 AST 30 D ALT 19 Alkaline Phosphatase 215 H Total Protein 7.1 Albumin 3.4 L Globulin 3.7 H Albumin/Globulin Ratio 0.9 L 10/14/24 10/13/24 10/13/24 05:55 19:57 17:09 WBC RBC Hgb Hct MCV MCH MCHC RDW Plt Count MPV Neut % (Auto) Lymph % (Auto) [place] % (Auto) Eos % (Auto) Baso % (Auto) Neut # (Auto) Lymph # (Auto) [place] # (Auto) Eos # (Auto) Baso # (Auto) Sodium 135 L Potassium 4.0 Chloride 104 Carbon Dioxide 21 L Anion Gap 14.0 BUN 56 H Creatinine 3.30 H Estimated Creat Clear 29 Estimated GFR 18 L* Est GFR ( Amer) 22 L Glucose 177 H D POC Glucose 139 H 239 H Calcium 8.4 Total Bilirubin AST ALT Alkaline Phosphatase Total Protein Albumin Globulin Albumin/Globulin Ratio 10/13/24 16:18 WBC RBC Hgb Hct MCV MCH MCHC RDW Plt Count MPV Neut % (Auto) Lymph % (Auto) [place] % (Auto) Eos % (Auto) Baso % (Auto) Neut # (Auto) Lymph # (Auto) [place] # (Auto) Eos # (Auto) Baso # (Auto) Sodium Potassium Chloride Carbon Dioxide Anion Gap BUN Creatinine Estimated Creat Clear Estimated GFR Est GFR ( Amer) Glucose POC Glucose 181 H Calcium Total Bilirubin AST ALT Alkaline Phosphatase Total Protein Albumin Globulin Albumin/Globulin Ratio DS: Diagnosis Discharge Diagnosis (1) Acute hypoxic respiratory failure: Status: Acute Code(s): J96.01 - Acute respiratory failure with hypoxia (2) Chronic diastolic CHF (congestive heart failure): Status: Chronic Code(s): I50.32 - Chronic diastolic (congestive) heart failure (3) Elevated brain natriuretic peptide (BNP) level: Status: Acute Code(s): R79.89 - Other specified abnormal findings of blood chemistry (4) UTI (urinary tract infection): Status: Acute Code(s): N39.0 - Urinary tract infection, site not specified (5) Memyb-sr-pcbecds kidney injury: Status: Acute Code(s): N17.9 - Acute kidney failure, unspecified; N18.9 - Chronic kidney disease, unspecified (6) Fever: Status: Acute Code(s): R50.9 - Fever, unspecified (7) Loose stools: Status: Acute Code(s): R19.5 - Other fecal abnormalities (8) Tachycardia: Status: Acute Code(s): R00.0 - Tachycardia, unspecified (9) HTN (hypertension): Status: Acute Code(s): I10 - Essential (primary) hypertension Qualifiers: Hypertension type: primary hypertension Qualified Code(s): I10 - Essential (primary) hypertension (10) Diabetes mellitus with diabetic polyneuropathy: Status: Chronic Code(s): E11.42 - Type 2 diabetes mellitus with diabetic polyneuropathy Qualifiers: 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 Diabetes mellitus type: type 2 Qualified Code(s): E11.42 - Type 2 diabetes mellitus with diabetic polyneuropathy; Z79.4 - nursing home (current) use of insulin (11) Gram-negative bacteremia: Status: Acute Code(s): R78.81 - Bacteremia Meds Home Medications and Allergies Home Medications ?Medication ?Instructions ?Recorded ?Confirmed ?Type apixaban 2.5 mg tablet 2.5 mg PO BID 10/06/24 10/11/24 History carvedilol 12.5 mg tablet 12.5 mg PO BID 10/06/24 10/11/24 History dapagliflozin propanediol 10 mg 10 mg PO DAILY 10/06/24 10/11/24 History tablet (Farxiga) diclofenac sodium 1 % topical gel 2 g topical QID 10/06/24 10/11/24 History (Arthritis Pain (diclofenac)) ferrous sulfate 325 mg (65 mg 325 mg PO DAILY 10/06/24 10/11/24 History iron) tablet furosemide 20 mg tablet (Lasix) 20 mg PO Q48H 10/06/24 10/12/24 History insulin glargine 100 unit/mL (3 30 unit SQ BID 10/06/24 10/11/24 History mL) subcutaneous pen (Lantus Solostar U-100 Insulin) ketoconazole 2 % topical cream 1 applic topical HS 10/06/24 10/12/24 History mirabegron 25 mg tablet,extended 25 mg PO DAILY 10/06/24 10/11/24 History release 24 hr pantoprazole 40 mg tablet,delayed 40 mg PO BID 10/06/24 10/11/24 History release polyethylene glycol 3350 17 17 g PO DAILY 10/06/24 10/11/24 History gram/dose oral powder (Miralax) sertraline 25 mg tablet 25 mg PO DAILY 10/06/24 10/11/24 History sitagliptin phosphate 25 mg tablet 25 mg PO DAILY 10/06/24 10/11/24 History (Januvia) tetrahydrozoline 0.05 % eye drops 1 drp ophthalmic (eye) DAILY 10/06/24 10/12/24 History insulin aspart U-100 100 unit/mL 1 sliding scale dose SQ ACHS 10/11/24 10/11/24 History subcutaneous solution (Novolog U-100 Insulin aspart) loratadine 10 mg tablet 10 mg PO HS 10/11/24 10/12/24 History cefdinir 300 mg capsule 300 mg PO BID 7 days #14 caps 10/14/24 Rx New Prescriptions to Start Prescriptions: cefdinJan Cas[place]av Allergies Allergy/AdvReac Type Severity Reaction Status Date / Time ampicillin (From Unasyn) Allergy Severe S-SWELLS-OR Verified 03/20/23 13:59 AL/THROAT sulbactam (From Unasyn) Allergy Severe S-SWELLS-OR Verified 03/20/23 13:59 AL/THROAT nitrofurantoin (From Allergy Verified 10/06/24 15:15 Macrobid) Discharge Plan Disposition Patient Disposition: er Intermediate Care Fac Condition: Fair Discharge Order Discharge Orders: Discharge Order (Routine); Ordered 10/14/24 Ordered By: Jan Croft Follow up Plan Prescriptions/Medication Reconciliation: New cefdinir 300 mg capsule 300 mg PO BID 7 Days Qty: 14 0RF Continued carvedilol 12.5 mg tablet 12.5 mg PO BID Rx Instructions: must administer with a meal/food pantoprazole 40 mg tablet,delayed release (DR/EC) 40 mg PO BID diclofenac sodium [Arthritis Pain (diclofenac)] 1 % gel 2 g topical QID Rx Instructions: apply to single elbow, wrist or hand; for hand includes palm/fingers/back of hand tetrahydrozoline 0.05 % drops 1 drp ophthalmic (eye) DAILY furosemide [Lasix] 20 mg tablet 20 mg PO Q48H apixaban 2.5 mg tablet 2.5 mg PO BID dapagliflozin propanediol [Farxiga] 10 mg tablet 10 mg PO DAILY sertraline 25 mg tablet 25 mg PO DAILY polyethylene glycol 3350 [Miralax] 17 gram/dose powder 17 g PO DAILY Januvia 25 mg tablet 25 mg PO DAILY insulin glargine [Lantus Solostar U-100 Insulin] 100 unit/mL (3 mL) insulin pen 30 unit SQ BID mirabegron 25 mg tablet extended release 24 hr 25 mg PO DAILY ferrous sulfate 325 mg (65 mg iron) tablet 325 mg PO DAILY ketoconazole 2 % cream 1 applic topical HS insulin aspart U-100 [Novolog U-100 Insulin aspart] 100 unit/mL solution 1 sliding scale dose SQ ACHS loratadine 10 mg tablet 10 mg PO HS Problem Reconciliation Problems Reviewed?: Yes Patient Discharge Instructions Patient Instructions: DI for Heart Failure, DI for Urinary Tract Infection (UTI), DI for Respiratory Failure, Stop Light Heart Failure, Stop Light Infection Print Language: Nepali Providers Primary Care Provider: Provider,Referral Admit Provider: Ney Torres Attending Provider: Ney Torres
[2024-10-14 15:57] VITALS: BP 125/56; PULSE 71; RESP 18; TEMP 36.6; O2SAT 93
[2024-10-14 16:30] VITALS: BP 153/72; PULSE 71; RESP 16; TEMP 36.8; O2SAT 90
[2024-10-14] MEDS: humaLOG 100 UNITS/ML 10ML VIAL (SSI) SUBCUT ×2 (17:45→20:53)
[2024-10-14 17:53] LABS: POC Glucose,Bedside 186 gm/dL (70-110)
--- NOTE | 2024-10-14 17:53 | PC.NURSE ---
aox4, has tolerated room air well for most of the day. will desat to 88% on room air but rebounds with o2 administration. awaiting ems transport to SNF
[2024-10-14 20:00] VITALS: O2SAT 91
--- NOTE | 2024-10-14 21:05 | PC.NURSE ---
PT LEFT FLOOR WITH EMS AT THIS TIME
[2024-10-15 10:55] LABS: POC Glucose,Bedside 249 gm/dL (70-110)
[2024-10-16 09:09] LABS: POC Glucose,Bedside 220 gm/dL (70-110)
[2024-10-16 09:24] LABS: POC Glucose,Bedside 164 gm/dL (70-110)
== END 2024-10-14 21:05 | disposition short-term general hospital (02) | DRG 871 ==
LOC: ER 22:25 → 2ND 22:54
PROVIDERS: Nurse Practitioner; Nurse Practitioner Family; Student in an Organized Health Care Education/Training Program; Admitting Provider Internal Medicine Adolescent Medicine; Emergency Provider Student in an Organized Health Care Education/Training Program; Visit Provider Internal Medicine Adolescent Medicine
DX: A41.51 Sepsis due to Escherichia coli [E. coli] (principal); I50.33 Acute on chronic diastolic (congestive) heart failure; J96.01 Acute respiratory failure with hypoxia; N39.0 Urinary tract infection, site not specified; N17.9 Acute kidney failure, unspecified; I13.0 Hypertensive heart and chronic kidney disease with heart failure and stage 1 through stage 4 chronic kidney disease, or unspecified chronic kidney disease; R79.89 Other specified abnormal findings of blood chemistry; N18.9 Chronic kidney disease, unspecified; E11.22 Type 2 diabetes mellitus with diabetic chronic kidney disease; I48.91 Unspecified atrial fibrillation; E11.42 Type 2 diabetes mellitus with diabetic polyneuropathy; E66.9 Obesity, unspecified; K21.9 Gastro-esophageal reflux disease without esophagitis; F32.A Depression, unspecified; F41.9 Anxiety disorder, unspecified; R19.5 Other fecal abnormalities; Z79.4 Long term (current) use of insulin; Z66 Do not resuscitate; Z79.01 Long term (current) use of anticoagulants; Z79.84 Long term (current) use of oral hypoglycemic drugs; Z79.899 Other long term (current) drug therapy; Z88.1 Allergy status to other antibiotic agents; Z68.34 Body mass index [BMI] 34.0-34.9, adult
CPT/HCPCS: 0223U; 36415; 71275; 74177; 80048; 80053; 81001; 82550; 82962; 83605; 83735; 83880; 85007; 85025; 85610; 85651; 85730; 86140; 87040; 87077; 87086; 87088; 87154; 87186; 87389; 93005; 97162; 97166; 97530; 99285; J0131; J0692; J0696; J1939; J2405; J7120; Q9967

== ENCOUNTER 2024-10-19 08:08 | Outpatient (CLI) | payer MEDICARE, SELFPAY ==
[2024-10-19 08:14] LABS: Hematocrit 35.4 % (42.0-52.0); Hemoglobin 11.0 g/dL (14.1-18.0); Immature Granulocytes % 0.7 %; Mean Corpuscular HGB Conc 31.1 g/dL (31.8-35.4); Mean Corpuscular Hemoglobin 26.9 pg (27.0-31.2); Mean Corpuscular Volume 86.6 fl (80-94); Nucleated Red Blood Cells % 0 %; Platelet Count 219 K/mm3 (142-424); Red Blood Count 4.09 M/mm3 (4.60-6.20); Red Cell Distribution Width-SD 48.2 fL; White Blood Count 7.4 K/mm3 (4.8-10.8)
[2024-10-19 08:54] LABS: Alanine Aminotransferase 43 U/L (12-78); Albumin Level 3.5 g/dl (3.5-5.0); Albumin/Globulin Ratio 0.9 (1.1-1.8); Alkaline Phosphatase 256 U/L (38-126); Anion Gap 13.1 mEq/L (5-15); Aspartate Amino Transferase 41 U/L (17-59); Bilirubin,Total 0.4 mg/dl (0.2-1.3); Blood Urea Nitrogen 35 mg/dl (9-20); Calcium 9.1 mg/dl (8.4-10.2); Carbon Dioxide 24 mmol/L (22.0-30.0); Chloride 109 mmol/L (98-107); Creatinine,Serum 2.20 mg/dl (0.66-1.25); Estimated Glomerular Filt Rate 29 ml/min (>60); GFR (African American) 35 ML/MIN (>60); Globulin 3.9 g/dL (1.3-3.2); Glucose 136 mg/dl (74-100); Potassium 4.1 mmoL/L (3.5-5.1); Sodium 142 mmol/L (136-145); Total Protein,Serum 7.4 g/dl (6.3-8.2)
== END 2024-10-19 23:59 | disposition home or self-care (01) ==
PROVIDERS: PCP Family Medicine; Visit Provider Family Medicine
DX: A41.9 Sepsis, unspecified organism (principal); N18.9 Chronic kidney disease, unspecified
CPT/HCPCS: 36415; 80053; 85025

== ENCOUNTER 2024-11-23 17:59 | Outpatient (CLI) | payer MEDICARE, SELFPAY ==
[2024-11-23 18:28] LABS: Microscopic, Urine URINE MICROSCOPIC (MICROSCOPIC)
[2024-11-23 18:34] LABS: Bilirubin,Urine Negative (Negative); Color,Urine YELLOW (Yellow); Glucose,Urine (UA) 3+ (Negative); Ketones,Urine Negative (Negative); Leukocyte Esterase,Urine 1+ (Negative); PH,Urine 6.0 (5.0-8.5); Protein,Urine 1+ (Negative); Specific Gravity, Urine 1.015 (1.005-1.030); Urobilinogen,Urine 0.2 EU/dl (0.2)
[2024-11-23 19:35] LABS: Bacteria,Urine 4+ /lpf; RBC,Urine TNTC #/hpf (0-3); WBC,Urine TNTC #/hpf (0-3)
== END 2024-11-23 23:59 | disposition home or self-care (01) ==
LOC: LAB.DROPOF 18:00
PROVIDERS: PCP Family Medicine; Visit Provider Family Medicine
DX: N17.9 Acute kidney failure, unspecified (principal); N39.0 Urinary tract infection, site not specified; J96.20 Acute and chronic respiratory failure, unspecified whether with hypoxia or hypercapnia
CPT/HCPCS: 81001; 87086; 87088; 87186

== ENCOUNTER 2024-12-30 08:43 | Outpatient (CLI) | payer MEDICARE, SELFPAY ==
[2024-12-30 09:41] LABS: Anion Gap 13.8 mEq/L (5-15); Blood Urea Nitrogen 28 mg/dl (9-20); Calcium 8.7 mg/dl (8.4-10.2); Carbon Dioxide 25 mmol/L (22.0-30.0); Chloride 105 mmol/L (98-107); Creatinine,Serum 2.00 mg/dl (0.66-1.25); Estimated Glomerular Filt Rate 32 ml/min (>60); GFR (African American) 39 ML/MIN (>60); Glucose 104 mg/dl (74-100); Potassium 3.8 mmoL/L (3.5-5.1); Sodium 140 mmol/L (136-145)
== END 2024-12-30 23:59 | disposition home or self-care (01) ==
LOC: LAB.DROPOF 08:44
PROVIDERS: PCP Family Medicine; Visit Provider Family Medicine
DX: N18.9 Chronic kidney disease, unspecified (principal)
CPT/HCPCS: 36415; 80048

== ENCOUNTER 2025-02-08 08:25 | Outpatient (CLI) | payer MEDICARE, SELFPAY ==
[2025-02-08 08:31] LABS: Coronavirus 19, PCR Not Detected (NotDetected); Influenza A, PCR Not Detected (NotDetected); Influenza B, PCR Not Detected (NotDetected)
== END 2025-02-08 23:59 | disposition home or self-care (01) ==
LOC: LAB.DROPOF 08:25
PROVIDERS: PCP Family Medicine; Visit Provider Family Medicine
DX: R05.1 Acute cough (principal)
CPT/HCPCS: 87636